=== PATIENT | female | born 1965 | race Caucasian/White ===

== ENCOUNTER 2020-09-18 13:59 | Outpatient (REF) | payer MEDICARE, OTHER, SELFPAY ==
[2020-09-18 16:40] LABS: MANUAL DIFF FLAG NO
[2020-09-18 16:45] LABS: Basophils Percent Auto 0.5 % (0-2); Eosinophils Absolute Auto 0.2 X10*3/uL (0.0-0.4); Eosinophils Percent Auto 2.7 % (0-4); Hematocrit 35.3 % (37-47); Hemoglobin 12.3 g/dl (12.0-16.0); Imm Gran Abs Auto 0.09 X10*3/uL (0.00-0.03); Imm Gran Pct Auto 1.6 % (0.0-0.4); Lymphocytes Absolute Auto 2.5 X10*3/uL (1.2-4.9); Lymphocytes Percent Auto 44.4 % (20-40); Mean Corpuscular HGB Conc 34.8 g/dl (31.0-35.0); Mean Corpuscular Hemoglobin 39.3 pg (27.0-33.0); Mean Platelet Volume 10.6 fL (9.4-12.3); Monocytes Absolute Auto 0.3 X10*3/uL (0.1-1.2); NRBC Pct Auto 0.7 /100WBC (0.0-0.2); Neutrophils Absolute Auto 2.5 X10*3/uL (2.0-8.3); Neutrophils Percent Auto 45.8 % (45-73); Platelet Count 168 X10*3/uL (160-400); Red Blood Count 3.13 X10*6/uL (4.20-5.50); Red Cell Distribution Width 15.1 % (11.0-16.0); White Blood Count 5.6 X10*3/uL (4.8-10.8)
[2020-09-18 16:53] LABS: Mean Corpuscular Volume 112.8 fL (80-98)
[2020-09-18 17:10] LABS: Alanine Aminotransferase 15 U/L (0-31); Albumin Level 4.2 g/dL (3.5-5.0); Alkaline Phosphatase 62 U/L (39-117); Aspartate Amino Transferase 16 U/L (5-31); Bilirubin Direct 0.3 mg/dL (0.0-0.5); Bilirubin Total 0.8 mg/dL (0.0-1.0); Total Protein 6.7 g/dL (6.5-8.0)
== END 2020-09-18 14:00 | disposition home or self-care (01) ==
LOC: HO.HMGCLDS 13:59
PROVIDERS: PCP Internal Medicine; Visit Provider Internal Medicine
DX: K50.113 Crohn's disease of large intestine with fistula (principal)
CPT/HCPCS: 36415; 80076; 85025

== ENCOUNTER 2020-09-21 13:08 | Outpatient (REF) | payer MEDICARE, OTHER, SELFPAY ==
--- NOTE | 2020-09-21 13:11 | MM_ITS ---
EXAMINATION: MM SCREENING DIGITAL BREAST TOMOSYNTHESIS, BILATERAL CLINICAL INFORMATION: Screening. Asymptomatic. The lifetime risk of breast cancer based on the Tyrer-Cuzick Model is 11%. COMPARISON: Mammography: 09/16/2019, 09/15/2018, 03/18/2018, 06/01/2017 TECHNIQUE: Digital breast tomosynthesis is performed in both the craniocaudal and mediolateral oblique views along with computer-aided detection (CAD). Synthesized 2D images are generated from the tomosynthesis. FINDINGS: There are scattered areas of fibroglandular density (ACR BI-RADS breast composition Category b). There are no significant masses, abnormal calcifications, or other abnormalities. Parenchymal pattern is similar to prior studies. The small circumscribed nodule central right breast is stable. Nodular densities posterior outer right breast on CC view also stable. The axilla and skin contours are unremarkable. MM/MM tomosynthesis screening BI IMPRESSION: No significant changes from prior studies. ASSESSMENT: BI-RADS 2: Benign RECOMMENDATION: Routine annual mammography screening. This patient's information was entered into a reminder system with a target due date for their next mammogram.
== END 2020-09-21 13:09 | disposition home or self-care (01) ==
LOC: HO.MAMMO 13:08
PROVIDERS: PCP Internal Medicine; Visit Provider Internal Medicine
DX: Z12.31 Encounter for screening mammogram for malignant neoplasm of breast (principal)
CPT/HCPCS: 77063; 77067

== ENCOUNTER 2020-09-27 11:48 | Outpatient (REF) | payer MEDICARE, OTHER, SELFPAY ==
[2020-09-27 14:29] LABS: Anion Gap 14 (12-20); Carbon Dioxide 25 mmol/L (22-29); Chloride 105 mmol/L (96-108); Potassium 4.3 mmol/l (3.3-5.1); Sodium 140 mmol/L (135-145)
== END 2020-09-27 11:49 | disposition home or self-care (01) ==
LOC: HO.HMGCLDS 11:48
PROVIDERS: PCP Internal Medicine; Visit Provider Internal Medicine
DX: E87.6 Hypokalemia (principal)
CPT/HCPCS: 80051

== ENCOUNTER 2021-01-16 13:49 | Outpatient (REF) | payer MEDICARE, OTHER, SELFPAY ==
[2021-01-16 16:29] LABS: MANUAL DIFF FLAG NO
[2021-01-16 16:35] LABS: Basophils Absolute Auto 0.1 X10*3/uL (0.0-0.2); Basophils Percent Auto 0.8 % (0-2); Eosinophils Absolute Auto 0.1 X10*3/uL (0.0-0.4); Eosinophils Percent Auto 2.2 % (0-4); Hematocrit 36.2 % (37-47); Hemoglobin 12.9 g/dl (12.0-16.0); Imm Gran Abs Auto 0.07 X10*3/uL (0.00-0.03); Imm Gran Pct Auto 1.1 % (0.0-0.4); Lymphocytes Absolute Auto 2.5 X10*3/uL (1.2-4.9); Lymphocytes Percent Auto 39.8 % (20-40); Mean Corpuscular HGB Conc 35.6 g/dl (31.0-35.0); Mean Corpuscular Hemoglobin 40.1 pg (27.0-33.0); Mean Platelet Volume 10.6 fL (9.4-12.3); Monocytes Absolute Auto 0.4 X10*3/uL (0.1-1.2); Monocytes Percent Auto 5.9 % (2-11); NRBC Pct Auto 0.3 /100WBC (0.0-0.2); Neutrophils Absolute Auto 3.1 X10*3/uL (2.0-8.3); Neutrophils Percent Auto 50.2 % (45-73); Platelet Count 171 X10*3/uL (160-400); Red Blood Count 3.22 X10*6/uL (4.20-5.50); Red Cell Distribution Width 15.3 % (11.0-16.0); White Blood Count 6.3 X10*3/uL (4.8-10.8)
[2021-01-16 16:44] LABS: Estimated Average Glucose 97 mg/dL
[2021-01-16 16:56] LABS: Alanine Aminotransferase 20 U/L (0-31); Albumin Level 4.1 g/dL (3.5-5.0); Alkaline Phosphatase 63 U/L (39-117); Aspartate Amino Transferase 19 U/L (5-31); Bilirubin Direct 0.3 mg/dL (0.0-0.5); Bilirubin Total 0.8 mg/dL (0.0-1.0); Total Protein 6.7 g/dL (6.5-8.0)
[2021-01-16 17:01] LABS: Mean Corpuscular Volume 112.4 fL (80-98)
== END 2021-01-16 13:50 | disposition home or self-care (01) ==
LOC: HO.HMGCLR 13:49
PROVIDERS: PCP Internal Medicine; Visit Provider Internal Medicine
DX: E11.9 Type 2 diabetes mellitus without complications (principal); K50.113 Crohn's disease of large intestine with fistula
CPT/HCPCS: 36415; 80076; 83036; 85025

== ENCOUNTER 2021-04-23 14:59 | Outpatient (REF) | payer MEDICARE, OTHER, SELFPAY ==
[2021-04-23 16:42] LABS: Basophils Absolute Auto 0.1 X10*3/uL (0.0-0.2); Basophils Percent Auto 0.6 % (0-2); Eosinophils Absolute Auto 0.2 X10*3/uL (0.0-0.4); Eosinophils Percent Auto 2.7 % (0-4); Hematocrit 36.9 % (37-47); Hemoglobin 13.2 g/dl (12.0-16.0); Imm Gran Abs Auto 0.16 X10*3/uL (0.00-0.03); Imm Gran Pct Auto 2.1 % (0.0-0.4); Lymphocytes Absolute Auto 2.5 X10*3/uL (1.2-4.9); Lymphocytes Percent Auto 32.3 % (20-40); Mean Corpuscular HGB Conc 35.8 g/dl (31.0-35.0); Mean Corpuscular Hemoglobin 39.9 pg (27.0-33.0); Mean Platelet Volume 10.2 fL (9.4-12.3); Monocytes Absolute Auto 0.4 X10*3/uL (0.1-1.2); Monocytes Percent Auto 4.7 % (2-11); NRBC Pct Auto 0.4 /100WBC (0.0-0.2); Neutrophils Absolute Auto 4.5 X10*3/uL (2.0-8.3); Neutrophils Percent Auto 57.6 % (45-73); Platelet Count 179 X10*3/uL (160-400); Red Blood Count 3.31 X10*6/uL (4.20-5.50); Red Cell Distribution Width 14.5 % (11.0-16.0); White Blood Count 7.7 X10*3/uL (4.8-10.8)
[2021-04-23 16:43] LABS: Mean Corpuscular Volume 111.5 fL (80-98)
[2021-04-23 16:45] LABS: MANUAL DIFF FLAG SCAN
[2021-04-23 16:48] LABS: Estimated Average Glucose 105 mg/dL; Hemoglobin A1c % 5.3 %
[2021-04-23 17:19] LABS: Alanine Aminotransferase 18 U/L (0-31); Albumin Level 4.1 g/dL (3.5-5.0); Alkaline Phosphatase 67 U/L (39-117); Aspartate Amino Transferase 17 U/L (5-31); Bilirubin Direct 0.3 mg/dL (0.0-0.5); Bilirubin Total 0.8 mg/dL (0.0-1.0); Total Protein 6.5 g/dL (6.5-8.0)
[2021-04-23 17:26] LABS: SLIDE REVIEW VERIFIED
== END 2021-04-23 15:00 | disposition home or self-care (01) ==
LOC: HO.HMGCLDS 14:59
PROVIDERS: PCP Internal Medicine; Visit Provider Internal Medicine
DX: K50.113 Crohn's disease of large intestine with fistula (principal); E11.9 Type 2 diabetes mellitus without complications; Z79.4 Long term (current) use of insulin
CPT/HCPCS: 36415; 80076; 83036; 85025

== ENCOUNTER 2021-07-24 12:28 | Outpatient (REF) | payer MEDICARE, OTHER, SELFPAY ==
[2021-07-24 14:04] LABS: MANUAL DIFF FLAG NO
[2021-07-24 14:11] LABS: Basophils Percent Auto 0.5 % (0-2); Eosinophils Absolute Auto 0.2 X10*3/uL (0.0-0.4); Hematocrit 35.3 % (37-47); Hemoglobin 12.5 g/dl (12.0-16.0); Imm Gran Abs Auto 0.12 X10*3/uL (0.00-0.03); Lymphocytes Absolute Auto 2.2 X10*3/uL (1.2-4.9); Lymphocytes Percent Auto 36.2 % (20-40); Mean Corpuscular HGB Conc 35.4 g/dl (31.0-35.0); Mean Corpuscular Hemoglobin 38.9 pg (27.0-33.0); Mean Platelet Volume 10.6 fL (9.4-12.3); Monocytes Absolute Auto 0.3 X10*3/uL (0.1-1.2); Monocytes Percent Auto 5.7 % (2-11); Neutrophils Absolute Auto 3.2 X10*3/uL (2.0-8.3); Neutrophils Percent Auto 52.6 % (45-73); Platelet Count 146 X10*3/uL (160-400); Red Blood Count 3.21 X10*6/uL (4.20-5.50)
[2021-07-24 14:22] LABS: Alanine Aminotransferase 21 U/L (0-31); Albumin Level 3.9 g/dL (3.5-5.0); Alkaline Phosphatase 57 U/L (39-117); Aspartate Amino Transferase 18 U/L (5-31); Bilirubin Direct 0.2 mg/dL (0.0-0.5); Bilirubin Total 0.7 mg/dL (0.0-1.0); Total Protein 6.2 g/dL (6.5-8.0)
[2021-07-24 14:25] LABS: Estimated Average Glucose 111 mg/dL; Hemoglobin A1c % 5.5 %
== END 2021-07-24 12:29 | disposition home or self-care (01) ==
LOC: HO.HMGCLDS 12:28
PROVIDERS: Internal Medicine; PCP Internal Medicine; Visit Provider Internal Medicine
DX: E11.9 Type 2 diabetes mellitus without complications (principal); K50.113 Crohn's disease of large intestine with fistula; Z79.4 Long term (current) use of insulin
CPT/HCPCS: 36415; 80076; 83036; 85025

== ENCOUNTER 2021-08-28 08:31 | Day surgery (SDC) | payer MEDICARE, OTHER, SELFPAY ==
[2021-08-23 14:26] VITALS: BMI 48.4
--- NOTE | 2021-08-27 08:57 | HO.ANESPROP2 ---
Documented by User: Marisela Pastor NP 08/27/21 08:58 HPI - Anesthesia Eval Consult details Narrative: 56yo F for Upper Endoscopy with Balloon Dilation and Colonoscopy PMFSH Past Medical History Medical History (Updated 08/28/21 @ 10:53 by Yuliya Ashley MD) Anemia Anxiety Asthma Bipolar 1 disorder COPD (chronic obstructive pulmonary disease) Crohn's disease Depression Diabetes Elevated cholesterol GERD (gastroesophageal reflux disease) Gout History of macrocytosis HTN (hypertension) Hx of abdominal abscess Surgical History Surgical History Hx of colonoscopy Hx of tonsillectomy Social History Social History Patient Tobacco Use Status: Former Tobacco user Quit Date: 2008 Are you DNR?: No Advance Directives: Yes Advance Directives Information Provided: Yes (info mailed) Advance Directives on File: Yes Advance Directives Date on File: 08/28/21 Meds Allergies Allergy/AdvReac Type Severity Reaction Status Date / Time amoxicillin [AMOXICILLIN] Allergy Intermediate BLOODY Verified 08/23/21 13:54 DIARRHEA clavulanic acid AdvReac Intermediate DIARRHEA Verified 08/23/21 13:54 [From AUGMENTIN] Pt states no food allergies Allergy Unknown Unknown Uncoded 08/23/21 13:54 Home Medications Medication Instructions Recorded Confirmed Last Taken Type albuterol sulfate 90 mcg/actuation 2 puff INHALATION Q4-6H PRN 08/23/21 08/23/21 Unknown History aerosol inhaler (ProAir HFA) allopurinol 300 mg tablet 1 tab PO DAILY 08/23/21 08/23/21 Unknown History azathioprine 50 mg tablet 1.5 tab PO DAILY 08/23/21 08/23/21 Unknown History ferrous sulfate 325 mg (65 mg 1 tab PO BID 08/23/21 08/23/21 Unknown History iron) tablet (FeroSul) fluconazole 150 mg tablet 1 tab PO DAILY 08/23/21 08/23/21 Unknown History fluticasone 250 mcg-salmeterol 50 1 puff INHALATION BID 08/23/21 08/23/21 Unknown History mcg/dose blistr powdr for inhalation (Advair Diskus) haloperidol 10 mg tablet 1 tab PO BEDTIME 08/23/21 08/23/21 Unknown History insulin glargine 100 unit/mL 54 unit SUBCUT BEDTIME 08/23/21 08/23/21 Unknown History subcutaneous solution (Lantus U-100 Insulin) insulin lispro 100 unit/mL SUBCUT QID 08/23/21 Unknown History subcutaneous solution (Humalog U-100 Insulin) lamotrigine 100 mg tablet 1 tab PO BEDTIME 08/23/21 08/23/21 Unknown History lorazepam 1 mg tablet mg PO 08/23/21 Unknown History losartan 25 mg tablet 1 tab PO BEDTIME 08/23/21 08/23/21 Unknown History mesalamine 0.375 gram 4 cap PO DAILY 08/23/21 08/23/21 Unknown History capsule,extended release 24 hr (Apriso) metoprolol succinate 25 mg 1 tab PO DAILY 08/23/21 08/23/21 08/28/21 History tablet,extended release 24 hr omeprazole 20 mg capsule,delayed 20 mg PO BEDTIME 08/23/21 08/23/21 Unknown History release simvastatin 20 mg tablet 1 tab PO DAILY 08/23/21 08/23/21 Unknown History trazodone 150 mg tablet 1 tab PO BEDTIME 08/23/21 08/23/21 Unknown History Exam Exam Date and Time: August 27, 2021 0857 Height,Weight and Vital Signs: Height 5 ft 2 in Weight 120.202 kg Assessment and Plan Assessment Anesthesia Assessment: Chart Reviewed Documented by User: Yuliya Ashley MD 08/28/21 10:58 [facility] Active Problems Active Problems: Morbid obesity. Tested negative for GHASSAN Past Medical History Medical History (Updated 08/28/21 @ 10:53 by Yuliya Ashley MD) Anemia Anxiety Asthma Bipolar 1 disorder COPD (chronic obstructive pulmonary disease) Crohn's disease Depression Diabetes Elevated cholesterol GERD (gastroesophageal reflux disease) Gout History of macrocytosis HTN (hypertension) Hx of abdominal abscess Family History Family history of problems with anesthesia: No Surgical History Surgical History Hx of colonoscopy Hx of tonsillectomy History of Problems with Anesthesia: No Social History Social History Patient Tobacco Use Status: Former Tobacco user Quit Date: 2008 Are you DNR?: No Advance Directives: Yes Advance Directives Information Provided: Yes (info mailed) Advance Directives on File: Yes Advance Directives Date on File: 08/28/21 Meds Allergies Allergy/AdvReac Type Severity Reaction Status Date / Time amoxicillin [AMOXICILLIN] Allergy Intermediate BLOODY Verified 08/23/21 13:54 DIARRHEA clavulanic acid AdvReac Intermediate DIARRHEA Verified 08/23/21 13:54 [From AUGMENTIN] Pt states no food allergies Allergy Unknown Unknown Uncoded 08/23/21 13:54 Home Medications Medication Instructions Recorded Confirmed Last Taken Type albuterol sulfate 90 mcg/actuation 2 puff INHALATION Q4-6H PRN 08/23/21 08/23/21 Unknown History aerosol inhaler (ProAir HFA) allopurinol 300 mg tablet 1 tab PO DAILY 08/23/21 08/23/21 Unknown History azathioprine 50 mg tablet 1.5 tab PO DAILY 08/23/21 08/23/21 Unknown History ferrous sulfate 325 mg (65 mg 1 tab PO BID 08/23/21 08/23/21 Unknown History iron) tablet (FeroSul) fluconazole 150 mg tablet 1 tab PO DAILY 08/23/21 08/23/21 Unknown History fluticasone 250 mcg-salmeterol 50 1 puff INHALATION BID 08/23/21 08/23/21 Unknown History mcg/dose blistr powdr for inhalation (Advair Diskus) haloperidol 10 mg tablet 1 tab PO BEDTIME 08/23/21 08/23/21 Unknown History insulin glargine 100 unit/mL 54 unit SUBCUT BEDTIME 08/23/21 08/23/21 Unknown History subcutaneous solution (Lantus U-100 Insulin) insulin lispro 100 unit/mL SUBCUT QID 08/23/21 Unknown History subcutaneous solution (Humalog U-100 Insulin) lamotrigine 100 mg tablet 1 tab PO BEDTIME 08/23/21 08/23/21 Unknown History lorazepam 1 mg tablet mg PO 08/23/21 Unknown History losartan 25 mg tablet 1 tab PO BEDTIME 08/23/21 08/23/21 Unknown History mesalamine 0.375 gram 4 cap PO DAILY 08/23/21 08/23/21 Unknown History capsule,extended release 24 hr (Apriso) metoprolol succinate 25 mg 1 tab PO DAILY 08/23/21 08/23/21 08/28/21 History tablet,extended release 24 hr omeprazole 20 mg capsule,delayed 20 mg PO BEDTIME 08/23/21 08/23/21 Unknown History release simvastatin 20 mg tablet 1 tab PO DAILY 08/23/21 08/23/21 Unknown History trazodone 150 mg tablet 1 tab PO BEDTIME 08/23/21 08/23/21 Unknown History Exam Height,Weight and Vital Signs: Height 5 ft 2 in Weight 120.202 kg Vital Signs Temp Pulse Resp BP Pulse Ox 08/28/21 08:56 98 F 81 18 147/83 H 97 Pertinent Lab Results Pertinent Lab Results: Lab Results 08/28/21 Range/Units 09:02 POC Glucose 163 H (60-115) mg/dL Airway Mallampati Class: III TM Dist: >3cm Neck ROM: Full Loose/Missing/Broken Teeth: Yes (Extracted) Heart: RRR Lungs: CTAB Assessment and Plan Assessment Anesthesia Assessment: Anesthesia Plan Discussed Final Anesthetic Review Family History of Problems with Anesthesia: No History of Problems with Anesthesia: No NPO: Yes ASA Class: III Final Preanesthetic Review: No Changes in Pt Med Stat, Meds/Allgs Chart Reviewed, Consent Obtained/Reviewed and Anes Risks/Benef Reviewed Patient Risk: Intermediate Procedure Risk: Low Assessment/Block/Sedation in SS: Assess/Block/Sedation-SS Anesthetic Plan Anesthetic Plan: MAC: Disposition: Standard PACU
[2021-08-28 08:56] VITALS: BP 147/83; PULSE 81; RESP 18; TEMP 36.6; O2SAT 97
[2021-08-28 09:06] LABS: Glucose, Whole Blood 163 mg/dL (60-115)
[2021-08-28] MEDS: Lactated Ringers 1,000 ML 100 ML IVCONT (09:20)
[2021-08-28 11:18] VITALS: BP 123/74; PULSE 88; RESP 16; TEMP 36.2; O2SAT 95
--- NOTE | 2021-08-28 11:23 | PM.OP ---
Brief Operative Note Date of Service: 08/28/21 Pre-op diagnosis: Dysphagia, Crohn's colitis Post-op diagnosis: other (Hiatal hernia, Colon pseudopolyps) Procedure: EGD with biopsy and Balloon dilation, Colonoscopy to cecum with biopsies Surgeon: Jose Juan Hare Anesthesia: MAC Was an Coiled Tubing Operator used for this Procedure?: No Estimated blood loss (mL): 5.0 Pathology: other (A. Esophagus at 25cm B. Cecal polyps C. Asc. colon D. Transverse colon E. Desc. colon F. Sigmoid colon G. Rectal polyps H. Rectum) Condition: stable Disposition: PACU
[2021-08-28 11:33] VITALS: BP 120/74; PULSE 88; RESP 20; TEMP 36.2; O2SAT 99
--- NOTE | 2021-08-28 19:12 | OP_ITS ---
SURGEON: Jose Juan Hare MD INDICATIONS: The patient presents for evaluation of gastroesophageal reflux, dysphagia, and history of Crohn's colitis. Full consent has been obtained from her for both procedures, including risks of bleeding and perforation. PREOPERATIVE DIAGNOSIS: POSTOPERATIVE DIAGNOSIS: PROCEDURE PERFORMED: Esophagogastroduodenoscopy with balloon dilation of gastroesophageal junction and biopsies, and colonoscopy to the cecum with biopsies. ESTIMATED BLOOD LOSS: COMPLICATIONS: ANESTHESIA: Monitored anesthesia care. ASSISTANTS: SPECIMENS: PREOPERATIVE DIAGNOSES: Gastroesophageal reflux, dysphagia, history of Crohn's colitis. POSTOPERATIVE DIAGNOSES: Gastroesophageal reflux, dysphagia, history of Crohn's colitis, small hiatal hernia, rule out eosinophilic esophagitis, colon pseudopolyps, rule out dysplasia. DESCRIPTION OF PROCEDURE: The patient was placed in the left lateral decubitus position. The Olympus video gastroscope was passed in the posterior oropharynx and upper esophagus under direct vision. The scope was passed slowly into the distal esophagus. The gastroesophageal junction appeared at 36 cm. There was no sign of any esophagitis, stricture, nor Naqvi's esophagus. The scope easily entered the stomach. There was a small hiatal hernia. The scope was advanced to pylorus and duodenum was cannulated to the descending portion. The duodenum including the bulb appeared normal without mass or ulceration. The scope was withdrawn back into the stomach. The gastric antrum and body appeared normal with good peristalsis. The scope was retroflexed visualizing the proximal stomach carefully, which appeared normal, without any sign of mass or ulceration. Scope was straightened out and withdrawn back into the esophagus. Given her symptomatology, I did use a [employer] incremental balloon to dilate the gastroesophageal junction from 18 mm to 19 mm at the recommended pressure for between 30 and 60 seconds each. Post dilation, there was really no appreciable change nor heme noted. The scope was withdrawn through the remainder of the esophagus which appeared normal. There were no proximal esophageal rings, strictures, nor webs. Biopsies were obtained at 25 cm. The scope was withdrawn from the patient. She was turned around for colonoscopy. The digital rectal exam revealed evidence of some scarring from previous perianal disease, but no sign of any active disease. The [employer] video pediatric colonoscope was entered into the rectum and advanced easily to the cecum. Once in the cecum, I did identify ileocecal valve, which appeared normal. In the cecal pouch, were multiple what appeared to be pseudopolyps. Several of these were biopsied. The remainder of the cecal mucosa appeared normal. The scope was then slowly withdrawn assessing all mucosal surfaces carefully. Preparation was excellent. I did not visualize any sign of active colitis nor angiodysplasia. I did obtain random biopsies in the ascending colon, transverse colon, descending colon, sigmoid colon, and rectum. Also in the rectum, were multiple appearing colonic pseudopolyps, several of which were biopsied. The scope was retroflexed visualizing some internal hemorrhoids, but no other pathology. The scope was straightened out and withdrawn from the patient. She tolerated both procedures well and was returned to recovery area in stable condition. IMPRESSION: 1. Colonic and rectal pseudopolyps, status post biopsy. 2. Rule out dysplasia. 3. Small hiatal hernia. 4. Status post balloon dilation of gastroesophageal junction. 5. Rule out eosinophilic esophagitis. PLAN: The results of the biopsies will be checked. She will continue her current medical regimen for the Crohn disease, which has been keeping things in symptomatic control for her. She was advised to stay off all aspirin and NSAIDs long-term. She will continue her current PPI regimen and see me in 2 to 3 months for a followup visit. I would recommend a repeat colonoscopy in 5 years. MD ALMA Kasper/ROSALINA / [phone]
== END 2021-08-28 12:25 | disposition home or self-care (01) ==
PROVIDERS: PCP Internal Medicine; Visit Provider Internal Medicine
PROC: (CPT 45380; principal; 2021-08-28 09:50)
DX: K50.10 Crohn's disease of large intestine without complications (principal); K63.5 Polyp of colon; K62.1 Rectal polyp; K62.89 Other specified diseases of anus and rectum; K64.8 Other hemorrhoids; R13.19 Other dysphagia; K20.90 Esophagitis, unspecified without bleeding; K21.9 Gastro-esophageal reflux disease without esophagitis; D64.9 Anemia, unspecified; I10 Essential (primary) hypertension; K44.9 Diaphragmatic hernia without obstruction or gangrene; J44.9 Chronic obstructive pulmonary disease, unspecified; E11.9 Type 2 diabetes mellitus without complications; Z79.4 Long term (current) use of insulin; Z79.51 Long term (current) use of inhaled steroids; Z79.899 Other long term (current) drug therapy; Z87.891 Personal history of nicotine dependence
CPT/HCPCS: 45380; 43249; 43239; 82947; 88305; C1726; J3010

== ENCOUNTER 2021-09-12 10:33 | Outpatient (REF) | payer MEDICARE, OTHER, SELFPAY ==
--- NOTE | ~2021-09-12 | FL_ITS ---
EXAMINATION: FL BARIUM SWALLOW CLINICAL INFORMATION: Esophageal dysphagia. COMPARISON: None TECHNIQUE: Barium swallow examination is performed using fluoroscopic evaluation in addition to multiple fluoroscopic spot views. The patient is imaged both upright and prone and using both thick and thin sulfate along with effervescent granules. Fluoroscopy time: 1.1 minutes DAP: 11.29 Gycm2 Images: 44 FINDINGS: Following oral administration of thick barium and barium-coated turkey there is normal propagation of bolus from the oral cavity through the pharynx, esophagus into stomach without obstruction, narrowing or stricture. There is mild ventral spondylosis C5-C6 disc level indenting posterior cervical esophageal wall. There is no intraluminal filling defect or extrinsic compression. On oral administration of barium tablet there is normal passage seen through the oral cavity, pharynx, esophagus and into the GE junction. After drinking half a glass of water of the tablet cleared through the GE junction into the stomach. FL/FL barium swallow IMPRESSION: Transient holdup of barium tablet at the GE junction which cleared with loss of water. Otherwise unremarkable barium swallow exam. There is mild ventral C5-C6 cervical spondylosis indenting posterior cervical esophageal wall during swallowing but no obstruction seen.
== END 2021-09-12 10:34 | disposition home or self-care (01) ==
LOC: HO.XRAY 10:33
PROVIDERS: PCP Internal Medicine; Visit Provider Internal Medicine
DX: R13.19 Other dysphagia (principal)
CPT/HCPCS: 74220

== ENCOUNTER 2021-10-23 11:29 | Outpatient (REF) | payer MEDICARE, OTHER, SELFPAY ==
[2021-10-23 14:06] LABS: MANUAL DIFF FLAG NO
[2021-10-23 14:09] LABS: Basophils Percent Auto 0.6 % (0-2); Eosinophils Absolute Auto 0.1 X10*3/uL (0.0-0.4); Eosinophils Percent Auto 1.8 % (0-4); Hemoglobin 13.1 g/dl (12.0-16.0); Imm Gran Abs Auto 0.09 X10*3/uL (0.00-0.03); Imm Gran Pct Auto 1.8 % (0.0-0.4); Lymphocytes Absolute Auto 2.1 X10*3/uL (1.2-4.9); Lymphocytes Percent Auto 41.6 % (20-40); Mean Corpuscular HGB Conc 35.4 g/dl (31.0-35.0); Mean Corpuscular Hemoglobin 40.1 pg (27.0-33.0); Mean Platelet Volume 10.3 fL (9.4-12.3); Monocytes Absolute Auto 0.4 X10*3/uL (0.1-1.2); Monocytes Percent Auto 7.3 % (2-11); NRBC Pct Auto 0.6 /100WBC (0.0-0.2); Neutrophils Absolute Auto 2.3 x10*3/uL (2.0-8.3); Neutrophils Percent Auto 46.9 % (45-73); Platelet Count 163 X10*3/uL (160-400); Red Blood Count 3.27 X10*6/uL (4.20-5.50); Red Cell Distribution Width 15.8 % (11.0-16.0); White Blood Count 4.9 X10*3/uL (4.8-10.8)
[2021-10-23 14:10] LABS: Mean Corpuscular Volume 113.1 fL (80.0-98.0)
[2021-10-23 14:20] LABS: Estimated Average Glucose 108 mg/dL; Hemoglobin A1c % 5.4 %
[2021-10-23 14:37] LABS: Alanine Aminotransferase 19 U/L (0-31); Alkaline Phosphatase 51 U/L (39-117); Aspartate Amino Transferase 15 U/L (5-31); Bilirubin Direct 0.3 mg/dL (0.0-0.5); Bilirubin Total 0.7 mg/dL (0.0-1.0); Total Protein 6.4 g/dL (6.5-8.0)
== END 2021-10-23 11:30 | disposition home or self-care (01) ==
LOC: HO.HMGCLR 11:29
PROVIDERS: Absent Provider Internal Medicine; PCP Internal Medicine; Visit Provider Internal Medicine
DX: K50.113 Crohn's disease of large intestine with fistula (principal)
CPT/HCPCS: 36415; 80076; 83036; 85025

== ENCOUNTER 2021-11-04 11:37 | Outpatient (REF) | payer MEDICARE, OTHER, SELFPAY ==
[2021-11-04 13:39] LABS: MANUAL DIFF FLAG NO
[2021-11-04 13:45] LABS: Basophils Percent Auto 0.5 % (0-2); Eosinophils Absolute Auto 0.1 X10*3/uL (0.0-0.4); Eosinophils Percent Auto 1.1 % (0-4); Hematocrit 37.8 % (37.0-47.0); Hemoglobin 13.4 g/dl (12.0-16.0); Imm Gran Abs Auto 0.09 X10*3/uL (0.00-0.03); Imm Gran Pct Auto 1.6 % (0.0-0.4); Lymphocytes Absolute Auto 2.2 X10*3/uL (1.2-4.9); Lymphocytes Percent Auto 39.2 % (20-40); Mean Corpuscular HGB Conc 35.4 g/dl (31.0-35.0); Mean Corpuscular Hemoglobin 40.1 pg (27.0-33.0); Mean Platelet Volume 10.4 fL (9.4-12.3); Monocytes Absolute Auto 0.4 X10*3/uL (0.1-1.2); Monocytes Percent Auto 6.6 % (2-11); Neutrophils Absolute Auto 2.9 x10*3/uL (2.0-8.3); Platelet Count 146 X10*3/uL (160-400); Red Blood Count 3.34 X10*6/uL (4.20-5.50); Red Cell Distribution Width 15.2 % (11.0-16.0); White Blood Count 5.6 X10*3/uL (4.8-10.8)
[2021-11-04 13:49] LABS: Mean Corpuscular Volume 113.2 fL (80.0-98.0)
[2021-11-04 14:08] LABS: Anion Gap 12 (12-20); Blood Urea Nitrogen 15 mg/dL (9-16); Carbon Dioxide 24 mmol/L (22-29); Chloride 108 mmol/L (96-108); Cholesterol 196 mg/dL; Estimated Glomerular Filt Rate > 60; Glucose Fasting 117 mg/dL (60-99); HDL Cholesterol 48 mg/dL; LDL Cholesterol Calculated 120 mg/dl; Potassium 3.9 mmol/L (3.3-5.1); Sodium 140 mmol/L (135-145); Triglycerides 144 mg/dL; Uric Acid 4.9 mg/dL (2.4-5.7)
[2021-11-04 14:29] LABS: Free T4 (Free Thyroxine) 1.07 ng/dL (0.71-1.85); Thyroid Stimulating Hormone 1.55 uIU/mL (0.32-4.0)
== END 2021-11-04 11:38 | disposition home or self-care (01) ==
LOC: HO.HMGCLDS 11:37
PROVIDERS: PCP Internal Medicine; Visit Provider Internal Medicine
DX: R53.83 Other fatigue (principal); E11.9 Type 2 diabetes mellitus without complications; M10.9 Gout, unspecified; E78.5 Hyperlipidemia, unspecified
CPT/HCPCS: 36415; 80051; 80061; 82565; 82947; 84439; 84443; 84520; 84550; 85025

== ENCOUNTER 2021-12-17 12:12 | Outpatient (REF) | payer MEDICARE, OTHER, SELFPAY ==
--- NOTE | ~2021-12-17 | MM_ITS ---
EXAMINATION: MM SCREENING DIGITAL BREAST TOMOSYNTHESIS, BILATERAL CLINICAL INFORMATION: Screening. Asymptomatic. The lifetime risk of breast cancer based on the Tyrer-Cuzick Model is 11%. COMPARISON: Mammography: 09/21/2020, 09/16/2019, 09/15/2018 TECHNIQUE: Digital breast tomosynthesis is performed in both the craniocaudal and mediolateral oblique views along with computer-aided detection (CAD). Synthesized 2D images are generated from the tomosynthesis. Additional right CC view is provided. FINDINGS: There are scattered areas of fibroglandular density (ACR BI-RADS breast composition Category b). There are no significant masses, abnormal calcifications, or other abnormalities. Parenchymal pattern is similar to prior studies. There is no developing density or architectural abnormality. The axilla and skin contours are unremarkable. No significant changes. MM/MM tomosynthesis screening BI IMPRESSION: No significant changes from prior exams. ASSESSMENT: BI-RADS 2: Benign RECOMMENDATION: Routine annual mammography screening. This patient's information was entered into a reminder system with a target due date for their next mammogram.
--- NOTE | ~2021-12-17 | MM_ITS ---
EXAMINATION: BONE DENSITOMETRY CLINICAL INDICATION: Postmenopausal. COMPARISON: None (current study represents initial baseline exam). TECHNIQUE: Using a [employer] DXA System (software version: 13.1) manufactured by [employer], dual-energy x-ray absorptiometry was performed of the lumbar spine and left hip. The images are of good technical quality. Summary results are attached. FINDINGS: AP SPINE L1-L4: BMD 1.199 g/cm2, Z-score -0.2, T-score 0.2, normal. LEFT FEMUR, NECK: BMD 0.795 g/cm2, Z-score -1.5, T-score -1.7, osteopenia. LEFT FEMUR, TOTAL: BMD 0.878 g/cm2, Z-score -1.2, T-score -1.0, normal. IDENTIFIED RISK FACTORS: Low calcium intake, secondary osteoporosis, menopause. HISTORY OF FRACTURE: None listed. MEDICATIONS: None listed. MM/XR DEXA axial skeleton IMPRESSION: 1. DIAGNOSIS: Osteopenia based on the lowest T-score value of -1.7 in the femoral neck applying World Health Organization criteria. 2. 10-YEAR FRACTURE RISK PREDICTION, FRAX: Major osteoporotic fracture (clinical spine, forearm, hip or shoulder) 5.8%. Hip fracture 0.5%. 3. Treatment Recommendations: NOF guidelines recommend consideration for treatment in postmenopausal women and men age 50 and older presenting with the following: -A hip or vertebral (clinical or morphometric) fracture. -T-score less than or equal to -2.5 at the femoral neck or spine after appropriate evaluation to exclude secondary causes. -Low bone mass at the hip or spine and a 10-year fracture probability by FRAX of greater than or equal to 3% for hip fracture or greater than or equal to 20% for major osteoporotic fracture based on the [place] adapted WHO algorithm. 4. Other Recommendations: All treatment decisions require clinical judgment and consideration of individual patient factors, including patient preferences, comorbidities, previous drug use, risk factors not captured in the FRAX model (e.g. frailty, falls, vitamin D deficiency, increased bone turnover, interval significant decline in bone density) and possible under or overestimation of fracture risk by FRAX. Additional medical evaluation for secondary cause of low bone mineral density may be appropriate. FUTURE SCAN RECOMMENDATION: People with diagnosed cases of osteoporosis or at high risk for fracture should have regular bone mineral density tests. For patients eligible for Medicare, routine testing is allowed once every 2 years. The testing frequency can be increased to one year for patients who have rapidly progressing disease, those who are receiving or discontinuing medical therapy to restore bone mass, or have additional risk factors.
== END 2021-12-17 12:13 | disposition home or self-care (01) ==
LOC: HO.MAMMO 12:12
PROVIDERS: PCP Internal Medicine; Visit Provider Internal Medicine
DX: Z12.31 Encounter for screening mammogram for malignant neoplasm of breast (principal); Z13.820 Encounter for screening for osteoporosis; M85.80 Other specified disorders of bone density and structure, unspecified site; Z78.0 Asymptomatic menopausal state
CPT/HCPCS: 77063; 77067; 77080

== ENCOUNTER 2022-01-21 13:03 | Outpatient (REF) | payer MEDICARE, OTHER, SELFPAY ==
[2022-01-21 14:02] LABS: MANUAL DIFF FLAG NO
[2022-01-21 14:11] LABS: Basophils Percent Auto 0.4 % (0-2); Eosinophils Absolute Auto 0.1 X10*3/uL (0.0-0.4); Eosinophils Percent Auto 1.7 % (0-4); Hematocrit 35.3 % (37.0-47.0); Hemoglobin 12.5 g/dl (12.0-16.0); Imm Gran Abs Auto 0.06 X10*3/uL (0.00-0.03); Imm Gran Pct Auto 1.3 % (0.0-0.4); Lymphocytes Percent Auto 43.3 % (20-40); Mean Corpuscular HGB Conc 35.4 g/dl (31.0-35.0); Mean Corpuscular Hemoglobin 39.2 pg (27.0-33.0); Mean Platelet Volume 10.2 fL (9.4-12.3); Monocytes Absolute Auto 0.2 X10*3/uL (0.1-1.2); Monocytes Percent Auto 4.7 % (2-11); NRBC Pct Auto 0.4 /100WBC (0.0-0.2); Neutrophils Absolute Auto 2.3 x10*3/uL (2.0-8.3); Neutrophils Percent Auto 48.6 % (45-73); Platelet Count 191 X10*3/uL (160-400); Red Blood Count 3.19 X10*6/uL (4.20-5.50); Red Cell Distribution Width 15.4 % (11.0-16.0); White Blood Count 4.6 X10*3/uL (4.8-10.8)
[2022-01-21 14:13] LABS: Mean Corpuscular Volume 110.7 fL (80.0-98.0)
[2022-01-21 14:18] LABS: Estimated Average Glucose 94 mg/dL; Hemoglobin A1c % 4.9 %
[2022-01-21 15:10] LABS: Anion Gap 13 (12-20); Blood Urea Nitrogen 13 mg/dL (9-16); Carbon Dioxide 22 mmol/L (22-29); Chloride 104 mmol/L (96-108); Cholesterol 139 mg/dL; Estimated Glomerular Filt Rate > 60; Glucose Fasting 209 mg/dL (60-99); HDL Cholesterol 33 mg/dL; LDL Cholesterol Calculated 58 mg/dl; Potassium 3.9 mmol/L (3.3-5.1); Sodium 135 mmol/L (135-145); Triglycerides 240 mg/dL; Uric Acid 4.2 mg/dL (2.4-5.7)
[2022-01-21 15:13] LABS: Alanine Aminotransferase 16 U/L (0-31); Albumin Level 4.1 g/dL (3.5-5.0); Alkaline Phosphatase 56 U/L (39-117); Aspartate Amino Transferase 17 U/L (5-31); Bilirubin Direct 0.4 mg/dL (0.0-0.5); Total Protein 6.2 g/dL (6.5-8.0)
== END 2022-01-21 13:04 | disposition home or self-care (01) ==
LOC: HO.HMGCLDS 13:03
PROVIDERS: PCP Internal Medicine; Visit Provider Internal Medicine
DX: K50.113 Crohn's disease of large intestine with fistula (principal); R53.83 Other fatigue; E11.9 Type 2 diabetes mellitus without complications; Z79.4 Long term (current) use of insulin; M10.9 Gout, unspecified; E78.5 Hyperlipidemia, unspecified
CPT/HCPCS: 36415; 80051; 80061; 80076; 82565; 82947; 83036; 84520; 84550; 85025

== ENCOUNTER 2022-04-23 08:23 | Outpatient (REF) | payer MEDICARE, OTHER, SELFPAY ==
[2022-04-23 11:37] LABS: Estimated Average Glucose 114 mg/dL; Hemoglobin A1c % 5.6 %
[2022-04-23 12:15] LABS: Cholesterol 183 mg/dL; HDL Cholesterol 49 mg/dL; LDL Cholesterol Calculated 84 mg/dl; Triglycerides 253 mg/dL
[2022-04-24 12:37] LABS: Alanine Aminotransferase 15 U/L (0-31); Alkaline Phosphatase 57 U/L (39-117); Aspartate Amino Transferase 11 U/L (5-31); Bilirubin Direct 0.2 mg/dL (0.0-0.5); Bilirubin Total 0.4 mg/dL (0.0-1.0); Total Protein 6.4 g/dL (6.5-8.0)
== END 2022-04-23 08:24 | disposition home or self-care (01) ==
LOC: HO.HMGCLDS 08:23
PROVIDERS: PCP Internal Medicine; Visit Provider Internal Medicine
DX: E11.9 Type 2 diabetes mellitus without complications (principal); Z79.4 Long term (current) use of insulin; E78.00 Pure hypercholesterolemia, unspecified
CPT/HCPCS: 36415; 80061; 80076; 83036

== ENCOUNTER 2022-04-28 14:58 | Outpatient (REF) | payer MEDICARE, OTHER, SELFPAY ==
[2022-04-28 16:21] LABS: MANUAL DIFF FLAG NO
[2022-04-28 16:27] LABS: Basophils Percent Auto 0.5 % (0-2); Eosinophils Absolute Auto 0.1 X10*3/uL (0.0-0.4); Hematocrit 37.4 % (37.0-47.0); Hemoglobin 13.1 g/dl (12.0-16.0); Imm Gran Abs Auto 0.07 X10*3/uL (0.00-0.03); Imm Gran Pct Auto 1.2 % (0.0-0.4); Lymphocytes Absolute Auto 2.3 X10*3/uL (1.2-4.9); Lymphocytes Percent Auto 39.4 % (20-40); Mean Corpuscular Hemoglobin 39.3 pg (27.0-33.0); Mean Platelet Volume 9.8 fL (9.4-12.3); Monocytes Absolute Auto 0.4 X10*3/uL (0.1-1.2); Neutrophils Percent Auto 50.9 % (45-73); Platelet Count 201 X10*3/uL (160-400); Red Blood Count 3.33 X10*6/uL (4.20-5.50); Red Cell Distribution Width 14.5 % (11.0-16.0); White Blood Count 5.9 X10*3/uL (4.8-10.8)
[2022-04-28 16:30] LABS: Mean Corpuscular Volume 112.3 fL (80.0-98.0)
[2022-04-28 16:51] LABS: Alanine Aminotransferase 18 U/L (0-31); Alkaline Phosphatase 57 U/L (39-117); Aspartate Amino Transferase 13 U/L (5-31); Bilirubin Direct 0.2 mg/dL (0.0-0.5); Bilirubin Total 0.5 mg/dL (0.0-1.0); Total Protein 6.3 g/dL (6.5-8.0)
== END 2022-04-28 14:59 | disposition home or self-care (01) ==
LOC: HO.LABR 14:58
PROVIDERS: PCP Internal Medicine; Visit Provider Internal Medicine
DX: K50.113 Crohn's disease of large intestine with fistula (principal); K50.10 Crohn's disease of large intestine without complications
CPT/HCPCS: 36415; 80076; 85025

== ENCOUNTER 2022-05-01 11:40 | Outpatient (REF) | payer MEDICARE, OTHER, SELFPAY ==
--- NOTE | ~2022-05-01 | XR_ITS ---
EXAMINATION: XR CERVICAL SPINE CLINICAL INFORMATION: Left-sided neck pain. COMPARISON: MR cervical spine dated from 06/24/2017. TECHNIQUE: 3 views of the cervical spine were obtained. FINDINGS: Limited evaluation of C7 on T1 due to shadowing from the shoulders. No acute compression deformity or malalignment. Redemonstration of predominantly mid to lower cervical spine spondylosis. No paravertebral soft tissue thickening. Image lung apices are clear. XR/XR cervical spine 3V IMPRESSION: Limited examination of the lower cervical spine secondary to shadowing from the patient's shoulders. Accounting for the limitations, no discrete acute compression deformity or malalignment of the cervical spine is identified. Mid to lower cervical spine spondylosis. Recommend correlation with an MR of the cervical spine if there is clinical concern for nerve root impingement or canal narrowing.
== END 2022-05-01 11:41 | disposition home or self-care (01) ==
LOC: HO.HMGCX 11:40
PROVIDERS: PCP Internal Medicine; Visit Provider Internal Medicine
DX: M54.2 Cervicalgia (principal)
CPT/HCPCS: 72040

== ENCOUNTER 2022-05-12 11:06 | Outpatient (REF) | payer MEDICARE, OTHER, SELFPAY ==
--- NOTE | ~2022-05-12 | MR_ITS ---
EXAMINATION: MR CERVICAL SPINE WITHOUT CONTRAST CLINICAL INFORMATION: 57-year-old with complaints of left-sided neck pain radiating to the left ear. Cervical radiculopathy. Evaluate for nerve impingement. COMPARISON: None TECHNIQUE: MRI of the cervical spine was obtained using routine sequences without contrast. Images are somewhat degraded due to large body habitus and motion artifact. FINDINGS: Alignment: The cervical spine is anatomically aligned. No spondylolisthesis. Craniocervical Junction/C1-C2 Articulations: Trace retrolisthesis at the left C1-C2 facet joint which is likely positional. The atlantooccipital joints are intact and aligned. Visualized Intracranial Structures: Within normal limits. Vertebral Bodies: Slight chronic loss of height of the C6 and C7 vertebral bodies. Otherwise vertebral body heights are well maintained. Disc Spaces and Endplates: Oqni-bg-[id number] disc space height loss noted at C5-C6 and C6-C7 with minor spondylosis at these levels. Schmorl's nodes are noted at C6-C7 and C5-C6 and at C4-C5. Bone Marrow: Minor type I degenerative marrow signal changes along the superior endplate of C7 with type II signal changes as well. No suspicious marrow replacing process. C2-C3: No disc herniation or canal stenosis. No significant DJD or neuroforaminal stenosis. C3-C4: Minimal central disc protrusion noted with slight indentation of the ventral thecal sac without cord impingement or canal stenosis. Mild facet arthropathy noted without significant neural foraminal stenosis. C4-C5: Mild broad-based disc protrusion, with flattening of the ventral dural sac without cord impingement or canal stenosis. No significant DJD or neuroforaminal stenosis. C5-C6: Broad-based disc osteophyte complex, with effacement of the ventral dural sac abutting the ventral aspect of the spinal cord on the right with mild ventral cord deformity and mild spinal canal stenosis. Uncovertebral spurring is noted bilaterally with minor facet arthrosis and [id number] neural foraminal stenosis left more than right. C6-C7: Broad-based disc osteophyte complex noted with effacement of the ventral dural sac asymmetric to the left with mild ventral cord deformity/impingement asymmetric to the left with ligamentum flavum thickening and sptl-zi-xvjcxulz spinal canal stenosis. There is uncovertebral spurring bilaterally and mild facet arthropathy with mild right-sided and moderate left-sided neural foraminal stenosis. There is left lateral recess stenosis as well. C7-T1: Broad-based disc protrusion noted with flattening of the ventral dural sac without cord impingement. Ligamentum flavum thickening noted with mild spinal canal stenosis. There is uncovertebral spurring on the left and mild facet arthropathy, with mild left-sided neural foraminal stenosis. Spinal Cord: The cervical and visualized upper thoracic spinal cord is normal in morphology, caliber and signal intensity throughout within the limitations of the exam. Extracranial Soft Tissues: Limited assessment. Grossly unremarkable. MR/MR cervical spine wo con IMPRESSION: 1. Multilevel discogenic degenerative changes, primarily at C5-C6 and C6-C7, with disc osteophyte complexes and disc herniations, as described above, with suspicion for telf-ar-okbcywjl spinal canal stenosis at C6-C7 with mild left-sided ventral cord impingement at this level, mild ventral cord impingement and mild spinal canal stenosis at C5-C6 and mild spinal canal stenosis at C7-T1. 2. Minor broad-based disc protrusion at C4-C5 and tiny central disc protrusion C3-C4 without cord impingement. 3. Predominantly vbkj-qz-vtsswnii degrees of DJD with moderate left and mild right-sided neural foraminal stenosis at C5-C6, moderate left-sided and mild right-sided neural foraminal stenosis at C6-C7 and mild left-sided neural foraminal stenosis at C7-T1. 4. Some limitations related to body habitus.
== END 2022-05-12 11:07 | disposition home or self-care (01) ==
LOC: HO.MRI 11:06
PROVIDERS: Visit Provider Internal Medicine
DX: M47.812 Spondylosis without myelopathy or radiculopathy, cervical region (principal)
CPT/HCPCS: 72141

== ENCOUNTER 2022-07-24 11:21 | Outpatient (REF) | payer MEDICARE, OTHER, SELFPAY ==
[2022-07-24 14:04] LABS: MANUAL DIFF FLAG NO
[2022-07-24 14:13] LABS: Basophils Percent Auto 0.6 % (0-2); Eosinophils Absolute Auto 0.2 X10*3/uL (0.0-0.4); Eosinophils Percent Auto 3.5 % (0-4); Hematocrit 33.2 % (37.0-47.0); Hemoglobin 11.9 g/dl (12.0-16.0); Imm Gran Abs Auto 0.06 X10*3/uL (0.00-0.03); Imm Gran Pct Auto 1.2 % (0.0-0.4); Lymphocytes Absolute Auto 2.1 X10*3/uL (1.2-4.9); Lymphocytes Percent Auto 43.1 % (20-40); Mean Corpuscular HGB Conc 35.8 g/dl (31.0-35.0); Mean Corpuscular Hemoglobin 40.9 pg (27.0-33.0); Mean Platelet Volume 10.5 fL (9.4-12.3); Monocytes Absolute Auto 0.2 X10*3/uL (0.1-1.2); Neutrophils Absolute Auto 2.3 x10*3/uL (2.0-8.3); Neutrophils Percent Auto 46.6 % (45-73); Platelet Count 169 X10*3/uL (160-400); Red Blood Count 2.91 X10*6/uL (4.20-5.50); Red Cell Distribution Width 15.5 % (11.0-16.0); White Blood Count 4.8 X10*3/uL (4.8-10.8)
[2022-07-24 14:16] LABS: Mean Corpuscular Volume 114.1 fL (80.0-98.0)
[2022-07-24 14:24] LABS: Estimated Average Glucose 114 mg/dL; Hemoglobin A1c % 5.6 %
[2022-07-24 14:27] LABS: Alanine Aminotransferase 19 U/L (0-31); Albumin Level 4.2 g/dL (3.5-5.0); Alkaline Phosphatase 55 U/L (39-117); Aspartate Amino Transferase 19 U/L (5-31); Bilirubin Direct 0.3 mg/dL (0.0-0.5); Bilirubin Total 0.8 mg/dL (0.0-1.0); Total Protein 6.4 g/dL (6.5-8.0)
[2022-07-24 14:38] LABS: Cholesterol 175 mg/dL; HDL Cholesterol 37 mg/dL; LDL Cholesterol Calculated 73 mg/dl; Triglycerides 327 mg/dL
[2022-07-24 14:48] LABS: Vitamin D 25-OH Total 14.7 ng/mL (>30)
== END 2022-07-24 11:22 | disposition home or self-care (01) ==
LOC: HO.HMGCLDS 11:21
PROVIDERS: Absent Provider Internal Medicine; PCP Internal Medicine; Visit Provider Internal Medicine
DX: R53.83 Other fatigue (principal); E11.9 Type 2 diabetes mellitus without complications; Z79.4 Long term (current) use of insulin; K50.113 Crohn's disease of large intestine with fistula; K50.10 Crohn's disease of large intestine without complications
CPT/HCPCS: 36415; 80061; 80076; 82306; 83036; 85025

== ENCOUNTER 2022-08-25 13:57 | Outpatient (REF) | payer MEDICARE, OTHER, SELFPAY ==
[2022-08-25 16:37] LABS: MANUAL DIFF FLAG NO
[2022-08-25 16:44] LABS: Eosinophils Absolute Auto 0.1 X10*3/uL (0.0-0.4); Eosinophils Percent Auto 2.9 % (0-4); Hematocrit 33.6 % (37.0-47.0); Hemoglobin 11.7 g/dl (12.0-16.0); Imm Gran Abs Auto 0.07 X10*3/uL (0.00-0.03); Imm Gran Pct Auto 1.7 % (0.0-0.4); Lymphocytes Absolute Auto 1.7 X10*3/uL (1.2-4.9); Lymphocytes Percent Auto 39.4 % (20-40); Mean Corpuscular HGB Conc 34.8 g/dl (31.0-35.0); Mean Corpuscular Hemoglobin 40.2 pg (27.0-33.0); Monocytes Absolute Auto 0.3 X10*3/uL (0.1-1.2); Monocytes Percent Auto 6.7 % (2-11); NRBC Pct Auto 0.7 /100WBC (0.0-0.2); Neutrophils Percent Auto 48.3 % (45-73); Platelet Count 161 X10*3/uL (160-400); Red Blood Count 2.91 X10*6/uL (4.20-5.50); Red Cell Distribution Width 16.4 % (11.0-16.0); White Blood Count 4.2 X10*3/uL (4.8-10.8)
[2022-08-25 16:46] LABS: Mean Corpuscular Volume 115.5 fL (80.0-98.0)
[2022-08-25 17:06] LABS: Alanine Aminotransferase 18 U/L (0-31); Albumin Level 4.2 g/dL (3.5-5.0); Alkaline Phosphatase 53 U/L (39-117); Aspartate Amino Transferase 17 U/L (5-31); Bilirubin Direct 0.3 mg/dL (0.0-0.5); Bilirubin Total 0.7 mg/dL (0.0-1.0); Total Protein 6.3 g/dL (6.5-8.0)
== END 2022-08-25 13:58 | disposition home or self-care (01) ==
LOC: HO.HMGCLR 13:57
PROVIDERS: PCP Internal Medicine; Visit Provider Internal Medicine
DX: K50.113 Crohn's disease of large intestine with fistula (principal); K50.10 Crohn's disease of large intestine without complications
CPT/HCPCS: 36415; 80076; 85025

== ENCOUNTER 2022-10-23 10:02 | Outpatient (REF) | payer MEDICARE, OTHER, SELFPAY ==
[2022-10-23 11:08] LABS: MANUAL DIFF FLAG NO
[2022-10-23 11:24] LABS: Basophils Absolute Auto 0.1 X10*3/uL (0.0-0.2); Basophils Percent Auto 1.1 % (0-2); Eosinophils Absolute Auto 0.2 X10*3/uL (0.0-0.4); Hematocrit 31.9 % (37.0-47.0); Hemoglobin 11.3 g/dl (12.0-16.0); Imm Gran Abs Auto 0.11 X10*3/uL (0.00-0.03); Imm Gran Pct Auto 2.4 % (0.0-0.4); Lymphocytes Absolute Auto 1.8 X10*3/uL (1.2-4.9); Lymphocytes Percent Auto 40.4 % (20-40); Mean Corpuscular HGB Conc 35.4 g/dl (31.0-35.0); Mean Corpuscular Hemoglobin 40.2 pg (27.0-33.0); Mean Platelet Volume 10.1 fL (9.4-12.3); Monocytes Absolute Auto 0.3 X10*3/uL (0.1-1.2); Monocytes Percent Auto 6.4 % (2-11); NRBC Pct Auto 0.7 /100WBC (0.0-0.2); Neutrophils Percent Auto 44.7 % (45-73); Platelet Count 159 X10*3/uL (160-400); Red Blood Count 2.81 X10*6/uL (4.20-5.50); Red Cell Distribution Width 15.8 % (11.0-16.0); White Blood Count 4.6 X10*3/uL (4.8-10.8)
[2022-10-23 11:26] LABS: Mean Corpuscular Volume 113.5 fL (80.0-98.0)
[2022-10-23 12:09] LABS: Estimated Average Glucose 111 mg/dL; Hemoglobin A1c % 5.5 %
[2022-10-23 12:31] LABS: Alanine Aminotransferase 18 U/L (0-31); Alkaline Phosphatase 56 U/L (39-117); Anion Gap 10 (12-20); Aspartate Amino Transferase 16 U/L (5-31); Bilirubin Direct 0.2 mg/dL (0.0-0.5); Bilirubin Total 0.7 mg/dL (0.0-1.0); Blood Urea Nitrogen 19 mg/dL (9-16); Carbon Dioxide 23 mmol/L (22-29); Chloride 106 mmol/L (96-108); Cholesterol 161 mg/dL; Glucose Fasting 156 mg/dL (60-99); HDL Cholesterol 36 mg/dL; LDL Cholesterol Calculated 76 mg/dl; Potassium 4.2 mmol/L (3.3-5.1); Sodium 135 mmol/L (135-145); Total Protein 5.9 g/dL (6.5-8.0); Triglycerides 245 mg/dL
[2022-10-24 17:20] LABS: Estimated Glomerular Filt Rate > 60
== END 2022-10-23 10:03 | disposition home or self-care (01) ==
LOC: HO.HMGCLR 10:02
PROVIDERS: Absent Provider Internal Medicine; PCP Internal Medicine; Visit Provider Internal Medicine
DX: R53.83 Other fatigue (principal); E11.9 Type 2 diabetes mellitus without complications; E78.5 Hyperlipidemia, unspecified; K50.113 Crohn's disease of large intestine with fistula; Z79.4 Long term (current) use of insulin
CPT/HCPCS: 36415; 80051; 80061; 80076; 82565; 82947; 83036; 84520; 85025

== ENCOUNTER 2023-01-23 09:18 | Outpatient (REF) | payer MEDICARE, OTHER, SELFPAY ==
[2023-01-23 11:28] LABS: MANUAL DIFF FLAG NO
[2023-01-23 11:31] LABS: Basophils Percent Auto 0.6 % (0-2); Eosinophils Absolute Auto 0.1 X10*3/uL (0.0-0.4); Eosinophils Percent Auto 2.7 % (0-4); Hematocrit 35.1 % (37.0-47.0); Hemoglobin 12.5 g/dl (12.0-16.0); Imm Gran Abs Auto 0.06 X10*3/uL (0.00-0.03); Imm Gran Pct Auto 1.2 % (0.0-0.4); Lymphocytes Percent Auto 40.6 % (20-40); Mean Corpuscular HGB Conc 35.6 g/dl (31.0-35.0); Mean Corpuscular Hemoglobin 40.5 pg (27.0-33.0); Mean Platelet Volume 10.6 fL (9.4-12.3); Monocytes Absolute Auto 0.3 X10*3/uL (0.1-1.2); Monocytes Percent Auto 6.4 % (2-11); NRBC Pct Auto 0.4 /100WBC (0.0-0.2); Neutrophils Absolute Auto 2.3 x10*3/uL (2.0-8.3); Neutrophils Percent Auto 48.5 % (45-73); Platelet Count 178 X10*3/uL (160-400); Red Blood Count 3.09 X10*6/uL (4.20-5.50); Red Cell Distribution Width 15.4 % (11.0-16.0); White Blood Count 4.8 X10*3/uL (4.8-10.8)
[2023-01-23 11:39] LABS: Mean Corpuscular Volume 113.6 fL (80.0-98.0)
[2023-01-23 11:59] LABS: Estimated Average Glucose 123 mg/dL; Hemoglobin A1C 133.4047 umol/L; Hemoglobin A1c % 5.9 %
[2023-01-23 12:10] LABS: Alanine Aminotransferase 21 U/L (0-31); Alkaline Phosphatase 59 U/L (39-117); Aspartate Amino Transferase 30 U/L (5-31); Bilirubin Direct 0.2 mg/dL (0.0-0.5)
== END 2023-01-23 09:19 | disposition home or self-care (01) ==
LOC: HO.HMGCLDS 09:18
PROVIDERS: Absent Provider Internal Medicine; PCP Internal Medicine; Visit Provider Internal Medicine
DX: K50.113 Crohn's disease of large intestine with fistula (principal); K50.10 Crohn's disease of large intestine without complications; E11.9 Type 2 diabetes mellitus without complications
CPT/HCPCS: 36415; 80076; 83036; 85025

== ENCOUNTER 2023-03-26 11:24 | Outpatient (REF) | payer MEDICARE, MEDICAID, SELFPAY ==
[2023-03-26 14:12] LABS: MANUAL DIFF FLAG NO
[2023-03-26 14:22] LABS: Basophils Percent Auto 0.6 % (0-2); Eosinophils Absolute Auto 0.1 X10*3/uL (0.0-0.4); Eosinophils Percent Auto 1.9 % (0-4); Hematocrit 36.2 % (37.0-47.0); Hemoglobin 12.9 g/dl (12.0-16.0); Imm Gran Abs Auto 0.12 X10*3/uL (0.00-0.03); Imm Gran Pct Auto 1.9 % (0.0-0.4); Lymphocytes Absolute Auto 1.9 X10*3/uL (1.2-4.9); Lymphocytes Percent Auto 29.6 % (20-40); Mean Corpuscular HGB Conc 35.6 g/dl (31.0-35.0); Mean Corpuscular Hemoglobin 40.3 pg (27.0-33.0); Mean Platelet Volume 10.9 fL (9.4-12.3); Monocytes Absolute Auto 0.4 X10*3/uL (0.1-1.2); Monocytes Percent Auto 6.6 % (2-11); NRBC Pct Auto 0.3 /100WBC (0.0-0.2); Neutrophils Absolute Auto 3.8 x10*3/uL (2.0-8.3); Neutrophils Percent Auto 59.4 % (45-73); Platelet Count 156 X10*3/uL (160-400); White Blood Count 6.4 X10*3/uL (4.8-10.8)
[2023-03-26 14:25] LABS: Mean Corpuscular Volume 113.1 fL (80.0-98.0)
[2023-03-26 15:20] LABS: Alanine Aminotransferase 15 U/L (0-31); Albumin Level 4.4 g/dL (3.5-5.0); Alkaline Phosphatase 55 U/L (39-117); Aspartate Amino Transferase 17 U/L (5-31); Bilirubin Direct 0.2 mg/dL (0.0-0.5); Bilirubin Total 0.8 mg/dL (0.0-1.0); Total Protein 6.5 g/dL (6.5-8.0)
== END 2023-03-26 11:25 | disposition home or self-care (01) ==
LOC: HO.HMGCLR 11:24
PROVIDERS: PCP Internal Medicine; Visit Provider Internal Medicine
DX: K50.113 Crohn's disease of large intestine with fistula (principal)
CPT/HCPCS: 36415; 80076; 85025

== ENCOUNTER 2023-05-01 14:02 | Outpatient (REF) | payer MEDICARE, MEDICAID, SELFPAY ==
[2023-05-01 16:25] LABS: Estimated Average Glucose 128 mg/dL; Hemoglobin A1c % 6.1 %
== END 2023-05-01 14:03 | disposition home or self-care (01) ==
LOC: HO.HMGCLDS 14:02
PROVIDERS: PCP Internal Medicine; Visit Provider Internal Medicine
DX: E11.9 Type 2 diabetes mellitus without complications (principal)
CPT/HCPCS: 36415; 83036

== ENCOUNTER 2023-05-14 09:32 | Outpatient (REF) | payer MEDICARE, MEDICAID, SELFPAY ==
[2023-05-14 11:16] LABS: MANUAL DIFF FLAG NO
[2023-05-14 11:25] LABS: Basophils Absolute Auto 0.1 X10*3/uL (0.0-0.2); Basophils Percent Auto 0.9 % (0-2); Eosinophils Absolute Auto 0.2 X10*3/uL (0.0-0.4); Eosinophils Percent Auto 3.7 % (0-4); Hematocrit 33.8 % (37.0-47.0); Hemoglobin 12.2 g/dl (12.0-16.0); Imm Gran Abs Auto 0.09 X10*3/uL (0.00-0.03); Imm Gran Pct Auto 1.5 % (0.0-0.4); Lymphocytes Absolute Auto 2.5 X10*3/uL (1.2-4.9); Lymphocytes Percent Auto 41.9 % (20-40); Mean Corpuscular HGB Conc 36.1 g/dl (31.0-35.0); Mean Corpuscular Hemoglobin 41.2 pg (27.0-33.0); Mean Platelet Volume 10.5 fL (9.4-12.3); Monocytes Absolute Auto 0.4 X10*3/uL (0.1-1.2); Monocytes Percent Auto 6.1 % (2-11); NRBC Pct Auto 0.3 /100WBC (0.0-0.2); Neutrophils Absolute Auto 2.7 x10*3/uL (2.0-8.3); Neutrophils Percent Auto 45.9 % (45-73); Platelet Count 202 X10*3/uL (160-400); Red Blood Count 2.96 X10*6/uL (4.20-5.50); Red Cell Distribution Width 15.7 % (11.0-16.0); White Blood Count 5.9 X10*3/uL (4.8-10.8)
[2023-05-14 11:26] LABS: Mean Corpuscular Volume 114.2 fL (80.0-98.0)
[2023-05-14 11:55] LABS: Alanine Aminotransferase 23 U/L (0-31); Alkaline Phosphatase 52 U/L (39-117); Anion Gap 14 (12-20); Aspartate Amino Transferase 21 U/L (5-31); Bilirubin Direct 0.2 mg/dL (0.0-0.5); Bilirubin Total 0.8 mg/dL (0.0-1.0); Blood Urea Nitrogen 11 mg/dL (9-16); Calcium 9.6 mg/dL (8.4-10.2); Carbon Dioxide 21 mmol/L (22-29); Chloride 108 mmol/L (96-108); Estimated Glomerular Filt Rate > 60; Glucose Random 197 mg/dL (60-115); Potassium 3.8 mmol/L (3.3-5.1); Sodium 139 mmol/L (135-145); Total Protein 6.5 g/dL (6.5-8.0)
[2023-05-14 12:22] LABS: Amylase 19 U/L (28-100); C Reactive Protein 0.33 mg/dL (< or = 0.50); Lipase 6 U/L (8-78)
[2023-05-14 12:27] LABS: Erythrocyte Sedimentation Rate 11 MM/HR (0-20)
[2023-05-21 00:38] LABS: Anti-Adalimumab Antibody <10 AU (<10)
== END 2023-05-14 09:33 | disposition home or self-care (01) ==
LOC: HO.HMGCLR 09:32
PROVIDERS: PCP Internal Medicine; Visit Provider Internal Medicine
DX: K50.10 Crohn's disease of large intestine without complications (principal); R19.7 Diarrhea, unspecified; Z79.899 Other long term (current) drug therapy
CPT/HCPCS: 36415; 80048; 80076; 80145; 82150; 83520; 83690; 85025; 85652; 86140

== ENCOUNTER 2023-05-16 10:43 | Outpatient (REF) | payer MEDICARE, MEDICAID, SELFPAY ==
[2023-05-16 14:29] LABS: CDiff Gene PCR NEGATIVE (Negative)
[2023-05-17 07:15] LABS: Campylobacter Not Detected (Not Detect.); Plesiomonas shigelloides Not Detected (Not Detect.); Salmonella Not Detected (Not Detect.); Vibrio Not Detected (Not Detect.); Vibrio Cholerae Not Detected (Not Detect.); Yersinia enterocolitica Not Detected (Not Detect.)
[2023-05-17 07:16] LABS: Adenovirus F 40/41 Not Detected (Not Detect.); Astrovirus Not Detected (Not Detect.); Cryptosporidium Not Detected (Not Detect.); Cyclospora cayetanensis Not Detected (Not Detect.); E. coli EAEC Not Detected (Not Detect.); E. coli EPEC Not Detected (Not Detect.); E. coli ETEC Not Detected (Not Detect.); E. coli STEC Not Detected (Not Detect.); Entamoeba histolytica Not Detected (Not Detect.); Giardia lamblia Not Detected (Not Detect.); Norovirus GI/GII Not Detected (Not Detect.); Rotavirus A Not Detected (Not Detect.); Sapovirus Not Detected (Not Detect.); Shigella sp./EIEC Not Detected (Not Detect.)
[2023-05-23 23:14] LABS: Calprotectin, Fecal 139 mcg/g
== END 2023-05-16 10:44 | disposition home or self-care (01) ==
LOC: HO.HMGCLNP 10:43
PROVIDERS: PCP Internal Medicine; Visit Provider Internal Medicine
DX: K50.10 Crohn's disease of large intestine without complications (principal); R19.7 Diarrhea, unspecified
CPT/HCPCS: 83993; 87493; 87507

== ENCOUNTER 2023-07-06 14:00 | Outpatient (REF) | payer MEDICARE, MEDICAID, SELFPAY ==
[2023-07-06 16:14] LABS: MANUAL DIFF FLAG NO
[2023-07-06 16:16] LABS: Basophils Percent Auto 0.6 % (0-2); Eosinophils Absolute Auto 0.1 X10*3/uL (0.0-0.4); Eosinophils Percent Auto 0.8 % (0-4); Hematocrit 37.4 % (37.0-47.0); Imm Gran Abs Auto 0.21 X10*3/uL (0.00-0.03); Imm Gran Pct Auto 3.2 % (0.0-0.4); Lymphocytes Absolute Auto 1.6 X10*3/uL (1.2-4.9); Lymphocytes Percent Auto 25.3 % (20-40); Mean Corpuscular HGB Conc 34.8 g/dl (31.0-35.0); Mean Corpuscular Hemoglobin 38.9 pg (27.0-33.0); Mean Platelet Volume 10.8 fL (9.4-12.3); Monocytes Absolute Auto 0.3 X10*3/uL (0.1-1.2); Monocytes Percent Auto 4.8 % (2-11); NRBC Pct Auto 0.5 /100WBC (0.0-0.2); Neutrophils Absolute Auto 4.2 x10*3/uL (2.0-8.3); Neutrophils Percent Auto 65.3 % (45-73); Platelet Count 156 X10*3/uL (160-400); Red Blood Count 3.34 X10*6/uL (4.20-5.50); Red Cell Distribution Width 13.9 % (11.0-16.0); White Blood Count 6.5 X10*3/uL (4.8-10.8)
[2023-07-07 02:07] LABS: Alanine Aminotransferase 29 U/L (0-31); Albumin Level 3.9 g/dL (3.5-5.0); Alkaline Phosphatase 51 U/L (39-117); Aspartate Amino Transferase 21 U/L (5-31); Bilirubin Direct 0.2 mg/dL (0.0-0.5); Bilirubin Total 0.6 mg/dL (0.0-1.0); Total Protein 6.3 g/dL (6.5-8.0)
== END 2023-07-06 14:01 | disposition home or self-care (01) ==
LOC: HO.HMGCLR 14:00
PROVIDERS: PCP Internal Medicine; Visit Provider Internal Medicine
DX: K50.113 Crohn's disease of large intestine with fistula (principal); Z79.899 Other long term (current) drug therapy
CPT/HCPCS: 36415; 80076; 85025

== ENCOUNTER 2023-08-04 11:24 | Outpatient (REF) | payer MEDICARE, MEDICAID, SELFPAY ==
[2023-08-04 14:04] LABS: Estimated Average Glucose 128 mg/dL; Hemoglobin A1c % 6.1 % (<6.0)
== END 2023-08-04 11:25 | disposition home or self-care (01) ==
LOC: HO.HMGCLDS 11:24
PROVIDERS: PCP Internal Medicine; Visit Provider Internal Medicine
DX: E11.9 Type 2 diabetes mellitus without complications (principal); R53.83 Other fatigue; Z79.4 Long term (current) use of insulin
CPT/HCPCS: 36415; 83036

== ENCOUNTER 2023-08-19 12:07 | Outpatient (REF) | payer MEDICARE, MEDICAID, SELFPAY ==
--- NOTE | ~2023-08-19 | US_ITS ---
EXAMINATION: US VENOUS ULTRASOUND WITH DOPPLER LOWER EXTREMITY, LEFT CLINICAL INFORMATION: Pain and swelling COMPARISON: DVT study left leg 05/27/2012 TECHNIQUE: Ultrasound of the deep veins is performed from the hip to the calf with compression sonography and color and pulse Doppler assessment. Spectral analysis with color-flow imaging is performed. FINDINGS: There is normal venous compression and respiratory variation and augmented flow. The visualized common femoral vein, superficial femoral vein, profunda femoral vein, popliteal vein, and the trifurcation region shows no evidence of deep venous thrombosis. The tibial veins are not optimally seen secondary to body habitus. There is no significant popliteal fossa cyst. If the patient's symptoms persist, followup ultrasound in 5 days 7 days might be of value to exclude proximal propagation from a non-visualized calf vein. US/US venous duplex LE IMPRESSION: No DVT demonstrated in the left lower extremity.
== END 2023-08-19 12:08 | disposition home or self-care (01) ==
LOC: HO.US 12:07
PROVIDERS: PCP Internal Medicine; Visit Provider Internal Medicine
DX: R60.0 Localized edema (principal); M79.605 Pain in left leg
CPT/HCPCS: 93971

== ENCOUNTER 2023-09-04 13:36 | Outpatient (REF) | payer MEDICARE, MEDICAID, SELFPAY ==
[2023-09-04 16:04] LABS: MANUAL DIFF FLAG NO
[2023-09-04 16:09] LABS: Basophils Percent Auto 0.7 % (0-2); Eosinophils Absolute Auto 0.1 X10*3/uL (0.0-0.4); Eosinophils Percent Auto 2.8 % (0-4); Hematocrit 32.6 % (37.0-47.0); Hemoglobin 11.5 g/dl (12.0-16.0); Imm Gran Abs Auto 0.04 X10*3/uL (0.00-0.03); Imm Gran Pct Auto 0.9 % (0.0-0.4); Lymphocytes Absolute Auto 1.8 X10*3/uL (1.2-4.9); Lymphocytes Percent Auto 41.6 % (20-40); Mean Corpuscular HGB Conc 35.3 g/dl (31.0-35.0); Mean Corpuscular Hemoglobin 40.4 pg (27.0-33.0); Mean Platelet Volume 10.6 fL (9.4-12.3); Monocytes Absolute Auto 0.3 X10*3/uL (0.1-1.2); Monocytes Percent Auto 7.6 % (2-11); NRBC Pct Auto 0.7 /100WBC (0.0-0.2); Neutrophils Percent Auto 46.4 % (45-73); Platelet Count 200 X10*3/uL (160-400); Red Blood Count 2.85 X10*6/uL (4.20-5.50); Red Cell Distribution Width 16.7 % (11.0-16.0); White Blood Count 4.4 X10*3/uL (4.8-10.8)
[2023-09-04 16:10] LABS: Mean Corpuscular Volume 114.4 fL (80.0-98.0)
[2023-09-04 16:26] LABS: Alanine Aminotransferase 20 U/L (0-31); Alkaline Phosphatase 58 U/L (39-117); Aspartate Amino Transferase 24 U/L (5-31); Bilirubin Direct 0.2 mg/dL (0.0-0.5); Bilirubin Total 0.7 mg/dL (0.0-1.0); Total Protein 6.4 g/dL (6.5-8.0)
== END 2023-09-04 13:37 | disposition home or self-care (01) ==
LOC: HO.HMGCLR 13:36
PROVIDERS: PCP Internal Medicine; Visit Provider Internal Medicine
DX: K50.113 Crohn's disease of large intestine with fistula (principal); Z51.81 Encounter for therapeutic drug level monitoring
CPT/HCPCS: 36415; 80076; 85025

== ENCOUNTER 2023-10-05 13:27 | Outpatient (REF) | payer MEDICARE, MEDICAID, SELFPAY ==
[2023-10-05 16:08] LABS: MANUAL DIFF FLAG NO
[2023-10-05 16:24] LABS: Basophils Absolute Auto 0.1 X10*3/uL (0.0-0.2); Eosinophils Absolute Auto 0.1 X10*3/uL (0.0-0.4); Eosinophils Percent Auto 2.5 % (0-4); Hematocrit 36.2 % (37.0-47.0); Hemoglobin 12.7 g/dl (12.0-16.0); Imm Gran Abs Auto 0.06 X10*3/uL (0.00-0.03); Imm Gran Pct Auto 1.1 % (0.0-0.4); Lymphocytes Absolute Auto 2.1 X10*3/uL (1.2-4.9); Mean Corpuscular HGB Conc 35.1 g/dl (31.0-35.0); Mean Corpuscular Hemoglobin 39.2 pg (27.0-33.0); Mean Corpuscular Volume 111.7 fL (80.0-98.0); Mean Platelet Volume 10.7 fL (9.4-12.3); Monocytes Absolute Auto 0.3 X10*3/uL (0.1-1.2); Monocytes Percent Auto 5.3 % (2-11); NRBC Pct Auto 0.4 /100WBC (0.0-0.2); Neutrophils Absolute Auto 2.7 x10*3/uL (2.0-8.3); Neutrophils Percent Auto 51.1 % (45-73); Platelet Count 142 X10*3/uL (160-400); Red Blood Count 3.24 X10*6/uL (4.20-5.50); Red Cell Distribution Width 15.4 % (11.0-16.0); White Blood Count 5.3 X10*3/uL (4.8-10.8)
[2023-10-05 16:25] LABS: Alanine Aminotransferase 21 U/L (0-31); Albumin Level 4.2 g/dL (3.5-5.0); Alkaline Phosphatase 56 U/L (39-117); Aspartate Amino Transferase 24 U/L (5-31); Bilirubin Direct 0.3 mg/dL (0.0-0.5); Bilirubin Total 0.9 mg/dL (0.0-1.0); Total Protein 6.4 g/dL (6.5-8.0)
== END 2023-10-05 13:28 | disposition home or self-care (01) ==
LOC: HO.HMGCLR 13:27
PROVIDERS: PCP Internal Medicine; Visit Provider Internal Medicine
DX: K50.113 Crohn's disease of large intestine with fistula (principal); R19.7 Diarrhea, unspecified
CPT/HCPCS: 36415; 80076; 80299; 85025

== ENCOUNTER 2023-10-22 06:10 | Day surgery (SDC) | payer MEDICARE, MEDICAID, SELFPAY ==
[2023-10-20 09:16] VITALS: BMI 47.6
[2023-10-22 07:02] LABS: Glucose, Whole Blood 193 mg/dL (60-115)
[2023-10-22 07:08] VITALS: BP 161/72; PULSE 92; RESP 18; TEMP 36.1; O2SAT 96
[2023-10-22] MEDS: Lactated Ringers 1,000 ML 100 ML IVCONT (07:14)
--- NOTE | 2023-10-22 07:20 | P.CONAN_ITS ---
Documented by User: Marisela Pastor NP 10/21/23 08:36 HPI - Anesthesia Eval Consult details Narrative: 58yo F for Colonoscopy PMFSH Past Medical History Medical History History of macrocytosis Gout Hx of abdominal abscess Diabetes Anxiety Elevated cholesterol HTN (hypertension) Anemia COPD (chronic obstructive pulmonary disease) Asthma Depression Bipolar 1 disorder GERD (gastroesophageal reflux disease) Crohn's disease Family History Family history of problems with anesthesia: No Surgical History Surgical History History of esophagogastroduodenoscopy (EGD) Hx of tonsillectomy Hx of colonoscopy History of Problems with Anesthesia: No Social History Social History Patient Tobacco Use Status: Former Tobacco user Quit Date: 2008 Advance Directives: No Advance Directives Information Provided: Yes Advance Directives Date on File: 08/28/21 Meds Allergies Allergy/AdvReac Type Severity Reaction Status Date / Time amoxicillin [AMOXICILLIN] Allergy Intermediate BLOODY Verified 08/23/21 13:54 DIARRHEA clavulanic acid AdvReac Intermediate DIARRHEA Verified 08/23/21 13:54 [From AUGMENTIN] Home Medications Medication Instructions Recorded Confirmed Last Taken Type albuterol sulfate 90 mcg/actuation 2 puff inhalation Q4-6H PRN 08/23/21 10/20/23 Unknown History aerosol inhaler (ProAir HFA) Shortness Of Breath Or Wheezing allopurinol 300 mg tablet 1 tab PO DAILY 08/23/21 10/20/23 Unknown History azathioprine 50 mg tablet 1.5 tab PO DAILY 08/23/21 10/20/23 Unknown History ferrous sulfate 325 mg (65 mg 1 tab PO BID 08/23/21 10/20/23 Unknown History iron) tablet (FeroSul) fluconazole 150 mg tablet 1 tab PO DAILY 08/23/21 08/23/21 Unknown History fluticasone 250 mcg-salmeterol 50 1 puff inhalation BID 08/23/21 10/20/23 Unknown History mcg/dose blistr powdr for inhalation (Advair Diskus) haloperidol 10 mg tablet 1 tab PO BEDTIME 08/23/21 10/20/23 Unknown History insulin glargine 100 unit/mL 54 unit subcut BEDTIME 08/23/21 10/20/23 Unknown History subcutaneous solution (Lantus U-100 Insulin) insulin lispro 100 unit/mL See Rx Instructions .Route .COMPLEX 08/23/21 10/20/23 Unknown History subcutaneous solution (Humalog U-100 Insulin) lamotrigine 100 mg tablet 1 tab PO BEDTIME 08/23/21 10/20/23 Unknown History lorazepam 1 mg tablet 1 mg PO BID 08/23/21 10/20/23 Unknown History losartan 25 mg tablet 1 tab PO BEDTIME 08/23/21 10/20/23 Unknown History mesalamine 0.375 gram 4 cap PO DAILY 08/23/21 10/20/23 Unknown History capsule,extended release 24 hr (Apriso) metoprolol succinate 25 mg 1 tab PO DAILY 08/23/21 10/20/23 08/28/21 History tablet,extended release 24 hr omeprazole 20 mg capsule,delayed 20 mg PO BEDTIME 08/23/21 10/20/23 Unknown History release simvastatin 20 mg tablet 1 tab PO DAILY 08/23/21 10/20/23 Unknown History trazodone 150 mg tablet 1 tab PO BEDTIME 08/23/21 10/20/23 Unknown History Exam Height,Weight and Vital Signs: Height 5 ft 3 in Weight 122.016 kg Pertinent Lab Results Pertinent Lab Results: Laboratory Tests 05/14/23 10/05/23 09:54 13:47 WBC 5.3 Hgb 12.7 Hct 36.2 L Plt Count 142 L D Sodium 139 Potassium 3.8 Chloride 108 Carbon Dioxide 21 L BUN 11 Creatinine 0.85 Assessment and Plan Assessment Anesthesia Assessment: Chart Reviewed Final Anesthetic Review Family History of Problems with Anesthesia: No History of Problems with Anesthesia: No Documented by User: Kinjal Snyder DO 10/22/23 07:26 [facility] Past Medical History Medical History History of macrocytosis Gout Hx of abdominal abscess Diabetes Anxiety Elevated cholesterol HTN (hypertension) Anemia COPD (chronic obstructive pulmonary disease) Asthma Depression Bipolar 1 disorder GERD (gastroesophageal reflux disease) Crohn's disease Family History Family history of problems with anesthesia: No Surgical History Surgical History History of esophagogastroduodenoscopy (EGD) Hx of tonsillectomy Hx of colonoscopy History of Problems with Anesthesia: No Social History Social History Patient Tobacco Use Status: Former Tobacco user Quit Date: 2008 Advance Directives: No Advance Directives Information Provided: Yes Advance Directives Date on File: 08/28/21 Meds Allergies Allergy/AdvReac Type Severity Reaction Status Date / Time amoxicillin [AMOXICILLIN] Allergy Intermediate BLOODY Verified 08/23/21 13:54 DIARRHEA clavulanic acid AdvReac Intermediate DIARRHEA Verified 08/23/21 13:54 [From AUGMENTIN] Home Medications Medication Instructions Recorded Confirmed Last Taken Type albuterol sulfate 90 mcg/actuation 2 puff inhalation Q4-6H PRN 08/23/21 10/20/23 Unknown History aerosol inhaler (ProAir HFA) Shortness Of Breath Or Wheezing allopurinol 300 mg tablet 1 tab PO DAILY 08/23/21 10/20/23 Unknown History azathioprine 50 mg tablet 1.5 tab PO DAILY 08/23/21 10/20/23 Unknown History ferrous sulfate 325 mg (65 mg 1 tab PO BID 08/23/21 10/20/23 Unknown History iron) tablet (FeroSul) fluconazole 150 mg tablet 1 tab PO DAILY 08/23/21 08/23/21 Unknown History fluticasone 250 mcg-salmeterol 50 1 puff inhalation BID 08/23/21 10/20/23 Unknown History mcg/dose blistr powdr for inhalation (Advair Diskus) haloperidol 10 mg tablet 1 tab PO BEDTIME 08/23/21 10/20/23 Unknown History insulin glargine 100 unit/mL 54 unit subcut BEDTIME 08/23/21 10/20/23 Unknown History subcutaneous solution (Lantus U-100 Insulin) insulin lispro 100 unit/mL See Rx Instructions .Route .COMPLEX 08/23/21 10/20/23 Unknown History subcutaneous solution (Humalog U-100 Insulin) lamotrigine 100 mg tablet 1 tab PO BEDTIME 08/23/21 10/20/23 Unknown History lorazepam 1 mg tablet 1 mg PO BID 08/23/21 10/20/23 Unknown History losartan 25 mg tablet 1 tab PO BEDTIME 08/23/21 10/20/23 Unknown History mesalamine 0.375 gram 4 cap PO DAILY 08/23/21 10/20/23 Unknown History capsule,extended release 24 hr (Apriso) metoprolol succinate 25 mg 1 tab PO DAILY 08/23/21 10/20/23 08/28/21 History tablet,extended release 24 hr omeprazole 20 mg capsule,delayed 20 mg PO BEDTIME 08/23/21 10/20/23 Unknown History release simvastatin 20 mg tablet 1 tab PO DAILY 08/23/21 10/20/23 Unknown History trazodone 150 mg tablet 1 tab PO BEDTIME 08/23/21 10/20/23 Unknown History Exam Exam Date and Time: October 22, 2023 0720 Height,Weight and Vital Signs: Height 5 ft 3 in Weight 122.016 kg Vital Signs Temperature 96.9 F 10/22/23 07:08 Pulse Rate 92 10/22/23 07:08 Respiratory Rate 18 10/22/23 07:08 Blood Pressure 161/72 H 10/22/23 07:08 Pulse Oximetry 96 10/22/23 07:08 Oxygen Delivery Method Room Air 10/22/23 07:08 Temperature 96.9 F 10/22/23 07:08 Pulse Rate 92 10/22/23 07:08 Respiratory Rate 18 10/22/23 07:08 Blood Pressure 161/72 H 10/22/23 07:08 Pulse Oximetry 96 10/22/23 07:08 Oxygen Delivery Method Room Air 10/22/23 07:08 Airway Mallampati Class: III TM Dist: <=3cm Neck ROM: Full Loose/Missing/Broken Teeth: No Heart: S1S2 Lungs: CTAB Assessment and Plan Assessment Anesthesia Assessment: Anesthesia Plan Discussed and Chart Reviewed Final Anesthetic Review Family History of Problems with Anesthesia: No History of Problems with Anesthesia: No NPO: Yes ASA Class: III Final Preanesthetic Review: No Changes in Pt Med Stat, Meds/Allgs Chart Revie wed, Consent Obtained/Reviewed and Anes Risks/Benef Reviewed Patient Risk: Intermediate Procedure Risk: Low Anesthetic Plan Anesthetic Plan: MAC: and Agree w/ Assess. and Plan Disposition: Standard PACU
[2023-10-22 08:32] VITALS: BP 97/49; PULSE 93; RESP 16; TEMP 36.9; O2SAT 96
--- NOTE | 2023-10-22 08:43 | PM.OP ---
Brief Operative Note Date of Service: 10/22/23 Pre-op diagnosis: Crohn's, Diarrhea Post-op diagnosis: other (Same, Pseudopolyps) Procedure: Colonoscopy to the cecum and TI with biopsies Surgeon: Jose Juan Hare MD Anesthesia: MAC Was an Min[employer] Surveying Technician used for this Procedure?: No Estimated blood loss (mL): 2.0 Pathology: other (A. Terminal ileum B.Cecum C. Ascending colon D. Descending colon E. Rectum) Condition: stable Disposition: PACU
[2023-10-22 08:47] VITALS: BP 124/73; PULSE 84; RESP 16; TEMP 36.8; O2SAT 96
--- NOTE | 2023-10-22 09:56 | OP_ITS ---
DATE OF SERVICE: 10/22/2023 SURGEON: Jose Juan Hare MD INDICATIONS: The patient presents for evaluation of underlying history of Crohn disease and diarrhea. Full consent has been obtained from her for this, including risks of bleeding and perforation. PREOPERATIVE DIAGNOSIS: POSTOPERATIVE DIAGNOSIS: Crohn disease and diarrhea, Pseudopolyps and scarring in the cecum and rectum, but no sign of any active Crohn disease. PROCEDURE PERFORMED: Colonoscopy to cecum and terminal ileum with multiple biopsies. ESTIMATED BLOOD LOSS: COMPLICATIONS: ANESTHESIA: ASSISTANTS: SPECIMENS: PREOPERATIVE DIAGNOSES: Crohn disease and diarrhea. DESCRIPTION OF PROCEDURE: The patient was placed in the left lateral decubitus position. The digital rectal exam revealed some chronic scarring and skin changes in the perianal area, but there was no sign of any active fistula nor any sign of abscess. The digital rectal exam was otherwise unremarkable. The Olympus video pediatric colonoscope was entered into the rectum and advanced easily to the cecum. Once in the cecum, I did identify cecal pouch which was notable for multiple pseudopolyps including a long polyp, which seemed to be coming out of the appendiceal orifice. The terminal ileum was cannulated and appeared normal for at least 5 or 10 cm. Biopsies were obtained. The scope was withdrawn back in the colon. The entire cecum had the changes as mentioned above with the scarring and cecal polyp, but no sign of any active Crohn disease. Biopsies were obtained from some of the pseudopolyps including the long polyp coming from the appendiceal orifice. The scope was then slowly withdrawn assessing all mucosal surfaces carefully. Preparation was excellent. I did not visualize any sign of any active colitis nor any other polyps. Biopsies were obtained in the ascending and descending colon. There were occasional diverticula in the sigmoid colon. I did not visualize any angiodysplasias. In the rectum, there was a lot of scarring as well and also multiple pseudopolyps. I was unable to retroflex due to some probable fibrotic changes in the pelvic area, but I was able to obtain a good visualization in the forward viewing position all the way from the proximal rectum to the very distal rectum. There was no sign of any active Crohn disease, ulceration, nor suspicious mass. Multiple biopsies were obtained from the rectum as well. The scope was then withdrawn from the patient. She tolerated the procedure well and was returned to the recovery area in stable condition. IMPRESSION: 1. Evidence of chronic scarring and pseudopolyps consistent with her underlying history of long-standing Crohn disease. No sign of any active Crohn disease. 2. Chronic changes in the perianal area from her previous Crohn disease and fistulous disease. No sign of any active fistula nor abscess. PLAN: The patient reports that she has continued on her azathioprine, Humira injections on a weekly basis, and her mesalamine. She has been using Imodium at least once a day, and she reports that is actually working well for her. She reports that her diarrhea has improved as long as she does use the Imodium fairly regularly. Based on today's colonoscopy findings, her previous laboratories including measurement of the azathioprine and Humira levels, and her other laboratories, I do not think we need to make any changes in her medical regimen at this time. As such, she will see me in 2-3 months for a followup visit. She was advised to avoid aspirin and NSAIDs for least 1 week, but to avoid them long-term if possible given the underlying Crohn disease. She was advised to try to stay on a lactose-free and caffeine-free diet. She was advised to call me sooner if problems develop. MD ALMA Kasper/ROSALINA / [phone]
== END 2023-10-22 09:08 | disposition home or self-care (01) ==
PROVIDERS: PCP Internal Medicine; Visit Provider Internal Medicine
PROC: 0DJD8ZZ Inspection of Lower Intestinal Tract, Via Natural or Artificial Opening Endoscopic (ICD-10-PCS; CPT 45378; principal; 2023-10-22 07:30)
DX: K51.40 Inflammatory polyps of colon without complications (principal); R19.7 Diarrhea, unspecified; K21.9 Gastro-esophageal reflux disease without esophagitis; I10 Essential (primary) hypertension; E78.00 Pure hypercholesterolemia, unspecified; J44.9 Chronic obstructive pulmonary disease, unspecified; M10.9 Gout, unspecified; D64.9 Anemia, unspecified; E11.9 Type 2 diabetes mellitus without complications; Z79.4 Long term (current) use of insulin; Z79.620 Long term (current) use of immunosuppressive biologic; Z79.624 Long term (current) use of inhibitors of nucleotide synthesis; Z79.51 Long term (current) use of inhaled steroids; Z88.0 Allergy status to penicillin; Z87.891 Personal history of nicotine dependence
CPT/HCPCS: 45380; 36415; 80076; 82947; 85025; 88305; J2704

== ENCOUNTER 2024-02-23 12:35 | Outpatient (REF) | payer MEDICARE, MEDICAID, SELFPAY ==
[2024-02-23 16:30] LABS: Basophils Percent Auto 0.8 % (0-2); Eosinophils Absolute Auto 0.1 X10*3/uL (0.0-0.4); Eosinophils Percent Auto 1.8 % (0-4); Hematocrit 37.1 % (37.0-47.0); Imm Gran Abs Auto 0.06 X10*3/uL (0.00-0.03); Imm Gran Pct Auto 1.2 % (0.0-0.4); Lymphocytes Percent Auto 40.4 % (20-40); Mean Corpuscular Hemoglobin 39.2 pg (27.0-33.0); Mean Platelet Volume 10.8 fL (9.4-12.3); Monocytes Absolute Auto 0.3 X10*3/uL (0.1-1.2); Monocytes Percent Auto 5.9 % (2-11); NRBC Pct Auto 0.4 /100WBC (0.0-0.2); Neutrophils Absolute Auto 2.4 x10*3/uL (2.0-8.3); Neutrophils Percent Auto 49.9 % (45-73); Platelet Count 149 X10*3/uL (160-400); Red Blood Count 3.32 X10*6/uL (4.20-5.50); White Blood Count 4.9 X10*3/uL (4.8-10.8)
[2024-02-23 16:31] LABS: MANUAL DIFF FLAG SCAN; Mean Corpuscular Volume 111.7 fL (80.0-98.0)
[2024-02-23 16:37] LABS: Alanine Aminotransferase 26 U/L (0-31); Alkaline Phosphatase 55 U/L (39-117); Aspartate Amino Transferase 34 U/L (5-31); Bilirubin Direct 0.2 mg/dL (0.0-0.5); Bilirubin Total 0.7 mg/dL (0.0-1.0); Total Protein 6.4 g/dL (6.5-8.0)
[2024-02-23 16:56] LABS: SLIDE REVIEW VERIFIED
== END 2024-02-23 12:36 | disposition home or self-care (01) ==
LOC: HO.HMGCLR 12:35
PROVIDERS: PCP Internal Medicine; Visit Provider Internal Medicine
DX: K50.113 Crohn's disease of large intestine with fistula (principal); Z51.81 Encounter for therapeutic drug level monitoring
CPT/HCPCS: 36415; 80076; 85025

== ENCOUNTER 2024-07-04 10:17 | Outpatient (REF) | payer MEDICARE, MEDICAID, SELFPAY ==
[2024-07-04 13:05] LABS: MANUAL DIFF FLAG NO
[2024-07-04 13:15] LABS: Basophils Absolute Auto 0.1 X10*3/uL (0.0-0.2); Basophils Percent Auto 1.1 % (0-2); Eosinophils Absolute Auto 0.3 X10*3/uL (0.0-0.4); Eosinophils Percent Auto 4.6 % (0-4); Hemoglobin 11.1 g/dl (12.0-16.0); Imm Gran Abs Auto 0.21 X10*3/uL (0.00-0.03); Imm Gran Pct Auto 3.2 % (0.0-0.4); Lymphocytes Absolute Auto 1.7 X10*3/uL (1.2-4.9); Lymphocytes Percent Auto 25.7 % (20-40); Mean Corpuscular HGB Conc 34.7 g/dl (31.0-35.0); Mean Corpuscular Hemoglobin 39.6 pg (27.0-33.0); Mean Platelet Volume 10.3 fL (9.4-12.3); Monocytes Absolute Auto 0.5 X10*3/uL (0.1-1.2); Monocytes Percent Auto 7.2 % (2-11); NRBC Pct Auto 0.6 /100WBC (0.0-0.2); Neutrophils Absolute Auto 3.8 x10*3/uL (2.0-8.3); Neutrophils Percent Auto 58.2 % (45-73); Platelet Count 205 X10*3/uL (160-400); Red Cell Distribution Width 17.1 % (11.0-16.0); White Blood Count 6.5 X10*3/uL (4.8-10.8)
[2024-07-04 13:16] LABS: Mean Corpuscular Volume 114.3 fL (80.0-98.0)
[2024-07-04 13:26] LABS: Alanine Aminotransferase 13 U/L (0-31); Albumin Level 3.8 g/dL (3.5-5.0); Alkaline Phosphatase 54 U/L (39-117); Aspartate Amino Transferase 21 U/L (5-31); Bilirubin Direct 0.2 mg/dL (0.0-0.5); Bilirubin Total 0.6 mg/dL (0.0-1.0); Total Protein 6.2 g/dL (6.5-8.0)
== END 2024-07-04 10:18 | disposition home or self-care (01) ==
LOC: HO.HMGCLR 10:17
PROVIDERS: PCP Internal Medicine; Visit Provider Internal Medicine
DX: K50.10 Crohn's disease of large intestine without complications (principal)
CPT/HCPCS: 36415; 80076; 85025

== ENCOUNTER 2024-07-11 13:07 | Outpatient (REF) | payer MEDICARE, MEDICAID, SELFPAY ==
[2024-07-11 16:23] LABS: Iron 125 mcg/dL (30-160); Percent Iron Saturation 59 % (15-50); Total Iron Binding Capacity 211 mcg/dL (228-428); Unsaturated Iron Binding 86 ug/dL
[2024-07-11 16:40] LABS: Ferritin 1464 ng/mL (10-250)
[2024-07-11 16:47] LABS: Folate 13.3 ng/mL (> or = 4.0); Vitamin B12 317 pg/mL (200-900)
== END 2024-07-11 13:08 | disposition home or self-care (01) ==
LOC: HO.HMGCLDS 13:07
PROVIDERS: PCP Internal Medicine; Visit Provider Internal Medicine
DX: D64.9 Anemia, unspecified (principal)
CPT/HCPCS: 36415; 82607; 82728; 82746; 83540

== ENCOUNTER 2024-08-05 11:42 | Outpatient (REF) | payer MEDICARE, MEDICAID, SELFPAY ==
[2024-08-05 13:59] LABS: MANUAL DIFF FLAG NO
[2024-08-05 14:01] LABS: Basophils Absolute Auto 0.1 X10*3/uL (0.0-0.2); Basophils Percent Auto 0.8 % (0-2); Eosinophils Absolute Auto 0.3 X10*3/uL (0.0-0.4); Eosinophils Percent Auto 4.4 % (0-4); Hematocrit 33.8 % (37.0-47.0); Hemoglobin 12.1 g/dl (12.0-16.0); Imm Gran Abs Auto 0.08 X10*3/uL (0.00-0.03); Imm Gran Pct Auto 1.3 % (0.0-0.4); Lymphocytes Absolute Auto 1.6 X10*3/uL (1.2-4.9); Mean Corpuscular HGB Conc 35.8 g/dl (31.0-35.0); Mean Corpuscular Hemoglobin 39.9 pg (27.0-33.0); Mean Corpuscular Volume 111.6 fL (80.0-98.0); Mean Platelet Volume 10.2 fL (9.4-12.3); Monocytes Absolute Auto 0.4 X10*3/uL (0.1-1.2); Monocytes Percent Auto 6.2 % (2-11); NRBC Pct Auto 0.3 /100WBC (0.0-0.2); Neutrophils Absolute Auto 3.9 x10*3/uL (2.0-8.3); Neutrophils Percent Auto 61.3 % (45-73); Platelet Count 181 X10*3/uL (160-400); Red Blood Count 3.03 X10*6/uL (4.20-5.50); Red Cell Distribution Width 16.5 % (11.0-16.0); White Blood Count 6.3 X10*3/uL (4.8-10.8)
[2024-08-05 14:19] LABS: Alanine Aminotransferase 16 U/L (0-31); Albumin Level 3.9 g/dL (3.5-5.0); Alkaline Phosphatase 60 U/L (39-117); Aspartate Amino Transferase 16 U/L (5-31); Bilirubin Direct 0.2 mg/dL (0.0-0.5); Bilirubin Total 0.8 mg/dL (0.0-1.0); Iron 82 mcg/dL (30-160); Percent Iron Saturation 37 % (15-50); Total Iron Binding Capacity 220 mcg/dL (228-428); Total Protein 6.3 g/dL (6.5-8.0); Unsaturated Iron Binding 138 ug/dL
[2024-08-05 14:39] LABS: Ferritin 1143 ng/mL (10-250)
== END 2024-08-05 11:43 | disposition home or self-care (01) ==
LOC: HO.HMGCLR 11:42
PROVIDERS: PCP Internal Medicine; Visit Provider Internal Medicine
DX: K50.10 Crohn's disease of large intestine without complications (principal)
CPT/HCPCS: 36415; 80076; 81256; 82728; 83540; 85025

== ENCOUNTER 2024-09-06 13:28 | Outpatient (REF) | payer MEDICARE, MEDICAID, SELFPAY ==
[2024-09-06 16:23] LABS: MANUAL DIFF FLAG NO
[2024-09-06 16:33] LABS: Basophils Percent Auto 0.9 % (0-2); Eosinophils Absolute Auto 0.2 X10*3/uL (0.0-0.4); Eosinophils Percent Auto 4.6 % (0-4); Imm Gran Abs Auto 0.06 X10*3/uL (0.00-0.03); Imm Gran Pct Auto 1.3 % (0.0-0.4); Lymphocytes Absolute Auto 1.5 X10*3/uL (1.2-4.9); Lymphocytes Percent Auto 33.8 % (20-40); Mean Corpuscular HGB Conc 35.3 g/dl (31.0-35.0); Mean Platelet Volume 10.2 fL (9.4-12.3); Monocytes Absolute Auto 0.2 X10*3/uL (0.1-1.2); Monocytes Percent Auto 4.6 % (2-11); NRBC Pct Auto 0.7 /100WBC (0.0-0.2); Neutrophils Absolute Auto 2.5 x10*3/uL (2.0-8.3); Neutrophils Percent Auto 54.8 % (45-73); Platelet Count 165 X10*3/uL (160-400); Red Cell Distribution Width 15.9 % (11.0-16.0); White Blood Count 4.6 X10*3/uL (4.8-10.8)
[2024-09-06 16:38] LABS: Alanine Aminotransferase 19 U/L (0-31); Alkaline Phosphatase 53 U/L (39-117); Aspartate Amino Transferase 18 U/L (5-31); Bilirubin Direct 0.2 mg/dL (0.0-0.5); Bilirubin Total 0.6 mg/dL (0.0-1.0); Total Protein 6.2 g/dL (6.5-8.0)
[2024-09-06 17:05] LABS: Mean Corpuscular Volume 113.3 fL (80.0-98.0)
== END 2024-09-06 13:29 | disposition home or self-care (01) ==
LOC: HO.HMGCLR 13:28
PROVIDERS: PCP Internal Medicine; Visit Provider Internal Medicine
DX: K50.10 Crohn's disease of large intestine without complications (principal)
CPT/HCPCS: 36415; 80076; 85025

== ENCOUNTER 2024-09-21 13:09 | Outpatient (REF) | payer MEDICARE, MEDICAID, SELFPAY ==
[2024-09-21 17:12] LABS: Iron 111 mcg/dL (30-160); Percent Iron Saturation 49 % (15-50); Total Iron Binding Capacity 227 mcg/dL (228-428); Unsaturated Iron Binding 116 ug/dL
[2024-09-21 17:14] LABS: Ferritin 850 ng/mL (10-250)
[2024-09-21 17:48] LABS: Estimated Average Glucose 114 mg/dL; Hemoglobin A1c % 5.6 % (<6.0); Total Hemoglobin (HGBA1C) 3091.0373 umol/L
== END 2024-09-21 13:10 | disposition home or self-care (01) ==
LOC: HO.HMGCLDS 13:09
PROVIDERS: PCP Internal Medicine; Referring Provider Internal Medicine; Visit Provider Internal Medicine
DX: E83.19 Other disorders of iron metabolism (principal)
CPT/HCPCS: 36415; 82728; 83036; 83540

== ENCOUNTER 2024-11-04 13:40 | Outpatient (REF) | payer MEDICARE, MEDICAID, SELFPAY ==
--- OUTSIDE RECORDS SUMMARY | 2024-11-04 13:43 | XMS_ITS ---
Author Organization [facility] Address [address] [place] [address] Care Team Providers Care V Belt Curer Name Role Phone Yehuda HALL, Richard Primary Care Provider UnavailJose Juan Chawla Unavailable [phone] ALLERGIES Allergen (clinical drug ingredient) Drug/Non Drug Allergy documented on EMR Reaction Allergy Type Onset Date Status amoxicillin / clavulanate Augmentin diarrhea Drug Allergy Active amoxicillin Amoxicillin Unknown Drug Allergy Act vini seasonal (uncoded) Unknown Allergy A ctive REASON FOR VISIT Patient presents today for crohn's disease MEDICATIONS Medication SIG (Take, Route, Frequency, Duration) Notes Start Date End Date Status lamoTRIgine 100 MG 1 tablet Orally Once a day Active Metoprolol Succinate ER 25 MG 1 tablet Orally Once a day Active Cranberry Concentrate 500 MG 3 Orally bid Active HumaLOG 100 UNIT/ML sliding scale Subcutaneous 4 times a day Active traZODone HCl 50 MG 3 tablet at bedtime Orally Once a day Active Vitamin D (Cholecalciferol) 25 MCG (1000 UT) 1 capsule Orally Once a day for 30 day(s) Active Lantus 100 UNIT/ML 54 units in the am a nd 46 units in the pm Subcutaneous daily Active Mesalamine 1000 MG 1 suppository at bed time Rectal QHS/prn Not-Taking Simvastatin 40 MG 1 tablet in the even ing Orally Once a day for 30 day(s) Active Benadryl 50 1 tablet as needed Orally every 4 hrs PRN Not-Takin g Alaway 0.025 % 1 drop into affected eye Ophthalmic Twice a day Not-Takin g Proctofoam HC 1-1 % 1 application Rectal BID and QHS for 30 days 11/12/2016 Not-Taking NovoLOG 100 UNIT/ML sliding dose Subcutaneous QD Not-Taking Fluticasone Propionate 50 MCG/ACT 1 spray in each nostril Nasally Once a day Not-Taking Mesalamine 1000 MG 1 suppository at bed time Rectal QHS for 30 day(s) 04/22/2016 Not-Tristian ing Breo Ellipta 100-25 MCG/INH 1 puff Inhalation Once a day Not-Taking Doxycycline Hyclate 100 MG 1 capsule Orally every 12 hrs Not-Taking Mesalamine 4 GM 1 enema Rectal QHS f or 30 day(s) 09/17/2016 Not-Taking predniSONE 5 MG 8 tablets daily for 1 week, and then decrease by 1 tablet(5mg) per week Orally Once a day for 56 days 09/26/2016 Not-Taking Apriso 0.375 GM TAKE FOUR CAPSULES B Y MOUTH EVERY MORNING for 30 Active azaTHIOprine 50 mg TAKE 1 AND 1/2 TABLE TS BY MOUTH EVERY DAY Orally Daily for 30 days Active Lisinopril 5 MG 1 tablet Orally Once a day Not-Taking Mesalamine 1000 MG 1 suppository at bed time Rectal Once a day for 30 day(s) 04/22/2016 Not-Taking Humira Pen 40 MG/0.8ML 0.8 ml Subcutaneo us weekly Active Haloperidol 10 MG 1 tablet Orally Once a day Active LaMICtal 100mg 1 tablet Orally QD Active Omeprazole Magnesium 20 MG 1 tablet 30 minutes before morning meal Orally Once a day for 30 day(s) Active Motrin PRN Active Tylenol PRN Active LORazepam 1 MG 1/2 in the am and 11 /2 in the pm Orally Once a day Active Tylenol Extra Strength 500 MG 1 tablet as needed Orally every 6 hrs/prn Active Ativan 1 MG 1 tablet as needed Orally prn Active ProAir HFA 108 (90 Base) MCG/ACT 2 puffs as needed Inhalation every 4 hrs Active DuoNeb 1 4 po QD Active Losartan Potassium 25 MG 1 tablet Orally Once a day Active Allopurinol 300 MG 1 tablet Orally Once a day Active Advair Diskus 250-50 MCG/DOSE 1 puff Inhalation Twice a day Active SOCIAL HISTORY Tobacco Use: Social History Observation Description Date Details (start date - stop date) Former Smoker NA - NA Sex Assigned At : Social History Observation Description Sex Assigned At Unknown Tobacco Use/Smoking Question Answer Notes Patient is a former smoker How long has it been since you last smoked? 5-10 years VITAL SIGNS BMI 46.94 kg/m2 08/30/2024 Blood pressure systolic 00 mm Hg 08/30/20 24 Blood pressure diastolic 00 mm Hg 024 Height 63 in 08/30/2024 Weight 265 lbs 08/30/2024 Encounters Encounter Location Date Provider Diagnosis [facility] [address] [place] [address] 08/30/2024 Jose Juan Hare Crohns colitis, with out complications K50.10 ; Diarrhea, unspecified type R19.7 ; Crohn's disease of perianal region with fistula K50.113 ; Crohn's disease of large intestine with fistula K50.113 and Increased storage iron E83.19 ASSESSMENTS Encounter Date Diagnosis Assessment Notes Treatment Notes Treatment Clinical Notes 08/30/2024 Crohns colitis, without complications (ICD-10 - K50.10) Conitnue the same medicine and same labs 08/30/2024 Diarrhea, unspecifie d type (ICD-10 - R19.7) 08/30/2024 Crohn's disease of perianal region with fistula (ICD-10 - K50.113) 08/30/2024 Crohn's disease of large intestine with fistula (ICD-10 - K50.113) 08/30/2024 Increased storage iron (ICD-10 - E83.19) Stay off Iron. Do my Iron labs when you do Dr. Alcala. PLAN OF TREATMENT Treatment Notes Assessment Notes Crohns colitis, without complications Co nitnue the same medicine and same labs Increased storage iron Stay off Iron. Do my Iron labs when you do Dr. Alcala. Pending Test Test Name Order Date IRON + IBC (FE) 08/30/2024 Ferritin 08/30/2024 Next Appt Details Follow Up: 6 Months, Reason: Provider Name:Jose Juan Hare , 02/28/2025 01:40:00 PM, [address], [address], [place], [address], Progress Notes * Examination Category Sub-Category Detail Notes General Examination GENERAL APPEARANCE: pleasant , well nourished, well developed, in no acute distress--she has a cushingoid facies EYES: sclera non-icteric NECK/THYROID: no cervical lymphade nopathy, neck supple HEART: S1, S2 normal LUNGS: Bilateral wheezing ABDOMEN: normal bowel sounds, no guarding or rigidity, no hepatosplenomegaly, no masses palpable, soft, nontender, nondistended. NEUROLOGIC: alert and oriented SKIN: nonjaundiced, no spi jignesh angiomata. EXTREMITIES: no edema ORAL CAVITY: mucosa moist
--- OUTSIDE RECORDS SUMMARY | 2024-11-04 13:44 | XMS_ITS | Patient Health Record ---
Author Organization [facility] Address [address] [place] [address] Care Team Providers Care Remarketing Rep Name Role Phone Richard Blackman MD Primary Care Provider Jose Juan Floyd Unavailable [phone] ALLERGIES Allergen (clinical drug ingredient) Drug/Non Drug Allergy documented on EMR Reaction Allergy Type Onset Date Status amoxicillin / clavulanate Augmentin diarrhea Drug Allergy Active amoxicillin Amoxicillin Unknown Drug Allergy Act vini seasonal (uncoded) Unknown Allergy A ctive RESULTS Component Value Reference Range Notes Complete Blood Count Auto Di ff Reviewed date:03/05/2024 11:49:38 PM Interpretation: Performing Lab:[facility], [address] [place] [phone] Notes/Report: White Blood Count 4.9 4.8-10.8 X10*3/uL Red Blood Count 3.32 4.20-5.50 X10*6/uL Hemoglobin 13.0 12.0-16.0 g/dl Hematocrit 37.1 37.0-47.0 % Mean Corpuscular Volume 111.7 80.0-98.0 fL Mean Corpuscular Hemoglobin 39.2 27.0-33.0 pg Mean Corpuscular HGB Conc 35.0 31.0-35.0 g/dl Red Cell Distribution Width 15.0 11.0-16.0 % Platelet Count 149 160-400 X10*3/uL Mean Platelet Volume 10.8 9.4-12.3 fL Neutrophils Percent Auto 49.9 45-73 % Imm Gran Pct Auto 1.2 0.0-0.4 % Lymphocytes Percent Auto 40.4 20-40 % Monocytes Percent Auto 5.9 2-11 % Eosinophils Percent Auto 1.8 0-4 % Basophils Percent Auto 0.8 0-2 % NRBC Pct Auto 0.4 0.0-0.2 /100WBC Neutrophils Absolute Auto 2.4 2.0-8.3 x10*3/u L Imm Gran Abs Auto 0.06 0.00-0.03 X10*3/uL Lymphocytes Absolute Auto 2.0 1.2-4.9 X10*3/u L Monocytes Absolute Auto 0.3 0.1-1.2 X10*3/uL Eosinophils Absolute Auto 0.1 0.0-0.4 X10*3/u L Basophils Absolute Auto 0.0 0.0-0.2 X10*3/uL NRBC Abs Auto 0.020 0.0-0.012 X10*3/uL White Blood Count 4.9 4.8-10.8 X10*3/uL Red Blood Count 3.32 4.20-5.50 X10*6/uL Hemoglobin 13.0 12.0-16.0 g/dl Hematocrit 37.1 37.0-47.0 % Mean Corpuscular Volume 111.7 80.0-98.0 fL Mean Corpuscular Hemoglobin 39.2 27.0-33.0 pg Mean Corpuscular HGB Conc 35.0 31.0-35.0 g/dl Red Cell Distribution Width 15.0 11.0-16.0 % Platelet Count 149 160-400 X10*3/uL Mean Platelet Volume 10.8 9.4-12.3 fL Neutrophils Percent Auto 49.9 45-73 % Imm Gran Pct Auto 1.2 0.0-0.4 % Lymphocytes Percent Auto 40.4 20-40 % Monocytes Percent Auto 5.9 2-11 % Eosinophils Percent Auto 1.8 0-4 % Basophils Percent Auto 0.8 0-2 % NRBC Pct Auto 0.4 0.0-0.2 /100WBC Neutrophils Absolute Auto 2.4 2.0-8.3 x10*3/u L Imm Gran Abs Auto 0.06 0.00-0.03 X10*3/uL Lymphocytes Absolute Auto 2.0 1.2-4.9 X10*3/u L Monocytes Absolute Auto 0.3 0.1-1.2 X10*3/uL Eosinophils Absolute Auto 0.1 0.0-0.4 X10*3/u L Basophils Absolute Auto 0.0 0.0-0.2 X10*3/uL NRBC Abs Auto 0.020 0.0-0.012 X10*3/uL White Blood Count 4.9 4.8-10.8 X10*3/uL Red Blood Count 3.32 4.20-5.50 X10*6/uL Hemoglobin 13.0 12.0-16.0 g/dl Hematocrit 37.1 37.0-47.0 % Mean Corpuscular Volume 111.7 80.0-98.0 fL Mean Corpuscular Hemoglobin 39.2 27.0-33.0 pg Mean Corpuscular HGB Conc 35.0 31.0-35.0 g/dl Red Cell Distribution Width 15.0 11.0-16.0 % Platelet Count 149 160-400 X10*3/uL Mean Platelet Volume 10.8 9.4-12.3 fL Neutrophils Percent Auto 49.9 45-73 % Imm Gran Pct Auto 1.2 0.0-0.4 % Lymphocytes Percent Auto 40.4 20-40 % Monocytes Percent Auto 5.9 2-11 % Eosinophils Percent Auto 1.8 0-4 % Basophils Percent Auto 0.8 0-2 % NRBC Pct Auto 0.4 0.0-0.2 /100WBC Neutrophils Absolute Auto 2.4 2.0-8.3 x10*3/u L Imm Gran Abs Auto 0.06 0.00-0.03 X10*3/uL Lymphocytes Absolute Auto 2.0 1.2-4.9 X10*3/u L Monocytes Absolute Auto 0.3 0.1-1.2 X10*3/uL Eosinophils Absolute Auto 0.1 0.0-0.4 X10*3/u L Basophils Absolute Auto 0.0 0.0-0.2 X10*3/uL NRBC Abs Auto 0.020 0.0-0.012 X10*3/uL Liver Panel Reviewed date:03/01/2024 11:02:09 PM Interpretation: Performing Lab:[facility], [address] [place] [phone] Notes/Report: Bilirubin Total 0.7 0.0-1.0 mg/dL Bilirubin Direct 0.2 0.0-0.5 mg/dL Aspartate Amino Transferase 34 5-31 U/L Alanine Aminotransferase 26 0-31 U/L Total Protein 6.4 6.5-8.0 g/dL Albumin Level 4.0 3.5-5.0 g/dL Alkaline Phosphatase 55 39-117 U/L SLIDE REVIEW Reviewed date:03/01/2024 11:06:09 PM Interpretation: Performing Lab:[facility], [address] [place] [phone] Notes/Report: SLIDE REVIEW VERIFIED Complete Blood Count Auto Di ff Reviewed date:07/04/2024 10:59:03 PM Interpretation: Performing Lab:[facility], [address] [place] [phone] Notes/Report: White Blood Count 6.5 4.8-10.8 X10*3/uL Red Blood Count 2.80 4.20-5.50 X10*6/uL Hemoglobin 11.1 12.0-16.0 g/dl Hematocrit 32.0 37.0-47.0 % Mean Corpuscular Volume 114.3 80.0-98.0 fL Mean Corpuscular Hemoglobin 39.6 27.0-33.0 pg Mean Corpuscular HGB Conc 34.7 31.0-35.0 g/dl Red Cell Distribution Width 17.1 11.0-16.0 % Platelet Count 205 160-400 X10*3/uL Mean Platelet Volume 10.3 9.4-12.3 fL Neutrophils Percent Auto 58.2 45-73 % Imm Gran Pct Auto 3.2 0.0-0.4 % Lymphocytes Percent Auto 25.7 20-40 % Monocytes Percent Auto 7.2 2-11 % Eosinophils Percent Auto 4.6 0-4 % Basophils Percent Auto 1.1 0-2 % NRBC Pct Auto 0.6 0.0-0.2 /100WBC Neutrophils Absolute Auto 3.8 2.0-8.3 x10*3/u L Imm Gran Abs Auto 0.21 0.00-0.03 X10*3/uL Lymphocytes Absolute Auto 1.7 1.2-4.9 X10*3/u L Monocytes Absolute Auto 0.5 0.1-1.2 X10*3/uL Eosinophils Absolute Auto 0.3 0.0-0.4 X10*3/u L Basophils Absolute Auto 0.1 0.0-0.2 X10*3/uL NRBC Abs Auto 0.040 0.0-0.012 X10*3/uL Liver Panel Reviewed date:07/04/2024 11:06:00 PM Interpretation: Performing Lab:[facility], [address] [place] [phone] Notes/Report: Bilirubin Total 0.6 0.0-1.0 mg/dL Bilirubin Direct 0.2 0.0-0.5 mg/dL Aspartate Amino Transferase 21 5-31 U/L Alanine Aminotransferase 13 0-31 U/L Total Protein 6.2 6.5-8.0 g/dL Albumin Level 3.8 3.5-5.0 g/dL Alkaline Phosphatase 54 39-117 U/L Ferritin Reviewed date:07/31/2024 06:55:24 PM Interpretation: Performing Lab:[facility], [address] [place] [phone] Notes/Report: Ferritin 1464 10-250 ng/mL Vitamin B12 and Folate Reviewed date:07/11/2024 11:28:26 PM Interpretation: Performing Lab:[facility], [address] [place] [phone] Notes/Report: Vitamin B12 317 200-900 pg/mL NORMAL 200-900 PG/ML INDETERMINATE 160-199 PG/ML DEFICIENT < 160 PG/ML Folate 13.3 > or = 4.0 ng/mL Reference Values: > or = 4.0 ng/mL < 4.0 ng/mL suggests folate deficiency Methotrexate, aminopterin and folinic acid (leucovorin) are chemotherapeutic agents whose molecular structures are similar to folate; therefore, the Bodily Injury Adjuster folate assay cannot be used for patients using these drugs. IRON PROFILE Reviewed date:07/31/2024 06:53:32 PM Interpretation: Performing Lab:[address] [phone] Notes/Report: Iron 125 30-160 mcg/dL Total Iron Binding Capacity 211 228-428 mcg/d L Percent Iron Saturation 59 15-50 % Unsaturated Iron Binding 86 Ferritin Reviewed date:08/07/2024 05:13:16 PM Interpretation: Performing Lab:[facility], [address] [place] [phone] Notes/Report: Ferritin 1143 10-250 ng/mL Complete Blood Count Auto Di ff Reviewed date:08/07/2024 05:01:42 PM Interpretation: Performing Lab:[facility], [address] [place] [address] Notes/Report: White Blood Count 6.3 4.8-10.8 X10*3/uL Red Blood Count 3.03 4.20-5.50 X10*6/uL Hemoglobin 12.1 12.0-16.0 g/dl Hematocrit 33.8 37.0-47.0 % Mean Corpuscular Volume 111.6 80.0-98.0 fL Mean Corpuscular Hemoglobin 39.9 27.0-33.0 pg Mean Corpuscular HGB Conc 35.8 31.0-35.0 g/dl Red Cell Distribution Width 16.5 11.0-16.0 % Platelet Count 181 160-400 X10*3/uL Mean Platelet Volume 10.2 9.4-12.3 fL Neutrophils Percent Auto 61.3 45-73 % Imm Gran Pct Auto 1.3 0.0-0.4 % Lymphocytes Percent Auto 26.0 20-40 % Monocytes Percent Auto 6.2 2-11 % Eosinophils Percent Auto 4.4 0-4 % Basophils Percent Auto 0.8 0-2 % NRBC Pct Auto 0.3 0.0-0.2 /100WBC Neutrophils Absolute Auto 3.9 2.0-8.3 x10*3/u L Imm Gran Abs Auto 0.08 0.00-0.03 X10*3/uL Lymphocytes Absolute Auto 1.6 1.2-4.9 X10*3/u L Monocytes Absolute Auto 0.4 0.1-1.2 X10*3/uL Eosinophils Absolute Auto 0.3 0.0-0.4 X10*3/u L Basophils Absolute Auto 0.1 0.0-0.2 X10*3/uL NRBC Abs Auto 0.020 0.0-0.012 X10*3/uL DNA Analysis Hemochromatosis Reviewed date:09/06/2024 04:44:10 PM Interpretation: Performing Lab:[facility], [address], [place] [address] Notes/Report: DNA Analysis Hemochromatosis See Below RESULT: POSITIVE FOR ONE HFE GENE PATHOGENIC VARIANT: 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 This patient is negative for the H63D pathogenic variant. Individuals with this genotype may have elevated serum transferrin iron saturation levels. This result reduces the likelihood of hereditary hemochromatosis (HH). However, it does not rule out the presence of other pathogenic variants within the HFE gene or a diagnosis of HH. The risk of this individual to carry an HFE pathogenic variant other than those tested in this assay depends greatly on family and clinical history as well as ethnicity. This assay does not test for other primary or secondary iron overload disorders. Consider genetic counseling and DNA testing for at-risk family members. Laboratory results and submitted clinical information reviewed by Alek Lamb, PhD, [facility], [facility]. DETAILED ASSAY INFORMATION: Hereditary hemochromatosis (HH) is an autosomal recessive disorder of iron metabolism that can result in iron overload and potential organ failure. It is one of the most common genetic disorders in individuals of - ancestry, with an estimated carrier frequency of 10%. HH is caused by pathogenic variants in the HFE gene. Most individuals with HH (60-90%) are homozygous for the C282Y pathogenic variant. A smaller percentage of affected individuals are either compound heterozygous for the C282Y and H63D pathogenic variants (3%-8%), or homozygous for the H63D pathogenic variant (approximately 1%). METHODOLOGY: This assay detects two pathogenic variants in the HFE gene, C282Y (NM 480516.2: c.845G>A, p.Jeo226Qds) and H63D (NM 691123.2: c.187C>G, p.Nuj44Opf), that are commonly associated with HH. These variants are detected by multiplex-polymerase chain reaction (PCR) amplification, followed by restriction enzyme digestion and capillary electrophoresis. LIMITATIONS: This assay does not detect other pathogenic variants in the HFE gene that may be associated with HH. Although rare, false positive or false negative results may occur. All results should be interpreted in the context of clinical findings, relevant history, and other laboratory data. Health care providers, please contact your local [facility] genetic counselor or call [phone] ( ) for assistance with the interpretation of these results. This test was developed and its analytical performance characteristics have been determined by [facility]. It has not been cleared or approved by FDA. This assay has been validated pursuant to the CLIA regulations and is used for clinical purposes. For more information, please refer to http://education.[employer].SCOUPY/faq/hemochromatosi s. (This link is being provided for informational/educational purposes only.) A portion of the testing was performed at [facility]. Reviewed and signed by Laboratory results and submitted clinical information reviewed by Alek Lamb, PhD, [facility], [facility], Signed on 08/17/2024 at 10:22 THIS TEST WAS PERFORMED AT: [facility] [facility] [place] [address] [place] [address] CELINE FIGUEROA MD,PHD,MATTHEW Liver Panel Reviewed date:08/07/2024 05:02:19 PM Interpretation: Performing Lab:[facility], [address] [place] [phone] Notes/Report: Bilirubin Total 0.8 0.0-1.0 mg/dL Bilirubin Direct 0.2 0.0-0.5 mg/dL Aspartate Amino Transferase 16 5-31 U/L Alanine Aminotransferase 16 0-31 U/L Total Protein 6.3 6.5-8.0 g/dL Albumin Level 3.9 3.5-5.0 g/dL Alkaline Phosphatase 60 39-117 U/L IRON PROFILE Reviewed date:08/07/2024 05:02:27 PM Interpretation: Performing Lab:[address] [phone] Notes/Report: Iron 82 30-160 mcg/dL Total Iron Binding Capacity 220 228-428 mcg/d L Percent Iron Saturation 37 15-50 % Unsaturated Iron Binding 138 Complete Blood Count Auto Di ff Reviewed date:09/14/2024 07:02:12 PM Interpretation: Performing Lab:[facility], [address] [place] [phone] Notes/Report: White Blood Count 4.6 4.8-10.8 X10*3/uL Red Blood Count 3.00 4.20-5.50 X10*6/uL Hemoglobin 12.0 12.0-16.0 g/dl Hematocrit 34.0 37.0-47.0 % Mean Corpuscular Volume 113.3 80.0-98.0 fL Mean Corpuscular Hemoglobin 40.0 27.0-33.0 pg Mean Corpuscular HGB Conc 35.3 31.0-35.0 g/dl Red Cell Distribution Width 15.9 11.0-16.0 % Platelet Count 165 160-400 X10*3/uL Mean Platelet Volume 10.2 9.4-12.3 fL Neutrophils Percent Auto 54.8 45-73 % Imm Gran Pct Auto 1.3 0.0-0.4 % Lymphocytes Percent Auto 33.8 20-40 % Monocytes Percent Auto 4.6 2-11 % Eosinophils Percent Auto 4.6 0-4 % Basophils Percent Auto 0.9 0-2 % NRBC Pct Auto 0.7 0.0-0.2 /100WBC Neutrophils Absolute Auto 2.5 2.0-8.3 x10*3/u L Imm Gran Abs Auto 0.06 0.00-0.03 X10*3/uL Lymphocytes Absolute Auto 1.5 1.2-4.9 X10*3/u L Monocytes Absolute Auto 0.2 0.1-1.2 X10*3/uL Eosinophils Absolute Auto 0.2 0.0-0.4 X10*3/u L Basophils Absolute Auto 0.0 0.0-0.2 X10*3/uL NRBC Abs Auto 0.030 0.0-0.012 X10*3/uL Liver Panel Reviewed date:09/06/2024 04:45:24 PM Interpretation: Performing Lab:[facility], [address] [place] [phone] Notes/Report: Bilirubin Total 0.6 0.0-1.0 mg/dL Bilirubin Direct 0.2 0.0-0.5 mg/dL Aspartate Amino Transferase 18 5-31 U/L Alanine Aminotransferase 19 0-31 U/L Total Protein 6.2 6.5-8.0 g/dL Albumin Level 4.0 3.5-5.0 g/dL Alkaline Phosphatase 53 39-117 U/L Ferritin (Not yet reviewed b y provider) Interpretation: Performing Lab:[facility], [address] [place] [phone] Notes/Report: Ferritin 850 10-250 ng/mL IRON PROFILE Reviewed date:09/22/2024 01:17:40 PM Interpretation: Performing Lab:[facility], [address] [place] [phone] Notes/Report: Iron 111 30-160 mcg/dL Total Iron Binding Capacity 227 228-428 mcg/d L Percent Iron Saturation 49 15-50 % Unsaturated Iron Binding 116 REASON FOR REFERRAL No Information MEDICATIONS Medication SIG (Take, Route, Frequency, Duration) Notes Start Date End Date Status lamoTRIgine 100 MG 1 tablet Orally Once a day Active Mesalamine 1000 MG 1 suppository at bed time Rectal QHS for 30 day(s) 04/22/2016 Not-Tristian ing Metoprolol Succinate ER 25 MG 1 tablet Orally Once a day Active Breo Ellipta 100-25 MCG/INH 1 puff Inhalation Once a day Not-Taking Cranberry Concentrate 500 MG 3 Orally bid Active HumaLOG 100 UNIT/ML sliding scale Subcutaneous 4 times a day Active Vitamin D (Cholecalciferol) 25 MCG (1000 UT) 1 capsule Orally Once a day for 30 day(s) Active Apriso 0.375 GM TAKE FOUR CAPSULES B Y MOUTH EVERY MORNING for 30 Active azaTHIOprine 50 mg TAKE 1 AND 1/2 TABLE TS BY MOUTH EVERY DAY Orally Daily for 30 days Active Lantus 100 UNIT/ML 54 units in the am a nd 46 units in the pm Subcutaneous daily Active Lisinopril 5 MG 1 tablet Orally Once a day Not-Taking traZODone HCl 50 MG 3 tablet at bedtime Orally Once a day Active Mesalamine 1000 MG 1 suppository at bed time Rectal Once a day for 30 day(s) 04/22/2016 Not-Taking Omeprazole Magnesium 20 MG 1 tablet 30 minutes before morning meal Orally Once a day for 30 day(s) Active Motrin PRN Active Tylenol PRN Active Simvastatin 40 MG 1 tablet in the even ing Orally Once a day for 30 day(s) Active Humira Pen 40 MG/0.8ML 0.8 ml Subcutaneo us weekly Active Benadryl 50 1 tablet as needed Orally every 4 hrs PRN Not-Takin g Alaway 0.025 % 1 drop into affected eye Ophthalmic Twice a day Not-Takin g Mesalamine 1000 MG 1 suppository at bed time Rectal QHS/prn Not-Taking predniSONE 5 MG 8 tablets daily for 1 week, and then decrease by 1 tablet(5mg) per week Orally Once a day for 56 days 09/26/2016 Not-Taking Proctofoam HC 1-1 % 1 application Rectal BID and QHS for 30 days 11/12/2016 Not-Taking NovoLOG 100 UNIT/ML sliding dose Subcutaneous QD Not-Taking Fluticasone Propionate 50 MCG/ACT 1 spray in each nostril Nasally Once a day Not-Taking LORazepam 1 MG 1/2 in the am and 11 / in the pm Orally Once a day Active Haloperidol 10 MG 1 tablet Orally Once a day Active LaMICtal 100mg 1 tablet Orally QD Active Doxycycline Hyclate 100 MG 1 capsule Orally every 12 hrs Not-Taking Mesalamine 4 GM 1 enema Rectal QHS f or 30 day(s) 09/17/2016 Not-Taking Tylenol Extra Strength 500 MG 1 tablet [...] 1 puff Inhalation Twice a day Active IMMUNIZATIONS Vaccine Route Administration Date Status Comme nts Flu vaccine no Preserv 3 and > Unknown 09/12/2014 Admin istered Influenza Unknown 08/23/2015 Administered Flu vaccine no Preserv 3 and > Unknown 08/27/2016 Admin istered Flu vaccine no Preserv 3 and > Unknown 09/01/2017 Admin istered Influenza Unknown 08/04/2018 Administered Influenza Unknown 08/09/2019 Administered Influenza Unknown 09/05/2020 Administered Influenza Unknown 08/07/2021 Administered Influenza Unknown 08/27/2022 Administered Influenza Unknown 08/25/2023 Administered SOCIAL HISTORY Tobacco Use: Social History Observation Description Date Details (start date - stop date) Former Smoker NA - NA Sex Assigned At : Social History Observation Description Sex Assigned At Unknown Tobacco Use/Smoking Question Answer Notes Patient is a former smoker How long has it been since you last smoked? 5-10 years PROBLEMS Problem Type ICD Code Onset Dates Problem Status W/U Status Risk SNOMED Code Notes Problem 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) Active confirmed 2189156 Problem Inflammatory polyps of colon without complications (K51.40) Active confirmed Pseudopolyposis of colon (53201397) Problem Diverticulosis of large intestine without perforation or abscess without bleeding (K57.30) Active confirmed Diverticul ar disease of colon (140160116) Problem Dysphagia (R13.10) Active confirmed Dys phagia (14237428) Problem Abdominal pain, epigastric (R10.13) Active confirmed 95580808 Problem Crohn's disease of colon (K50.10) Active confirmed Crohn (01315795) Problem Anemia (D64.9) Active confirmed Anemia (437996038) Problem Crohns colitis, without complications (K50.10) Active confirmed 87070091 Problem Crohns disease (K50.90) Active confirmed Crohns disease (76269783) Problem Other iron deficiency anemia (D50.8) Active confirmed 19949419 Problem Inflammatory polyps, without complications (K51.40) Active confirmed Pseudopolyposis of colon (66377243) Problem Anemia, unspecified type (D64.9) Active confirmed 216281434 Problem Increased storage iron (E83.19) Active confirmed Increased stor age iron (92570576) Problem Gastroesophageal reflux (K21.9) Active confirmed Esophageal re flux finding (172836183) Problem Diarrhea, unspecified type (R19.7) Active confirmed 25589698 Problem Crohn's disease of large intestine without complication (K50.10) Active confirmed 4239163 Problem Crohn's disease of perianal region with fistula (K50.113) Active confirmed 521728382 Problem Gallbladder sludge (K82.8) Active confirmed 60526364 Problem Macrocytosis without anemia (D75.89) Active confirmed 077662361 Problem Diarrhea of presumed infectious origin (R19.7) Active confirmed 35260570 Problem Crohn''s disease of large intestine without complication (K50.10) Active confirmed Crohn (8218094) Problem Crohn''s disease of colon without complication (K50.10) Active confirmed Crohn's disease of large bowel (7013745) Problem Crohn's disease of colon without complication (K50.10) Active confirmed 24355468 Problem Esophageal dysphagia (R13.19) Active confirmed 62573355 Problem Encounter for therapeutic drug monitoring (Z51.81) Active confirmed 089943326 VITAL SIGNS Temperature 97.1 degrees Fahrenheit 02/26/2024 Blood pressure diastolic 00 mm Hg 08/30/2024 Height 63 in 08/30/2024 Blood pressure systolic 00 mm Hg 08/30/2024 Weight 265 lbs 08/30/2024 BMI 46.94 kg/m2 08/30/2024 Encounters Encounter Location Date Provider Diagnosis [facility] Outpatient [address], [place] [id number] 11/30/2023 Jose Juan Hare [facility] [address] [place] [phone] 02/26/2024 Jose Juan Hare Crohns colitis, without complications K50.10 and Crohn's disease of perianal region with fistula K50.113 [facility] [address] [place] [phone] 08/30/2024 Jose Juan Hare Crohns colitis, without complications K50.10 ; Diarrhea, unspecified type R19.7 ; Crohn's disease of perianal region with fistula K50.113 ; Crohn's disease of large intestine with fistula K50.113 and Increased storage iron E83.19 [facility] [address] [place] [phone] 06/28/2024 Jose Juan Hare Crohn''s disease of colon without complication K50.10 [facility] [address] [place] [phone] 07/04/2024 Jose Juan Hare Anemia D64.9 [facility] [address] [place] [phone] 07/31/2024 Jose Juan Hare Increased storage ir on E83.19 ASSESSMENTS Encounter Date Diagnosis Assessment Notes Treatment Notes Treatment Clinical Notes 02/26/2024 Crohns colitis, without complications (ICD-10 - K50.10) Keep doing the labs every other month Use 2 Imodium every morning, and then every 4 to 6 hours during the day as needed 02/26/2024 Crohn's disease of perianal region with fistula (ICD-10 - K50.113) 08/30/2024 Crohns colitis, without complications (ICD-10 - K50.10) Conitnue the same medicine and same labs 08/30/2024 Diarrhea, unspecifie d type (ICD-10 - R19.7) 06/28/2024 Crohn''s disease of colon without complication (ICD-10 - K50.10) 07/04/2024 Anemia (ICD-10 - D64.9) 07/31/2024 Increased storage iron (ICD-10 - E83.19) 08/30/2024 Crohn's disease of perianal region with fistula (ICD-10 - K50.113) 08/30/2024 Crohn's disease of large intestine with fistula (ICD-10 - K50.113) 08/30/2024 Increased storage iron (ICD-10 - E83.19) Stay off Iron. Do my Iron labs when you do Dr. Blackman's. PLAN OF TREATMENT Pending Test Test Name Order Date CHEM 7 PROFILE 05/13/2023 LIVER PROFILE 05/13/2023 LIVER PROFILE 03/27/2017 LIVER PROFILE 04/23/2022 LIVER PROFILE 09/05/2020 LIVER PROFILE 04/17/2017 LIVER PROFILE 06/13/2020 LIVER PROFILE 05/04/2023 LIVER PROFILE 06/28/2024 LIVER PROFILE 07/01/2018 IRON + IBC (FE) 07/04/2024 IRON + IBC (FE) 07/31/2024 IRON + IBC (FE) 08/30/2024 IRON + IBC (FE) 11/30/2017 FERRITIN 11/30/2017 CRP 11/30/2017 CRP 05/13/2023 CRP 04/17/2017 VITAMIN B12 AND FOLATE 07/05/2020 VITAMIN B12 AND FOLATE 11/30/2017 CBC w DIFF 07/01/2018 CBC w DIFF 03/27/2017 CBC w DIFF 04/23/2022 CBC w DIFF 09/05/2020 CBC w DIFF 05/13/2023 CBC w DIFF 06/13/2020 CBC w DIFF 05/04/2023 CBC w DIFF 06/28/2024 CBC with MANUAL DIFFERENTIAL 04/17/2017 SED RATE (ESR) 04/17/2017 SED RATE (ESR) 11/30/2017 SED RATE (ESR) 05/13/2023 HEMOCHROMATOSIS (C282Y) 07/31/2024 NUC HIDA SCAN 11/30/2017 XR BARIUM SWALLOW-ESOPHAGUS 09/05/2021 PROMETHEUS THIOPURINE METABOLITES (TPMT) 08/18/2018 PROMETHEUS THIOPURINE METABOLITES (TPMT) 09/08/2023 PROMETHEUS THIOPURINE METABOLITES (TPMT) 10/13/2017 TSH REFLEX FREE T4 07/05/2020 HUMIRA LEVEL/AB (ADALIMUMAB LEVEL/AB) HUMIRA LEVEL/AB (ADALIMUMAB LEVEL/AB) HUMIRA LEVEL/AB (ADALIMUMAB LEVEL/AB) C DIFFICILE RFLX PCR 05/13/2023 Ferritin 09/21/2024 Ferritin 08/30/2024 Future Test Test Name Order Date UPPER GI ENDOSCOPY BALLOOON DILATION OF ESOPH 07/26/2021 COLONOSCOPY 07/26/2021 COLONOSCOPY 09/08/2023 Next Appt Details Provider Name:Jose Juan Hare , 02/28/2025 01:40:00 PM, [address] [place] [address], [address], [place], [address], Insurance Providers Payer Name Payer Address Payer Phone Subscriber Number Group Number Insured Name Patient Relationship to Insured Coverage Start Date Coverage End Date [place] OF [place] [address] JESENIA GUILLEN [id number] TERESAFAUZIA HOLMAN Self - patient is the insured MEDICAID OF [facility] [address] [place] [address] [id number] FAUZIA HOLLEY Self - patient is the insured MEDICAL (GENERAL) HISTORY Medical History History ICD Code IDDM DVT 20 yrs ago Colonoscopy 10/[address] Briseno with the finding of colitis in left colon and rectum--bx in rectum showed a granuloma-started Apriso 02/2013 Denies IA,CVA,Lung disease,renal disease Anemia-on Iron--Hgb approx 8 in 10/2012, and 12.9 in 01/2013---on B12 shots Bipolar disease Abscess near right kidney in 2008-drained with percutaneous catheters-at [facility] PVC's Asthma Colonoscopy 10/2016 revealed a very active distal proctitis, and a small area of colitis in the cecum--the remainder of the colon appeared normal--- she started Humira on 12/18/16, and started azathioprine in December 2016---Humira increased to weekly injections in 03/2017. She had therapeutic levels of her Humira and the azathioprine metabolites in the Fall of 2017. Gout 02/21/17--took Motrin for 10 days--ag gravated the Crohn's Macrocytosis with normal Hgb-normal TSH, B12 level, and Folate in 07/2020 Colonoscopy in August 2021 was negative for any active colitis, tubular adenomas, nor dysplasia on biopsies Upper endoscopy in August 24 revealed only a small hiatal hernia, without any sign of esophagitis, esophageal stricture, nor eosinophilic esophagitis on biopsies--the EGJ was dilated but without any effect-a followup barium swallow did not show any significant pathology regarding her swallowing issues. Diarrhea requiring prednison e which gave her relief in the summer--at that time she had therapeutic Humira levels and negative Humira antibodies. A stool calprotectin level was minimally elevated and infectious etiologies were ruled out. COVID 11/2023 Colonoscopy in September revealed pseudopolyps in the region of the cecum and rectum, as well as some scarring from Crohn's disease in those areas. However, there was no sign of any active Crohn's in the terminal ileum, colon, nor rectum. Biopsies were negative for any adenomatous changes or dysplasia. There was no evidence of any perianal disease. Azathioprine metabolite levels were stab le in September of 2023 Elevated ferritin level of o otf 1400 in summer 2023. 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 Her iron studies started to improve by stopping her supplemental iron pill. Surgical History Surgery Date(Month/Year) Tonsillectomy
--- OUTSIDE RECORDS SUMMARY | 2024-11-04 13:44 | XMS_ITS ---
Author Organization [facility] Address [address] [place] [address] Care Team Providers Care Certified Pedorthotist Name Role Phone Yehuda HALL, Richard Primary Care Provider UnavailJose Juan Chawla [phone] RESULTS Component Value Reference Range Notes Ferritin Reviewed date:07/31/2024 06:55:24 PM Interpretation: Performing Lab:[facility], [address] [place] [phone] Notes/Report: Ferritin 1464 10-250 ng/mL Vitamin B12 and Folate Reviewed date:07/11/2024 11:28:26 PM Interpretation: Performing Lab:[facility], [address] [place] [phone] Notes/Report: Vitamin B12 317 200-900 pg/mL NORMAL 200-900 PG/ML INDETERMINATE 160-199 PG/ML DEFICIENT < 160 PG/ML Folate 13.3 > or = 4.0 ng/mL Reference Values: > or = 4.0 ng/mL < 4.0 ng/mL suggests folate deficiency Methotrexate, aminopterin and folinic acid (leucovorin) are chemotherapeutic agents whose molecular structures are similar to folate; therefore, the Boiler Cleaner folate assay cannot be used for patients using these drugs. PROBLEMS Problem Type ICD Code Onset Dates Problem Status W/U Status Risk SNOMED Code Notes Problem Anemia (D64.9) Active confirmed Anemia (820874368) Encounters Encounter Location Date Provider Diagnosis [facility] [address] [place] [address] 07/04/2024 Jose Juan Hare Anemia D64.9 ASSESSMENTS Encounter Date Diagnosis Assessment Notes Treatment Notes Treatment Clinical Notes 07/04/2024 Anemia (ICD-10 - D64.9) PLAN OF TREATMENT Pending Test Test Name Order Date IRON + IBC (FE) 07/04/2024 Next Appt Details Provider Name:Jose Juan Hare , 02/28/2025 01:40:00 PM, [address] [place] [address], [address], [place], [address],
--- OUTSIDE RECORDS SUMMARY | 2024-11-04 13:44 | XMS_ITS ---
Author Organization [facility] Address [address] [place] [address] Care Team Providers Care Slide Fastener Chain Assembler Name Role Phone Richard Blackman MD Primary Care Provider Unavailab chris Manan Camargomie Unavailable [phone] REASON FOR VISIT SMOKING PIPE COATER PPWK Entered Encounters Encounter Location Date Provider Diagnosis [address] [address] 08/25/2024 Noelle Camargo Plan Of Treatment Next Appt Details Provider Name:Noelle Blair Raman , 11/10/2024 10:30:00 AM, [address] [place] [address], [address], Progress Notes * LEYDIRegih ADOB: 7 (59 yo F)Acc No.[id number]:08/25/2024 Patient:?Alexsandra Thomsa Rossy :1965???Age:59 Y???Sex:Female Address:[address] [place] [address] [address], [place], [address] * true * Date:? Generated for Kenyattai negrito/Pio/eTransmitting on:?11/04/2024 01:44 PM EST
--- OUTSIDE RECORDS SUMMARY | 2024-11-04 13:44 | XMS_ITS ---
Author Organization [facility] Address [address] [place] [address] Care Team Providers Care Personal Property Appraiser Name Role Phone Yehuda HALL, Richard Primary Care Provider Unavailab Jose Juan Hale Unavailable [phone] RESULTS Component Value Reference Range Notes Ferritin Reviewed date:08/07/2024 05:13:16 PM Interpretation: Performing Lab:[facility], [address] [place] [phone] Notes/Report: Ferritin 1143 10-250 ng/mL REASON FOR VISIT Elevated Iron studies PROBLEMS Problem Type ICD Code Onset Dates Problem Status W/U Status Risk SNOMED Code Notes Problem Increased storage iron (E83.19) Active confirmed Increased storage iron (35029032) Encounters Encounter Location Date Provider Diagnosis [facility] [address] [place] [address] 07/31/2024 Jose Juan Hare Increased storage iron E83.19 ASSESSMENTS Encounter Date Diagnosis Assessment Notes Treatment Notes Treatment Clinical Notes 07/31/2024 Increased storage iron (ICD-10 - E83.19) PLAN OF TREATMENT Pending Test Test Name Order Date IRON + IBC (FE) 07/31/2024 HEMOCHROMATOSIS (C282Y) 07/31/2024 Next Appt Details Provider Name:Jose Juan Hare , 02/28/2025 01:40:00 PM, [address], [address], [place], [address],
--- OUTSIDE RECORDS SUMMARY | 2024-11-04 13:45 | XMS_ITS | Patient Health Record ---
Author Organization [facility] Address [address] [facility] [place] [address] Care Team Providers Care Ap Processor Name Role Phone Richard Blackman MD Primary Care Provider Unavailab chris Raman Noelle Unavailable [phone] Allergies Allergen (clinical drug ingredient) Drug/Non Drug Allergy documented on EMR Reaction Allergy Type Onset Date Status amoxicillin Amoxicillin diarrhea Drug Allergy Act vini amoxicillin / clavulanate Augmentin Unknown Drug Allergy Active Reason For Referral No Information Medications Medication SIG (Take, Route, Frequency, Duration) Notes Start Date End Date Status Haloperidol Active lamoTRIgine Active Metoprolol Succinate ER Active Simvastatin Active Advair Diskus Active Clotrimazole-Betamethasone Active Lantus Subcutaneous Active LaMICtal Not-Taking Apriso 0.375 GM 4 capsules in the morning Orally Once a day for 30 day(s) Active Provera 20 MG 1 tablet Orally Twice a day for 5 day(s) Not-Taking LORazepam Active NovoLOG Not-Taking Trifluoperazine HCl Active Canasa Not-Taking HumaLOG Active Ferrous Sulfate 325 (65 Fe) MG 1 tablet Orally Once a day for 30 day(s) Active Levaquin 500 MG 1 tablet Orally Once a day Not-Taking Tricor Active Haldol 5 mg qd Active Metoprolol & Diet Manage Prod Active Humira Active azaTHIOprine Active Allopurinol Active traZODone HCl Active UltiCare Insulin Syringe Active medroxyPROGESTERone Acetate Active Losartan Potassium A ctive Immunizations Vaccine Route Administration Date Status Comme nts Influenza Unknown 08/26/2016 Administered Influenza Unknown 09/02/2017 Administered Influenza Unknown 08/07/2018 Administered Influenza Unknown 08/09/2019 Administered Social History Tobacco Use: Social History Observation Description Date Details (start date - stop date) Former Smoker NA - NA Tobacco Use/Smoking Question Answer Notes Are you a: former smoker Additional Findings: Tobacco Non-User Current no n-smoker Alcohol Screen Question Answer Notes Did you have a drink containing alcohol in the p ast year? No Points 0 Interpretation Negative Tobacco use other than smoking: Question Answer Notes Are you an other tobacco user? No Problems Problem Type SNOMED Code ICD Code Onset Dates Problem Status W/U Status Risk Notes Problem Acquired hallux valgus (44565475) Hallux valgus (acquired), right foot (M20.11) Active confirmed Problem Primary gout (71459115) Idiopathic gout, right ankle and foot (M10.071) Active confirmed Problem Polyneuropathy due to diabetes mellitus type I (821211430) Type 1 diabetes mellitus with diabetic polyneuropathy (E10.42) Active confirmed Encounters Encounter Location Date Provider Diagnosis [facility] [address] [place] [address] 08/25/2024 Noelle Camargo Plan Of Treatment Pending Test Test Name Order Date *Liver Function Test (LFT) 04/12/2012 52645-JOOERIT NAIL, 6 OR MORE 12/24/2011 32128-ORKYOIG NAIL, 11-2707/05/2012 97666-QTUPKIP NAIL, 11-2710/04/2012 36791-YRXSTEU NAIL, 11-2704/12/2012 49704-TTGGCLV NAIL, 11-2704/11/2013 15293-XEQOQJF NAIL, 11-2707/11/2013 07444-ESNLFAC NAIL, 11-2711/07/2013 75079-YAGKLYT NAIL, 11-2703/06/2014 45694-FETNZUC NAIL, 11-2708/17/2014 69233-TMNJAAG NAIL, 11-2710/30/2014 03430-ZGTFMSL NAIL, 11-2701/17/2015 06999-ZQYWSZA NAIL, 11-2701/06/2013 40650-IAMUDDG NAIL, 11-2704/19/2015 89139-HSYUHDW NAIL, 11-2707/19/2015 92321-Qrclngaz Plate 07/19/2015 94866-Mkwabtyr Plate 03/06/2014 50808-Tmixcxzi Plate 04/19/2015 05905-Aemuuokx Plate 01/17/2015 82302-Pjcqtlrn Plate 10/30/2014 82023-Bchvuyyd Plate 08/17/2014 32343-Bsswlevj Plate 08/15/2019 97055-OJF 12/29/2011 42905- Debride <25 sq cm 08/11/2011 36913-QTDKIKY SKIN/TISSUE 01/19/2012 28509-XLEODWV SKIN/TISSUE 02/02/2012 74330 I&D ABSCESS- SIMPLE,SINGLE 011 52062 I&D ABSCESS- SIMPLE,SINGLE 012 06322 I&D ABSCESS- SIMPLE,SINGLE 013 10409 I&D ABSCESS- SIMPLE,SINGLE 012 91394 I&D ABSCESS- SIMPLE,SINGLE 014 78674 I&D ABSCESS- SIMPLE,SINGLE 014 86180 I&D ABSCESS- SIMPLE,SINGLE 013 40414 I&D ABSCESS- SIMPLE,SINGLE 013 17147 I&D ABSCESS- SIMPLE,SINGLE 014 41869 I&D ABSCESS- SIMPLE,SINGLE 015 61125 I&D ABSCESS- SIMPLE,SINGLE 013 38676 I&D ABSCESS- SIMPLE,SINGLE 015 44905 I&D ABSCESS- SIMPLE,SINGLE 015 95966-INTO SKIN LESIONS, OVER 4 01/27/20 17 78049-UMNY SKIN LESIONS, OVER 4 04/27/20 17 51756-OLBW SKIN LESIONS, OVER 4 08/15/20 19 02007-CINX SKIN LESIONS, OVER 4 11/24/19 20 55754-DWRG SKIN LESIONS, OVER 4 09/30/20 18 52321-LDTW SKIN LESIONS, OVER 4 12/30/19 19 92457-QFGX SKIN LESIONS, OVER 4 08/13/20 17 84409-NDLM SKIN LESIONS, OVER 4 12/28/19 18 76476-OXEE SKIN LESIONS, OVER 4 04/01/20 18 75422-JVGQ SKIN LESIONS, OVER 4 07/01/20 18 96991-RGCH SKIN LESIONS, 2 TO 4 04/28/20 16 90429-FAWX SKIN LESIONS, 2 TO 4 08/04/20 16 41418-WMZT SKIN LESIONS, 2 TO 4 07/19/20 15 37779-OOKM SKIN LESIONS, 2 TO 4 10/25/20 15 57487-GSET SKIN LESIONS, 2 TO 4 01/24/20 16 07337-YNUB SKIN LESIONS, 2 TO 4 04/19/20 15 28655-PLVB SKIN LESIONS, 2 TO 4 01/06/20 13 25975-JRXO SKIN LESIONS, 2 TO 4 01/17/20 15 54659-XPWB SKIN LESIONS, 2 TO 4 10/30/20 14 94270-HFVH SKIN LESIONS, 2 TO 4 07/11/20 13 55114-KGZD SKIN LESIONS, 2 TO 4 11/07/20 13 22752-ZHDC SKIN LESIONS, 2 TO 4 03/06/20 14 19476-MDKF SKIN LESIONS, 2 TO 4 08/17/20 14 21992-OGBO SKIN LESIONS, 2 TO 4 10/04/20 12 11336-BURF SKIN LESIONS, 2 TO 4 04/11/20 13 49886-CPDC SKIN LESIONS, 2 TO 4 07/05/20 12 77225-MRFQ SKIN LESION 04/12/2012 X4042-SCUCYPNS DYSTROPHIC NAILS ANY # R9960-QQMDHKZN DYSTROPHIC NAILS ANY # D4504-GSTJPQBG DYSTROPHIC NAILS ANY # A8857-PUNXJTXH DYSTROPHIC NAILS ANY # A9062-XWLLAHZT DYSTROPHIC NAILS ANY # X2134-FAEWYYJZ DYSTROPHIC NAILS ANY # O2768-FAWVKYMT DYSTROPHIC NAILS ANY # J3854-ZRBYPSNQ DYSTROPHIC NAILS ANY # Y8328-WSCIFMAE DYSTROPHIC NAILS ANY # G1184-GNPALKWL DYSTROPHIC NAILS ANY # F7912-SXCCXSTO DYSTROPHIC NAILS ANY # J3789-VHQDFSYR DYSTROPHIC NAILS ANY # K3065-QKPGFGPR DYSTROPHIC NAILS ANY # X8259-IEXYUDKC DYSTROPHIC NAILS ANY # R3570-FSAYBHQH DYSTROPHIC NAILS ANY # W5878-SWBPVDYB DYSTROPHIC NAILS ANY # M4595-LUXOOGTC DYSTROPHIC NAILS ANY # X9849-ZZTMHGCV DYSTROPHIC NAILS ANY # N7213-GABQKYAJ DYSTROPHIC NAILS ANY # O7232-CDDDYPFK DYSTROPHIC NAILS ANY # 02 /05/2019 C9054-LMQCBWCV DYSTROPHIC NAILS ANY # X3278-JMDONPLH DYSTROPHIC NAILS ANY # D3598-SLVIXVAU DYSTROPHIC NAILS ANY # Next Appt Details Provider Name:Noelle Camargo , 11/10/2024 10:30:00 AM, [address] [place], [address], Insurance Providers Payer Name Payer Address Payer Phone Subscriber Number Group Number Insured Name Patient Relationship to Insured Coverage Start Date Coverage End Date Medicare National Govt [employer] [address] [place] [address] [id number] Alexsandra Thomas Self - patient is the insured 9 Medical (General) History Medical History History ICD Code transfusions psychiatric disorder chicken pox Gout diabetic depression hypercholesterolemia Anxiety disorder anemia crohns disease Arthritis asthma covid-19 High Blood Pressure Numbness Psoriasis/eczema Reflux ( GERD) Sciatica Vascular phlebitis (clots) Surgical History Surgery Date(Month/Year) Hospitalization History Reason Date(Month/Year) [facility] [place] [facility] [place]2017 [facility] asthma 4 days 08/2016
[2024-11-04 16:05] LABS: MANUAL DIFF FLAG NO
[2024-11-04 16:22] LABS: Alanine Aminotransferase 18 U/L (0-31); Albumin Level 3.9 g/dL (3.5-5.0); Alkaline Phosphatase 52 U/L (39-117); Aspartate Amino Transferase 19 U/L (5-31); Bilirubin Direct 0.2 mg/dL (0.0-0.5); Bilirubin Total 0.7 mg/dL (0.0-1.0)
[2024-11-04 16:26] LABS: Basophils Percent Auto 0.7 % (0-2); Eosinophils Absolute Auto 0.1 X10*3/uL (0.0-0.4); Eosinophils Percent Auto 3.3 % (0-4); Hematocrit 31.1 % (37.0-47.0); Hemoglobin 11.4 g/dl (12.0-16.0); Imm Gran Pct Auto 2.4 % (0.0-0.4); Lymphocytes Absolute Auto 1.2 X10*3/uL (1.2-4.9); Lymphocytes Percent Auto 29.4 % (20-40); Mean Corpuscular HGB Conc 36.7 g/dl (31.0-35.0); Mean Corpuscular Hemoglobin 39.7 pg (27.0-33.0); Mean Corpuscular Volume 108.4 fL (80.0-98.0); Mean Platelet Volume 10.8 fL (9.4-12.3); Monocytes Absolute Auto 0.2 X10*3/uL (0.1-1.2); Monocytes Percent Auto 4.5 % (2-11); NRBC Pct Auto 0.9 /100WBC (0.0-0.2); Neutrophils Absolute Auto 2.5 x10*3/uL (2.0-8.3); Neutrophils Percent Auto 59.7 % (45-73); Platelet Count 168 X10*3/uL (160-400); Red Blood Count 2.87 X10*6/uL (4.20-5.50); Red Cell Distribution Width 15.8 % (11.0-16.0); White Blood Count 4.2 X10*3/uL (4.8-10.8)
== END 2024-11-04 13:41 | disposition home or self-care (01) ==
LOC: HO.HMGCLR 13:40
PROVIDERS: PCP Internal Medicine; Visit Provider Internal Medicine
DX: K50.10 Crohn's disease of large intestine without complications (principal)
CPT/HCPCS: 36415; 80076; 85025

== ENCOUNTER 2024-12-22 13:07 | Outpatient (REF) | payer MEDICARE, MEDICAID, SELFPAY ==
[2024-12-22 16:09] LABS: MANUAL DIFF FLAG NO
[2024-12-22 16:14] LABS: Basophils Percent Auto 0.7 % (0-2); Eosinophils Absolute Auto 0.2 X10*3/uL (0.0-0.4); Eosinophils Percent Auto 3.9 % (0-4); Hematocrit 32.7 % (37.0-47.0); Imm Gran Abs Auto 0.04 X10*3/uL (0.00-0.03); Imm Gran Pct Auto 0.9 % (0.0-0.4); Lymphocytes Absolute Auto 1.5 X10*3/uL (1.2-4.9); Mean Corpuscular HGB Conc 36.7 g/dl (31.0-35.0); Mean Corpuscular Hemoglobin 41.4 pg (27.0-33.0); Mean Platelet Volume 10.7 fL (9.4-12.3); Monocytes Absolute Auto 0.3 X10*3/uL (0.1-1.2); NRBC Pct Auto 0.5 /100WBC (0.0-0.2); Neutrophils Absolute Auto 2.4 x10*3/uL (2.0-8.3); Neutrophils Percent Auto 54.5 % (45-73); Platelet Count 149 X10*3/uL (160-400); Red Cell Distribution Width 16.5 % (11.0-16.0); White Blood Count 4.4 X10*3/uL (4.8-10.8)
[2024-12-22 16:17] LABS: Mean Corpuscular Volume 112.8 fL (80.0-98.0)
[2024-12-22 16:27] LABS: Estimated Average Glucose 117 mg/dL; Hemoglobin A1C 121.9744 umol/L; Hemoglobin A1c % 5.7 % (<6.0); Total Hemoglobin (HGBA1C) 3123.6236 umol/L
[2024-12-22 16:45] LABS: Ferritin 963 ng/mL (10-250)
--- OUTSIDE RECORDS SUMMARY | 2024-12-22 16:58 | XMS_ITS ---
Author Organization [facility] Address [address] [place] [address] Care Team Providers Care Tower Hoist Operator Name Role Phone Yehuda HALL, Richard Primary Care Provider UnavailJose Juan Chawla Unavailable [phone] ALLERGIES Allergen (clinical drug ingredient) Drug/Non Drug [...] [facility] [address] [place] [address] 08/30/2024 Jose Juan Hare Crohns colitis, with [...] 01:40:00 PM, [address], [address], [place], [address], Progress Notes * Examination Category Sub-Category Detail [...]
--- OUTSIDE RECORDS SUMMARY | 2024-12-22 16:58 | XMS_ITS ---
Author Organization [facility] Address [address] [facility] [place] [address] Care Team Providers Care Manager Bridge Name Role Phone Richard Blackman MD Primary Care Provider Unavailab chris Rocio Camargoe Unavailable [phone] Allergies Allergen (clinical drug ingredient) Drug/Non Drug [...] MG 1 tablet Orally Twic e a day for 5 day(s) Unknown Clotrimazole-Betamethasone Unknown Advair Diskus Active Metoprolol Succinate ER Unknown medroxyPROGESTERone Acetate Unknown LaMICtal Unknown UltiCare Insulin Syringe Unknown Humira Active Haldol 5 mg qd Unknown Tricor Unknown Ferrous Sulfate 325 (65 Fe) MG 1 tablet Orally Once a day for 30 day(s) Unknown Lantus Subcutaneous Unknown Omeprazole 08/25/2024 Active HumaLOG Active Trifluoperazine HCl Unknown Apriso 0.375 GM 4 capsules in the morning Orally Once a day for 30 day(s) Active lamoTRIgine Active Losartan Potassium [...] No Encounters Encounter Location Date Provider Diagnosis [facility] [place] [address] [place] [address] 11/10/2024 Noelle Camargo Plan Of Treatment Next Appt Details Provider Name:Noelle Camargo , 01/26/2025 01:00:00 PM, [address] [place], [address], Progress Notes * Alexsandra HOLLEY ADOB: 7 (59 yo F)Acc No.[id number]:11/10/2024 Progress Notes Patient:?Alexsandra HOLLEY Provider:?Noelle Camargo DPM :1965???Age:59 Y???Sex:Female D ate:11/10/2024 Address:[address] [place] [address] Pcp:Richard Blackman MD Subjective: * Chief Complaints: * ??? * ROS:?General/Constitutional:?Nausea?denies.?Vomiting?denies.?Hunger Thirst?denies.?Loss appetite?denies.?Chills?denies.?Fatigue?denies.?Fever?denies.?Night Sweats?denies.?Unexplained weight loss?denies.?Unexplained weight gain?denies.?HEENTM:?Dentures?denies.?Dizziness?denies.?Glasses/contacts?denies.?Retinopathy?de nies.?Blurred/double vision?denies.?TMJ?denies.?Discharge/drainage?denies.?Implants?denies.?Sore throat?denies.?Dental implants?denies.?Hard of hearing ?denies.?Difficulty chewing/swallowing/speaking?denies.?Nose bleeds?denies.?Sore mouth?denies.?Respiratory:?On Oxygen?denies.?Pneumonia/pleurisy?denies.?Bronchitis?denies.?Emphysema?denies.?C oughing?admits.?Cough blood?denies.?Shortness of breath?admits.?Wheezing?denies.?Cardiovascular:?Pacemaker?denies.?MVP?denies.?WPW?denies.?CHF?denies.?Heart attack?denies.?Septal defect?denies.?Rapid beat?denies.?Chest pain ?denies.?Atrial Fib.?denies.?Murmur/Palpitations?denies.?Gastrointestinal:?Hemorrhoids?denies.?Stomach/Abdominal pain?denies.?Dark blood stool?denies.?Irritable bowel ?denies.?Constipation?denies.?Diarrhea?admits.?Hematology:?Swelling?denies.?Clots?Admits.?Varicose Veins?admits.?Bruising?denies.?Bleeding problem?denies.?Genitourinary:?Blood urine?denies.?Frequent/Painfu/urination/bladder control?denies.?Kidney stones?denies.?Infection (UTI)?denies.?Nephropathy?admits.?sex trans dis (STD)?denies.?Prostate?denies.?Musculoskeletal:?Hammertoes?denies.?Bunions?admits.?Back Pain?denies.?Muscle Cramps/ Resting?denies.?Muscle cramps / walking?denies.?Generalized aches and pains?denies.?Weakness?denies.?Integ.:?Garibay?denies.?Scars?denies.?Corns/calluses?denies.?Ingrown nails?denies.?Painful nails?denies.?Open Sores?denies.?Rashes?admits.?Neurologic:?Difficulty sleeping?denies.?Brain disorder?denies.?Numbness?denies.?Balance trouble?denies.?Confusion?denies.?Fainting/blackouts?denies.?Tingling?denies.?Tr emors?denies.? * Medical History:?Transfusion s, Psychiatric disorder, Chicken pox, Gout, Diabetic, Depression, Hypercholesterolemia, Anxiety disorder, Anemia, Crohns disease, Arthritis, Asthma, Covid-19, High Blood Pressure, Numbness, Psoriasis/eczema, Reflux ( GERD), Sciatica, Vascular phlebitis (clots). * Hospitalization/Major Diagno stic Procedure:[place] [place] asthma 4 days 08[place]2016, [facility] [place], [facility] [place] - Kidney infection 03/2018. * Family History:?Mother: dece ased, foot problems, diagnosed with Family history of arthritis, Unspecified essential hypertension.?Father: , poor circulation, kidney/liver disease, diagnosed with Unspecified essential hypertension, Unspecified cerebral artery occlusion with cerebral infarction.?Maternal Grand Father: diagnosed with Other malignant neoplasm of unspecified site.? single. * Social History:?Tobacco Use:?Tobacco Use/Smoking?Are you a:?former smoker ?Additional Findings: Tobacco Non-User?Current non-smoker ?Tobacco use other than smoking?Are you an other tobacco user??No ???Drugs/Alcohol:?Drugs?Have you used drugs other than those for medical reasons in the past 12 months??No ?Alcohol Screen?Did you have a drink containing alcohol in the past year??No ?Points?0 ?Interpretation?Negative ???Miscellaneous:?Caffeine: yes, frequency:. ?Children: no. ?Exercise: yes, occasional. ?Marital status: single. ?Occupation: disabled. * Medications:?Taking azaTHIOp rine , Taking traZODone HCl , Taking Haloperidol [...] 1 tablet Orally Once a day * Allergies:?Amoxicillin: diar oliva, Augmentin. Objective: * Vitals:? Assessment: Plan: * Treatment: * Images: * The named appointment provid er may or may not be the originator of this progress note, and it is not deemed complete until electronically signed by the appointment provider. Sign off status: Pending * Provider:?Noelle Camargo DPM Date:?2023 Generated for Marin mahan/Pio/Adarsh on:?12/22/2024 04:58 PM EST
--- OUTSIDE RECORDS SUMMARY | 2024-12-22 16:58 | XMS_ITS ---
Author Organization [facility] Address [address] [place] [address] Care Team Providers Care Hoop Riveter Name Role Phone Richard Blackman MD Primary Care Provider Unavailab chris Camargo Noelle Unavailable [phone] REASON FOR VISIT MULTI OPERATION MACHINE OPERATOR PPWK Entered Encounters Encounter Location Date Provider Diagnosis [address] [address] 08/25/2024 Noelle Camargo Plan Of Treatment Next Appt Details Provider Name:Noelle A Raman , 01/26/2025 01:00:00 PM, [address] [place] [address], [address], Progress Notes * LEYDIRegih ADOB: 7 (59 yo F)Acc No.[id number]:08/25/2024 Patient:?Alexsandra Thomas Rossy :1965???Age:59 Y???Sex:Female Address:[address] [place] [address] [address], [place], [address] * true * Date:? Generated for Kenyattai negrito/Pio/eTransmitting on:?12/22/2024 04:58 PM EST
--- OUTSIDE RECORDS SUMMARY | 2024-12-22 16:59 | XMS_ITS ---
Author Organization [facility] Address [address] [place] [address] Care Team Providers Care Wooling Machine Operator Name Role Phone Richard Blackman MD Primary Care Provider Unavailab Jose Juan Hale Unavailable [phone] REASON FOR VISIT form/pt access support /humira Encounters Encounter Location Date Provider Diagnosis [facility] [address] [place] [address] 12/07/2024 Jose Juan Hare PLAN OF TREATMENT Next Appt Details Provider Name:Jose Juan Hare , 02/28/2025 01:40:00 PM, [address], [address], [place], [address],
--- OUTSIDE RECORDS SUMMARY | 2024-12-22 16:59 | XMS_ITS ---
Author Organization [facility] Address [address] [place] [address] Care Team Providers Care Data Management Consultant Name Role Phone Yehuda HALL, Richard Primary Care Provider Unavailab Jose Juan Hale Unavailable [phone] RESULTS Component Value Reference Range Notes Ferritin Reviewed date:08/07/2024 05:13:16 PM Interpretation: Performing Lab:[facility], [address] [place] [id number] Notes/Report: Ferritin 1143 10-250 ng/mL REASON FOR VISIT Elevated Iron studies PROBLEMS Problem Type ICD Code Onset Dates Problem Status W/U Status Risk SNOMED Code Notes Problem Increased storage iron (E83.19) Active confirmed Increased storage iron ([id number]) Encounters Encounter Location Date Provider Diagnosis [facility] [address] [place] [address] 07/31/2024 Jose Juan Hare Increased storage iron E83.19 ASSESSMENTS Encounter Date Diagnosis Assessment Notes Treatment Notes Treatment Clinical Notes 07/31/2024 Increased storage iron (ICD-10 - E83.19) PLAN OF TREATMENT Pending Test Test Name Order Date IRON + IBC (FE) 07/31/2024 HEMOCHROMATOSIS (C282Y) 07/31/2024 Next Appt Details Provider Name:Jose Juan Hare , 02/28/2025 01:40:00 PM, [address], [address], [place], [address],
--- OUTSIDE RECORDS SUMMARY | 2024-12-22 17:00 | XMS_ITS ---
Author Organization [facility] Address [address] [place] [address] Care Team Providers Care Special Machine Stitcher Name Role Phone Richard Blackman MD Primary Care Provider Unavailab chris Cmaargo Noelle Unavailable [phone] REASON FOR VISIT Reschedule Encounters Encounter Location Date Provider Diagnosis [address] [address] 11/08/2024 Noelle Camargo Plan Of Treatment Next Appt Details Provider Name:Noelle A Raman , 01/26/2025 01:00:00 PM, [address] [place], [address], Progress Notes * LEYDIRegih ADOB: 7 (59 yo F)Acc No.[id number]:11/08/2024 Patient:?Alexsandra HOLLEY Rossy :1965???Age:59 Y???Sex:Female Address:[address] [place] [address] [address], [place], [address] * true * Date:? Generated for Kenyattai negrito/Fatherong/eTransmitting on:?12/22/2024 04:59 PM EST
--- OUTSIDE RECORDS SUMMARY | 2024-12-22 17:00 | XMS_ITS | Patient Health Record ---
Author Organization [facility] Address [address] [facility] [place] [address] Care Team Providers Care Oxygen Equipment Preparer Name Role Phone Richard Blackman MD Primary Care Provider Unavailab chris Camargo Noelle Unavailable [phone] Allergies Allergen (clinical drug ingredient) Drug/Non Drug Allergy documented on EMR Reaction Allergy Type Onset Date Status amoxicillin Amoxicillin diarrhea Drug Allergy Act vini amoxicillin / clavulanate Augmentin Unknown Drug Allergy Active Reason For Referral No Information Medications Medication SIG (Take, Route, Frequency, Duration) Notes Start Date End Date Status Omeprazole 08/25/2024 Active HumaLOG Active Lantus Subcutaneous Unknown medroxyPROGESTERone Acetate Unknown UltiCare Insulin Syringe Unknown Humira Active Haldol 5 mg qd Unknown Tricor Unknown Ferrous Sulfate 325 (65 Fe) MG 1 tablet Orally Once a day for 30 day(s) Unknown Trifluoperazine HCl Unknown Apriso 0.375 GM 4 capsules in the morning Orally Once a day for 30 day(s) Active azaTHIOprine Active Metoprolol Succinate ER Unknown Clotrimazole-Betamethasone Unknown Advair Diskus Active lamoTRIgine Active Losartan Potassium A ctive Metoprolol & Diet Manage Prod Active Simvastatin Active Levaquin 500 MG 1 tablet Orally Once a day Unknown Allopurinol Active Canasa Unknown LORazepam Active NovoLOG Unknown Haloperidol Active Provera 20 MG 1 tablet Orally Twic e a day for 5 day(s) Unknown traZODone HCl Active LaMICtal Unknown Immunizations Vaccine Route Administration Date Status Comme [...] Status Risk Notes Problem Acquired hallux valgus (60857845) Hallux valgus (acquired), right foot (M20.11) Active confirmed Problem Primary gout (41750427) Idiopathic gout, right ankle and foot (M10.071) Active confirmed Problem Polyneuropathy due to diabetes mellitus type I (705778631) Type 1 diabetes mellitus with diabetic polyneuropathy (E10.42) Active confirmed Encounters Encounter Location Date Provider Diagnosis [address] [address] 08/25/2024 [facility]argo [facility] [address] 11/08/2024 Noelle Camargo Plan Of Treatment Pending Test Test Name Order Date *Liver Function Test (LFT) 04/12/2012 09236-HORRECS NAIL, 6 OR MORE 12/24/2011 75752-JQRAZPI NAIL, -07/05/2012 84957-KRWVSPA NAIL, -10/04/2012 91506-GBZZICX NAIL, -04/12/2012 29065-ZKYQYUP NAIL, 11-2704/11/2013 19253-YGDYTWO NAIL, 11-2707/11/2013 40801-NIQPFWW NAIL, 11-2711/07/2013 08259-GNCAFVU NAIL, 11-2703/06/2014 82895-GNGFZQM NAIL, -08/17/2014 56633-GIJOPTR NAIL, 11-2710/30/2014 39937-PUTTMCN NAIL, 11-2701/17/2015 47873-NTQYVVZ NAIL, -01/06/2013 61799-HQHCZYS NAIL, -04/19/2015 13231-NAHLKGC NAIL, 11-2707/19/2015 58552-Expnhjsf Plate 07/19/2015 36098-Wyzrzwkg Plate 03/06/2014 10519-Mljdqcbs Plate 04/19/2015 09525-Pcyzwney Plate 01/17/2015 93002-Zddgohrm Plate 10/30/2014 66959-Yztmdaus Plate 08/17/2014 83848-Ajmeizoo Plate 08/15/2019 58537-ZFZ 12/29/2011 05975- Debride <25 sq cm 08/11/2011 86408-BKVXQBY SKIN/TISSUE 01/19/2012 26465-NOHNVOO SKIN/TISSUE 02/02/2012 71923 I&D ABSCESS- SIMPLE,SINGLE 011 24164 I&D ABSCESS- SIMPLE,SINGLE 012 18628 I&D ABSCESS- SIMPLE,SINGLE 013 57502 I&D ABSCESS- SIMPLE,SINGLE 012 30728 I&D ABSCESS- SIMPLE,SINGLE 014 25909 I&D ABSCESS- SIMPLE,SINGLE 014 05719 I&D ABSCESS- SIMPLE,SINGLE 013 62055 I&D ABSCESS- SIMPLE,SINGLE 013 11596 I&D ABSCESS- SIMPLE,SINGLE 014 25324 I&D ABSCESS- SIMPLE,SINGLE 015 95327 I&D ABSCESS- SIMPLE,SINGLE 013 28756 I&D ABSCESS- SIMPLE,SINGLE 015 71771 I&D ABSCESS- SIMPLE,SINGLE 015 74048-DXJF SKIN LESIONS, OVER 4 01/27/20 17 07384-IDQI SKIN LESIONS, OVER 4 04/27/20 17 05865-JTLB SKIN LESIONS, OVER 4 08/15/20 19 26162-AWFC SKIN LESIONS, OVER 4 11/24/19 20 80113-LWIA SKIN LESIONS, OVER 4 09/30/20 18 70072-ROSB SKIN LESIONS, OVER 4 12/30/19 19 27296-KBMV SKIN LESIONS, OVER 4 08/13/20 17 90196-OAWI SKIN LESIONS, OVER 4 12/28/19 18 76245-QZAZ SKIN LESIONS, OVER 4 04/01/20 18 53484-OQHX SKIN LESIONS, OVER 4 07/01/20 18 58154-JMCI SKIN LESIONS, 2 TO 4 04/28/20 16 94246-LPAH SKIN LESIONS, 2 TO 4 08/04/20 16 82724-GMVP SKIN LESIONS, 2 TO 4 07/19/20 15 80717-TGQX SKIN LESIONS, 2 TO 4 10/25/20 15 66750-YRXT SKIN LESIONS, 2 TO 4 01/24/20 16 45917-STWS SKIN LESIONS, 2 TO 4 04/19/20 15 18144-QPGG SKIN LESIONS, 2 TO 4 01/06/20 13 78137-PFXG SKIN LESIONS, 2 TO 4 01/17/20 15 94362-RMGV SKIN LESIONS, 2 TO 4 10/30/20 14 89850-XSNL SKIN LESIONS, 2 TO 4 07/11/20 13 61552-BBPP SKIN LESIONS, 2 TO 4 11/07/20 13 76503-YJYI SKIN LESIONS, 2 TO 4 03/06/20 14 47327-GYIV SKIN LESIONS, 2 TO 4 08/17/20 14 32143-JZFY SKIN LESIONS, 2 TO 4 10/04/20 12 08187-FEJB SKIN LESIONS, 2 TO 4 04/11/20 13 34122-WSSA SKIN LESIONS, 2 TO 4 07/05/20 12 64638-KBBC SKIN LESION 04/12/2012 E2220-DYIFYELP DYSTROPHIC NAILS ANY # U2339-ABJQLKDJ DYSTROPHIC NAILS ANY # W0999-IPIWZJPG DYSTROPHIC NAILS ANY # U2281-FZQZHQVF DYSTROPHIC NAILS ANY # A6982-RJJJSCFO DYSTROPHIC NAILS ANY # P1695-SYNTUZTF DYSTROPHIC NAILS ANY # T4731-EEGGFIIC DYSTROPHIC NAILS ANY # E2001-KXZIENVF DYSTROPHIC NAILS ANY # M6899-MIINXCMJ DYSTROPHIC NAILS ANY # E0390-YMSUXBHC DYSTROPHIC NAILS ANY # J3785-FJADLMFK DYSTROPHIC NAILS ANY # S3138-TDNNDZEI DYSTROPHIC NAILS ANY # A7630-CBOSOAHP DYSTROPHIC NAILS ANY # O3165-MXQORQCF DYSTROPHIC NAILS ANY # A5094-NPGRRUJQ DYSTROPHIC NAILS ANY # W6421-UVPZOFOX DYSTROPHIC NAILS ANY # J6779-LQORSTLG DYSTROPHIC NAILS ANY # U3148-QOUQSAYY DYSTROPHIC NAILS ANY # N4443-QPLJEHYZ DYSTROPHIC NAILS ANY # X1941-SFCBUFTJ DYSTROPHIC NAILS ANY # N2526-BFZPYKMC DYSTROPHIC NAILS ANY # L1047-ZJCXUZGZ DYSTROPHIC NAILS ANY # E5220-DSKTVLXS DYSTROPHIC NAILS ANY # Next Appt Details Provider Name:Noelle Camargo , 01/26/2025 01:00:00 PM, [address] [place], [address], Insurance Providers Payer Name Payer Address Payer Phone Subscriber Number Group Number Insured Name Patient Relationship to Insured Coverage Start Date Coverage End Date Medicare National [facility] [employer] [address] [place] [address] [id number] Alexsandra Thomas Self - patient is the insured 9 Medical (General) History Medical History History ICD Code transfusions psychiatric disorder chicken pox Gout diabetic depression hypercholesterolemia Anxiety disorder anemia crohns disease Arthritis asthma covid-19 High Blood Pressure Numbness Psoriasis/eczema Reflux ( GERD) Sciatica Vascular phlebitis (clots) Surgical History Surgery Date(Month/Year) Hospitalization History Reason Date(Month/Year[place] [facility] [place] [facility] pintch nerve 05/2017 [facility] asthma 4 days 08/2016
[2024-12-22 18:56] LABS: Alanine Aminotransferase 19 U/L (0-31); Albumin Level 4.1 g/dL (3.5-5.0); Alkaline Phosphatase 50 U/L (39-117); Aspartate Amino Transferase 21 U/L (5-31); Bilirubin Direct 0.2 mg/dL (0.0-0.5); Bilirubin Total 0.7 mg/dL (0.0-1.0); Total Protein 6.6 g/dL (6.5-8.0)
== END 2024-12-22 13:08 | disposition home or self-care (01) ==
LOC: HO.HMGCLDS 13:07
PROVIDERS: PCP Internal Medicine; Referring Provider Internal Medicine; Visit Provider Internal Medicine
DX: E11.9 Type 2 diabetes mellitus without complications (principal); D64.9 Anemia, unspecified; R53.83 Other fatigue
CPT/HCPCS: 36415; 80076; 82728; 83036; 85025

== ENCOUNTER 2025-01-24 13:19 | Outpatient (REF) | payer MEDICARE, MEDICAID, SELFPAY ==
[2025-01-24 16:14] LABS: MANUAL DIFF FLAG NO
[2025-01-24 16:40] LABS: Basophils Percent Auto 0.8 % (0-2); Eosinophils Absolute Auto 0.2 X10*3/uL (0.0-0.4); Hematocrit 32.8 % (37.0-47.0); Hemoglobin 11.5 g/dl (12.0-16.0); Imm Gran Abs Auto 0.08 X10*3/uL (0.00-0.03); Imm Gran Pct Auto 1.6 % (0.0-0.4); Lymphocytes Absolute Auto 1.5 X10*3/uL (1.2-4.9); Lymphocytes Percent Auto 30.6 % (20-40); Mean Corpuscular HGB Conc 35.1 g/dl (31.0-35.0); Mean Corpuscular Hemoglobin 40.2 pg (27.0-33.0); Mean Platelet Volume 10.9 fL (9.4-12.3); Monocytes Absolute Auto 0.3 X10*3/uL (0.1-1.2); Monocytes Percent Auto 5.6 % (2-11); NRBC Pct Auto 0.4 /100WBC (0.0-0.2); Neutrophils Absolute Auto 2.9 x10*3/uL (2.0-8.3); Neutrophils Percent Auto 58.4 % (45-73); Platelet Count 160 X10*3/uL (160-400); Red Blood Count 2.86 X10*6/uL (4.20-5.50)
--- OUTSIDE RECORDS SUMMARY | 2025-01-24 16:40 | XMS_ITS ---
Author Organization [facility] Address [address] [place] [address] Care Team Providers Care Mill Washer Name Role Phone Yehuda HALL, Richard Primary Care Provider UnavailJose Juan Chawla Unavailable [phone] ALLERGIES Allergen (clinical drug ingredient) Drug/Non Drug [...] you last smoked? 5-10 years VITAL SIGNS Blood pressure systolic 00 mm Hg 08/30/20 24 Blood pressure diastolic 00 mm Hg 024 Height 63 in 08/30/2024 Weight 265 lbs 08/30/2024 BMI 46.94 kg/m2 08/30/2024 Encounters Encounter Location Date Provider Diagnosis [facility] [address] [place] [address] 08/30/2024 Jose Juan Hare Crohns colitis, with [...] 01:40:00 PM, [address], [address], [place], [address], Progress Notes * Examination Category Sub-Category Detail [...]
--- OUTSIDE RECORDS SUMMARY | 2025-01-24 16:41 | XMS_ITS ---
Author Organization [facility] Address [address] [place] [address] Care Team Providers Care Carbon Capture Power Plant Manager Name Role Phone Richard Blackman MD Primary Care Provider Unavailab chris Camargo Noelle Unavailable [phone] REASON FOR VISIT Reschedule Encounters Encounter Location Date Provider Diagnosis [address] [address] 11/08/2024 Noelle Camargo Plan Of Treatment Next Appt Details Provider Name:Noelle A Raman , 04/27/2025 01:00:00 PM, [address] [place], [address], Progress Notes * LEYDIRegih ADOB: 7 (59 yo F)Acc No.[id number]:11/08/2024 Patient:?Alexsandra HOLLEY Rossy :1965???Age:59 Y???Sex:Female Address:[address] [place] [address] [address], [place], [address] * true * Date:? Generated for Kenyattai negrito/Pio/eTransmitting on:?01/24/2025 04:41 PM EST
--- OUTSIDE RECORDS SUMMARY | 2025-01-24 16:41 | XMS_ITS ---
Author Organization [facility] Address [address] [place] [address] Care Team Providers Care Shafting Worker Name Role Phone Yehuda HALL, Richard Primary Care Provider Unavailab Jose Juan Hale Unavailable [phone] RESULTS Component Value Reference Range Notes Ferritin Reviewed date:08/07/2024 05:13:16 PM Interpretation: Performing Lab:[facility], [address] [place] [address] Notes/Report: Ferritin 1143 10-250 ng/mL REASON FOR VISIT Elevated Iron studies PROBLEMS Problem Type ICD Code Onset Dates Problem Status W/U Status Risk SNOMED Code Notes Problem Increased storage iron (E83.19) Active confirmed Increased storage iron (15333140) Encounters Encounter Location Date Provider Diagnosis [facility] [address] [place] [address] 07/31/2024 Jose Juan Hare Increased storage iron E83.19 ASSESSMENTS Encounter Date Diagnosis Assessment Notes Treatment Notes Treatment Clinical Notes 07/31/2024 Increased storage iron (ICD-10 - E83.19) PLAN OF TREATMENT Pending Test Test Name Order Date IRON + IBC (FE) 07/31/2024 HEMOCHROMATOSIS (C282Y) 07/31/2024 Next Appt Details Provider Name:Jose Juan Hare , 02/28/2025 01:40:00 PM, [address], [address], [place], [address],
--- OUTSIDE RECORDS SUMMARY | 2025-01-24 16:41 | XMS_ITS ---
Author Organization [facility] Address [address] [place] [address] Care Team Providers Care Frit Mixer And Burner Name Role Phone Richard Blackman MD Primary Care Provider Unavailab chris Rocio Camargoe Unavailable [phone] REASON FOR VISIT r/s ON 01/26 Encounters Encounter Location Date Provider Diagnosis [address] [address] 01/24/2025 Noelle Camargo Plan Of Treatment Next Appt Details Provider Name:Noelle Camargo , 04/27/2025 01:00:00 PM, [address] [place] [address], [address], Progress Notes * LEYDI Alexsandra ADOB: [birth year] (59 yo F)Acc No.[id number]:01/24/2025 Patient:?Regi HOLLEYcristina Blair :1965???Age:59 Y???Sex:Female Address:[address] [place] [address] [address], [place], [address] * true * Date:? Generated for Kenyattai negrtio/Pio/eTransmitting on:?01/24/2025 04:41 PM EST
--- OUTSIDE RECORDS SUMMARY | 2025-01-24 16:41 | XMS_ITS ---
Author Organization [facility] Address [address] [facility] [place] [address] Care Team Providers Care Accounting Bookkeeper Name Role Phone Richard Blackman MD Primary Care Provider Unavailab chris Rocio Camargoe Unavailable [phone] Allergies Allergen (clinical drug ingredient) Drug/Non Drug [...] No Encounters Encounter Location Date Provider Diagnosis [facility] [address] [place] [address] 11/10/2024 Noelle Camargo Plan Of Treatment Next Appt Details Provider Name:Noelle Camargo , 04/27/2025 01:00:00 PM, [address] [place], [address], Progress Notes * Alexsandra HOLLEY ADOB: [birth year] (59 yo F)Acc No.[id number]:11/10/2024 Progress Notes Patient:?Alexsandra HOLLEY Provider:?Noelle Camargo DPM :1965???Age:59 Y???Sex:Female D ate:11/10/2024 Address:[address] [place] [id number] Pcp:Richard Blackman MD Subjective: * Chief Complaints: [...] Vascular phlebitis (clots). * Hospitalization/Major Diagno stic Procedure:?[facility] asthma 4 days 08[place]2016[place] [facility] [place], [facility] - Kidney infection 03/2018. * Family History:?Mother: [...] Camargo DPM Date:?2023 Generated for Marin mahan/Pio/Adarsh on:?01/24/2025 04:40 PM EST
--- OUTSIDE RECORDS SUMMARY | 2025-01-24 16:41 | XMS_ITS | Patient Health Record ---
Author Organization [facility] Address [address] [facility] [place] [address] Care Team Providers Care Associate Name Role Phone Richard Blackman MD Primary Care Provider Unavailab chris Camargo Noelle Unavailable [phone] Allergies Allergen (clinical drug ingredient) Drug/Non Drug [...] Status Risk Notes Problem Acquired hallux valgus (56362082) Hallux valgus (acquired), right foot (M20.11) Active confirmed Problem Primary gout (93859465) Idiopathic gout, right ankle and foot (M10.071) Active confirmed Problem Polyneuropathy due to diabetes mellitus type I (748515184) Type 1 diabetes mellitus with diabetic polyneuropathy (E10.42) Active confirmed Encounters Encounter Location Date Provider Diagnosis [address] [address] 08/25/[address] [address] 11/08/2024 Noelleace Camargo [address] [address] 01/24/2025 Noelle Camargo Plan Of Treatment Pending Test Test Name Order Date *Liver Function Test (LFT) 04/12/2012 59056-VQCNRYH NAIL, 6 OR MORE 12/24/2011 71560-JZJJHJZ NAIL, -07/05/2012 07331-USFVILY NAIL, -10/04/2012 02933-ENKRGPK NAIL, -04/12/2012 95740-IQWEOPF NAIL, -04/11/2013 00346-ZMIENYV NAIL, 11-2707/11/2013 34884-PGAUHRZ NAIL, -11/07/2013 46464-NSRBJIO NAIL, -03/06/2014 34365-PYHQNGD NAIL, -08/17/2014 73305-CJTHWAD NAIL, -10/30/2014 51350-BHSIFGG NAIL, -01/17/2015 05784-UKNMEWN NAIL, -01/06/2013 35812-EJUXMTU NAIL, 1-5 04/19/2015 00099-CXJKYDN NAIL, 1-5 07/19/2015 61360-Uaiaufue Plate 07/19/2015 97513-Hxlivjwh Plate 03/06/2014 73546-Yequgugq Plate 04/19/2015 87785-Aafrvwpu Plate 01/17/2015 13980-Kvsgeeji Plate 10/30/2014 46002-Nlglzfig Plate 08/17/2014 30124-Swvbijkj Plate 08/15/2019 10586-EUO 12/29/2011 43578- Debride <25 sq cm 08/11/2011 84861-OCYVIJI SKIN/TISSUE 01/19/2012 05823-MNZUUJB SKIN/TISSUE 02/02/2012 25798 I&D ABSCESS- SIMPLE,SINGLE 011 02636 I&D ABSCESS- SIMPLE,SINGLE 012 80108 I&D ABSCESS- SIMPLE,SINGLE 013 17932 I&D ABSCESS- SIMPLE,SINGLE 012 92261 I&D ABSCESS- SIMPLE,SINGLE 014 27540 I&D ABSCESS- SIMPLE,SINGLE 014 75569 I&D ABSCESS- SIMPLE,SINGLE 013 63887 I&D ABSCESS- SIMPLE,SINGLE 013 95237 I&D ABSCESS- SIMPLE,SINGLE 014 01592 I&D ABSCESS- SIMPLE,SINGLE 015 09132 I&D ABSCESS- SIMPLE,SINGLE 013 91062 I&D ABSCESS- SIMPLE,SINGLE 015 54975 I&D ABSCESS- SIMPLE,SINGLE 015 52877-YCYU SKIN LESIONS, OVER 4 01/27/20 17 43297-SWMN SKIN LESIONS, OVER 4 04/27/20 17 22715-PBNC SKIN LESIONS, OVER 4 08/15/20 19 24872-TTEC SKIN LESIONS, OVER 4 11/24/19 20 66219-SPRW SKIN LESIONS, OVER 4 09/30/20 18 74020-IYRR SKIN LESIONS, OVER 4 12/30/19 19 21476-EODQ SKIN LESIONS, OVER 4 08/13/20 17 22207-JLAK SKIN LESIONS, OVER 4 12/28/19 18 77922-GENV SKIN LESIONS, OVER 4 04/01/20 18 45109-PRQC SKIN LESIONS, OVER 4 07/01/20 18 29257-JQYO SKIN LESIONS, 2 TO 4 04/28/20 16 56008-DCOM SKIN LESIONS, 2 TO 4 08/04/20 16 15312-CPXR SKIN LESIONS, 2 TO 4 07/19/20 15 73162-XAIO SKIN LESIONS, 2 TO 4 10/25/20 15 72675-EXHY SKIN LESIONS, 2 TO 4 01/24/20 16 56134-QRVL SKIN LESIONS, 2 TO 4 04/19/20 15 46232-ZQQA SKIN LESIONS, 2 TO 4 01/06/20 13 25640-EQLX SKIN LESIONS, 2 TO 4 01/17/20 15 42231-YJAH SKIN LESIONS, 2 TO 4 10/30/20 14 65635-ALQU SKIN LESIONS, 2 TO 4 07/11/20 13 35483-ZNBR SKIN LESIONS, 2 TO 4 11/07/20 13 43653-NDBN SKIN LESIONS, 2 TO 4 03/06/20 14 91062-DADA SKIN LESIONS, 2 TO 4 08/17/20 14 41013-GJZG SKIN LESIONS, 2 TO 4 10/04/20 12 08156-MBEZ SKIN LESIONS, 2 TO 4 04/11/20 13 61197-DMGP SKIN LESIONS, 2 TO 4 07/05/20 12 27978-JTAT SKIN LESION 04/12/2012 A9082-HQNHKPWY DYSTROPHIC NAILS ANY # Y6287-NRYAONOE DYSTROPHIC NAILS ANY # L2339-BOFAVFHO DYSTROPHIC NAILS ANY # A9343-LDSWAITE DYSTROPHIC NAILS ANY # W6861-VDXCKPRY DYSTROPHIC NAILS ANY # P8426-IUOYELLH DYSTROPHIC NAILS ANY # F3483-ISNETUEH DYSTROPHIC NAILS ANY # K0952-ONGVHLYZ DYSTROPHIC NAILS ANY # X0583-RNXRYSHX DYSTROPHIC NAILS ANY # P1110-XKTBDUAK DYSTROPHIC NAILS ANY # F0010-ROYIPKPJ DYSTROPHIC NAILS ANY # L0029-CJNJYNMZ DYSTROPHIC NAILS ANY # U3098-AJUZKFYB DYSTROPHIC NAILS ANY # C0498-BBPIAFKC DYSTROPHIC NAILS ANY # F9523-ZRQXDBFY DYSTROPHIC NAILS ANY # Y1948-POUFLTXL DYSTROPHIC NAILS ANY # N9695-ZPMTZBRA DYSTROPHIC NAILS ANY # T3463-OCWEIOZQ DYSTROPHIC NAILS ANY # I3042-MKBJFGMV DYSTROPHIC NAILS ANY # K9320-WAAAXWJJ DYSTROPHIC NAILS ANY # B8662-PQKHKBQZ DYSTROPHIC NAILS ANY # J7718-GCPKZKQS DYSTROPHIC NAILS ANY # H7897-OQJKULCU DYSTROPHIC NAILS ANY # Next Appt Details Provider Name:Noelle Camargo , 04/27/2025 01:00:00 PM, [address] [place], [address], Insurance Providers Payer Name Payer Address Payer Phone Subscriber Number Group Number Insured Name Patient Relationship to Insured Coverage Start Date Coverage End Date Medicare [employer] [address] [place] [address] [id number] Alexsandra Thomas Self - patient is the insured 9 Medical (General) History Medical History History ICD Code transfusions psychiatric disorder chicken pox Gout diabetic depression hypercholesterolemia Anxiety disorder anemia crohns disease Arthritis asthma covid-19 High Blood Pressure Numbness Psoriasis/eczema Reflux ( GERD) Sciatica Vascular phlebitis (clots) Surgical History Surgery Date(Month/Year) Hospitalization History Reason Date(Month/Year) [facility] [place] - Kidney infection 03/2018 [facility] [place] pint[place] nerve 05/2017 [facility] asthma 4 days 08/2016
--- OUTSIDE RECORDS SUMMARY | 2025-01-24 16:41 | XMS_ITS ---
Author Organization [facility] Address [address] [place] [address] Care Team Providers Care Supervisor Metal Furniture Fabrication Name Role Phone Richard Blackman MD Primary Care Provider Unavailab Jose Juan Hale Unavailable [phone] REASON FOR VISIT form/pt access support /humira Encounters Encounter Location Date Provider Diagnosis [facility] [address] [place] [address] 12/07/2024 Jose Juan Hare PLAN OF TREATMENT Next Appt Details Provider Name:Jose Juan Hare , 02/28/2025 01:40:00 PM, [address], [address], [place], [address],
[2025-01-24 16:50] LABS: Alanine Aminotransferase 25 U/L (0-31); Albumin Level 3.9 g/dL (3.5-5.0); Aspartate Amino Transferase 31 U/L (5-31); Bilirubin Direct 0.2 mg/dL (0.0-0.5); Bilirubin Total 0.6 mg/dL (0.0-1.0); Total Protein 6.4 g/dL (6.5-8.0)
[2025-01-24 16:53] LABS: Alkaline Phosphatase 52 U/L (39-117)
[2025-01-24 17:52] LABS: Mean Corpuscular Volume 114.7 fL (80.0-98.0)
== END 2025-01-24 13:20 | disposition home or self-care (01) ==
LOC: HO.HMGCLR 13:19
PROVIDERS: PCP Internal Medicine; Visit Provider Internal Medicine
DX: K50.10 Crohn's disease of large intestine without complications (principal)
CPT/HCPCS: 36415; 80076; 85025

== ENCOUNTER 2025-03-07 12:44 | Outpatient (REF) | payer MEDICARE, MEDICAID, SELFPAY ==
[2025-03-07 14:35] LABS: Iron 110 mcg/dL (30-160); Percent Iron Saturation 47 % (15-50); Total Iron Binding Capacity 232 mcg/dL (228-428); Unsaturated Iron Binding 122 ug/dL
[2025-03-07 14:38] LABS: Ferritin 879 ng/mL (10-250)
--- OUTSIDE RECORDS SUMMARY | 2025-03-07 15:42 | XMS_ITS | Patient Health Record ---
Author Organization [facility] Address [address] [place] [address] Care Team Providers Care Microfiche Duplicator Name Role Phone Richard Blackman MD Primary Care Provider Jose Juan Floyd Unavailable [phone] Allergies Allergen (clinical drug ingredient) Drug/Non Drug Allergy documented on EMR Reaction Allergy Type Onset Date Status amoxicillin / clavulanate Augmentin diarrhea Drug Allergy Active amoxicillin Amoxicillin Unknown Drug Allergy Act vini seasonal (uncoded) Unknown Allergy A ctive Results Component Value Reference Range Notes Ferritin Reviewed date:07/31/2024 06:55:24 PM Interpretation: Performing Lab:[address] [phone] Notes/Report: Ferritin 1464 10-250 ng/mL Vitamin B12 and Folate Reviewed date:07/11/2024 11:28:26 PM Interpretation: Performing Lab:[address] [address] Notes/Report: Vitamin B12 317 200-900 pg/mL NORMAL 200-900 PG/ML INDETERMINATE 160-199 PG/ML DEFICIENT < 160 PG/ML Folate 13.3 > or = 4.0 ng/mL Reference Values: > or = 4.0 ng/mL < 4.0 ng/mL suggests folate deficiency Methotrexate, aminopterin and folinic acid (leucovorin) are chemotherapeutic agents whose molecular structures are similar to folate; therefore, the [employer] folate assay cannot be used for patients using these drugs. Ferritin Reviewed date:08/07/2024 05:13:16 PM Interpretation: Performing Lab:[address] [phone] Notes/Report: Ferritin 1143 10-250 ng/mL Complete Blood Count Auto Di ff Reviewed date:07/04/2024 10:59:03 PM Interpretation: Performing Lab:[facility], [address] [place] [phone] Notes/Report: White Blood Count 6.5 4.8-10.8 X10*3/uL [...] Panel Reviewed date:07/04/2024 11:06:00 PM Interpretation: Performing Lab:[facility], [address] [place] [phone] Notes/Report: Bilirubin Total 0.6 0.0-1.0 mg/dL Bilirubin Direct 0.2 0.0-0.5 mg/dL Aspartate Amino Transferase 21 5-31 U/L Alanine Aminotransferase 13 0-31 U/L Total Protein 6.2 6.5-8.0 g/dL Albumin Level 3.8 3.5-5.0 g/dL Alkaline Phosphatase 54 39-117 U/L IRON PROFILE Reviewed date:07/31/2024 06:53:32 PM Interpretation: Performing Lab:[facility], [address] [place] [phone] Notes/Report: Iron 125 30-160 mcg/dL Total Iron Binding Capacity 211 228-428 mcg/dL Percent Iron Saturation 59 15-50 % Unsaturated Iron Binding 86 Complete Blood Count Auto Di ff Reviewed date:08/07/2024 05:01:42 PM Interpretation: Performing Lab:[facility], [address] [place] [phone] Notes/Report: White Blood Count 6.3 4.8-10.8 X10*3/uL [...] Hemochromatosis Reviewed date:09/06/2024 04:44:10 PM Interpretation: Performing Lab:[facility], [address] [place] [phone] Notes/Report: DNA Analysis Hemochromatosis See Below RESULT: [...] clinical information reviewed by Alek Lamb, PhD, [facility]. DETAILED ASSAY INFORMATION: Hereditary hemochromatosis (HH) is [...] variants in the HFE gene, C282Y (NM 450089.2: c.845G>A, p.Mrn288Vrf) and H63D (NM 041866.2: c.187C>G, p.Jbs29Wiw), that are commonly associated with HH. These [...] Health care providers, please contact your local [facility] genetic counselor or call [phone] ( ) for assistance with the interpretation of these results. This test was developed and its analytical performance characteristics have been determined by [facility]. It has not been cleared or approved by FDA. This assay has been validated pursuant to the CLIA regulations and is used for clinical purposes. For more information, please refer to http://education.[employer]/faq/hemoch romatosis. (This link is being provided for informational/educationa l purposes only.) A portion of the testing was performed at [facility]. Reviewed and signed by Laboratory results and submitted clinical information reviewed by Alek Lamb, PhD, [facility], [facility], Signed on 08/17/2024 at 10:22 THIS TEST WAS PERFORMED AT: [employer] [address] [place] [address] CELINE FIGUEROA MD,PHD,MATTHEW Liver Panel Reviewed date:08/07/2024 05:02:19 PM Interpretation: Performing Lab:[facility], [address] [place] [phone] Notes/Report: Bilirubin Total 0.8 0.0-1.0 mg/dL Bilirubin Direct 0.2 0.0-0.5 mg/dL Aspartate Amino Transferase 16 5-31 U/L Alanine Aminotransferase 16 0-31 U/L Total Protein 6.3 6.5-8.0 g/dL Albumin Level 3.9 3.5-5.0 g/dL Alkaline Phosphatase 60 39-117 U/L IRON PROFILE Reviewed date:08/07/2024 05:02:27 PM Interpretation: Performing Lab:[facility], [address] [place] [phone] Notes/Report: Iron 82 30-160 mcg/dL Total Iron Binding Capacity 220 228-428 mcg/dL Percent Iron Saturation 37 15-50 % Unsaturated Iron Binding 138 Complete Blood Count Auto Di ff Reviewed date:09/14/2024 07:02:12 PM Interpretation: Performing Lab:[facility], [address] [place] [phone] Notes/Report: White Blood Count 4.6 4.8-10.8 X10*3/uL [...] Panel Reviewed date:09/06/2024 04:45:24 PM Interpretation: Performing Lab:[facility], [address] [place] [phone] Notes/Report: Bilirubin Total 0.6 0.0-1.0 mg/dL Bilirubin Direct 0.2 0.0-0.5 mg/dL Aspartate Amino Transferase 18 5-31 U/L Alanine Aminotransferase 19 0-31 U/L Total Protein 6.2 6.5-8.0 g/dL Albumin Level 4.0 3.5-5.0 g/dL Alkaline Phosphatase 53 39-117 U/L IRON PROFILE Reviewed date:09/22/2024 01:17:40 PM Interpretation: Performing Lab:[address] [phone] Notes/Report: Iron 111 30-160 mcg/dL Total Iron Binding Capacity 227 228-428 mcg/dL Percent Iron Saturation 49 15-50 % Unsaturated Iron Binding 116 Ferritin (Not yet reviewed b y provider) Interpretation: Performing Lab:[facility], [address] [place] [phone] Notes/Report: Ferritin 850 10-250 ng/mL Complete Blood Count Auto Di ff Reviewed date:11/04/2024 06:12:41 PM Interpretation: Performing Lab:[address] [phone] Notes/Report: White Blood Count 4.2 4.8-10.8 X10*3/uL Red Blood Count 2.87 4.20-5.50 X10*6/uL Hemoglobin 11.4 12.0-16.0 g/dl Hematocrit 31.1 37.0-47.0 % Mean Corpuscular Volume 108.4 80.0-98.0 fL Mean Corpuscular Hemoglobin 39.7 27.0-33.0 pg Mean Corpuscular HGB Conc 36.7 31.0-35.0 g/dl Red Cell Distribution Width 15.8 11.0-16.0 % Platelet Count 168 160-400 X10*3/uL Mean Platelet Volume 10.8 9.4-12.3 fL Neutrophils Percent Auto 59.7 45-73 % Imm Gran Pct Auto 2.4 0.0-0.4 % Lymphocytes Percent Auto 29.4 20-40 % Monocytes Percent Auto 4.5 2-11 % Eosinophils Percent Auto 3.3 0-4 % Basophils Percent Auto 0.7 0-2 % NRBC Pct Auto 0.9 0.0-0.2 /100WBC Neutrophils Absolute Auto 2.5 2.0-8.3 x10*3/u L Imm Gran Abs Auto 0.10 0.00-0.03 X10*3/uL Lymphocytes Absolute Auto 1.2 1.2-4.9 X10*3/u L Monocytes Absolute Auto 0.2 0.1-1.2 X10*3/uL Eosinophils Absolute Auto 0.1 0.0-0.4 X10*3/u L Basophils Absolute Auto 0.0 0.0-0.2 X10*3/uL NRBC Abs Auto 0.040 0.0-0.012 X10*3/uL Liver Panel Reviewed date:11/04/2024 06:13:02 PM Interpretation: Performing Lab:[address] [phone] Notes/Report: Bilirubin Total 0.7 0.0-1.0 mg/dL Bilirubin Direct 0.2 0.0-0.5 mg/dL Aspartate Amino Transferase 19 5-31 U/L Alanine Aminotransferase 18 0-31 U/L Total Protein 6.0 6.5-8.0 g/dL Albumin Level 3.9 3.5-5.0 g/dL Alkaline Phosphatase 52 39-117 U/L Complete Blood Count Auto Di ff Reviewed date:12/22/2024 04:23:03 PM Interpretation: Performing Lab:[address] [phone] Notes/Report: White Blood Count 4.4 4.8-10.8 X10*3/uL Red Blood Count 2.90 4.20-5.50 X10*6/uL Hemoglobin 12.0 12.0-16.0 g/dl Hematocrit 32.7 37.0-47.0 % Mean Corpuscular Volume 112.8 80.0-98.0 fL Mean Corpuscular Hemoglobin 41.4 27.0-33.0 pg Mean Corpuscular HGB Conc 36.7 31.0-35.0 g/dl Red Cell Distribution Width 16.5 11.0-16.0 % Platelet Count 149 160-400 X10*3/uL Mean Platelet Volume 10.7 9.4-12.3 fL Neutrophils Percent Auto 54.5 45-73 % Imm Gran Pct Auto 0.9 0.0-0.4 % Lymphocytes Percent Auto 34.0 20-40 % Monocytes Percent Auto 6.0 2-11 % Eosinophils Percent Auto 3.9 0-4 % Basophils Percent Auto 0.7 0-2 % NRBC Pct Auto 0.5 0.0-0.2 /100WBC Neutrophils Absolute Auto 2.4 2.0-8.3 x10*3/u L Imm Gran Abs Auto 0.04 0.00-0.03 X10*3/uL Lymphocytes Absolute Auto 1.5 1.2-4.9 X10*3/u L Monocytes Absolute Auto 0.3 0.1-1.2 X10*3/uL Eosinophils Absolute Auto 0.2 0.0-0.4 X10*3/u L Basophils Absolute Auto 0.0 0.0-0.2 X10*3/uL NRBC Abs Auto 0.020 0.0-0.012 X10*3/uL Liver Panel Reviewed date:12/23/2024 06:24:28 PM Interpretation: Performing Lab:[address] [phone] Notes/Report: Bilirubin Total 0.7 0.0-1.0 mg/dL Bilirubin Direct 0.2 0.0-0.5 mg/dL Aspartate Amino Transferase 21 5-31 U/L Alanine Aminotransferase 19 0-31 U/L Total Protein 6.6 6.5-8.0 g/dL Albumin Level 4.1 3.5-5.0 g/dL Alkaline Phosphatase 50 39-117 U/L Complete Blood Count Auto Di ff Reviewed date:01/26/2025 10:12:17 AM Interpretation: Performing Lab:[address] [phone] Notes/Report: White Blood Count 5.0 4.8-10.8 X10*3/uL Red Blood Count 2.86 4.20-5.50 X10*6/uL Hemoglobin 11.5 12.0-16.0 g/dl Hematocrit 32.8 37.0-47.0 % Mean Corpuscular Volume 114.7 80.0-98.0 fL Mean Corpuscular Hemoglobin 40.2 27.0-33.0 pg Mean Corpuscular HGB Conc 35.1 31.0-35.0 g/dl Red Cell Distribution Width 16.0 11.0-16.0 % Platelet Count 160 160-400 X10*3/uL Mean Platelet Volume 10.9 9.4-12.3 fL Neutrophils Percent Auto 58.4 45-73 % Imm Gran Pct Auto 1.6 0.0-0.4 % Lymphocytes Percent Auto 30.6 20-40 % Monocytes Percent Auto 5.6 2-11 % Eosinophils Percent Auto 3.0 0-4 % Basophils Percent Auto 0.8 0-2 % NRBC Pct Auto 0.4 0.0-0.2 /100WBC Neutrophils Absolute Auto 2.9 2.0-8.3 x10*3/u L Imm Gran Abs Auto 0.08 0.00-0.03 X10*3/uL Lymphocytes Absolute Auto 1.5 1.2-4.9 X10*3/u L Monocytes Absolute Auto 0.3 0.1-1.2 X10*3/uL Eosinophils Absolute Auto 0.2 0.0-0.4 X10*3/u L Basophils Absolute Auto 0.0 0.0-0.2 X10*3/uL NRBC Abs Auto 0.020 0.0-0.012 X10*3/uL Liver Panel Reviewed date:01/26/2025 10:12:38 AM Interpretation: Performing Lab:[address] [phone] Notes/Report: Bilirubin Total 0.6 0.0-1.0 mg/dL Bilirubin Direct 0.2 0.0-0.5 mg/dL Aspartate Amino Transferase 31 5-31 U/L Alanine Aminotransferase 25 0-31 U/L Total Protein 6.4 6.5-8.0 g/dL Albumin Level 3.9 3.5-5.0 g/dL Alkaline Phosphatase 52 39-117 U/L IRON PROFILE (Not yet review ed by provider) Interpretation: Performing Lab:[address] [place] [address] Notes/Report: Iron 110 30-160 mcg/dL Total Iron Binding Capacity 232 228-428 mcg/dL Percent Iron Saturation 47 15-50 % Unsaturated Iron Binding 122 Ferritin (Not yet reviewed b y provider) Interpretation: Performing Lab:[facility], [address] [place] [phone] Notes/Report: Ferritin 879 10-250 ng/mL Therapeutic Phlebotomy (Not yet reviewed by provider) Interpretation: Performing Lab:[facility], [address] [place] [phone] Notes/Report: THER/HGB 10.9 12.0-16.0 g/dL THER/HCT TNP 37.0-47.0 % Therapeutic Phlebotomy Phlebotomy Performed 500 mls drawn on 03/07/25. Please note that a copy of this report has been sent to the Primary Care Physician, the ordering physician and any physician designated by patient request. Reason For Referral No Information Medications Medication SIG (Take, Route, Frequency, Duration) Notes Start Date End Date Status Losartan Potassium 25 MG 1 tablet Orally Once a day Active HumaLOG 100 UNIT/ML sliding scale Subcut aneous 4 times a day Active Cranberry Concentrate 500 MG 3 Orally bid Active Ativan 1 MG 1 tablet as needed O rally prn Active Simvastatin 40 MG 1 tablet in the even ing Orally Once a day for 30 day(s) Active Tylenol Extra Strength 500 MG 1 tablet as needed Orally every 6 hrs/prn Active Advair Diskus 250-50 MCG/DOSE 1 puff Inhalation Twice a day Active Allopurinol 300 MG 1 tablet Orally Once a day Active Metoprolol Succinate ER 25 MG 1 tablet Orally Once a day A ctive Haloperidol 10 MG 1 tablet Orally Once a day Active lamoTRIgine 100 MG 1 tablet Orally Once a day Active traZODone HCl 50 MG 3 tablet at bedtime Orally Once a day Active DuoNeb 1 4 po QD Active Lantus 100 UNIT/ML 54 units in the am a nd 46 units in the pm Subcutaneous daily Active ProAir HFA 108 (90 Base) MCG/ACT 2 puffs as needed Inhalation every 4 hrs Active Motrin PRN Active Omeprazole Magnesium 20 MG 1 tablet 30 m inutes before morning meal Orally Once a day for 30 day(s) Active LaMICtal 100mg 1 tablet Orally QD Active Lisinopril 5 MG 1 tablet Orally Once a day Active azaTHIOprine 50 mg TAKE 1 AND 2 TABLE TS BY MOUTH EVERY DAY Orally Daily for 30 days Active Benadryl 50 1 tablet as needed O rally every 4 hrs PRN Active Apriso 0.375 GM TAKE FOUR CAPSULES B Y MOUTH EVERY MORNING for 30 Activ e Humira Pen 40 MG/0.8ML 0.8 ml Subcutaneous weekly Active Immunizations Vaccine Route Administration Date Status Comme [...] Unknown 08/27/2022 Administered Influenza Unknown 08/25/2023 Administered Social History Tobacco Use: Social History Observation Description Date Details (start date - stop date) Former Smoker NA - NA Tobacco Use/Smoking Question Answer Notes Patient is a former smoker How long has it been since you last smoked? 5-10 years Section Notes: Nonsmoker since 11/2012; no a lcohol Nonsmoker x 3 months; no alc ohol Nonsmoker x 6 months; no alc ohol Nonsmoker x 6 months; no alc ohol Nonsmoker x 6 months; no alc ohol Nonsmoker x 6 months; no alc ohol Nonsmoker x 6 months; no alc ohol Nonsmoker x 6 months; no alc ohol Nonsmoker x 6 months; no alc ohol Nonsmoker x 6 months; no alc ohol Nonsmoker since 11/2012; no a lcohol Nonsmoker since 11/2012; no a lcohol Nonsmoker since 11/2012; no a lcohol Nonsmoker since 11/2012; no a lcohol Nonsmoker since 11/2012; no a lcohol Nonsmoker since 11/2012; no a lcohol Nonsmoker since 11/2012; no a lcohol Nonsmoker since 11/2012; no a lcohol Nonsmoker since 11/2012; no a lcohol Nonsmoker since 11/2012; no a lcohol Nonsmoker since 11/2012; no a lcohol Nonsmoker since 11/2012; no a lcohol Nonsmoker since 11/2012; no a lcohol Nonsmoker since 11/2012; no a lcohol Nonsmoker since 11/2012; no a lcohol Nonsmoker since 11/2012; no a lcohol Nonsmoker since 11/2012; no a lcohol Problems Problem Type SNOMED Code ICD Code Onset Dates Problem Status W/U Status Risk Notes Problem 5773060 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) Active confirmed Problem Pseudopolyposis of colon (55009357) Inflammatory polyps of colon without complications (K51.40) Active confirmed Problem Diverticular disease of colon (793414198) Diverticulosis of large intestine without perforation or abscess without bleeding (K57.30) Active confirmed Problem Dysphagia (73312702) Dysphagia (R13.10) Active confirmed Problem 83674644 Abdominal pain, epigastric (R10.13) Active confirmed Problem Crohn (37951849) Crohn's disease of colon (K50.10) Active confirmed Problem Anemia (819529173) Anemia (D64.9) Active confir med Problem 12036173 Crohns colitis, without complications (K50.10) Active confirmed Problem Crohns disease (09054167) Crohns disease (K50.90) Active confirmed Problem 41659596 Other iron deficiency anemia (D50.8) Active confirmed Problem Pseudopolyposis of colon (76162776) Inflammatory polyps, without complications (K51.40) Active confirmed Problem 989437410 Anemia, unspecif ied type (D64.9) Active confirmed Problem Increased storage iron (17537498) Increased storage iron (E83.19) Active confirmed Problem Esophageal reflux finding (854726041) Gastroesophageal reflux (K21.9) Active confirmed Problem 95677453 Diarrhea, unspecified type (R19.7) Active confirmed Problem 2499970 Crohn's disease of large intestine without complication (K50.10) Active confirmed Problem 255626545 Crohn's disease of perianal region with fistula (K50.113) Active confirmed Problem 63489141 Gallbladder slud ge (K82.8) Active confirmed Problem 684395443 Macrocytosis without anemia (D75.89) Active confirmed Problem 88615999 Diarrhea of presumed infectious origin (R19.7) Active confirmed Problem Crohn (9887511) Crohn''s disease of large intestine without complication (K50.10) Active confirmed Problem Crohn's disease of large bowel (9786811) Crohn''s disease of colon without complication (K50.10) Active confirmed Problem 47332593 Crohn's disease of colon without complication (K50.10) Active confirmed Problem 35155212 Esophageal dysphagia (R13.19) Active confirmed Problem 601116618 Encounter for therapeutic drug monitoring (Z51.81) Active confirmed Vital Signs Blood pressure diastolic 111 mm Hg 02/28/2025 Height 63 in 02/28/2025 Blood pressure systolic 111 mm Hg 02/28/2025 Weight 267 lbs 02/28/2025 BMI 47.29 kg/m2 02/28/2025 Encounters Encounter Location Date Provider Diagnosis [facility] [address] [place] [phone] 02/28/2025 Jose Juan Hare Crohns colitis, with out complications K50.10 and Increased storage iron E83.19 [facility] [address] [place] [phone] 08/30/2024 Jose Juan Hare Crohns colitis, with out complications K50.10 ; Diarrhea, unspecified type R19.7 ; Crohn's disease of perianal region with fistula K50.113 ; Crohn's disease of large intestine with fistula K50.113 and Increased storage iron E83.19 [facility] [address] [place] [phone] 06/28/2024 Jose Juan Hare Crohn''s disease of colon without complication K50.10 [facility] [address] [phone] 07/04/2024 Jose Juan Hare Anemia D64.9 [facility] [address] [place] [phone] 07/31/2024 Jose Juan Hare Increased storage ir on E83.19 [facility] [address] [place] [phone] 12/07/2024 Jose Juan Hare Assessments Encounter Date Diagnosis (ICD Code) Assessment Notes Treatment Notes Treatment Clinical Notes Section Notes 02/28/2025 Crohns colitis, without complications (ICD-10 - K50.10) Continue the same medical regimen and labs for the Crohn's disease . Overall, Fauzia appears quite well and her Crohn's disease appears to be in clinical remission on her current medical regimen. She seems to be tolerating the medical regimen without any adverse effects based on her laboratories and clinical history. As such, I did advise her to continue the current medications. I did advise her to continue her monthly lab work of the CBC and liver profile as well. In regard to the persistent elevation of her serum ferritin levels, I did recommend that she undergo a periodic phlebotomy at the blood bank every 3 months to see if that can lower the ferritin. I reviewed with her that I do not think she has hereditary hemochromatosis based on the genetic testing, but clearly she has some limited expression of that given the ongoing issues with the elevated ferritin levels. I will check periodic iron studies during her phlebotomies to see if things are improving and to make sure she is not becoming anemic in the process. I will plan to see back again toward the end of the year. I did advise her to certainly call prior to that if she has any problems or questions I can be of assistance with. Fauzia was comfortable with this plan. Thank you again for allowing me to participate in Fauzia's care. I shall continue to keep you advised of her progress. 08/30/2024 Crohns colitis, without complications (ICD-10 - K50.10) Conitnue the same medicine and same labs Overall, Fauzia appears well from a clinical standpoint. Her Crohn's disease seems to be in clinical remission on her current regimen for the most part. She does have intermittent diarrhea but this seems to respond well to Imodium and her most recent colonoscopy did not show any sign of active colitis. I did advise her to continue her current medical regimen including the weekly Humira injection, azathioprine 75 mg daily, mesalamine, and Imodium. She will continue to do her CBC and liver profile are at least every other month while on the azathioprine. In regard to the elevated iron studies we did review that I suspect she has some incomplete expression of hemachromatosis given her heterozygous genetic makeup for the condition and her use of the supplemental iron. It appears that things were already improving by having stopped her iron supplements. I don't think she has full expression of hemachromatosis at this time. I did advise her to tell her siblings about this such that they can be checked so as to be sure they are not homozygous for the condition. I will continue to check her iron studies periodically. If things remain stable I will plan to see Fauzia In 6 months for a followup visit. Fauzia was comfortable with this plan. Thank you again for allowing me to participate in Fauzia's care I shall continue to keep you advised of her progress. 08/30/2024 Diarrhea, unspecified type (ICD-10 - R19.7) Overall, Fauzia appears well from a clinical standpoint. Her Crohn's disease seems to be in clinical remission on her current regimen for the most part. She does have intermittent diarrhea but this seems to respond well to Imodium and her most recent colonoscopy did not show any sign of active colitis. I did advise her to continue her current medical regimen including the weekly Humira injection, azathioprine 75 mg daily, mesalamine, and Imodium. She will continue to do her CBC and liver profile are at least every other month while on the azathioprine. In regard to the elevated iron studies we did review that I suspect she has some incomplete expression of hemachromatosis given her heterozygous genetic makeup for the condition and her use of the supplemental iron. It appears that things were already improving by having stopped her iron supplements. I don't think she has full expression of hemachromatosis at this time. I did advise her to tell her siblings about this such that they can be checked so as to be sure they are not homozygous for the condition. I will continue to check her iron studies periodically. If things remain stable I will plan to see Fauzia In 6 months for a followup visit. Fauzia was comfortable with this plan. Thank you again for allowing me to participate in Fauzia's care I shall continue to keep you advised of her progress. 06/28/2024 Crohn''s disease of colon without complication (ICD-10 - K50.10) 07/04/2024 Anemia (ICD-10 - D64.9) 07/31/2024 Increased storage iron (ICD-10 - E83.19) 02/28/2025 Increased storage iron (ICD-10 - E83.19) We will arrange for a phlebotomy at the [facility] for every three mnonths . Overall, Fauzia appears quite well and her Crohn's disease appears to be in clinical remission on her current medical regimen. She seems to be tolerating the medical regimen without any adverse effects based on her laboratories and clinical history. As such, I did advise her to continue the current medications. I did advise her to continue her monthly lab work of the CBC and liver profile as well. In regard to the persistent elevation of her serum ferritin levels, I did recommend that she undergo a periodic phlebotomy at the blood bank every 3 months to see if that can lower the ferritin. I reviewed with her that I do not think she has hereditary hemochromatosis based on the genetic testing, but clearly she has some limited expression of that given the ongoing issues with the elevated ferritin levels. I will check periodic iron studies during her phlebotomies to see if things are improving and to make sure she is not becoming anemic in the process. I will plan to see back again toward the end of the year. I did advise her to certainly call prior to that if she has any problems or questions I can be of assistance with. Fauzia was comfortable with this plan. Thank you again for allowing me to participate in Fauzia's care. I shall continue to keep you advised of her progress. 08/30/2024 Crohn's disease of perianal region with fistula (ICD-10 - K50.113) Overall, Fauzia appears well from a clinical standpoint. Her Crohn's disease seems to be in clinical remission on her current regimen for the most part. She does have intermittent diarrhea but this seems to respond well to Imodium and her most recent colonoscopy did not show any sign of active colitis. I did advise her to continue her current medical regimen including the weekly Humira injection, azathioprine 75 mg daily, mesalamine, and Imodium. She will continue to do her CBC and liver profile are at least every other month while on the azathioprine. In regard to the elevated iron studies we did review that I suspect she has some incomplete expression of hemachromatosis given her heterozygous genetic makeup for the condition and her use of the supplemental iron. It appears that things were already improving by having stopped her iron supplements. I don't think she has full expression of hemachromatosis at this time. I did advise her to tell her siblings about this such that they can be checked so as to be sure they are not homozygous for the condition. I will continue to check her iron studies periodically. If things remain stable I will plan to see Fauzia In 6 months for a followup visit. Fauzia was comfortable with this plan. Thank you again for allowing me to participate in Fauzia's care I shall continue to keep you advised of her progress. 08/30/2024 Crohn's disease of large intestine with fistula (ICD-10 - K50.113) Overall, Fauzia appears well from a clinical standpoint. Her Crohn's disease seems to be in clinical remission on her current regimen for the most part. She does have intermittent diarrhea but this seems to respond well to Imodium and her most recent colonoscopy did not show any sign of active colitis. I did advise her to continue her current medical regimen including the weekly Humira injection, azathioprine 75 mg daily, mesalamine, and Imodium. She will continue to do her CBC and liver profile are at least every other month while on the azathioprine. In regard to the elevated iron studies we did review that I suspect she has some incomplete expression of hemachromatosis given her heterozygous genetic makeup for the condition and her use of the supplemental iron. It appears that things were already improving by having stopped her iron supplements. I don't think she has full expression of hemachromatosis at this time. I did advise her to tell her siblings about this such that they can be checked so as to be sure they are not homozygous for the condition. I will continue to check her iron studies periodically. If things remain stable I will plan to see Fauzia In 6 months for a followup visit. Fauzia was comfortable with this plan. Thank you again for allowing me to participate in Fauzia's care I shall continue to keep you advised of her progress. 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 Do my Iron labs when you do Dr. Blackman's. Overall, Fauzia appears well from a clinical standpoint. Her Crohn's disease seems to be in clinical remission on her current regimen for the most part. She does have intermittent diarrhea but this seems to respond well to Imodium and her most recent colonoscopy did not show any sign of active colitis. I did advise her to continue her current medical regimen including the weekly Humira injection, azathioprine 75 mg daily, mesalamine, and Imodium. She will continue to do her CBC and liver profile are at least every other month while on the azathioprine. In regard to the elevated iron studies we did review that I suspect she has some incomplete expression of hemachromatosis given her heterozygous genetic makeup for the condition and her use of the supplemental iron. It appears that things were already improving by having stopped her iron supplements. I don't think she has full expression of hemachromatosis at this time. I did advise her to tell her siblings about this such that they can be checked so as to be sure they are not homozygous for the condition. I will continue to check her iron studies periodically. If things remain stable I will plan to see Fauzia In 6 months for a followup visit. Fauzia was comfortable with this plan. Thank you again for allowing me to participate in Fauzia's care I shall continue to keep you advised of her progress. Plan Of Treatment Pending Test Test Name Order Date CHEM 7 PROFILE 05/13/2023 LIVER PROFILE 09/05/2020 LIVER PROFILE 06/28/2024 LIVER PROFILE 05/04/2023 LIVER PROFILE 06/13/2020 LIVER PROFILE 04/17/2017 LIVER PROFILE 03/27/2017 LIVER PROFILE 04/23/2022 LIVER PROFILE 07/01/2018 LIVER PROFILE 05/13/2023 IRON + IBC (FE) 08/30/2024 IRON + IBC (FE) 11/30/2017 IRON + IBC (FE) 07/04/2024 IRON + IBC (FE) 07/31/2024 FERRITIN 11/30/2017 CRP 05/13/2023 CRP 04/17/2017 CRP 11/30/2017 VITAMIN B12 AND FOLATE 11/30/2017 VITAMIN B12 AND FOLATE 07/05/2020 CBC w DIFF 04/23/2022 CBC w DIFF 07/01/2018 CBC w DIFF 05/13/2023 CBC w DIFF 09/05/2020 CBC w DIFF 06/28/2024 CBC w DIFF 05/04/2023 CBC w DIFF 06/13/2020 CBC w DIFF 03/27/2017 CBC with MANUAL DIFFERENTIAL 04/17/2017 SED RATE (ESR) 04/17/2017 SED RATE (ESR) 11/30/2017 SED RATE (ESR) 05/13/2023 HEMOCHROMATOSIS (C282Y) 07/31/2024 NUC HIDA SCAN 11/30/2017 XR BARIUM SWALLOW-ESOPHAGUS 09/05/2021 PROMETHEUS THIOPURINE METABOLITES (TPMT) 10/13/2017 PROMETHEUS THIOPURINE METABOLITES (TPMT) 08/18/2018 PROMETHEUS THIOPURINE METABOLITES (TPMT) 09/08/2023 TSH REFLEX FREE T4 07/05/2020 HUMIRA LEVEL/AB (ADALIMUMAB LEVEL/AB) HUMIRA LEVEL/AB (ADALIMUMAB LEVEL/AB) HUMIRA LEVEL/AB (ADALIMUMAB LEVEL/AB) C DIFFICILE RFLX PCR 05/13/2023 IRON PROFILE 03/07/2025 Ferritin 08/30/2024 Ferritin 03/07/2025 Ferritin 09/21/2024 Therapeutic Phlebotomy 03/07/2025 Future Test Test Name Order Date UPPER GI ENDOSCOPY BALLOOON DILATION OF ESOPH 07/26/2021 COLONOSCOPY 07/26/2021 COLONOSCOPY 09/08/2023 Next Appt Details Provider Name:Jose Juan Chance Hare , 10/27/2025 01:00:00 PM, [address] [place] [address], [address], [place], [address], Insurance Providers Payer Name Payer Address Payer Phone Subscriber Number Group Number Insured Name Patient Relationship to Insured Coverage Start Date Coverage End Date MEDICARE OF [place] [address] [facility] [address] [phone] [id number] FAUZIA HOLLEY Self - patient is the insured MEDICAID OF [facility] [address] [place] [address] [id number] FAUZIA HOLLEY Self - patient is the insured Medical (General) History Medical History History ICD Code IDDM DVT 20 yrs ago Colonoscopy 10/[address] Briseno with the finding of colitis in left colon and rectum--bx in rectum showed a granuloma-started Apriso 02/2013 Denies IA,CVA,Lung disease,renal disease Anemia-on Iron--Hgb approx 8 in 10/2012, and 12.9 in 01/2013---on B12 shots Bipolar disease Abscess near right kidney in 2008-drained with percutaneous catheters-at [facility] Asthma Colonoscopy 10/2016 revealed a very [...]
--- OUTSIDE RECORDS SUMMARY | 2025-03-07 15:43 | XMS_ITS ---
Author Organization [facility] Address [address] [place] [address] Care Team Providers Care Hearing Officer Name Role Phone Yehuda HALL, Richard Primary Care Provider Unavailab Jose Juan Hale [phone] REASON FOR VISIT form/pt access support /humira Encounters Encounter Location Date Provider Diagnosis [facility] [address] [place] [address] 12/07/2024 Jose Juan Hare Plan Of Treatment Next Appt Details Provider Name:Jose Juan Hare , 10/27/2025 01:00:00 PM, [address], [address], [place], [address], Progress Notes * FAUZIA HOLLEY ADOB: 7 (59 yo F)Acc No.[id number]:12/07/2024 Patient:?FAUZIA HOLLEY :1965???Age:59 Y???Sex:Female Address:[address] [place] [address] [address], [place], [address] * true * Date:? Generated for Printi ng/Fatherong/eTransmitting on:?03/07/2025 03:43 PM EDT
--- OUTSIDE RECORDS SUMMARY | 2025-03-07 15:43 | XMS_ITS ---
Author Organization [facility] Address [address] [place] [address] Care Team Providers Care Racecar Driver Name Role Phone Yehuda HALL, Richard Primary Care Provider UnavailJose Juan Chawla Unavailable [phone] Allergies Allergen (clinical drug ingredient) Drug/Non Drug Allergy documented on EMR Reaction Allergy Type Onset Date Status amoxicillin / clavulanate Augmentin diarrhea Drug Allergy Active amoxicillin Amoxicillin Unknown Drug Allergy Act vini seasonal (uncoded) Unknown Allergy A ctive REASON FOR VISIT Patient presents today for crohn's disease Medications Medication SIG (Take, Route, Frequency, Duration) [...] QHS for 30 day(s) 04/22/2016 Not-Tristian ing Mago Ellipta 100-25 MCG/INH 1 puff Inhalation Once [...] 1 puff Inhalation Twice a day Active Social History Tobacco Use: Social History Observation Description Date Details (start date - stop date) Former Smoker NA - NA Tobacco Use/Smoking Question Answer Notes Patient is a former smoker How long has it been since you last smoked? 5-10 years Section Notes: Nonsmoker since 11/2012; no a lcohol Vital Signs Blood pressure systolic 00 mm Hg 08/30/20 24 Blood pressure diastolic 00 mm Hg 024 Height 63 in 08/30/2024 Weight 265 lbs 08/30/2024 BMI 46.94 kg/m2 08/30/2024 Encounters Encounter Location Date Provider Diagnosis [facility] [address] [place] [address] 08/30/2024 Jose Juan Hare Crohns colitis, with out complications K50.10 ; Diarrhea, unspecified type R19.7 ; Crohn's disease of perianal region with fistula K50.113 ; Crohn's disease of large intestine with fistula K50.113 and Increased storage iron E83.19 Assessments Encounter Date Diagnosis (ICD Code) Assessment Notes Treatment Notes Treatment Clinical Notes Section Notes 08/30/2024 Crohns colitis, without complications (ICD-10 [...] my Iron labs when you do Dr. Almanzars. Overall, Fauzia appears well from a clinical [...] advised of her progress. Plan Of Treatment Treatment Notes Assessment Notes Crohns colitis, without complications Co nitnue the same medicine and same labs Increased storage iron Stay off Iron. Do my Iron labs when you do Dr. Blackman's. Pending Test Test Name Order Date IRON + IBC (FE) 08/30/2024 Ferritin 08/30/2024 Next Appt Details Follow Up: 6 Months, Reason: Provider Name:Jose Juan Hare , 10/27/2025 01:00:00 PM, [address] [place] [address], [address], [address], Progress Notes * FAUZIA HOLLEY ADOB: 7 (59 yo F)Acc No.[id number]:08/30/2024 Progress Notes Patient:?FAUZIA HOLLEY A Provider:?Jose Juan Hare MD :1965???Age:59 Y???Sex:Female D ate:08/30/2024 Address:[address] [place], [place] [id number] Pcp:Richard Blackman MD Subjective: * Chief Complaints: * ???Patient presents today fo r crohn's disease * HPI: ???incontinence:? I saw Fauzia in followup today in regard to her underlying history of Crohn's disease and elevated iron studies. ?I last saw Fauzia in February. Since that time she has been doing well in regard to the Crohn's disease other than intermittent diarrhea which responds readily to Imodium. She has continued on the same regimen of the weekly Humira, azathioprine, and mesalamine. Most days her bowel movements are regular but she will have some loose stool and will then take Imodium for that with good relief. She has not noticed any signs of bleeding, rectal pain, any perianal drainage, nor abdominal pain. She enjoys a good appetite and denies any significant heartburn or dysphagia. She denies any abdominal distention, vomiting, significant heartburn, nor dysphagia. ?As you know, she was found to have an elevated ferritin and iron saturation when labs were checked for some anemia over the summer. She had been on supplemental iron and was advised to stop it. 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 She does not know of any family history of hemochromatosis nor cirrhosis. ?Her initial iron saturation was 59% in June and came down to 37% in July. Her initial ferritin level was over 1400 in June and came down to 1,143 in July. Her most recent labs in July showed an otherwise stable CBC and normal liver profile. * ROS:?General/Constitutional:?Change in appetite?denies.?Chills?denies.?Fatigue?denies.?Ophthalmologic:?Patient denies? Negative..?ENT:?Patient denies?Negative..?Respiratory:?Patient denies?No coughing/hemoptysis..?Cardiovascular:?Patient denies? No chest pain/orthopnea..?Gastrointestinal:?Comments?See HPI for details.?Genitourinary:?Patient denies? No dysuria/hematuria..?Musculoskeletal:?Patient denies? No specific arthralgias/myalgias..?Skin:?Patient denies?No rash/pruritus..?Neurologic:?Patient denies? No headaches/seizures..? * Medical History:? * Surgical History:?Tonsillect renetta * Hospitalization/Major Diagno stic Procedure:?No Hospitalization History. * Family History:?Father: dece ased.?Mother: , Colon polyps in her 40, diagnosed with Colon polyps.?Paternal Grand Mother: , ulcerative colitis, diagnosed with Inflammatory bowel disease.?Maternal Grand Father: , diagnosed with Colon cancer.? * Social History:?Tobacco Use:?Tobacco Use/Smoking?Patient is a?former smoker,?How long has it been since you last smoked??5-10 years.?Drugs/Alcohol:?Alcohol Screen?Points: 0, Interpretation: Negative.?Miscellaneous:?Marital status: single. 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 ???Nonsmoker since 11/2012; no alcohol. * Medications:?TakingSimvastat in 40 MG Tablet 1 tablet in the evening Orally Once a dayVitamin D (Cholecalciferol) 25 MCG (1000 UT) Capsule 1 capsule Orally Once a dayLantus 100 UNIT/ML Solution 54 units in the am and 46 units in the pm Subcutaneous dailytraZODone HCl 50 MG Tablet 3 tablet at bedtime Orally Once a daylamoTRIgine 100 MG Tablet 1 tablet Orally Once a dayMetoprolol Succinate ER 25 MG Tablet Extended Release 24 Hour 1 tablet Orally Once a dayCranberry Concentrate 500 MG Capsule 3 Orally bidHumaLOG 100 UNIT/ML Solution Cartridge sliding scale Subcutaneous 4 times a dayLosartan Potassium 25 MG Tablet 1 tablet Orally Once a dayAllopurinol 300 MG Tablet 1 tablet Orally Once a dayAdvair Diskus 250-50 MCG/DOSE Aerosol Powder Breath Activated 1 puff Inhalation Twice a dayTylenol Extra Strength 500 MG Tablet 1 tablet as needed Orally every 6 hrs/prnAtivan 1 MG Tablet 1 tablet as needed Orally prnProAir HFA 108 (90 Base) MCG/ACT Aerosol Solution 2 puffs as needed Inhalation every 4 hrsDuoNeb 1 1 4 po QDLORazepam 1 MG Tablet 1/2 in the am and 09/24 in the pm Orally Once a dayHaloperidol 10 MG Tablet 1 tablet Orally Once a dayLaMICtal 100mg Tablet 1 tablet Orally QDOmeprazole Magnesium 20 MG Tablet Delayed Release 1 tablet 30 minutes before morning meal Orally Once a dayMotrin , Notes: PRNTylenol , Notes: PRNHumira Pen 40 MG/0.8ML Pen-injector Kit 0.8 ml Subcutaneous weeklyApriso 0.375 GM Capsule Extended Release 24 Hour TAKE FOUR CAPSULES BY MOUTH EVERY MORNING azaTHIOprine 50 mg Tablet TAKE 1 AND 1/2 TABLETS BY MOUTH EVERY DAY Orally DailyTaking Simvastatin 40 MG Tablet 1 tablet in the evening Orally Once a dayTaking Vitamin D (Cholecalciferol) 25 MCG (1000 UT) Capsule 1 capsule Orally Once a dayTaking Lantus 100 UNIT/ML Solution 54 units in the am and 46 units in the pm Subcutaneous dailyTaking traZODone HCl 50 MG Tablet 3 tablet at bedtime Orally Once a dayTaking lamoTRIgine 100 MG Tablet 1 tablet Orally Once a dayTaking Metoprolol Succinate ER 25 MG Tablet Extended Release 24 Hour 1 tablet Orally Once a dayTaking Cranberry Concentrate 500 MG Capsule 3 Orally bidTaking HumaLOG 100 UNIT/ML Solution Cartridge sliding scale Subcutaneous 4 times a dayTaking Losartan Potassium 25 MG Tablet 1 tablet Orally Once a dayTaking Allopurinol 300 MG Tablet 1 tablet Orally Once a dayTaking Advair Diskus 250-50 MCG/DOSE Aerosol Powder Breath Activated 1 puff Inhalation Twice a dayTaking Tylenol Extra Strength 500 MG Tablet 1 tablet as needed Orally every 6 hrs/prnTaking Ativan 1 MG Tablet 1 tablet as needed Orally prnTaking ProAir HFA 108 (90 Base) MCG/ACT Aerosol Solution 2 puffs as needed Inhalation every 4 hrsTaking DuoNeb 1 1 4 po QDTaking LORazepam 1 MG Tablet 1/2 in the am and 09/24 in the pm Orally Once a dayTaking Haloperidol 10 MG Tablet 1 tablet Orally Once a dayTaking LaMICtal 100mg Tablet 1 tablet Orally QDTaking Omeprazole Magnesium 20 MG Tablet Delayed Release 1 tablet 30 minutes before morning meal Orally Once a dayTaking Stefani , Notes: PRNTaking Tylenol , Notes: PRNTaking Humira Pen 40 MG/0.8ML Pen-injector Kit 0.8 ml Subcutaneous weeklyTaking Apriso 0.375 GM Capsule Extended Release 24 Hour TAKE FOUR CAPSULES BY MOUTH EVERY MORNING Taking azaTHIOprine 50 mg Tablet TAKE 1 AND 1/2 TABLETS BY MOUTH EVERY DAY Orally DailyNot- Taking/PRNLisinopril 5 MG Tablet 1 tablet Orally Once a dayMesalamine 1000 MG Suppository 1 suppository at bedtime Rectal Once a dayMesalamine 1000 MG Suppository 1 suppository at bedtime Rectal QHSBreo Ellipta 100-25 MCG/INH Aerosol Powder Breath Activated 1 puff Inhalation Once a dayDoxycycline Hyclate 100 MG Capsule 1 capsule Orally every 12 hrsMesalamine 4 GM Enema 1 enema Rectal QHSpredniSONE 5 MG Tablet 8 tablets daily for 1 week, and then decrease by 1 tablet(5mg) per week Orally Once a dayProctofoam HC 1-1 % Foam 1 application Rectal BID and QHSNovoLOG 100 UNIT/ML Solution sliding dose Subcutaneous QDFluticasone Propionate 50 MCG/ACT Suspension 1 spray in each nostril Nasally Once a dayBenadryl 50 Tablet 1 tablet as needed Orally every 4 hrs PRNAlaway 0.025 % Solution 1 drop into affected eye Ophthalmic Twice a dayMesalamine 1000 MG Suppository 1 suppository at bedtime Rectal QHS/prnNot-Taking/PRN Lisinopril 5 MG Tablet 1 tablet Orally Once a dayNot-Taking/PRN Mesalamine 1000 MG Suppository 1 suppository at bedtime Rectal Once a dayNot-Taking/PRN Mesalamine 1000 MG Suppository 1 suppository at bedtime Rectal QHSNot-Taking/PRN Breo Ellipta 100-25 MCG/INH Aerosol Powder Breath Activated 1 puff Inhalation Once a dayNot-Taking/PRN Doxycycline Hyclate 100 MG Capsule 1 capsule Orally every 12 hrsNot-Taking/PRN Mesalamine 4 GM Enema 1 enema Rectal QHSNot-Taking/PRN predniSONE 5 MG Tablet 8 tablets daily for 1 week, and then decrease by 1 tablet(5mg) per week Orally Once a dayNot- Taking/PRN Proctofoam HC 1-1 % Foam 1 application Rectal BID and QHSNot-Taking/PRN NovoLOG 100 UNIT/ML Solution sliding dose Subcutaneous QDNot-Taking/PRN Fluticasone Propionate 50 MCG/ACT Suspension 1 spray in each nostril Nasally Once a dayNot-Taking/PRN Benadryl 50 Tablet 1 tablet as needed Orally every 4 hrs PRNNot-Taking/PRN Alaway 0.025 % Solution 1 drop into affected eye Ophthalmic Twice a dayNot-Taking/PRN Mesalamine 1000 MG Suppository 1 suppository at bedtime Rectal QHS/prnDiscontinuedFerrous Sulfate 325 (65 Fe) MG Tablet 1 tablet Orally Twice a dayMedication List reviewed and reconciled with the patientDiscontinued Ferrous Sulfate 325 (65 Fe) MG Tablet 1 tablet Orally Twice a dayMedication List reviewed and reconciled with the patient * Allergies:?Amoxicillinseason alAugmentin: diarrheayes[Allergies Verified] Objective: * Vitals:?Wt: 265 lbs, Ht: 63 in, BMI:46.94 Index, BP: 00/00 mm Hg. * Examination: ???General Examination: ?GENERAL APPEARANCE:?pleasant, well nourished, well developed, in no acute distress--she has a cushingoid facies .?EYES:?sclera non-icteric .?ORAL CAVITY:?mucosa moist .?NECK/THYROID:?no cervical lymphadenopathy, neck supple .?SKIN:?nonjaundiced, no spider angiomata. .?HEART:?S1, S2 normal .?LUNGS:?Bilateral wheezing .?ABDOMEN:?normal bowel sounds, no guarding or rigidity, no hepatosplenomegaly, no masses palpable, soft, nontender, nondistended. .?EXTREMITIES:?no edema .?NEUROLOGIC:?alert and oriented .? Assessment: * Assessment: 1.?Crohns colitis, without c omplications - K50.10 (Primary)?2.?Diarrhea, unspecified type - R19.7?3.?Crohn's disease of perianal region with fistula - K50.113?4.?Crohn's disease of large intestine with fistula - K50.113?5.?Increased storage iron - E83.19? Overall, Fauzia appears well f rom a clinical standpoint. Her Crohn's disease seems [...] to keep you advised of her progress. Plan: * Treatment: 2.?Increased storage iron?LAB: IRON + IBC (FE) ?LAB: Ferritin Notes: Stay off Iron. Do my Iron labs when you do Dr. Blackman'angie.?? * Procedure Codes:?3017F COLOR ECTAL CA SCREEN DOC [id number] TOBACCO [id number] BP SCR NOT PRFRM REC REASON NOS * Follow Up:?6 Months * * Sign off status: Completed true * Provider:?Jose Juan Hare MD Date:? 024 Generated for Marin mahan/Pio/Adarsh on:?03/07/2025 03:42 PM EDT History and Physical Notes * HPI (History of Present Illness) Category Sub-Category Detail Notes Category Not es incontinence I saw Fauzia in followup today in regard to her underlying history of Crohn's disease and elevated iron studies. I last saw Fauzia in February. Since that time she has been doing well in regard to the Crohn's disease other than intermittent diarrhea which responds readily to Imodium. She has continued on the same regimen of the weekly Humira, azathioprine, and mesalamine. Most days her bowel movements are regular but she will have some loose stool and will then take Imodium for that with good relief. She has not noticed any signs of bleeding, rectal pain, any perianal drainage, nor abdominal pain. She enjoys a good appetite and denies any significant heartburn or dysphagia. She denies any abdominal distention, vomiting, significant heartburn, nor dysphagia. As you know, she was found to have an elevated ferritin and iron saturation when labs were checked for some anemia over the summer. She had been on supplemental iron and was advised to stop it. 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 She does not know of any family history of hemochromatosis nor cirrhosis. Her initial iron saturation was 59% in June and came down to 37% in July. Her initial ferritin level was over 1400 in June and came down to 1,143 in July. Her most recent labs in July showed an otherwise stable CBC and normal liver profile. Examination Category Sub-Category Detail Notes Category Not es General Examination GENERAL APPEARANCE: pleasant , well [...]
--- OUTSIDE RECORDS SUMMARY | 2025-03-07 15:43 | XMS_ITS ---
Author Organization [facility] Address [address] [place] [address] Care Team Providers Care Impregnator Electrolytic Capacitors Name Role Phone Yehuda HALL, Richard Primary Care Provider Unavailab Noelle Wilson Unavailable [phone] Encounters Encounter Location Date Provider Diagnosis [address] [address] 01/26/2025 Noelle Camargo Plan Of Treatment Next Appt Details Provider Name:Noelle A Raman , 04/27/2025 01:00:00 PM, [address] [place] [address], [address], Progress Notes * Alexsandra HOLLEY ADOB: 7 (60 yo F)Acc No.[id number]:01/26/2025 Progress Notes Patient:?Alexsandra HOLLEY Provider:?Noelle Camargo DPM :1965???Age:59 Y???Sex:Female D ate:01/26/2025 Address:[address] [place] [address], ANAYA [id number] Pcp:Richard Blackman MD Subjective: * Chief Complaints: * ??? * Medical History:? Objective: * Vitals:? Assessment: Plan: * Treatment: * Images: * The named appointment provid er may or may not be the originator of this progress note, and it is not deemed complete until electronically signed by the appointment provider. Sign off status: Pending * Provider:?Noelle Camargo DPM Date:?2024 Generated for Marin mahan/Pio/Adarsh on:?03/07/2025 03:43 PM EDT
--- OUTSIDE RECORDS SUMMARY | 2025-03-07 15:43 | XMS_ITS ---
Author Organization [facility] Address [address] [place] [address] Care Team Providers Care Link Trainer Maintenance Worker Name Role Phone Richard Blackman MD Primary Care Provider Unavailab chris Rocio Camargoe Unavailable [phone] Allergies Allergen (clinical drug ingredient) Drug/Non Drug [...] No Encounters Encounter Location Date Provider Diagnosis [facility] [address] [place] [address] 11/10/2024 Noelle Camargo Plan Of Treatment Next Appt Details Provider Name:Noelle Camargo , 04/27/2025 01:00:00 PM, [address] [place], [address], Progress Notes * Alexsandra HOLLEY ADOB: 7 (60 yo F)Acc No.[id number]:11/10/2024 Progress Notes Patient:?Alexsandra HOLLEY Provider:?Noelle Camargo DPM :1965???Age:59 Y???Sex:Female D ate:11/10/2024 Address:[address] [place] [id number] Pcp:Richard Blackman MD Subjective: * Chief Complaints: [...] Vascular phlebitis (clots). * Hospitalization/Major Diagno stic Procedure:[place] [place], [facility] [place] pintch nerve 05/2017, [facility] [place] Kidney infection 03/2018. * Family History:?Mother: [...] Camargo DPM Date:?2023 Generated for Marin mahan/Pio/Adarsh on:?03/07/2025 03:42 PM EDT
--- OUTSIDE RECORDS SUMMARY | 2025-03-07 15:43 | XMS_ITS ---
Author Organization [facility] Address [address] [place] [address] Care Team Providers Care Hand Screen Printer Name Role Phone Yehuda HALL, Richard Primary Care Provider UnavailJose Juan Chawla Unavailable [phone] Allergies Allergen (clinical drug ingredient) Drug/Non Drug Allergy documented on EMR Reaction Allergy Type Onset Date Status amoxicillin / clavulanate Augmentin diarrhea Drug Allergy Active amoxicillin Amoxicillin Unknown Drug Allergy Act vini seasonal (uncoded) Unknown Allergy A ctive REASON FOR VISIT Patient presents today for crohn's Medications Medication SIG (Take, Route, Frequency, Duration) Notes Start Date End Date Status Benadryl 50 1 tablet as needed O rally every 4 hrs PRN Active Lisinopril 5 MG 1 tablet Orally Once a day Active azaTHIOprine 50 mg TAKE 1 AND 1/2 TABLE TS BY MOUTH EVERY DAY Orally Daily for 30 days Active Apriso 0.375 GM TAKE FOUR CAPSULES B Y MOUTH EVERY MORNING for 30 Activ e Motrin PRN Active Omeprazole Magnesium 20 MG 1 tablet 30 m inutes before morning meal Orally Once a day for 30 day(s) Active LaMICtal 100mg 1 tablet Orally QD Active Humira Pen 40 MG/0.8ML 0.8 ml Subcutaneous weekly Active Ativan 1 MG 1 tablet as needed O rally prn Active Haloperidol 10 MG 1 tablet Orally Once a day Active DuoNeb 1 4 po QD Active ProAir HFA 108 (90 Base) MCG/ACT 2 puffs as needed Inhalation every 4 hrs Active Losartan Potassium 25 MG 1 tablet Orally Once a day Active HumaLOG 100 UNIT/ML sliding scale Subcut aneous 4 times a day Active Tylenol Extra Strength 500 MG 1 tablet as needed Orally every 6 hrs/prn Active Advair Diskus 250-50 MCG/DOSE 1 puff Inhalation Twice a day Active Allopurinol 300 MG 1 tablet Orally Once a day Active Cranberry Concentrate 500 MG 3 Orally bid Active Metoprolol Succinate ER 25 MG 1 tablet Orally Once a day A ctive lamoTRIgine 100 MG 1 tablet Orally Once a day Active traZODone HCl 50 MG 3 tablet at bedtime Orally Once a day Active Lantus 100 UNIT/ML 54 units in the am a nd 46 units in the pm Subcutaneous daily Active Simvastatin 40 MG 1 tablet in the even ing Orally Once a day for 30 day(s) Active Social History Tobacco Use: Social History Observation Description Date Details (start date - stop date) Former Smoker NA - NA Tobacco Use/Smoking Question Answer Notes Patient is a former smoker How long has it been since you last smoked? 5-10 years Section Notes: Nonsmoker since 11/2012; no a lcohol Vital Signs Blood pressure systolic 111 mm Hg 02/29/20 25 Blood pressure diastolic 111 mm Hg 025 Height 63 in 02/28/2025 Weight 267 lbs 02/28/2025 BMI 47.29 kg/m2 02/28/2025 Encounters Encounter Location Date Provider Diagnosis [facility] [address] [place] [address] 02/28/2025 Jose Juan Hare Crohns colitis, with out complications K50.10 and Increased storage iron E83.19 Assessments Encounter [...] again for allowing me to participate in Nydias care. I shall continue to keep you advised of her progress. 02/28/2025 Increased storage iron (ICD-10 - E83.19) We will arrange for a phlebotomy at the [facility] for every three mnonths . [...] again for allowing me to participate in Nydias care. I shall continue to keep you advised of her progress. Plan Of Treatment Treatment Notes Assessment Notes Crohns colitis, without complications Co ntinue the same medical regimen and labs for the Crohn's disease Increased storage iron We will arrange f or a phlebotomy at the [facility] for every three mnonths Next Appt Details Follow Up: End 2024, Reas on: Provider Name:Jose Juan Hare , 10/27/2025 01:00:00 PM, [address] [facility], [address], [place], [address], Progress Notes * FAUZIA HOLLEY ADOB: 7 (60 yo F)Acc No.[id number]:02/28/2025 Progress Notes Patient:?FAUZIA HOLLEY A Provider:?Jose Juan Hare MD :1965???Age:60 Y???Sex:Female D ate:02/28/2025 Address:[address] [place] [address] Pcp:Richard Blackman MD Subjective: * Chief Complaints: * ???1. Patient presents today for crohn's. * HPI: ???incontinence:? I saw Fauzia in follow-up today in regular underlying history of Crohn's disease and excess iron. Since I last saw Fauzia in August 2024 she reports that she has been feeling well. She remains on the same regimen for her Crohn's disease including the azathioprine 75 mg daily, Humira SQ injections weekly, and mesalamine 1.5 g daily. She describes that her bowel movements have remained comfortable and without any significant diarrhea nor constipation. She denies any signs of bleeding. She enjoys a good appetite and denies any significant heartburn or dysphagia. She denies abdominal pain, jaundice, nor fevers. She denies any symptoms of active perianal disease such as rectal pain or drainage. Her most recent labs from early January revealed a stable hemoglobin of 11.5, white blood cell count 5000, and a normal platelet count. A liver profile was completely normal at that time as well. She describes that a recent ferritin level in your office was about 1000. The most recent one she had previously was 850 from August 2024. At t that time an iron saturation was 49% with an iron of 111. 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 * Medical History:?IDDM, DVT 2 0 yrs ago, Colonoscopy 10/[address] Briseno with the finding of colitis in left colon and rectum--bx in rectum showed a granuloma- started Apriso 02/2013, Denies AL,CVA,Lung disease,renal disease, Anemia-on Iron--Hgb approx 8 in 10/2012, and 12.9 in 01/2013---on B12 shots, Bipolar disease, Abscess near right kidney in 2008-drained with percutaneous catheters-at [facility], PVC's, Asthma, Colonoscopy 10/2016 revealed a very active distal proctitis, and a small area of colitis in the cecum--the remainder of the colon appeared normal--- she started Humira on 12/18/16, and started azathioprine in December 2016---Humira increased to weekly injections in 03/2017. She had therapeutic levels of her Humira and the azathioprine metabolites in the fall., Gout 02/21/17--took Motrin for 10 days--aggravated the Crohn's, Macrocytosis with normal Hgb-normal TSH, B12 level, and Folate in 07/2020, Colonoscopy in August 2021 was negative for any active colitis, tubular adenomas, nor dysplasia on biopsies, Upper endoscopy in August 2021 revealed only a small hiatal hernia, without any sign of esophagitis, esophageal stricture, nor eosinophilic esophagitis on biopsies--the EGJ was dilated but without any effect-a followup barium swallow did not show any significant pathology regarding her swallowing issues., Diarrhea requiring prednisone which gave her relief in the summer--at that time she had therapeutic Humira levels and negative Humira antibodies. A stool calprotectin level was minimally elevated and infectious etiologies were ruled out., COVID 11/2023, Colonoscopy in September of 2023 revealed pseudopolyps in the region of the cecum and rectum, as well as some scarring from Crohn's disease in those areas. However, there was no sign of any active Crohn's in the terminal ileum, colon, nor rectum. Biopsies were negative for any adenomatous changes or dysplasia. There was no evidence of any perianal disease., Azathioprine metabolite levels were stable in September of 2023, Elevated ferritin level of over 1400 in summer 2023. 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 Her iron studies started to improve by stopping her supplemental iron pill.. * Surgical History:?Tonsillect renetta . * Family History:?Father: dece ased.?Mother: , Colon [...] nurse. ???Nonsmoker since 11/2012; no alcohol. * Medications:?Taking Simvasta tin 40 MG Tablet 1 tablet in the evening Orally Once a day , Taking Lantus 100 UNIT/ML Solution 54 units in the am and 46 units in the pm Subcutaneous daily , Taking traZODone HCl 50 MG Tablet 3 tablet at bedtime Orally Once a day , Taking lamoTRIgine 100 MG Tablet 1 tablet Orally Once a day , Taking Metoprolol Succinate ER 25 MG Tablet Extended Release 24 Hour 1 tablet Orally Once a day , Taking Cranberry Concentrate 500 MG Capsule 3 Orally bid , Taking HumaLOG 100 UNIT/ML Solution Cartridge sliding scale Subcutaneous 4 times a day , Taking Losartan Potassium 25 MG Tablet 1 tablet Orally Once a day , Taking Allopurinol 300 MG Tablet 1 tablet Orally Once a day , Taking Advair Diskus 250-50 MCG/DOSE Aerosol Powder Breath Activated 1 puff Inhalation Twice a day , Taking Tylenol Extra Strength 500 MG Tablet 1 tablet as needed Orally every 6 hrs/prn , Taking Ativan 1 MG Tablet 1 tablet as needed Orally prn , Taking ProAir HFA 108 (90 Base) MCG/ACT Aerosol Solution 2 puffs as needed Inhalation every 4 hrs , Taking DuoNeb 1 1 4 po QD , Taking Haloperidol 10 MG Tablet 1 tablet Orally Once a day , Taking LaMICtal 100mg Tablet 1 tablet Orally QD , Taking Omeprazole Magnesium 20 MG Tablet Delayed Release 1 tablet 30 minutes before morning meal Orally Once a day , Taking Motrin , Notes to Pharmacist: PRN, Taking Humira Pen 40 MG/0.8ML Pen-injector Kit 0.8 ml Subcutaneous weekly , Taking Apriso 0.375 GM Capsule Extended Release 24 Hour TAKE FOUR CAPSULES BY MOUTH EVERY MORNING , Taking azaTHIOprine 50 mg Tablet TAKE 1 AND 1/2 TABLETS BY MOUTH EVERY DAY Orally Daily , Taking Lisinopril 5 MG Tablet 1 tablet Orally Once a day , Taking Benadryl 50 Tablet 1 tablet as needed Orally every 4 hrs PRN , Discontinued Vitamin D (Cholecalciferol) 25 MCG (1000 UT) Capsule 1 capsule Orally Once a day , Discontinued LORazepam 1 MG Tablet 1/2 in the am and 11/2 in the pm Orally Once a day , Discontinued Tylenol , Notes to Pharmacist: PRN, Discontinued Mesalamine 1000 MG Suppository 1 suppository at bedtime Rectal Once a day , Discontinued Mesalamine 1000 MG Suppository 1 suppository at bedtime Rectal QHS , Discontinued Breo Ellipta 100-25 MCG/INH Aerosol Powder Breath Activated 1 puff Inhalation Once a day , Discontinued Doxycycline Hyclate 100 MG Capsule 1 capsule Orally every 12 hrs , Discontinued Mesalamine 4 GM Enema 1 enema Rectal QHS , Discontinued predniSONE 5 MG Tablet 8 tablets daily for 1 week, and then decrease by 1 tablet(5mg) per week Orally Once a day , Discontinued Proctofoam HC 1-1 % Foam 1 application Rectal BID and QHS , Discontinued NovoLOG 100 UNIT/ML Solution sliding dose Subcutaneous QD , Discontinued Fluticasone Propionate 50 MCG/ACT Suspension 1 spray in each nostril Nasally Once a day , Discontinued Alaway 0.025 % Solution 1 drop into affected eye Ophthalmic Twice a day , Discontinued Mesalamine 1000 MG Suppository 1 suppository at bedtime Rectal QHS/prn , Medication List reviewed and reconciled with the patient * Allergies:?Amoxicillin, seas onal, Augmentin: diarrhea. Objective: * Vitals:?Wt: 267 lbs, Ht: 63 in, BMI:47.29Index, BP: 111/111 mm Hg, Wt-k.11. Assessment: * Assessment: 1.?Crohns colitis, without c omplications - K50.10 (Primary)???2.?Increased storage iron - E83.19??? . Overall, Fauzia appears quit e well and her Crohn's disease appears to [...] her progress. Plan: * Treatment: 2.?Increased storage iron? Notes: We will arrange for a phlebotomy at the [facility] for every three mnonths?? * Preventive Medicine:? ??Counseling:?Care goal follow-up plan:?Above Normal BMI Follow-up?Giving encouragement to exercise,?BMI management provided?Yes.? * Follow Up:?End of 2024 * * The named appointment provid er may or may not be the originator of this progress note, and it is not deemed complete until electronically signed by the appointment provider. Sign off status: Pending * Provider:?Jose Juan Hare MD Date:? 025 Generated for Marin mahan/Pio/Vinnyitting on:?03/07/2025 03:43 PM EDT
--- OUTSIDE RECORDS SUMMARY | 2025-03-07 15:44 | XMS_ITS | Patient Health Record ---
Author Organization [facility] Address [address] [place] [address] Care Team Providers Care Hat And Cap Drying Room Attendant Name Role Phone Richard Blackman MD Primary Care Provider Unavailab chris Camargo Noelle Unavailable [phone] Allergies Allergen (clinical drug ingredient) Drug/Non Drug [...] Status Risk Notes Problem Acquired hallux valgus (17839753) Hallux valgus (acquired), right foot (M20.11) Active confirmed Problem Primary gout (13580173) Idiopathic gout, right ankle and foot (M10.071) Active confirmed Problem Polyneuropathy due to diabetes mellitus type I (286134568) Type 1 diabetes mellitus with diabetic polyneuropathy (E10.42) Active confirmed Encounters Encounter Location Date Provider Diagnosis [address] [address] 08/25/[address] [address] 11/08/2024 Noelleace Camargo [address] [address] 01/24/2025 Noelle Camargo Plan Of Treatment Pending Test Test Name Order Date *Liver Function Test (LFT) 04/12/2012 51794-KQXRTKD NAIL, 6 OR MORE 12/24/2011 36275-TXTMFZH NAIL, -07/05/2012 46526-PQKJKVO NAIL, -10/04/2012 38058-WJUNYQX NAIL, -04/12/2012 45361-UEXLBLF NAIL, -04/11/2013 38429-LAMWWGC NAIL, 11-2707/11/2013 13540-BCFZXRU NAIL, -11/07/2013 64847-GLNONYS NAIL, -03/06/2014 09389-LIZQPZG NAIL, -08/17/2014 73709-VWQHMTB NAIL, -10/30/2014 74180-YWRGKPY NAIL, -01/17/2015 90938-YCDRHOL NAIL, -01/06/2013 86943-XZIUIYK NAIL, 1-5 04/19/2015 72484-ZYCLIOH NAIL, 1-5 07/19/2015 88972-Hwubcjnt Plate 07/19/2015 92413-Ssnqldhq Plate 03/06/2014 11103-Aknahmda Plate 04/19/2015 44259-Lllkmhbr Plate 01/17/2015 65214-Eabarjff Plate 10/30/2014 04897-Swnttcwu Plate 08/17/2014 31725-Ndhlqfkr Plate 08/15/2019 79039-IQK 12/29/2011 06047- Debride <25 sq cm 08/11/2011 38283-QOGXUCE SKIN/TISSUE 01/19/2012 19807-ZYDMCZL SKIN/TISSUE 02/02/2012 57942 I&D ABSCESS- SIMPLE,SINGLE 011 81033 I&D ABSCESS- SIMPLE,SINGLE 012 91445 I&D ABSCESS- SIMPLE,SINGLE 013 46180 I&D ABSCESS- SIMPLE,SINGLE 012 59255 I&D ABSCESS- SIMPLE,SINGLE 014 96733 I&D ABSCESS- SIMPLE,SINGLE 014 63565 I&D ABSCESS- SIMPLE,SINGLE 013 84966 I&D ABSCESS- SIMPLE,SINGLE 013 27762 I&D ABSCESS- SIMPLE,SINGLE 014 41660 I&D ABSCESS- SIMPLE,SINGLE 015 17527 I&D ABSCESS- SIMPLE,SINGLE 013 34834 I&D ABSCESS- SIMPLE,SINGLE 015 04439 I&D ABSCESS- SIMPLE,SINGLE 015 21705-YDST SKIN LESIONS, OVER 4 01/27/20 17 65765-VKNG SKIN LESIONS, OVER 4 04/27/20 17 72468-BWDJ SKIN LESIONS, OVER 4 08/15/20 19 42942-PFQE SKIN LESIONS, OVER 4 11/24/19 20 72691-NXFJ SKIN LESIONS, OVER 4 09/30/20 18 56118-MSXA SKIN LESIONS, OVER 4 12/30/19 19 91973-HTQD SKIN LESIONS, OVER 4 08/13/20 17 62875-VRVP SKIN LESIONS, OVER 4 12/28/19 18 20583-HZIT SKIN LESIONS, OVER 4 04/01/20 18 21845-QIAY SKIN LESIONS, OVER 4 07/01/20 18 30589-WGIB SKIN LESIONS, 2 TO 4 04/28/20 16 68998-YIOQ SKIN LESIONS, 2 TO 4 08/04/20 16 07538-WUML SKIN LESIONS, 2 TO 4 07/19/20 15 41673-GCRM SKIN LESIONS, 2 TO 4 10/25/20 15 54825-PUQF SKIN LESIONS, 2 TO 4 01/24/20 16 28062-WTQM SKIN LESIONS, 2 TO 4 04/19/20 15 86834-RKKY SKIN LESIONS, 2 TO 4 01/06/20 13 82505-ZAUE SKIN LESIONS, 2 TO 4 01/17/20 15 35527-KVKU SKIN LESIONS, 2 TO 4 10/30/20 14 21038-KJLS SKIN LESIONS, 2 TO 4 07/11/20 13 15524-VEML SKIN LESIONS, 2 TO 4 11/07/20 13 49999-BWFO SKIN LESIONS, 2 TO 4 03/06/20 14 85344-HTFJ SKIN LESIONS, 2 TO 4 08/17/20 14 58775-XTTL SKIN LESIONS, 2 TO 4 10/04/20 12 90817-DTYY SKIN LESIONS, 2 TO 4 04/11/20 13 64217-ALON SKIN LESIONS, 2 TO 4 07/05/20 12 87688-CTVY SKIN LESION 04/12/2012 U6436-LEYVXVXJ DYSTROPHIC NAILS ANY # R4815-VPCTFXSZ DYSTROPHIC NAILS ANY # F4226-QBRAMWJD DYSTROPHIC NAILS ANY # R4776-GCNUQUTE DYSTROPHIC NAILS ANY # X2230-TXNXFHYC DYSTROPHIC NAILS ANY # S2453-HGQQZYBU DYSTROPHIC NAILS ANY # U2616-VFTWIGWN DYSTROPHIC NAILS ANY # R8320-JFCFLJRU DYSTROPHIC NAILS ANY # J6496-UWNWBBFS DYSTROPHIC NAILS ANY # C1846-WAGIXTCT DYSTROPHIC NAILS ANY # K8772-GEYWENXA DYSTROPHIC NAILS ANY # M1372-IUMHKNSU DYSTROPHIC NAILS ANY # W1337-PNSYEJUW DYSTROPHIC NAILS ANY # E8353-JYNNSWHH DYSTROPHIC NAILS ANY # W9652-CUECGFVM DYSTROPHIC NAILS ANY # G2608-HQIPUZVU DYSTROPHIC NAILS ANY # X8312-KJEYYZEW DYSTROPHIC NAILS ANY # Y5950-FJSWGEXB DYSTROPHIC NAILS ANY # Y4958-QITZTDRW DYSTROPHIC NAILS ANY # F2117-DZTMHZBA DYSTROPHIC NAILS ANY # F6142-DDWPPITD DYSTROPHIC NAILS ANY # Q4226-GFVOVVKW DYSTROPHIC NAILS ANY # Y9743-HVBLGFPS DYSTROPHIC NAILS ANY # Next Appt Details Provider Name:Noelle Camargo , 04/27/2025 01:00:00 PM, [address] [place], [address], Insurance Providers Payer Name Payer Address Payer Phone Subscriber Number Group Number Insured Name Patient Relationship to Insured Coverage Start Date Coverage End Date Medicare [employer] [address] [place] [address] [id number] Alexsandra Thomas Self - patient is the insured 9 Medical (General) History Medical History History ICD Code transfusions psychiatric disorder chicken pox Gout diabetic depression hypercholesterolemia Anxiety disorder anemia crohns disease Arthritis asthma covid-19 High Blood Pressure Numbness Psoriasis/eczema Reflux ( GERD) Sciatica Vascular phlebitis (clots) Surgical History Surgery Date(Month/Year) [place] History Reason [place] [facility] [place] [facility] [place] [facility] [place]
--- OUTSIDE RECORDS SUMMARY | 2025-03-07 15:44 | XMS_ITS ---
Author Organization [facility] Address [address] [place] [address] Care Team Providers Care Tower Director Name Role Phone Richard Blackman MD Primary Care Provider Unavailab chris Rocio Camargoe Unavailable [phone] REASON FOR VISIT r/s ON 01/26 Encounters Encounter Location Date Provider Diagnosis [address] [address] 01/24/2025 Noelle Camargo Plan Of Treatment Next Appt Details Provider Name:Noelle Camargo , 04/27/2025 01:00:00 PM, [address] [place] [address], [address], Progress Notes * LEYDI Alexsandra ADOB: 7 (59 yo F)Acc No.[id number]:01/24/2025 Patient:?Regi HOLLEYcristina Blair :1965???Age:59 Y???Sex:Female Address:[address] [place] [address] [address], [place], [address] * true * Date:? Generated for Printi ng/Fatherong/eTransmitting on:?03/07/2025 03:43 PM EDT
== END 2025-03-07 12:45 | disposition home or self-care (01) ==
LOC: HO.BBR 12:44
PROVIDERS: PCP Internal Medicine; Visit Provider Internal Medicine
DX: E83.19 Other disorders of iron metabolism (principal)
CPT/HCPCS: 36415; 82728; 83540; 85014; 85018; 99195

== ENCOUNTER 2025-03-22 08:30 | Outpatient (REF) | payer MEDICARE, MEDICAID, SELFPAY ==
--- OUTSIDE RECORDS SUMMARY | 2025-03-22 08:45 | XMS_ITS ---
Author Organization [facility] Address [address] [facility] [place] [address] Care Team Providers Care Channel Specialist Name Role Phone Richard Blackman MD Primary Care Provider Unavailab chris Rocio Camargoe Unavailable [phone] Allergies Allergen (clinical drug ingredient) Drug/Non Drug [...] No Encounters Encounter Location Date Provider Diagnosis [facility] [address] [place] [address] 11/10/2024 Noelle Camargo Plan Of Treatment Next Appt Details Provider Name:Noelle Camargo , 04/27/2025 01:00:00 PM, [address] [place], [address], Progress Notes * Alexsandra HOLLEY ADOB: [birth year] (60 yo F)Acc No.[id number]:11/10/2024 Progress Notes Patient:?Alexsandra HOLLEY Provider:?Noelle Camargo DPM :1965???Age:59 Y???Sex:Female D ate:11/10/2024 Address:[address] [place] [id number] Pcp:Richard Blackman MD Subjective: * Chief Complaints: [...] Vascular phlebitis (clots). * Hospitalization/Major Diagno stic Procedure:?[facility] [place] 4 [place], [facility] [place] [facility] [place] Kidney infection [...] Camargo DPM Date:?2023 Generated for Marin mahan/Pio/Adarsh on:?03/22/2025 08:45 AM EDT
--- OUTSIDE RECORDS SUMMARY | 2025-03-22 08:45 | XMS_ITS | Patient Health Record ---
[facility] Address [address] [place] [address] Care Team Providers Care Post Doctoral Fellow Name Role Phone Richard Blackman MD Primary Care Provider Unavailab chris Camargo Noelle Unavailable [phone] Allergies Allergen (clinical drug ingredient) Drug/Non Drug [...] Status Risk Notes Problem Acquired hallux valgus (87077403) Hallux valgus (acquired), right foot (M20.11) Active confirmed Problem Primary gout (10662233) Idiopathic gout, right ankle and foot (M10.071) Active confirmed Problem Polyneuropathy due to diabetes mellitus type I (007377587) Type 1 diabetes mellitus with diabetic polyneuropathy (E10.42) Active confirmed Encounters Encounter Location Date Provider Diagnosis [address] [address] 08/25/[address] [address] 11/08/2024 Noelleace Camargo [address] [address] 01/24/2025 Noelle Camargo Plan Of Treatment Pending Test Test Name Order Date *Liver Function Test (LFT) 04/12/2012 39956-ELUFYDW NAIL, 6 OR MORE 12/24/2011 54116-SKNKVLU NAIL, -07/05/2012 03776-JNYYFBV NAIL, -10/04/2012 57681-FNGJLBS NAIL, -04/12/2012 99127-DXFOLPH NAIL, -04/11/2013 71725-AGYPNHL NAIL, 11-2707/11/2013 97800-AARIOHP NAIL, -11/07/2013 20087-LLGDCJM NAIL, -03/06/2014 79769-PHKFOAO NAIL, -08/17/2014 65486-HHEPNIN NAIL, -10/30/2014 74906-KYQNIXY NAIL, -01/17/2015 20463-ZNIYQQT NAIL, -01/06/2013 59848-AHEDNPX NAIL, 1-5 04/19/2015 92716-ATEBPOC NAIL, 1-5 07/19/2015 34893-Udxqbbdz Plate 07/19/2015 63747-Yavjwaji Plate 03/06/2014 37649-Qqoqjfzz Plate 04/19/2015 38243-Mznvunwm Plate 01/17/2015 01174-Gjszxtpi Plate 10/30/2014 85560-Xwafrebo Plate 08/17/2014 57237-Iaoyzmvy Plate 08/15/2019 62079-NAD 12/29/2011 66868- Debride <25 sq cm 08/11/2011 71236-IMQGWKY SKIN/TISSUE 01/19/2012 72605-GWHROXI SKIN/TISSUE 02/02/2012 72574 I&D ABSCESS- SIMPLE,SINGLE 011 06601 I&D ABSCESS- SIMPLE,SINGLE 012 63253 I&D ABSCESS- SIMPLE,SINGLE 013 20224 I&D ABSCESS- SIMPLE,SINGLE 012 14467 I&D ABSCESS- SIMPLE,SINGLE 014 87851 I&D ABSCESS- SIMPLE,SINGLE 014 95879 I&D ABSCESS- SIMPLE,SINGLE 013 45628 I&D ABSCESS- SIMPLE,SINGLE 013 54822 I&D ABSCESS- SIMPLE,SINGLE 014 28939 I&D ABSCESS- SIMPLE,SINGLE 015 88756 I&D ABSCESS- SIMPLE,SINGLE 013 80085 I&D ABSCESS- SIMPLE,SINGLE 015 07340 I&D ABSCESS- SIMPLE,SINGLE 015 63760-MTBI SKIN LESIONS, OVER 4 01/27/20 17 21818-JYGS SKIN LESIONS, OVER 4 04/27/20 17 68728-YJOW SKIN LESIONS, OVER 4 08/15/20 19 64151-NOIO SKIN LESIONS, OVER 4 11/24/19 20 77741-FJBM SKIN LESIONS, OVER 4 09/30/20 18 36275-IMPF SKIN LESIONS, OVER 4 12/30/19 19 32705-KGXU SKIN LESIONS, OVER 4 08/13/20 17 17081-GKPA SKIN LESIONS, OVER 4 12/28/19 18 57714-SRBV SKIN LESIONS, OVER 4 04/01/20 18 65906-WUDZ SKIN LESIONS, OVER 4 07/01/20 18 03475-DSKH SKIN LESIONS, 2 TO 4 04/28/20 16 11869-DREZ SKIN LESIONS, 2 TO 4 08/04/20 16 29608-FHDC SKIN LESIONS, 2 TO 4 07/19/20 15 11101-YVON SKIN LESIONS, 2 TO 4 10/25/20 15 91111-JWQO SKIN LESIONS, 2 TO 4 01/24/20 16 06438-RAAZ SKIN LESIONS, 2 TO 4 04/19/20 15 99077-QPIA SKIN LESIONS, 2 TO 4 01/06/20 13 44977-WSYJ SKIN LESIONS, 2 TO 4 01/17/20 15 24175-BGEF SKIN LESIONS, 2 TO 4 10/30/20 14 35930-LIBQ SKIN LESIONS, 2 TO 4 07/11/20 13 37447-BZPO SKIN LESIONS, 2 TO 4 11/07/20 13 88584-EVQJ SKIN LESIONS, 2 TO 4 03/06/20 14 03294-YMCI SKIN LESIONS, 2 TO 4 08/17/20 14 48965-FVHY SKIN LESIONS, 2 TO 4 10/04/20 12 10362-SCSO SKIN LESIONS, 2 TO 4 04/11/20 13 27445-GKDI SKIN LESIONS, 2 TO 4 07/05/20 12 51464-BAEN SKIN LESION 04/12/2012 Z8228-YAARJVZQ DYSTROPHIC NAILS ANY # D5445-XWWMJAGU DYSTROPHIC NAILS ANY # H2939-WDWQWBHH DYSTROPHIC NAILS ANY # A7523-JJXLYRTE DYSTROPHIC NAILS ANY # L7265-NBHEPCAI DYSTROPHIC NAILS ANY # H3030-WYYGVLBZ DYSTROPHIC NAILS ANY # X3296-XJMTOSHO DYSTROPHIC NAILS ANY # H7396-MNVDUFAB DYSTROPHIC NAILS ANY # I9791-JMNKZPXV DYSTROPHIC NAILS ANY # D9360-MADAESDN DYSTROPHIC NAILS ANY # Y0289-FKTGMCUD DYSTROPHIC NAILS ANY # L9806-ACETOXXP DYSTROPHIC NAILS ANY # O3374-PDNNEKMB DYSTROPHIC NAILS ANY # O2001-FOYNGMOL DYSTROPHIC NAILS ANY # Z8588-CZXXUOIS DYSTROPHIC NAILS ANY # S8109-SRQXCMSL DYSTROPHIC NAILS ANY # G1784-HNERHJXY DYSTROPHIC NAILS ANY # C2228-JBXEEIRS DYSTROPHIC NAILS ANY # F9173-HTFKBPFA DYSTROPHIC NAILS ANY # I1918-KCKBNOQA DYSTROPHIC NAILS ANY # X1872-VLOZEFGJ DYSTROPHIC NAILS ANY # J7947-FBADHZNM DYSTROPHIC NAILS ANY # B7327-GWSZFKDP DYSTROPHIC NAILS ANY # Next Appt Details Provider Name:Noelle Camargo , 04/27/2025 01:00:00 PM, [address] [place], [address], Insurance Providers Payer Name Payer Address Payer Phone Subscriber Number Group Number Insured Name Patient Relationship to Insured Coverage Start Date Coverage End Date Medicare [employer] [address] [place] [address] [id number] Alexsandra Thomas Self - patient is the insured 9 Medical (General) History Medical History History ICD Code transfusions psychiatric disorder chicken pox Gout diabetic depression hypercholesterolemia Anxiety disorder anemia crohns disease Arthritis asthma covid-19 High Blood Pressure Numbness Psoriasis/eczema Reflux ( GERD) Sciatica Vascular phlebitis (clots) Surgical History Surgery Date(Month/Year) Hospitalization History Reason Date(Month/Year) [facility] [place] 03/2018 [facility] [place] pintch nerve 05/2017 [facility] [place] asthma 4 days 08/2016
--- OUTSIDE RECORDS SUMMARY | 2025-03-22 08:45 | XMS_ITS ---
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 Name Role Phone Yehuda HALL, Richard Primary Care Provider Unavailab Noelle Wilson Unavailable [phone] Encounters Encounter Location Date Provider Diagnosis [address] [address] 01/26/2025 Noelle Camargo Plan Of Treatment Next Appt Details Provider Name:Nolele A Raman , 04/27/2025 01:00:00 PM, [address] [place] [address], [phone], Progress Notes * Alexsandra HOLLEY ADOB: [birth year] (60 yo F)Acc No.[id number]:01/26/2025 Progress Notes Patient:?Alexsandra HOLLEY Provider:?Noelle Camargo DPM :1965???Age:59 Y???Sex:Female D ate:01/26/2025 Address:[address] [place] [address] [address] [phone] Pcp:Richard Blackman MD Subjective: * Chief Complaints: [...] Camargo DPM Date:?2024 Generated for Marin mahan/Pio/Adarsh on:?03/22/2025 08:45 AM EDT
--- OUTSIDE RECORDS SUMMARY | 2025-03-22 08:46 | XMS_ITS ---
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 Name Role Phone Richard Blackman MD Primary Care Provider Unavailab chris Rocio Camargoe Unavailable [phone] REASON FOR VISIT r/s ON 01/26 Encounters Encounter Location Date Provider Diagnosis [address] [address] 01/24/2025 Noelle Camargo Plan Of Treatment Next Appt Details Provider Name:Noelle Camargo , 04/27/2025 01:00:00 PM, [address] [place], [address], Progress Notes * LEYDI Alexsandra ADOB: 7 (59 yo F)Acc No.[id number]:01/24/2025 Patient:?Regi HOLLEYcristina Blair :1965???Age:59 Y???Sex:Female Address:[address] [place] [address] [address], [place], [address] * true * Date:? Generated for Printi ng/Fatherong/eTransmitting on:?03/22/2025 08:45 AM EDT
[2025-03-22 10:03] LABS: MANUAL DIFF FLAG NO
[2025-03-22 10:09] LABS: Eosinophils Absolute Auto 0.2 X10*3/uL (0.0-0.4); Eosinophils Percent Auto 4.6 % (0-4); Hematocrit 29.2 % (37.0-47.0); Hemoglobin 10.2 g/dl (12.0-16.0); Imm Gran Abs Auto 0.06 X10*3/uL (0.00-0.03); Imm Gran Pct Auto 1.5 % (0.0-0.4); Lymphocytes Absolute Auto 1.3 X10*3/uL (1.2-4.9); Lymphocytes Percent Auto 32.8 % (20-40); Mean Corpuscular HGB Conc 34.9 g/dl (31.0-35.0); Mean Corpuscular Hemoglobin 40.5 pg (27.0-33.0); Monocytes Absolute Auto 0.2 X10*3/uL (0.1-1.2); Monocytes Percent Auto 4.6 % (2-11); NRBC Pct Auto 0.5 /100WBC (0.0-0.2); Neutrophils Absolute Auto 2.2 x10*3/uL (2.0-8.3); Neutrophils Percent Auto 55.5 % (45-73); Platelet Count 139 X10*3/uL (160-400); Red Blood Count 2.52 X10*6/uL (4.20-5.50); White Blood Count 3.9 X10*3/uL (4.8-10.8)
[2025-03-22 10:10] LABS: Mean Corpuscular Volume 115.9 fL (80.0-98.0)
[2025-03-22 10:15] LABS: Estimated Average Glucose 111 mg/dL; Hemoglobin A1C 102.1428 umol/L; Hemoglobin A1c % 5.5 % (<6.0); Total Hemoglobin (HGBA1C) 2779.2867 umol/L
[2025-03-22 10:45] LABS: Alanine Aminotransferase 19 U/L (0-31); Alkaline Phosphatase 43 U/L (39-117); Aspartate Amino Transferase 21 U/L (5-31); Bilirubin Direct 0.2 mg/dL (0.0-0.5); Bilirubin Total 0.6 mg/dL (0.0-1.0)
== END 2025-03-22 08:31 | disposition home or self-care (01) ==
LOC: HO.HMGCLDS 08:30
PROVIDERS: Internal Medicine; PCP Internal Medicine; Visit Provider Internal Medicine
DX: E11.9 Type 2 diabetes mellitus without complications (principal); Z79.4 Long term (current) use of insulin
CPT/HCPCS: 36415; 80076; 83036; 85025

== ENCOUNTER 2025-05-15 12:59 | Outpatient (AMB) | payer MEDICARE, MEDICAID, SELFPAY ==
--- NOTE | 2025-05-15 13:06 | A.OFFPC_ITS ---
Vital Signs 05/15/25 13:11 Height 5 ft 2.99 in Weight 267 lb 6 oz BMI 47.4 BP 124/60 Blood Pressure Location Rt brachial Position Sitting Respiration 16 Pulse 77 Pulse Source Pulse Oximeter Temp 97.3 F Temp Source Temporal Artery Scan Pulse Oximetry (%) 98 Oxygen Delivery Method Room Air Intake Visit Reasons: establish care Doctor Of Chiropractic Required: No Accompanied by: Self / Same As Patient Allergies amoxicillin (AMOXICILLIN) Allergy (Intermediate, Verified 05/15/25 13:45) BLOODY DIARRHEA clavulanic acid (From AUGMENTIN) Adverse Reaction (Intermediate, Verified 05/15/25 13:45) DIARRHEA Medication List - Last Reconciled 05/15/25 by Lauren Reyes PA-C albuterol sulfate 90 mcg/actuation (ProAir HFA) 2 puffs inhalation Q4-6H PRN allopurinol 1 tab PO DAILY azathioprine 1.5 tabs PO DAILY fluconazole 1 tab PO DAILY fluticasone propion-salmeterol 250-50 mcg/dose (Advair Diskus) 1 puff inhalation BID haloperidol 1 tab PO BEDTIME insulin glargine (Lantus U-100 Insulin) 70 units subcut BEDTIME insulin lispro (Humalog U-100 Insulin) 4X daily as instructed sliding scale lamotrigine 1 tab PO BEDTIME lorazepam 1 mg PO BID losartan 1 tab PO BEDTIME mesalamine ER (Apriso) 4 caps PO DAILY metoprolol succinate ER 1 tab PO DAILY omeprazole 20 mg PO BEDTIME simvastatin 1 tab PO DAILY trazodone 300 mg PO BEDTIME Tobacco use date assessed: 05/15/25 Dental Screening Dental Screen Date: 05/15/25 Did you have a dental visit in the last 12 months?: Yes Did you have a dental problem in the last 6 months where you did not have access to dental care?: No Was dental information given to patient?: Patient has dentist HPI establish care HPI Details The patient is a 60-year-old female presenting for a new patient appointment to establish care and an annual physical examination. The patient has a history of asthma, managed with albuterol inhaler, and reports being well-controlled without the need for a piping design specialist at present. She was previously under the care of Dr. Salas for pulmonary issues but has not required recent intervention. The patient is diagnosed with gout, for which she is on allopurinol. She also has Crohn's disease, managed by Dr. Hare, and recently underwent a colonoscopy last year. The patient has diabetes mellitus, managed with insulin, taking 70 units at bedtime and using a sliding scale during the day. She is followed by an home visits nurse and has an A1c of 5.5%. The patient reports chronic anemia with a hemoglobin of 10.2 and hematocrit of 29.2, without any rectal bleeding or black stools. She also has elevated ferritin levels, for which she donates blood regularly. The patient has a history of hyperthyroidism and is monitored for thyroid levels. She reports psoriasis, managed with topical treatments, and is under the care of Dr. Mejia's PA. [facility] Medical History (Updated 05/15/25 @ 14:07 by Lauren Reyes PA-C) Morbid obesity with BMI of 45.0-49.9, adult Breast cancer screening Psoriasis Chronic anemia Type 2 diabetes mellitus with hemoglobin A1c goal of less than 7.0% Establishing care with new doctor, encounter for Annual physical exam History of macrocytosis Gout Hx of abdominal abscess Diabetes Anxiety Elevated cholesterol HTN (hypertension) Anemia COPD (chronic obstructive pulmonary disease) Asthma Depression Bipolar 1 disorder GERD (gastroesophageal reflux disease) Crohn's disease Surgical History History of esophagogastroduodenoscopy (EGD) Hx of tonsillectomy Hx of colonoscopy Family History Father Parkinsons Mother Emphysema lung Social History Housing: Condominium Alcohol intake: current Alcohol intake frequency: does not drink Patient Tobacco Use Status: Former Tobacco user Advance Directives Date on File: 08/28/21 service: No Current occupational status: disabled Cognitive needs: No Hearing needs: No Vision needs: No Questionnaire PHQ-9 Over the last 2 weeks, how often have you been bothered by any of the following problems? 1. Little interest or pleasure in doing things: nearly every day 2. Feeling down, depressed, or hopeless: more than half the days 3. Trouble falling or staying asleep, or sleeping too much: nearly every day 4. Feeling tired or having little energy: more than half the days 5. Poor appetite or overeating: more than half the days 6. Feeling bad about yourself - or that you are a failure or have let yourself or your family down: not at all 7. Trouble concentrating on things, such as reading the newspaper or watching television: not at all 8. Moving or speaking so slowly that other people could have noticed. Or the opposite - being so fidgety or restless that you have been moving around a lot more than usual: not at all 9. Thoughts that you would be better off or of hurting yourself in some way: not at all Total score: 12 Depression Screening Interpretation: Positive Depression Screening Follow-up: Existing condition and In treatment Depression Screening Done: Yes 19948 - PHQ-9 Billing: Yes Source: Developed by Drs. Jose Juan Arroyo, Elsy Fortune, John Feliciano and colleagues, with an educational ankush from [employer]. Thrive Questionnaire Date Thrive assessed: 05/15/25 I am a: Patient What is your living situation today?: I have a steady place to live Within the past 12 months, did the food you bought not last and you didn't have the money to get more?: Never true Within the past 12 months, did you worry whether your food would run out before you got money to buy more?: Never true Do you have trouble paying for medicines?: No Do you have trouble getting transportation to medical appointments?: No Do you have trouble paying your heating and electricity bill?: No Do you have trouble taking care of your child, family member or friend?: No Do you have trouble with day-to-day activities such as bathing, preparing meals, shopping, managing finances, etc.?: No Are you currently unemployed and looking for a job?: No Are you interested in more education?: No Please select the resources that you would like help with: None Currently or been in a relationship where the following occur: No concerns reported THRIVE Score: 0 AUDIT C Alcohol Use Questionnaire (AUDIT-C) 1. How often do you have a drink containing alcohol?: Never 3. How often do you have six or more drinks on one occasion?: Never Total Score: 0 Score Reviewed/Action Taken: No RENETTA-7 AMB Questionnaire RENETTA-7 Date RENETTA - 7 assessed: 05/15/25 Feeling nervous, anxious, or on edge: 0 = Not at all Not being able to stop or control worryin = Not at all Worrying too much about different things: 0 = Not at all Trouble relaxin = Not at all Being so restless that it is hard to sit still: 0 = Not at all Becoming easily annoyed or irritable: 0 = Not at all Feeling afraid as if something awful might happen: 0 = Not at all Total RENETTA-7 score (0-4 normal; 5-9 mild; 10-14 moderate; 15-21 severe): 0 Source: Developed by Drs. Jose Juan Arroyo, Elsy Fortune, John Feliciano and colleagues, with an educational ankush from [employer]. RENETTA-7 Assessment Billing RENETTA-7 Assessment Tool: RENETTA-7 Assessment 43420 Review of Systems Const Details: - Respiratory: Denies dyspnea, cough, or wheezing. - Cardiovascular: Denies chest pain, orthopnea, or syncope. - Gastrointestinal: Reports diarrhea frequently, denies rectal bleeding or melena. - Dermatological: Reports psoriasis and eczema. Physical exam (Primary Care) Vital Signs: Last Vital Signs Temp 97.3 F 05/15/25 13:11 Pulse 77 05/15/25 13:11 Resp 16 05/15/25 13:11 BP 124/60 05/15/25 13:11 Pulse Ox 98 05/15/25 13:11 Oxygen Delivery Method Room Air 05/15/25 13:11 Care Plan Goal for BP management: <140/90 at Goal BMI result Body Mass Index 47.4 BMI Assessment/Plan discussion: High BMI High, discussed plan: lifestyle, weight reduction, dietary, physical activity and alcohol moderation Tobacco/Smoking Status: Tobacco use Status Tobacco use date assessed 05/15/25 05/15/25 13:11 Patient Tobacco Use Status Former Tobacco user 05/15/25 13:22 PHQ-9: PHQ-9 Score PHQ-9: Total score 12 05/15/25 13:31 Depression Screening Interpretation: Positive Depression Screening Follow-up: Existing condition and In treatment Thrive Assessment: Date of Thrive Assessment Date Thrive assessed 05/15/25 05/15/25 13:11 Currently or been in a relationship where the following occur: No concerns reported Const Other: Appearance: Alert. Oriented X3. No acute distress. Head: Normal external exam. Normocephalic. Atraumatic. Eyes: Pupils are equal, round, and reactive to light. Extraocular movements intact. Conjunctiva and sclera normal. Eyelids normal. Ears: External auditory canal normal. Tympanic membranes normal. A little bit of eczema noted. Throat: Pharynx normal. Uvula midline. Moist mucous membranes. Neck: Normal inspection. Neck supple. Full range of motion. No adenopathy. Thyroid Normal. No meningeal signs. No neck mass noted. Cardiovascular: Normal heart rate and rhythm. Heart sound normal. No murmurs noted. Pulses normal throughout. Respiratory: No respiratory distress. Painless inspiration. Breath sounds normal. No wheezes/rales/rhonchi noted. Chest nontender. No accessory muscle usage noted or decreased air movement noted. Abdomen: Soft and nontender. Bowel sounds normal in all 4 quadrants. No distention noted. No organomegaly noted. No visible injury noted. Back: No costovertebral angle tenderness. Full range of motion noted. Skin: Skin warm and dry. Normal skin color. Normal skin turgor. Psoriasis noted to ears. No additional rashes/lesions/lacerations noted. Extremities: No lower extremity edema. Extremities exhibit normal range of motion. Extremities nontender. Neuro: Oriented X 3. No motor deficit. No sensory deficit. Reflexes normal. Results Reviewed Results Reviewed: - Labs: Hemoglobin 10.2 g/dL, Hematocrit 29.2%, Ferritin 879 ng/mL, A1c 5.5%. Coding Level of Care Code New Pt Level 4 (70499) New Pt Prev Care 40-64y(83524) Diagnoses Annual physical exam Z00.00 Establishing care with new doctor, encounter for Z76.89 Asthma J45.909 Type 2 diabetes mellitus with hemoglobin A1c goal of less than 7.0% E11.9 Chronic anemia D64.9 Crohn's disease K50.90 Gout M10.9 Psoriasis L40.9 Breast cancer screening Z12.39 Morbid obesity with BMI of 45.0-49.9, adult E66.01; Z68.42 Additional Codes RENETTA-7 Assessment Billing - RENETTA-7 Assessment Tool: RENETTA-7 Assessment 81711 ([id number]) PHQ-9 - 41882 - PHQ-9 Billing: Yes ([id number]) Assessment & Plan Assessment & Plan (1) Annual physical exam: Code(s): Z00.00 - Encounter for general adult medical examination without abnormal findings Category: Medical (2) Establishing care with new doctor, encounter for: Code(s): Z76.89 - Persons encountering health services in other specified circumstances Category: Medical (3) Asthma: Code(s): J45.909 - Unspecified asthma, uncomplicated Category: Medical Plan: The patient's asthma is currently well-controlled with the use of an albuterol inhaler. No need for piping design specialist follow-up was deemed necessary at this time. (4) Type 2 diabetes mellitus with hemoglobin A1c goal of less than 7.0%: Code(s): E11.9 - Type 2 diabetes mellitus without complications Category: Medical Plan: The patient's diabetes is managed with insulin, taking 70 units at bedtime and using a sliding scale during the day. The A1c level is well-controlled at 5.5%. Follow-up with an home visits nurse is ongoing. (5) Chronic anemia: Code(s): D64.9 - Anemia, unspecified Category: Medical Plan: The patient has chronic anemia with a hemoglobin of 10.2 and hematocrit of 29.2. No signs of rectal bleeding or melena were reported. Monitoring and management include regular blood donations due to elevated ferritin levels. (6) Crohn's disease: Code(s): K50.90 - Crohn's disease, unspecified, without complications Category: Medical Plan: The patient is under the care of Dr. Hare for Crohn's disease and had a colonoscopy last year. Continued management with current arc welding machine operator is planned. (7) Gout: Code(s): M10.9 - Gout, unspecified Category: Medical Plan: The patient is on allopurinol for gout management. No acute gout flares were reported during the visit. (8) Psoriasis: Code(s): L40.9 - Psoriasis, unspecified Category: Medical Plan: The patient is managing psoriasis with topical treatments and is under the care of Dr. Mejia's PA. Continued dermatological care is planned. (9) Breast cancer screening: Code(s): Z12.39 - Encounter for other screening for malignant neoplasm of breast Category: Medical Plan: A referral for a mammogram was made as the patient has not had one in a couple of years. The patient expressed interest in completing this screening. (10) Morbid obesity with BMI of 45.0-49.9, adult: Code(s): E66.01 - Morbid (severe) obesity due to excess calories; Z68.42 - Body mass index [BMI] 45.0-49.9, adult Category: Medical Plan: Patient to improve diet and exercise regimen. Condition is chronic and stable continue to monitor. Plan Plan Patient was informed and verbally consented to the use of an ambient scribe for clinic note documentation during this visit. 1. Asthma The patient's asthma is currently well-controlled with the use of an albuterol inhaler. No need for piping design specialist follow-up was deemed necessary at this time. 2. Gout The patient is on allopurinol for gout management. No acute gout flares were reported during the visit. 3. Crohn's Disease The patient is under the care of Dr. Hare for Crohn's disease and had a co lonoscopy last year. Continued management with current arc welding machine operator is planned. 4. Diabetes Mellitus The patient's diabetes is managed with insulin, taking 70 units at bedtime and using a sliding scale during the day. The A1c level is well-controlled at 5.5%. Follow-up with an home visits nurse is ongoing. 5. Chronic Anemia The patient has chronic anemia with a hemoglobin of 10.2 and hematocrit of 29.2. No signs of rectal bleeding or melena were reported. Monitoring and management include regular blood donations due to elevated ferritin levels. 6. Psoriasis The patient is managing psoriasis with topical treatments and is under the care of Dr. Mejia's PA. Continued dermatological care is planned. 7. Preventative Care: Mammogram Referral A referral for a mammogram was made as the patient has not had one in a couple of years. The patient expressed interest in completing this screening. During the visit, we discussed the management of the patient's chronic conditions, including asthma, gout, Crohn's disease, diabetes, and psoriasis. We reviewed the importance of regular follow-ups with specialists, including the home visits nurse and arc welding machine operator. The patient was advised on the need for a mammogram and the process for scheduling it. We also discussed the patient's current medication regimen and the importance of adherence. The patient was informed about the need for fasting before certain blood tests and was provided with instructions for follow-up care. Orders: Orders Lipid Panel Today Z00.00 - Encounter for general adult medical examination without abnormal findings Vitamin B12 and Folate Today Z00.00 - Encounter for general adult medical examination without abnormal findings MM screening mammo BI Today Z12.31 - Encounter for screening mammogram for malignant neoplasm of breast TSH reflex Free T4 Today Z00.00 - Encounter for general adult medical examination without abnormal findings Magnesium Today Z00.00 - Encounter for general adult medical examination without abnormal findings Comprehensive [place]. Panel Fast Today Z00.00 - Encounter for general adult medical examination without abnormal findings Vitamin D 25-OH Total Today Z00.00 - Encounter for general adult medical examination without abnormal findings Patient Instructions: - Continue using albuterol inhaler as needed for asthma control. - Take allopurinol as prescribed for gout management. - Follow up with Dr. Hare for Crohn's disease management. - Monitor blood sugar levels and follow insulin regimen as directed. - Schedule and attend a mammogram appointment. - Continue regular blood donations to manage ferritin levels. - Follow up with home visits nurse and logistics/shipper as scheduled. - Fast for 10-12 hours before blood tests as instructed.
[2025-05-15 13:11] VITALS: BP 124/60; PULSE 77; RESP 16; TEMP 36.3; O2SAT 98; BMI 47.4
--- OUTSIDE RECORDS SUMMARY | 2025-05-15 14:22 | XMS_ITS | Patient Health Record ---
Author Organization [facility] Address [address] [place] [address] Care Team Providers Care Per Diem Name Role Phone Richard Blackman MD Primary Care Provider Jose Juan Floyd Unavailable [phone] Allergies Allergen (clinical drug ingredient) Drug/Non Drug Allergy documented on EMR Reaction Allergy Type Onset Date Status amoxicillin / clavulanate Augmentin diarrhea Drug Allergy Active amoxicillin Amoxicillin Unknown Drug Allergy Act vini seasonal (uncoded) Unknown Allergy A ctive Results Component Value Reference Range Notes Ferritin Reviewed date:07/31/2024 06:55:24 PM Interpretation: Performing Lab:[address] [phone] Notes/Report: Ferritin 1464 10-250 ng/mL Vitamin B12 and Folate Reviewed date:07/11/2024 11:28:26 PM Interpretation: Performing Lab:[address] [phone] Notes/Report: Vitamin B12 317 200-900 pg/mL NORMAL 200-900 PG/ML INDETERMINATE 160-199 PG/ML DEFICIENT < 160 PG/ML Folate 13.3 > or = 4.0 ng/mL Reference Values: > or = 4.0 ng/mL < 4.0 ng/mL suggests folate deficiency Methotrexate, aminopterin and folinic acid (leucovorin) are chemotherapeutic agents whose molecular structures are similar to folate; therefore, the [employer] folate assay cannot be used for patients using these drugs. Ferritin Reviewed date:08/07/2024 05:13:16 PM Interpretation: Performing Lab:[address] [phone] Notes/Report: Ferritin 1143 10-250 ng/mL Complete Blood Count Auto Di ff Reviewed date:07/04/2024 10:59:03 PM Interpretation: Performing Lab:[facility], [address] [place] [phone] Notes/Report: White Blood Count 6.5 4.8-10.8 X10*3/uL [...] Panel Reviewed date:07/04/2024 11:06:00 PM Interpretation: Performing Lab:[facility], [address] [place] [phone] Notes/Report: Bilirubin Total 0.6 0.0-1.0 mg/dL Bilirubin Direct 0.2 0.0-0.5 mg/dL Aspartate Amino Transferase 21 5-31 U/L Alanine Aminotransferase 13 0-31 U/L Total Protein 6.2 6.5-8.0 g/dL Albumin Level 3.8 3.5-5.0 g/dL Alkaline Phosphatase 54 39-117 U/L IRON PROFILE Reviewed date:07/31/2024 06:53:32 PM Interpretation: Performing Lab:[facility], [address] [place] [phone] Notes/Report: Iron 125 30-160 mcg/dL Total Iron Binding Capacity 211 228-428 mcg/dL Percent Iron Saturation 59 15-50 % Unsaturated Iron Binding 86 Complete Blood Count Auto Di ff Reviewed date:08/07/2024 05:01:42 PM Interpretation: Performing Lab:[facility], [address] [place] [phone] Notes/Report: White Blood Count 6.3 4.8-10.8 X10*3/uL [...] Hemochromatosis Reviewed date:09/06/2024 04:44:10 PM Interpretation: Performing Lab:[facility], [address] [place] [phone] Notes/Report: DNA Analysis Hemochromatosis See Below RESULT: [...] clinical information reviewed by Alek Lamb, PhD, [facility], [facility]. DETAILED ASSAY INFORMATION: Hereditary hemochromatosis (HH) [...] variants in the HFE gene, C282Y (NM 933079.2: c.845G>A, p.Lab061Vek) and H63D (NM 566973.2: c.187C>G, p.Qjc96Siv), that are commonly associated with HH. These [...] Health care providers, please contact your local [facility] genetic counselor or call [phone] ( ) for assistance with the interpretation of these results. This test was developed and its analytical performance characteristics have been determined by [facility]. It has not been cleared or approved by FDA. This assay has been validated pursuant to the CLIA regulations and is used for clinical purposes. For more information, please refer to http://education.[employer]/faq/hemoch romatosis. (This link is being provided for informational/educationa l purposes only.) A portion of the testing was performed at [facility]. Reviewed and signed by Laboratory results and submitted clinical information reviewed by Alek Lamb, PhD, [facility], [facility], Signed on 08/17/2024 at 10:22 THIS TEST WAS PERFORMED AT: [facility] [id number] [place] [address] CELINE FIGUEROA MD,PHD,MATTHEW Liver Panel Reviewed date:08/07/2024 05:02:19 PM Interpretation: Performing Lab:[facility], [address] [place] [phone] Notes/Report: Bilirubin Total 0.8 0.0-1.0 mg/dL Bilirubin Direct 0.2 0.0-0.5 mg/dL Aspartate Amino Transferase 16 5-31 U/L Alanine Aminotransferase 16 0-31 U/L Total Protein 6.3 6.5-8.0 g/dL Albumin Level 3.9 3.5-5.0 g/dL Alkaline Phosphatase 60 39-117 U/L IRON PROFILE Reviewed date:08/07/2024 05:02:27 PM Interpretation: Performing Lab:[facility], [address] [place] [phone] Notes/Report: Iron 82 30-160 mcg/dL Total Iron Binding Capacity 220 228-428 mcg/dL Percent Iron Saturation 37 15-50 % Unsaturated Iron Binding 138 Complete Blood Count Auto Di ff Reviewed date:09/14/2024 07:02:12 PM Interpretation: Performing Lab:[facility], [address] [place] [phone] Notes/Report: White Blood Count 4.6 4.8-10.8 X10*3/uL [...] Panel Reviewed date:09/06/2024 04:45:24 PM Interpretation: Performing Lab:[facility], [address] [place] [phone] Notes/Report: Bilirubin Total 0.6 0.0-1.0 mg/dL Bilirubin Direct 0.2 0.0-0.5 mg/dL Aspartate Amino Transferase 18 5-31 U/L Alanine Aminotransferase 19 0-31 U/L Total Protein 6.2 6.5-8.0 g/dL Albumin Level 4.0 3.5-5.0 g/dL Alkaline Phosphatase 53 39-117 U/L IRON PROFILE Reviewed date:09/22/2024 01:17:40 PM Interpretation: Performing Lab:[address] [phone] Notes/Report: Iron 111 30-160 mcg/dL Total Iron Binding Capacity 227 228-428 mcg/dL Percent Iron Saturation 49 15-50 % Unsaturated Iron Binding 116 Ferritin (Not yet reviewed b y provider) Interpretation: Performing Lab:[facility], [address] [place] [phone] Notes/Report: Ferritin 850 10-250 ng/mL Complete Blood Count Auto Di ff Reviewed date:11/04/2024 06:12:41 PM Interpretation: Performing Lab:[address] [phone] Notes/Report: White Blood Count 4.2 4.8-10.8 X10*3/uL [...] Panel Reviewed date:11/04/2024 06:13:02 PM Interpretation: Performing Lab:[address] [phone] Notes/Report: Bilirubin Total 0.7 0.0-1.0 mg/dL Bilirubin Direct 0.2 0.0-0.5 mg/dL Aspartate Amino Transferase 19 5-31 U/L Alanine Aminotransferase 18 0-31 U/L Total Protein 6.0 6.5-8.0 g/dL Albumin Level 3.9 3.5-5.0 g/dL Alkaline Phosphatase 52 39-117 U/L Complete Blood Count Auto Di ff Reviewed date:12/22/2024 04:23:03 PM Interpretation: Performing Lab:[address] [phone] Notes/Report: White Blood Count 4.4 4.8-10.8 X10*3/uL [...] Panel Reviewed date:12/23/2024 06:24:28 PM Interpretation: Performing Lab:[address] [phone] Notes/Report: Bilirubin Total 0.7 0.0-1.0 mg/dL Bilirubin Direct 0.2 0.0-0.5 mg/dL Aspartate Amino Transferase 21 5-31 U/L Alanine Aminotransferase 19 0-31 U/L Total Protein 6.6 6.5-8.0 g/dL Albumin Level 4.1 3.5-5.0 g/dL Alkaline Phosphatase 50 39-117 U/L Complete Blood Count Auto Di ff Reviewed date:01/26/2025 10:12:17 AM Interpretation: Performing Lab:[address] [phone] Notes/Report: White Blood Count 5.0 4.8-10.8 X10*3/uL [...] Panel Reviewed date:01/26/2025 10:12:38 AM Interpretation: Performing Lab:[facility], [address] [place] [phone] Notes/Report: Bilirubin Total 0.6 0.0-1.0 mg/dL Bilirubin Direct 0.2 0.0-0.5 mg/dL Aspartate Amino Transferase 31 5-31 U/L Alanine Aminotransferase 25 0-31 U/L Total Protein 6.4 6.5-8.0 g/dL Albumin Level 3.9 3.5-5.0 g/dL Alkaline Phosphatase 52 39-117 U/L IRON PROFILE Reviewed date:03/09/2025 12:47:04 AM Interpretation: Performing Lab:[facility], [address] [place] [phone] Notes/Report: Iron 110 30-160 mcg/dL Total Iron Binding Capacity 232 228-428 mcg/dL Percent Iron Saturation 47 15-50 % Unsaturated Iron Binding 122 Ferritin Reviewed date:03/09/2025 12:43:59 AM Interpretation: Performing Lab:[facility], [address] [place] [phone] Notes/Report: Ferritin 879 10-250 ng/mL Therapeutic Phlebotomy Reviewed date:03/09/2025 12:45:21 AM Interpretation: Performing Lab:[facility], [address] [place] [phone] Notes/Report: THER/HGB 10.9 12.0-16.0 g/dL THER/HCT TNP 37.0-47.0 % Therapeutic Phlebotomy Phlebotomy Performed 500 mls drawn on 03/07/25. Please note that a copy of this report has been sent to the Primary Care Physician, the ordering physician and any physician designated by patient request. Complete Blood Count Auto Di ff (Not yet reviewed by provider) Interpretation: Performing Lab:[facility], [address] [place] [phone] Notes/Report: White Blood Count 3.9 4.8-10.8 X10*3/uL Red Blood Count 2.52 4.20-5.50 X10*6/uL Hemoglobin 10.2 12.0-16.0 g/dl Hematocrit 29.2 37.0-47.0 % Mean Corpuscular Volume 115.9 80.0-98.0 fL Mean Corpuscular Hemoglobin 40.5 27.0-33.0 pg Mean Corpuscular HGB Conc 34.9 31.0-35.0 g/dl Red Cell Distribution Width 17.0 11.0-16.0 % Platelet Count 139 160-400 X10*3/uL Mean Platelet Volume 10.0 9.4-12.3 fL Neutrophils Percent Auto 55.5 45-73 % Imm Gran Pct Auto 1.5 0.0-0.4 % Lymphocytes Percent Auto 32.8 20-40 % Monocytes Percent Auto 4.6 2-11 % Eosinophils Percent Auto 4.6 0-4 % Basophils Percent Auto 1.0 0-2 % NRBC Pct Auto 0.5 0.0-0.2 /100WBC Neutrophils Absolute Auto 2.2 2.0-8.3 x10*3/u L Imm Gran Abs Auto 0.06 0.00-0.03 X10*3/uL Lymphocytes Absolute Auto 1.3 1.2-4.9 X10*3/u L Monocytes Absolute Auto 0.2 0.1-1.2 X10*3/uL Eosinophils Absolute Auto 0.2 0.0-0.4 X10*3/u L Basophils Absolute Auto 0.0 0.0-0.2 X10*3/uL NRBC Abs Auto 0.020 0.0-0.012 X10*3/uL Liver Panel Reviewed date:03/22/2025 01:09:49 PM Interpretation: Performing Lab:[facility], [address] [place] [phone] Notes/Report: Bilirubin Total 0.6 0.0-1.0 mg/dL Bilirubin Direct 0.2 0.0-0.5 mg/dL Aspartate Amino Transferase 21 5-31 U/L Alanine Aminotransferase 19 0-31 U/L Total Protein 6.0 6.5-8.0 g/dL Albumin Level 4.0 3.5-5.0 g/dL Alkaline Phosphatase 43 39-117 U/L Reason For Referral No Information Medications Medication [...] 1 tablet Orally Once a day Active Apriso 0.375 GM TAKE FOUR CAPSULES B Y MOUTH EVERY MORNING for 30 Activ e lamoTRIgine 100 MG 1 tablet Orally Once [...] O rally every 4 hrs PRN Active Humira Pen 40 MG/0.8ML 0.8 ml [...] last smoked? 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) Inflammatory polyps of colon without complications (K51.40) Active confirmed Problem Diverticular disease of colon (142562317) Diverticulosis of large intestine without perforation or abscess without bleeding (K57.30) Active confirmed Problem Dysphagia (03651083) Dysphagia (R13.10) Active confirmed Problem 26848308 Abdominal pain, epigastric (R10.13) Active confirmed Problem Crohn (47423774) Crohn's disease of colon (K50.10) Active confirmed Problem Anemia (251752061) Anemia (D64.9) Active confir med Problem 77540795 Crohns colitis, without complications (K50.10) Active confirmed Problem Crohns disease (39237478) Crohns disease (K50.90) Active confirmed Problem 61073706 Other iron deficiency anemia (D50.8) Active confirmed Problem Pseudopolyposis of colon (63241927) Inflammatory polyps, without complications (K51.40) Active confirmed Problem 256359184 Anemia, unspecif ied type (D64.9) Active confirmed Problem Increased storage iron (75123138) Increased storage iron (E83.19) Active confirmed Problem Esophageal reflux finding (309284038) Gastroesophageal reflux (K21.9) Active confirmed Problem 82873634 Diarrhea, unspecified type (R19.7) Active confirmed Problem 7143659 Crohn's disease of large intestine without complication (K50.10) Active confirmed Problem 546596272 Crohn's disease of perianal region with fistula (K50.113) Active confirmed Problem 03127840 Gallbladder slud ge (K82.8) Active confirmed Problem 860048744 Macrocytosis without anemia (D75.89) Active confirmed Problem 43783288 Diarrhea of presumed infectious origin (R19.7) Active confirmed Problem Crohn (8966003) Crohn''s disease of large intestine without complication (K50.10) Active confirmed Problem Crohn's disease of large bowel (0563723) Crohn''s disease of colon without complication (K50.10) Active confirmed Problem 06924679 Crohn's disease of colon without complication (K50.10) Active confirmed Problem 98206745 Esophageal dysphagia (R13.19) Active confirmed Problem 317134651 Encounter for therapeutic drug monitoring (Z51.81) Active confirmed Vital Signs Blood pressure diastolic 111 mm Hg 02/28/2025 Height 63 in 02/28/2025 Blood pressure systolic 111 mm Hg 02/28/2025 Weight 267 lbs 02/28/2025 BMI 47.29 kg/m2 02/28/2025 Encounters Encounter Location Date Provider Diagnosis [facility] [address] [place] [phone] 08/30/2024 Jose Juan Hare Crohns colitis, with out complications K50.10 ; Diarrhea, unspecified type R19.7 ; Crohn's disease of perianal region with fistula K50.113 ; Crohn's disease of large intestine with fistula K50.113 and Increased storage iron E83.19 [facility] [address] [place] [phone] 02/28/2025 Jose Juan Hare Crohns colitis, with out complications K50.10 and Increased storage iron E83.19 [facility] [address] [place] [phone] 06/28/2024 Jose Juan Hare Crohn''s disease of colon without complication K50.10 [facility] [address] [place] [phone] 07/04/2024 Jose Juan Hare Anemia D64.9 [facility] [address] [place] [phone] 07/31/2024 Jose Juan Hare Increased storage ir on E83.19 [facility] [address] [place] [address] 12/07/2024 Jose Juan Hare Assessments Encounter Date [...] keep you advised of her progress. 02/28/2025 Crohns colitis, without complications (ICD-10 - K50.10) Continue the same medical regimen and labs for the Crohn's disease Overall, Fauzia appears quite well and her [...] the process. I will plan to see her back again toward the end of the [...] will arrange for a phlebotomy at the [facility] for every three mnonths Overall, Fauzia appears quite well and her [...] the process. I will plan to see her back again toward the end of the [...] Date CHEM 7 PROFILE 05/13/2023 LIVER PROFILE 04/17/2017 LIVER PROFILE 03/27/2017 LIVER PROFILE 04/23/2022 LIVER PROFILE 07/01/2018 LIVER PROFILE 05/13/2023 LIVER PROFILE 09/05/2020 LIVER PROFILE 06/28/2024 LIVER PROFILE 05/04/2023 LIVER PROFILE 06/13/2020 IRON + IBC (FE) 11/30/2017 IRON + IBC (FE) 07/04/2024 IRON + IBC (FE) 07/31/2024 IRON + IBC (FE) 08/30/2024 FERRITIN 11/30/2017 CRP 04/17/2017 CRP 11/30/2017 CRP 05/13/2023 VITAMIN B12 AND FOLATE 07/05/2020 VITAMIN B12 AND FOLATE 11/30/2017 CBC w DIFF 06/28/2024 CBC w DIFF 05/04/2023 CBC w DIFF 06/13/2020 CBC w DIFF 03/27/2017 CBC w DIFF 04/23/2022 CBC w DIFF 07/01/2018 CBC w DIFF 05/13/2023 CBC w DIFF 09/05/2020 CBC with MANUAL DIFFERENTIAL 04/17/2017 SED RATE (ESR) 05/13/2023 SED RATE (ESR) 04/17/2017 SED RATE (ESR) 11/30/2017 HEMOCHROMATOSIS (C282Y) 07/31/2024 NUC HIDA SCAN 11/30/2017 XR BARIUM SWALLOW-ESOPHAGUS 09/05/2021 PROMETHEUS THIOPURINE METABOLITES (TPMT) 09/08/2023 PROMETHEUS THIOPURINE METABOLITES (TPMT) 10/13/2017 PROMETHEUS THIOPURINE METABOLITES (TPMT) 08/18/2018 TSH REFLEX FREE T4 07/05/2020 HUMIRA LEVEL/AB (ADALIMUMAB LEVEL/AB) HUMIRA LEVEL/AB (ADALIMUMAB LEVEL/AB) HUMIRA LEVEL/AB (ADALIMUMAB LEVEL/AB) C DIFFICILE RFLX PCR 05/13/2023 Complete Blood Count Auto Diff Ferritin 09/21/2024 Ferritin 08/30/2024 Future Test Test Name Order Date UPPER GI ENDOSCOPY BALLOOON DILATION OF ESOPH 07/26/2021 COLONOSCOPY 07/26/2021 COLONOSCOPY 09/08/2023 Next Appt Details Provider Name:Jose Juan Chance Hare , 10/27/2025 01:00:00 PM, [address] [place] [address], [address], [place], [address], Insurance Providers Payer Name Payer Address Payer Phone Subscriber Number Group Number Insured Name Patient Relationship to Insured Coverage Start Date Coverage End Date MEDICARE OF [place] [address] [place] [address] [id number] FAUZIA HOLLEY Self - patient is the insured MEDICAID OF [facility] [address] [place] [address] [phone] [id number] FAUZIA HOLLEY Self - patient is the insured Medical (General) History Medical History History ICD Code IDDM DVT 20 yrs ago Colonoscopy 10/[address] Briseno with the finding of colitis in left colon and rectum--bx in rectum showed a granuloma-started Apriso 02/2013 Denies ND,CVA,Lung disease,renal disease Anemia-on Iron--Hgb approx 8 in 10/2012, and 12.9 in 01/2013---on B12 shots Bipolar disease Abscess near right kidney in 2008-drained with percutaneous catheters-at [facility] PVC's Asthma Colonoscopy 10/2016 revealed a very [...]
== END 2025-05-15 13:49 | disposition home or self-care (01) ==
LOC: HO.HMCSH 12:59
PROVIDERS: PCP Internal Medicine; Visit Provider Physician Assistant Medical
DX: Z00.00 Encounter for general adult medical examination without abnormal findings (principal); E11.9 Type 2 diabetes mellitus without complications; K50.90 Crohn's disease, unspecified, without complications; E66.01 Morbid (severe) obesity due to excess calories; Z68.42 Body mass index [BMI] 45.0-49.9, adult; Z76.89 Persons encountering health services in other specified circumstances; J45.909 Unspecified asthma, uncomplicated; D64.9 Anemia, unspecified; M10.9 Gout, unspecified; Z12.39 Encounter for other screening for malignant neoplasm of breast; L40.9 Psoriasis, unspecified

== ENCOUNTER → 2025-05-15 12:59 | Outpatient (BNVA) | payer MEDICARE, MEDICAID, SELFPAY | PROVIDERS: PCP Internal Medicine; Visit Provider Physician Assistant Medical | DX: Z00.00 Encounter for general adult medical examination without abnormal findings (principal); Z76.89 Persons encountering health services in other specified circumstances; J45.909 Unspecified asthma, uncomplicated; E11.9 Type 2 diabetes mellitus without complications; D64.9 Anemia, unspecified; K50.90 Crohn's disease, unspecified, without complications; M10.9 Gout, unspecified; L40.9 Psoriasis, unspecified; E66.01 Morbid (severe) obesity due to excess calories; Z68.42 Body mass index [BMI] 45.0-49.9, adult; Z71.3 Dietary counseling and surveillance | CPT/HCPCS: 96127; 99386 ==

== ENCOUNTER 2025-05-22 11:16 | Outpatient (REF) | payer MEDICARE, MEDICAID, SELFPAY ==
--- OUTSIDE RECORDS SUMMARY | 2025-05-22 12:10 | XMS_ITS | Patient Health Record ---
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 Name Role Phone Richard Blackman MD Primary Care Provider Jose Juan Floyd Unavailable [phone] Allergies Allergen (clinical drug ingredient) Drug/Non Drug Allergy documented on EMR Reaction Allergy Type Onset Date Status amoxicillin / clavulanate Augmentin diarrhea Drug Allergy Active amoxicillin Amoxicillin Unknown Drug Allergy Act vini seasonal (uncoded) Unknown Allergy A ctive Results Component Value Reference Range Notes Ferritin Reviewed date:07/31/2024 06:55:24 PM Interpretation: Performing Lab:[address] [phone] Notes/Report: Ferritin 1464 10-250 ng/mL Vitamin B12 and Folate Reviewed date:07/11/2024 11:28:26 PM Interpretation: Performing Lab:[address] [address] Notes/Report: Vitamin B12 317 200-900 pg/mL NORMAL 200-900 PG/ML INDETERMINATE 160-199 PG/ML DEFICIENT < 160 PG/ML Folate 13.3 > or = 4.0 ng/mL Reference Values: > or = 4.0 ng/mL < 4.0 ng/mL suggests folate deficiency Methotrexate, aminopterin and folinic acid (leucovorin) are chemotherapeutic agents whose molecular structures are similar to folate; therefore, the [employer] Worker folate assay cannot be used for patients using these drugs. Ferritin Reviewed date:08/07/2024 05:13:16 PM Interpretation: Performing Lab:[address] [phone] Notes/Report: Ferritin 1143 10-250 ng/mL Complete Blood Count Auto Di ff Reviewed date:07/04/2024 10:59:03 PM Interpretation: Performing Lab:[facility], [address] [place] [phone] Notes/Report: White Blood Count 6.5 4.8-10.8 X10*3/uL [...] Panel Reviewed date:07/04/2024 11:06:00 PM Interpretation: Performing Lab:[facility], [address] [place] [phone] Notes/Report: Bilirubin Total 0.6 0.0-1.0 mg/dL Bilirubin Direct 0.2 0.0-0.5 mg/dL Aspartate Amino Transferase 21 5-31 U/L Alanine Aminotransferase 13 0-31 U/L Total Protein 6.2 6.5-8.0 g/dL Albumin Level 3.8 3.5-5.0 g/dL Alkaline Phosphatase 54 39-117 U/L IRON PROFILE Reviewed date:07/31/2024 06:53:32 PM Interpretation: Performing Lab:[facility], [address] [place] [phone] Notes/Report: Iron 125 30-160 mcg/dL Total Iron Binding Capacity 211 228-428 mcg/dL Percent Iron Saturation 59 15-50 % Unsaturated Iron Binding 86 Complete Blood Count Auto Di ff Reviewed date:08/07/2024 05:01:42 PM Interpretation: Performing Lab:[facility], [address] [place] [phone] Notes/Report: White Blood Count 6.3 4.8-10.8 X10*3/uL [...] Hemochromatosis Reviewed date:09/06/2024 04:44:10 PM Interpretation: Performing Lab:[facility], [address] [place] [phone] Notes/Report: DNA Analysis Hemochromatosis See Below RESULT: [...] clinical information reviewed by Alek Lamb, PhD, [facility], [facility]. DETAILED ASSAY INFORMATION: Hereditary hemochromatosis (HH) [...] variants in the HFE gene, C282Y (NM 965986.2: c.845G>A, p.[id number]) and H63D (NM 806728.2: c.187C>G, p.Qrh11Hnq), that are commonly associated with HH. These [...] Health care providers, please contact your local [facility] genetic counselor or call [phone] ( ) for assistance with the interpretation of these results. This test was developed and its analytical performance characteristics have been determined by [facility]. It has not been cleared or approved by FDA. This assay has been validated pursuant to the CLIA regulations and is used for clinical purposes. For more information, please refer to http://education.Ommven/faq/hemoch romatosis. (This link is being provided for informational/educationa l purposes only.) A portion of the testing [place] [facility] [place]. Reviewed and signed by Laboratory results and submitted clinical information reviewed by Alek Lamb, PhD, [facility], [facility], Signed on 08/17/2024 at 10:22 THIS TEST WAS PERFORMED AT: [facility] [address] [place] [address] CELINE FIGUEROA MD,PHD,MATTHEW Liver Panel Reviewed date:08/07/2024 05:02:19 PM Interpretation: Performing Lab:[facility], [address] [place] [phone] Notes/Report: Bilirubin Total 0.8 0.0-1.0 mg/dL Bilirubin Direct 0.2 0.0-0.5 mg/dL Aspartate Amino Transferase 16 5-31 U/L Alanine Aminotransferase 16 0-31 U/L Total Protein 6.3 6.5-8.0 g/dL Albumin Level 3.9 3.5-5.0 g/dL Alkaline Phosphatase 60 39-117 U/L IRON PROFILE Reviewed date:08/07/2024 05:02:27 PM Interpretation: Performing Lab:[facility], [address] [place] [phone] Notes/Report: Iron 82 30-160 mcg/dL Total Iron Binding Capacity 220 228-428 mcg/dL Percent Iron Saturation 37 15-50 % Unsaturated Iron Binding 138 Complete Blood Count Auto Di ff Reviewed date:09/14/2024 07:02:12 PM Interpretation: Performing Lab:[facility], [address] [place] [phone] Notes/Report: White Blood Count 4.6 4.8-10.8 X10*3/uL [...] Panel Reviewed date:09/06/2024 04:45:24 PM Interpretation: Performing Lab:[facility], [address] [place] [phone] Notes/Report: Bilirubin Total 0.6 0.0-1.0 mg/dL Bilirubin Direct 0.2 0.0-0.5 mg/dL Aspartate Amino Transferase 18 5-31 U/L Alanine Aminotransferase 19 0-31 U/L Total Protein 6.2 6.5-8.0 g/dL Albumin Level 4.0 3.5-5.0 g/dL Alkaline Phosphatase 53 39-117 U/L IRON PROFILE Reviewed date:09/22/2024 01:17:40 PM Interpretation: Performing Lab:[address] [address] Notes/Report: Iron 111 30-160 mcg/dL Total Iron Binding Capacity 227 228-428 mcg/dL Percent Iron Saturation 49 15-50 % Unsaturated Iron Binding 116 Ferritin (Not yet reviewed b y provider) Interpretation: Performing Lab:[facility], [address] [place] [phone] Notes/Report: Ferritin 850 10-250 ng/mL Complete Blood Count Auto Di ff Reviewed date:11/04/2024 06:12:41 PM Interpretation: Performing Lab:[address] [address] Notes/Report: White Blood Count 4.2 4.8-10.8 X10*3/uL [...] Panel Reviewed date:11/04/2024 06:13:02 PM Interpretation: Performing Lab:[address] [address] Notes/Report: Bilirubin Total 0.7 0.0-1.0 mg/dL Bilirubin Direct 0.2 0.0-0.5 mg/dL Aspartate Amino Transferase 19 5-31 U/L Alanine Aminotransferase 18 0-31 U/L Total Protein 6.0 6.5-8.0 g/dL Albumin Level 3.9 3.5-5.0 g/dL Alkaline Phosphatase 52 39-117 U/L Complete Blood Count Auto Di ff Reviewed date:12/22/2024 04:23:03 PM Interpretation: Performing Lab:[address] [address] Notes/Report: White Blood Count 4.4 4.8-10.8 X10*3/uL [...] Panel Reviewed date:12/23/2024 06:24:28 PM Interpretation: Performing Lab:[address] [address] Notes/Report: Bilirubin Total 0.7 0.0-1.0 mg/dL Bilirubin Direct 0.2 0.0-0.5 mg/dL Aspartate Amino Transferase 21 5-31 U/L Alanine Aminotransferase 19 0-31 U/L Total Protein 6.6 6.5-8.0 g/dL Albumin Level 4.1 3.5-5.0 g/dL Alkaline Phosphatase 50 39-117 U/L Complete Blood Count Auto Di ff Reviewed date:01/26/2025 10:12:17 AM Interpretation: Performing Lab:[address] [address] Notes/Report: White Blood Count 5.0 4.8-10.8 X10*3/uL [...] Panel Reviewed date:01/26/2025 10:12:38 AM Interpretation: Performing Lab:[facility], [address] [place] [phone] Notes/Report: Bilirubin Total 0.6 0.0-1.0 mg/dL Bilirubin Direct 0.2 0.0-0.5 mg/dL Aspartate Amino Transferase 31 5-31 U/L Alanine Aminotransferase 25 0-31 U/L Total Protein 6.4 6.5-8.0 g/dL Albumin Level 3.9 3.5-5.0 g/dL Alkaline Phosphatase 52 39-117 U/L IRON PROFILE Reviewed date:03/09/2025 12:47:04 AM Interpretation: Performing Lab:[facility], [address] [place] [phone] Notes/Report: Iron 110 30-160 mcg/dL Total Iron Binding Capacity 232 228-428 mcg/dL Percent Iron Saturation 47 15-50 % Unsaturated Iron Binding 122 Ferritin Reviewed date:03/09/2025 12:43:59 AM Interpretation: Performing Lab:[facility], [address] [place] [phone] Notes/Report: Ferritin 879 10-250 ng/mL Therapeutic Phlebotomy Reviewed date:03/09/2025 12:45:21 AM Interpretation: Performing Lab:[facility], [address] [place] [phone] Notes/Report: THER/HGB 10.9 12.0-16.0 g/dL THER/HCT TNP 37.0-47.0 % Therapeutic Phlebotomy Phlebotomy Performed 500 mls drawn on 03/07/25. Please note that a copy of this report has been sent to the Primary Care Physician, the ordering physician and any physician designated by patient request. Complete Blood Count Auto Di ff (Not yet reviewed by provider) Interpretation: Performing Lab:[facility], [address] [place] [phone] Notes/Report: White Blood Count 3.9 4.8-10.8 X10*3/uL [...] Panel Reviewed date:03/22/2025 01:09:49 PM Interpretation: Performing Lab:[facility], [address] [place] [address] Notes/Report: Bilirubin Total 0.6 0.0-1.0 mg/dL Bilirubin [...] Problem Status W/U Status Risk Notes Problem 8320691 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) Active confirmed Problem Pseudopolyposis of colon (63232106) Inflammatory polyps of colon without complications (K51.40) Active confirmed Problem Diverticular disease of colon (186498332) Diverticulosis of large intestine without perforation or abscess without bleeding (K57.30) Active confirmed Problem Dysphagia (41498797) Dysphagia (R13.10) Active confirmed Problem 74235714 Abdominal pain, epigastric (R10.13) Active confirmed Problem Crohn (95276260) Crohn's disease of colon (K50.10) Active confirmed Problem Anemia (855254616) Anemia (D64.9) Active confir med Problem 80818782 Crohns colitis, without complications (K50.10) Active confirmed Problem Crohns disease (18120627) Crohns disease (K50.90) Active confirmed Problem 14066055 Other iron deficiency anemia (D50.8) Active confirmed Problem Pseudopolyposis of colon (15743756) Inflammatory polyps, without complications (K51.40) Active confirmed Problem 433538183 Anemia, unspecif ied type (D64.9) Active confirmed Problem Increased storage iron (97970986) Increased storage iron (E83.19) Active confirmed Problem Esophageal reflux finding (760494784) Gastroesophageal reflux (K21.9) Active confirmed Problem 47518559 Diarrhea, unspecified type (R19.7) Active confirmed Problem 8852631 Crohn's disease of large intestine without complication (K50.10) Active confirmed Problem 386028754 Crohn's disease of perianal region with fistula (K50.113) Active confirmed Problem 67549300 Gallbladder slud ge (K82.8) Active confirmed Problem 945414002 Macrocytosis without anemia (D75.89) Active confirmed Problem 18119581 Diarrhea of presumed infectious origin (R19.7) Active confirmed Problem Crohn (9279597) Crohn''s disease of large intestine without complication (K50.10) Active confirmed Problem Crohn's disease of large bowel (4672881) Crohn''s disease of colon without complication (K50.10) Active confirmed Problem 39777717 Crohn's disease of colon without complication (K50.10) Active confirmed Problem 54069827 Esophageal dysphagia (R13.19) Active confirmed Problem 493924784 Encounter for therapeutic drug monitoring (Z51.81) Active confirmed Vital Signs Blood pressure diastolic 111 mm Hg 02/28/2025 Height 63 in 02/28/2025 Blood pressure systolic 111 mm Hg 02/28/2025 Weight 267 lbs 02/28/2025 BMI 47.29 kg/m2 02/28/2025 Encounters Encounter Location Date Provider Diagnosis [facility] [address] [place] [phone] 08/30/2024 Jose Juan Hare Crohns colitis, with out complications K50.10 ; Diarrhea, unspecified type R19.7 ; Crohn's disease of perianal region with fistula K50.113 ; Crohn's disease of large intestine with fistula K50.113 and Increased storage iron E83.19 [facility] [address] [place] [phone] 02/28/2025 Jose Juan Hare Crohns colitis, with out complications K50.10 and Increased storage iron E83.19 [facility] [address] [place] [phone] 06/28/2024 Jose Juan Hare Crohn''s disease of colon without complication K50.10 [facility] [address] [place] [phone] 07/04/2024 Jose Juan Hare Anemia D64.9 [facility] [address] [place] [phone] 07/31/2024 Jose Juan Hare Increased storage ir on E83.19 [facility] [address] [place] [address] 12/07/2024 Jose Juan Hare Assessments Encounter Date [...] will arrange for a phlebotomy at the [facility] for every three mnonths Overall, [...] Juan Chance Hare , 10/27/2025 01:00:00 PM, [address] [place] [address], [address], [place], [address], Insurance Providers Payer Name Payer Address Payer Phone Subscriber Number Group Number Insured Name Patient Relationship to Insured Coverage Start Date Coverage End Date MEDICARE OF [place] [address] [facility] [address] [id number] FAUZIA HOLLEY Self - patient is the insured MEDICAID OF [facility] [address] [place] [address] [id number] FAUZIA HOLLEY Self - patient is the insured Medical (General) History Medical History History ICD Code IDDM DVT 20 yrs ago Colonoscopy 10/[address] Briseno with the finding of colitis in left colon and rectum--bx in rectum showed a granuloma-started Apriso 02/2013 Denies [place],CVA,Lung disease,renal disease Anemia-on Iron--Hgb approx 8 in 10/2012, and 12.9 in 01/2013---on B12 shots Bipolar disease Abscess near right kidney in 2008-drained with percutaneous catheters-at [facility] PVC's Asthma Colonoscopy 10/2016 revealed a very [...]
[2025-05-22 13:13] LABS: MANUAL DIFF FLAG NO
[2025-05-22 13:27] LABS: Basophils Percent Auto 0.5 % (0-2); Eosinophils Absolute Auto 0.3 X10*3/uL (0.0-0.4); Eosinophils Percent Auto 6.5 % (0-4); Hematocrit 30.1 % (37.0-47.0); Hemoglobin 10.5 g/dl (12.0-16.0); Imm Gran Abs Auto 0.03 X10*3/uL (0.00-0.03); Imm Gran Pct Auto 0.8 % (0.0-0.4); Lymphocytes Absolute Auto 1.2 X10*3/uL (1.2-4.9); Lymphocytes Percent Auto 31.6 % (20-40); Mean Corpuscular HGB Conc 34.9 g/dl (31.0-35.0); Mean Corpuscular Hemoglobin 40.5 pg (27.0-33.0); Monocytes Absolute Auto 0.1 X10*3/uL (0.1-1.2); Monocytes Percent Auto 2.8 % (2-11); Neutrophils Absolute Auto 2.2 x10*3/uL (2.0-8.3); Neutrophils Percent Auto 57.8 % (45-73); Platelet Count 149 X10*3/uL (160-400); Red Blood Count 2.59 X10*6/uL (4.20-5.50); Red Cell Distribution Width 15.8 % (11.0-16.0); White Blood Count 3.9 X10*3/uL (4.8-10.8)
[2025-05-22 13:28] LABS: Mean Corpuscular Volume 116.2 fL (80.0-98.0)
[2025-05-22 13:57] LABS: Alanine Aminotransferase 22 U/L (0-31); Albumin Level 4.1 g/dL (3.5-5.0); Alkaline Phosphatase 50 U/L (39-117); Anion Gap 11 (12-20); Aspartate Amino Transferase 22 U/L (5-31); Bilirubin Direct 0.2 mg/dL (0.0-0.5); Bilirubin Total 0.8 mg/dL (0.0-1.0); Blood Urea Nitrogen 14 mg/dL (9-16); Calcium 8.9 mg/dL (8.4-10.2); Carbon Dioxide 24 mmol/L (22-29); Chloride 109 mmol/L (96-108); Cholesterol 155 mg/dL (<200); Estimated Glomerular Filt Rate > 60; Glucose Fasting 131 mg/dL (60-99); HDL Cholesterol 34 mg/dL (>40); LDL Cholesterol Calculated 70 mg/dL (<100); Magnesium 1.9 mg/dL (1.6-2.6); Potassium 4.2 mmol/L (3.3-5.1); Sodium 140 mmol/L (135-145); Triglycerides 256 mg/dL (<150)
[2025-05-22 14:18] LABS: Folate 13.4 ng/mL (> or = 4.0); Vitamin B12 312 pg/mL (200-900)
[2025-05-22 14:28] LABS: TSH reflex Free T4 1.38 uIU/mL (0.32-4.0); Vitamin D 25-OH Total 20.3 ng/mL (>30)
== END 2025-05-22 11:17 | disposition home or self-care (01) ==
LOC: HO.HMGCLDS 11:16
PROVIDERS: PCP Physician Assistant Medical; Referring Provider Internal Medicine; Visit Provider Physician Assistant Medical
DX: Z00.00 Encounter for general adult medical examination without abnormal findings (principal)
CPT/HCPCS: 36415; 80053; 80061; 80076; 82248; 82306; 82607; 82746; 83735; 84443; 85025

== ENCOUNTER 2025-06-06 12:52 | Outpatient (REF) | payer MEDICARE, MEDICAID, SELFPAY ==
--- OUTSIDE RECORDS SUMMARY | 2024-11-10 06:30 | XMS_ITS ---
Author Organization [facility] Address [address] [facility] [place] [address] Care Team Providers Care Lumber Salvager Name Role Phone Richard Blackman MD Primary Care Provider Unavailab chris Rocio Camargoe Unavailable [phone] Allergies Allergen (clinical drug ingredient) Drug/Non Drug [...] No Encounters Encounter Location Date Provider Diagnosis [facility] [place] [address] [place] [address] 11/10/2024 Noelle Camargo Plan Of Treatment Next Appt Details Provider Name:Noelle Camargo , 08/07/2025 01:00:00 PM, [address] [place], [address], Progress Notes * Alexsandra HOLLEY ADOB: 7 (60 yo F)Acc No.[id number]:11/10/2024 Progress Notes Patient: Alexsandra MEMBRENO Provider: Neptali Camargo DPM :1965 A ge:59 Y S ex:Female Date:11/10/2024 Address:[address] [place] [address], [address]-[address] Pcp:Richard Blackman MD Subjective: * Chief [...] enies. C ardiovascular: Pacemaker d enies. 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 W PW d enies. C [...] stic Procedure: H asthma 4 days 08/2016, [facility] [place], [facility] [place] Kidney [place] 03/2018. * Family History: [...] 01/11/2024 Generated for Marin mahan/Pio/Adarsh on: 0 06/06/2025 02:05 PM EDT
--- OUTSIDE RECORDS SUMMARY | 2025-06-06 14:06 | XMS_ITS | Patient Health Record ---
Author Organization [facility] Address [address] [place] [address] Care Team Providers Care Academic Affairs Assistant Name Role Phone Yehuda (RETIRED) Richard HALL Primary Care Provider Unavailable Jose Juan Hare Unavailable [phone] Allergies Allergen (clinical drug ingredient) Drug/Non Drug Allergy documented on EMR Reaction Allergy Type Onset Date Status amoxicillin / clavulanate Augmentin diarrhea Drug Allergy Active amoxicillin Amoxicillin Unknown Drug Allergy Act vini seasonal (uncoded) Unknown Allergy A ctive Results Component Value Reference Range Notes Ferritin Reviewed date:07/31/2024 06:55:24 PM Interpretation: Performing Lab:[address] [phone] Notes/Report: Ferritin 1464 10-250 ng/mL Vitamin B12 and Folate Reviewed date:07/11/2024 11:28:26 PM Interpretation: Performing Lab:[address] [phone] Notes/Report: Vitamin B12 317 200-900 pg/mL NORMAL 200-900 PG/ML INDETERMINATE 160-199 PG/ML DEFICIENT < 160 PG/ML Folate 13.3 > or = 4.0 ng/mL Reference Values: > or = 4.0 ng/mL < 4.0 ng/mL suggests folate deficiency Methotrexate, aminopterin and folinic acid (leucovorin) are chemotherapeutic agents whose molecular structures are similar to folate; therefore, the [employer] folate assay cannot be used for patients using these drugs. Ferritin Reviewed date:08/07/2024 05:13:16 PM Interpretation: Performing Lab:[facility], [address] [place] [phone] Notes/Report: Ferritin 1143 10-250 ng/mL Complete Blood Count Auto Di ff Reviewed date:07/04/2024 10:59:03 PM Interpretation: Performing Lab:[facility], [address] [place] [phone] Notes/Report: White Blood Count 6.5 4.8-10.8 X10*3/uL [...] Panel Reviewed date:07/04/2024 11:06:00 PM Interpretation: Performing Lab:[facility], [address] [place] [phone] Notes/Report: Bilirubin Total 0.6 0.0-1.0 mg/dL Bilirubin Direct 0.2 0.0-0.5 mg/dL Aspartate Amino Transferase 21 5-31 U/L Alanine Aminotransferase 13 0-31 U/L Total Protein 6.2 6.5-8.0 g/dL Albumin Level 3.8 3.5-5.0 g/dL Alkaline Phosphatase 54 39-117 U/L IRON PROFILE Reviewed date:07/31/2024 06:53:32 PM Interpretation: Performing Lab:[facility], [address] [place] [phone] Notes/Report: Iron 125 30-160 mcg/dL Total Iron Binding Capacity 211 228-428 mcg/dL Percent Iron Saturation 59 15-50 % Unsaturated Iron Binding 86 Complete Blood Count Auto Di ff Reviewed date:08/07/2024 05:01:42 PM Interpretation: Performing Lab:[facility], [address] [place] [phone] Notes/Report: White Blood Count 6.3 4.8-10.8 X10*3/uL [...] Hemochromatosis Reviewed date:09/06/2024 04:44:10 PM Interpretation: Performing Lab:[facility], [address] [place] [phone] Notes/Report: DNA Analysis Hemochromatosis See Below RESULT: [...] results and submitted clinical information reviewed by Aelk Lamb, PhD, [facility], [facility]. DETAILED ASSAY INFORMATION: Hereditary hemochromatosis [...] variants in the HFE gene, C282Y (NM 759113.2: c.845G>A, p.Jgp058Zow) and H63D (NM 698780.2: c.187C>G, p.Lxw40Imi), that are commonly associated with HH. These [...] Health care providers, please contact your local [employer] genetic counselor or call [phone] ( ) for assistance with the interpretation of these results. This test was developed and its analytical performance characteristics have been determined by [employer] [facility]. It has not been cleared or approved by FDA. This assay has been validated pursuant to the CLIA regulations and is used for clinical purposes. For more information, please refer to http://education.GENWI.Glovico/faq/hemoch romatosis. (This link is being provided for informational/educationa l purposes only.) A portion of the testing was performed at [facility]. Reviewed and signed by Laboratory results and submitted clinical information reviewed by Alek Lamb, PhD, [facility], [facility], Signed on 08/17/2024 at 10:22 THIS TEST WAS PERFORMED AT: [address] [address] [place] [address] CELINE FIGUEROA MD,PHD,MATTHEW Liver Panel Reviewed date:08/07/2024 05:02:19 PM Interpretation: Performing Lab:[facility], [address] [place] [phone] Notes/Report: Bilirubin Total 0.8 0.0-1.0 mg/dL Bilirubin Direct 0.2 0.0-0.5 mg/dL Aspartate Amino Transferase 16 5-31 U/L Alanine Aminotransferase 16 0-31 U/L Total Protein 6.3 6.5-8.0 g/dL Albumin Level 3.9 3.5-5.0 g/dL Alkaline Phosphatase 60 39-117 U/L IRON PROFILE Reviewed date:08/07/2024 05:02:27 PM Interpretation: Performing Lab:[facility], [address] [place] [phone] Notes/Report: Iron 82 30-160 mcg/dL Total Iron Binding Capacity 220 228-428 mcg/dL Percent Iron Saturation 37 15-50 % Unsaturated Iron Binding 138 Complete Blood Count Auto Di ff Reviewed date:09/14/2024 07:02:12 PM Interpretation: Performing Lab:[facility], [address] [place] [phone] Notes/Report: White Blood Count 4.6 4.8-10.8 X10*3/uL [...] Panel Reviewed date:09/06/2024 04:45:24 PM Interpretation: Performing Lab:[facility], [address] [place] [phone] Notes/Report: Bilirubin Total 0.6 0.0-1.0 mg/dL Bilirubin Direct 0.2 0.0-0.5 mg/dL Aspartate Amino Transferase 18 5-31 U/L Alanine Aminotransferase 19 0-31 U/L Total Protein 6.2 6.5-8.0 g/dL Albumin Level 4.0 3.5-5.0 g/dL Alkaline Phosphatase 53 39-117 U/L IRON PROFILE Reviewed date:09/22/2024 01:17:40 PM Interpretation: Performing Lab:[address] [phone] Notes/Report: Iron 111 30-160 mcg/dL Total Iron Binding Capacity 227 228-428 mcg/dL Percent Iron Saturation 49 15-50 % Unsaturated Iron Binding 116 Ferritin (Not yet reviewed b y provider) Interpretation: Performing Lab:[facility], [address] [place] [phone] Notes/Report: Ferritin 850 10-250 ng/mL Complete Blood Count Auto Di ff Reviewed date:11/04/2024 06:12:41 PM Interpretation: Performing Lab:[address] [phone] Notes/Report: White Blood Count 4.2 4.8-10.8 X10*3/uL [...] Panel Reviewed date:11/04/2024 06:13:02 PM Interpretation: Performing Lab:[address] [phone] Notes/Report: Bilirubin Total 0.7 0.0-1.0 mg/dL Bilirubin Direct 0.2 0.0-0.5 mg/dL Aspartate Amino Transferase 19 5-31 U/L Alanine Aminotransferase 18 0-31 U/L Total Protein 6.0 6.5-8.0 g/dL Albumin Level 3.9 3.5-5.0 g/dL Alkaline Phosphatase 52 39-117 U/L Complete Blood Count Auto Di ff Reviewed date:12/22/2024 04:23:03 PM Interpretation: Performing Lab:[address] [phone] Notes/Report: White Blood Count 4.4 4.8-10.8 X10*3/uL [...] Panel Reviewed date:12/23/2024 06:24:28 PM Interpretation: Performing Lab:[address] [phone] Notes/Report: Bilirubin Total 0.7 0.0-1.0 mg/dL Bilirubin Direct 0.2 0.0-0.5 mg/dL Aspartate Amino Transferase 21 5-31 U/L Alanine Aminotransferase 19 0-31 U/L Total Protein 6.6 6.5-8.0 g/dL Albumin Level 4.1 3.5-5.0 g/dL Alkaline Phosphatase 50 39-117 U/L Complete Blood Count Auto Di ff Reviewed date:01/26/2025 10:12:17 AM Interpretation: Performing Lab:[address] [phone] Notes/Report: White Blood Count 5.0 4.8-10.8 X10*3/uL [...] Panel Reviewed date:01/26/2025 10:12:38 AM Interpretation: Performing Lab:[facility], [address] [place] [phone] Notes/Report: Bilirubin Total 0.6 0.0-1.0 mg/dL Bilirubin Direct 0.2 0.0-0.5 mg/dL Aspartate Amino Transferase 31 5-31 U/L Alanine Aminotransferase 25 0-31 U/L Total Protein 6.4 6.5-8.0 g/dL Albumin Level 3.9 3.5-5.0 g/dL Alkaline Phosphatase 52 39-117 U/L IRON PROFILE Reviewed date:03/09/2025 12:47:04 AM Interpretation: Performing Lab:[facility], [address] [place] [phone] Notes/Report: Iron 110 30-160 mcg/dL Total Iron Binding Capacity 232 228-428 mcg/dL Percent Iron Saturation 47 15-50 % Unsaturated Iron Binding 122 Ferritin Reviewed date:03/09/2025 12:43:59 AM Interpretation: Performing Lab:[facility], [address] [place] [phone] Notes/Report: Ferritin 879 10-250 ng/mL Therapeutic Phlebotomy Reviewed date:03/09/2025 12:45:21 AM Interpretation: Performing Lab:[facility], [address] [place] [phone] Notes/Report: THER/HGB 10.9 12.0-16.0 g/dL THER/HCT TNP 37.0-47.0 % Therapeutic Phlebotomy Phlebotomy Performed 500 mls drawn on 03/07/25. Please note that a copy of this report has been sent to the Primary Care Physician, the ordering physician and any physician designated by patient request. Complete Blood Count Auto Di ff (Not yet reviewed by provider) Interpretation: Performing Lab:[facility], [address] [place] [phone] Notes/Report: White Blood Count 3.9 4.8-10.8 X10*3/uL [...] Panel Reviewed date:03/22/2025 01:09:49 PM Interpretation: Performing Lab:[facility], [address] [place] [phone] Notes/Report: Bilirubin Total 0.6 0.0-1.0 mg/dL Bilirubin Direct 0.2 0.0-0.5 mg/dL Aspartate Amino Transferase 21 5-31 U/L Alanine Aminotransferase 19 0-31 U/L Total Protein 6.0 6.5-8.0 g/dL Albumin Level 4.0 3.5-5.0 g/dL Alkaline Phosphatase 43 39-117 U/L Complete Blood Count Auto Di ff Reviewed date:05/22/2025 11:05:25 PM Interpretation: Performing Lab:[facility], [address] [place] [phone] Notes/Report: White Blood Count 3.9 4.8-10.8 X10*3/uL Red Blood Count 2.59 4.20-5.50 X10*6/uL Hemoglobin 10.5 12.0-16.0 g/dl Hematocrit 30.1 37.0-47.0 % Mean Corpuscular Volume 116.2 80.0-98.0 fL Mean Corpuscular Hemoglobin 40.5 27.0-33.0 pg Mean Corpuscular HGB Conc 34.9 31.0-35.0 g/dl Red Cell Distribution Width 15.8 11.0-16.0 % Platelet Count 149 160-400 X10*3/uL Mean Platelet Volume 11.0 9.4-12.3 fL Neutrophils Percent Auto 57.8 45-73 % Imm Gran Pct Auto 0.8 0.0-0.4 % Lymphocytes Percent Auto 31.6 20-40 % Monocytes Percent Auto 2.8 2-11 % Eosinophils Percent Auto 6.5 0-4 % Basophils Percent Auto 0.5 0-2 % NRBC Pct Auto 1.0 0.0-0.2 /100WBC Neutrophils Absolute Auto 2.2 2.0-8.3 x10*3/u L Imm Gran Abs Auto 0.03 0.00-0.03 X10*3/uL Lymphocytes Absolute Auto 1.2 1.2-4.9 X10*3/u L Monocytes Absolute Auto 0.1 0.1-1.2 X10*3/uL Eosinophils Absolute Auto 0.3 0.0-0.4 X10*3/u L Basophils Absolute Auto 0.0 0.0-0.2 X10*3/uL NRBC Abs Auto 0.040 0.0-0.012 X10*3/uL Therapeutic Phlebotomy (Not yet reviewed by provider) Interpretation: Performing Lab:[facility], [address] [place] [phone] Notes/Report: THER/HGB 11.3 12.0-16.0 g/dL THER/HCT TNP 37.0-47.0 % Therapeutic Phlebotomy Phlebotomy Performed 500 mls drawn on 06/06/25. 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) Active confirmed Problem Pseudopolyposis of colon (15443070) Inflammatory polyps of colon without complications (K51.40) Active confirmed Problem Diverticular disease of colon (211628055) Diverticulosis of large intestine without perforation or abscess without bleeding (K57.30) Active confirmed Problem Dysphagia (38472578) Dysphagia (R13.10) Active confirmed Problem 21022473 Abdominal pain, epigastric (R10.13) Active confirmed Problem Crohn (40162978) Crohn's disease of colon (K50.10) Active confirmed Problem Anemia (835422662) Anemia (D64.9) Active confir med Problem 40761483 Crohns colitis, without complications (K50.10) Active confirmed Problem Crohns disease (83280014) Crohns disease (K50.90) Active confirmed Problem 33532555 Other iron deficiency anemia (D50.8) Active confirmed Problem Pseudopolyposis of colon (86263295) Inflammatory polyps, without complications (K51.40) Active confirmed Problem 646839381 Anemia, unspecif ied type (D64.9) Active confirmed Problem Increased storage iron (95016279) Increased storage iron (E83.19) Active confirmed Problem Esophageal reflux finding (064754991) Gastroesophageal reflux (K21.9) Active confirmed Problem 36062217 Diarrhea, unspecified type (R19.7) Active confirmed Problem 0261181 Crohn's disease of large intestine without complication (K50.10) Active confirmed Problem 633662362 Crohn's disease of perianal region with fistula (K50.113) Active confirmed Problem 81330109 Gallbladder slud ge (K82.8) Active confirmed Problem 762127510 Macrocytosis without anemia (D75.89) Active confirmed Problem 33055835 Diarrhea of presumed infectious origin (R19.7) Active confirmed Problem Crohn (6460296) Crohn''s disease of large intestine without complication (K50.10) Active confirmed Problem Crohn's disease of large bowel (4853664) Crohn''s disease of colon without complication (K50.10) Active confirmed Problem 60614043 Crohn's disease of colon without complication (K50.10) Active confirmed Problem 20806919 Esophageal dysphagia (R13.19) Active confirmed Problem 078480816 Encounter for therapeutic drug monitoring (Z51.81) Active confirmed Vital Signs Blood pressure diastolic 111 mm Hg 02/28/2025 Height 63 in 02/28/2025 Blood pressure systolic 111 mm Hg 02/28/2025 Weight 267 lbs 02/28/2025 BMI 47.29 kg/m2 02/28/2025 Encounters Encounter Location Date Provider Diagnosis [facility] [address] [place] [phone] 08/30/2024 Jose Juan Hare Crohns colitis, with out complications K50.10 ; Diarrhea, unspecified type R19.7 ; Crohn's disease of perianal region with fistula K50.113 ; Crohn's disease of large intestine with fistula K50.113 and Increased storage iron E83.19 [facility] [address] [place] [phone] 02/28/2025 Jose Juan Hare Crohns colitis, with out complications K50.10 and Increased storage iron E83.19 [facility] [address] [place] [phone] 06/28/2024 Jose Juan Hare Crohn''s disease of colon without complication K50.10 [facility] [address] [place] [phone] 07/04/2024 Jose Juan Hare Anemia D64.9 [facility] [address] [place] [address] 07/31/2024 Jose Juan Hare Increased storage ir on E83.19 [facility] [address] [place] [address] 12/07/2024 Joes Juan Hare Assessments Encounter Date Diagnosis (ICD [...] will arrange for a phlebotomy at the [facility] Blood [facility] for every three mnonths Overall, [...] Date CHEM 7 PROFILE 05/13/2023 LIVER PROFILE 03/27/2017 LIVER PROFILE 04/23/2022 LIVER PROFILE 07/01/2018 LIVER PROFILE 05/13/2023 LIVER PROFILE 09/05/2020 LIVER PROFILE 06/28/2024 LIVER PROFILE 05/04/2023 LIVER PROFILE 06/13/2020 LIVER PROFILE 04/17/2017 IRON + IBC (FE) 11/30/2017 IRON + IBC (FE) 07/04/2024 IRON + IBC (FE) 07/31/2024 IRON + IBC (FE) 08/30/2024 FERRITIN 11/30/2017 CRP 04/17/2017 CRP 11/30/2017 CRP 05/13/2023 VITAMIN B12 AND FOLATE 07/05/2020 VITAMIN B12 AND FOLATE 11/30/2017 CBC w DIFF 06/13/2020 CBC w DIFF 03/27/2017 CBC w DIFF 04/23/2022 CBC w DIFF 07/01/2018 CBC w DIFF 05/13/2023 CBC w DIFF 09/05/2020 CBC w DIFF 06/28/2024 CBC w DIFF 05/04/2023 CBC with MANUAL DIFFERENTIAL 04/17/2017 SED RATE [...] PCR 05/13/2023 Complete Blood Count Auto Diff 5 Ferritin 09/21/2024 Ferritin 08/30/2024 Therapeutic Phlebotomy 06/06/2025 Future Test Test Name Order Date UPPER GI ENDOSCOPY BALLOOON DILATION OF ESOPH 07/26/2021 COLONOSCOPY 07/26/2021 COLONOSCOPY 09/08/2023 Next Appt Details Provider Name:Jose Juan Hare , 10/27/2025 01:00:00 PM, [address] [place] [address], [facility] [address], [place], [address], Insurance Providers Payer Name Payer Address Payer Phone Subscriber Number Group Number Insured Name Patient Relationship to Insured Coverage Start Date Coverage End Date MEDICARE OF [place] [address] [place] [id number] FAUZIA HOLLEY Self - patient is the insured MEDICAID OF [facility] [address] [place] [address] [id number] FAUZIA HOLLEY Self - patient is the insured Medical (General) History Medical History History ICD Code IDDM DVT 20 yrs ago Colonoscopy 10/[address] Briseno with the finding of colitis in left colon and rectum--bx in rectum showed a granuloma-started Apriso 02/2013 Denies DE,CVA,Lung disease,renal disease Anemia-on Iron--Hgb approx 8 in 10/2012, and 12.9 in 01/2013---on B12 shots Bipolar disease Abscess near right kidney in 2008-drained with percutaneous catheters-at [facility] PVC's Asthma Colonoscopy 10/2016 revealed a very active distal proctitis, and a small area of colitis in the cecum--the remainder of the colon appeared normal--- she started Humira on 12/18/16, and started azathioprine in December 2016---Humira increased to weekly injections in 03/2017. She had therapeutic levels of her Humira and the azathioprine metabolites in the fall. Gout 02/21/17--took Motrin for 10 days--ag gravated [...]
== END 2025-06-06 12:53 | disposition home or self-care (01) ==
LOC: HO.BBR 12:52
PROVIDERS: PCP Physician Assistant Medical; Visit Provider Internal Medicine
DX: E83.19 Other disorders of iron metabolism (principal)
CPT/HCPCS: 85018; 99195

== ENCOUNTER 2025-06-22 13:09 | Outpatient (REF) | payer MEDICARE, MEDICAID, SELFPAY ==
--- OUTSIDE RECORDS SUMMARY | 2024-11-10 06:30 | XMS_ITS ---
Author Organization [facility] Address [address] [facility] [place] [address] Care Team Providers Care Lean Manufacturing Leader Name Role Phone Richard Blackman MD Primary Care Provider Unavailab chris Rocio Camargoe Unavailable [phone] Allergies Allergen (clinical drug ingredient) Drug/Non Drug [...] No Encounters Encounter Location Date Provider Diagnosis [facility] [place] [address] [place] [address] 11/10/2024 Noelle Camargo Plan Of Treatment Next Appt Details Provider Name:Noelle Camargo , 08/07/2025 01:00:00 PM, [address] [place], [address], Progress Notes * Alexsandra HOLLEY ADOB: 7 (60 yo F)Acc No.[id number]:11/10/2024 Progress Notes Patient: Alexsandra MEMBRENO Provider: Neptali Camargo DPM :1965 A ge:59 Y S ex:Female Date:11/10/2024 Address:[address] [place] [address], [address]-[address] Pcp:Richard Blackman MD Subjective: * Chief [...] enies. C ardiovascular: Pacemaker d enies. M FILE CONVERSION OPERATOR d enies. W PW d enies. [...] Procedure: H asthma 4 days 08/2016, [facility] [place], [facility] [place]. * Family History: [...] Date: 01/11/2024 Generated for Marin mahan/Pio/Adarsh on: 0 06/22/2025 01:22 PM EDT
--- OUTSIDE RECORDS SUMMARY | 2025-06-22 13:22 | XMS_ITS | Patient Health Record ---
Author Organization [facility] Address [address] [place] [address] Care Team Providers Care Tree Trimming Line Technician Name Role Phone Yehuda (RETIRED) Richard HALL Primary Care Provider Unavailable Jose Juan Hare Unavailable [phone] Allergies Allergen (clinical drug ingredient) Drug/Non Drug Allergy documented on EMR Reaction Allergy Type Onset Date Status amoxicillin / clavulanate Augmentin diarrhea Drug Allergy Active amoxicillin Amoxicillin Unknown Drug Allergy Act vini seasonal (uncoded) Unknown Allergy A ctive Results Component Value Reference Range Notes Ferritin Reviewed date:07/31/2024 06:55:24 PM Interpretation: Performing Lab:[address] [address] Notes/Report: Ferritin 1464 10-250 ng/mL Vitamin B12 and Folate Reviewed date:07/11/2024 11:28:26 PM Interpretation: Performing Lab:[address] [address] Notes/Report: Vitamin B12 317 200-900 pg/mL NORMAL 200-900 PG/ML INDETERMINATE 160-199 PG/ML DEFICIENT < 160 PG/ML Folate 13.3 > or = 4.0 ng/mL Reference Values: > or = 4.0 ng/mL < 4.0 ng/mL suggests folate deficiency Methotrexate, aminopterin and folinic acid (leucovorin) are chemotherapeutic agents whose molecular structures are similar to folate; therefore, the Foreign Car [employer]ic folate assay cannot be used for patients using these drugs. Ferritin Reviewed date:08/07/2024 05:13:16 PM Interpretation: Performing Lab:[facility], [address] [place] [address] Notes/Report: Ferritin 1143 10-250 ng/mL Complete Blood Count Auto Di ff Reviewed date:07/04/2024 10:59:03 PM Interpretation: Performing Lab:[facility], [address] [place] [address] Notes/Report: White Blood Count 6.5 4.8-10.8 X10*3/uL [...] Panel Reviewed date:07/04/2024 11:06:00 PM Interpretation: Performing Lab:[facility], [address] [place] [address] Notes/Report: Bilirubin Total 0.6 0.0-1.0 mg/dL Bilirubin Direct 0.2 0.0-0.5 mg/dL Aspartate Amino Transferase 21 5-31 U/L Alanine Aminotransferase 13 0-31 U/L Total Protein 6.2 6.5-8.0 g/dL Albumin Level 3.8 3.5-5.0 g/dL Alkaline Phosphatase 54 39-117 U/L IRON PROFILE Reviewed date:07/31/2024 06:53:32 PM Interpretation: Performing Lab:[facility], [address] [place] [address] Notes/Report: Iron 125 30-160 mcg/dL Total Iron Binding Capacity 211 228-428 mcg/dL Percent Iron Saturation 59 15-50 % Unsaturated Iron Binding 86 Complete Blood Count Auto Di ff Reviewed date:08/07/2024 05:01:42 PM Interpretation: Performing Lab:[facility], [address] [place] [phone] Notes/Report: White Blood Count 6.3 4.8-10.8 X10*3/uL [...] Hemochromatosis Reviewed date:09/06/2024 04:44:10 PM Interpretation: Performing Lab:[facility], [address] [place] [address] Notes/Report: DNA Analysis Hemochromatosis See Below RESULT: [...] reviewed by Alek Lamb, PhD, [facility], [facility]. DETAILED ASSAY INFORMATION: Hereditary hemochromatosis (HH) [...] variants in the HFE gene, C282Y (NM 294732.2: c.845G>A, p.Lfs371Kgb) and H63D (NM 008043.2: c.187C>G, p.Wqt11Tpm), that are commonly associated with HH. These [...] Health care providers, please contact your local [facility] genetic counselor or call [phone] ( ) for assistance with the interpretation of these results. This test was developed and its analytical performance characteristics have been determined by [facility]. It has not been cleared or approved by FDA. This assay has been validated pursuant to the CLIA regulations and is used for clinical purposes. For more information, please refer to http://education.[employer]/faq/hemoch romatosis. (This link is being provided for informational/educationa l purposes only.) A portion of the testing was performed at [facility]. Reviewed and signed by Laboratory results and submitted clinical information reviewed by Alek Lamb, PhD, [facility], [facility], Signed on 08/17/2024 at 10:22 THIS TEST WAS PERFORMED AT: [employer] [address] [place] [address] CELINE FIGUEROA MD,PHD,MATTHEW Liver Panel Reviewed date:08/07/2024 05:02:19 PM Interpretation: Performing Lab:[facility], [address] [place] [address] Notes/Report: Bilirubin Total 0.8 0.0-1.0 mg/dL Bilirubin Direct 0.2 0.0-0.5 mg/dL Aspartate Amino Transferase 16 5-31 U/L Alanine Aminotransferase 16 0-31 U/L Total Protein 6.3 6.5-8.0 g/dL Albumin Level 3.9 3.5-5.0 g/dL Alkaline Phosphatase 60 39-117 U/L IRON PROFILE Reviewed date:08/07/2024 05:02:27 PM Interpretation: Performing Lab:[facility], [address] [place] [address] Notes/Report: Iron 82 30-160 mcg/dL Total Iron Binding Capacity 220 228-428 mcg/dL Percent Iron Saturation 37 15-50 % Unsaturated Iron Binding 138 Complete Blood Count Auto Di ff Reviewed date:09/14/2024 07:02:12 PM Interpretation: Performing Lab:[facility], [address] [place] [phone] Notes/Report: White Blood Count 4.6 4.8-10.8 X10*3/uL [...] Panel Reviewed date:09/06/2024 04:45:24 PM Interpretation: Performing Lab:[facility], [address] [place] [address] Notes/Report: Bilirubin Total 0.6 0.0-1.0 mg/dL Bilirubin Direct 0.2 0.0-0.5 mg/dL Aspartate Amino Transferase 18 5-31 U/L Alanine Aminotransferase 19 0-31 U/L Total Protein 6.2 6.5-8.0 g/dL Albumin Level 4.0 3.5-5.0 g/dL Alkaline Phosphatase 53 39-117 U/L IRON PROFILE Reviewed date:09/22/2024 01:17:40 PM Interpretation: Performing Lab:[address] [address] Notes/Report: Iron 111 30-160 mcg/dL Total Iron Binding Capacity 227 228-428 mcg/dL Percent Iron Saturation 49 15-50 % Unsaturated Iron Binding 116 Ferritin (Not yet reviewed b y provider) Interpretation: Performing Lab:[facility], [address] [place] [address] Notes/Report: Ferritin 850 10-250 ng/mL Complete Blood Count Auto Di ff Reviewed date:11/04/2024 06:12:41 PM Interpretation: Performing Lab:[address] [address] Notes/Report: White Blood Count 4.2 4.8-10.8 X10*3/uL [...] Panel Reviewed date:11/04/2024 06:13:02 PM Interpretation: Performing Lab:[address] [address] Notes/Report: Bilirubin Total 0.7 0.0-1.0 mg/dL Bilirubin Direct 0.2 0.0-0.5 mg/dL Aspartate Amino Transferase 19 5-31 U/L Alanine Aminotransferase 18 0-31 U/L Total Protein 6.0 6.5-8.0 g/dL Albumin Level 3.9 3.5-5.0 g/dL Alkaline Phosphatase 52 39-117 U/L Complete Blood Count Auto Di ff Reviewed date:12/22/2024 04:23:03 PM Interpretation: Performing Lab:[address] [address] Notes/Report: White Blood Count 4.4 4.8-10.8 X10*3/uL [...] Panel Reviewed date:12/23/2024 06:24:28 PM Interpretation: Performing Lab:[address] [address] Notes/Report: Bilirubin Total 0.7 0.0-1.0 mg/dL Bilirubin Direct 0.2 0.0-0.5 mg/dL Aspartate Amino Transferase 21 5-31 U/L Alanine Aminotransferase 19 0-31 U/L Total Protein 6.6 6.5-8.0 g/dL Albumin Level 4.1 3.5-5.0 g/dL Alkaline Phosphatase 50 39-117 U/L Complete Blood Count Auto Di ff Reviewed date:01/26/2025 10:12:17 AM Interpretation: Performing Lab:[address] [address] Notes/Report: White Blood Count 5.0 4.8-10.8 X10*3/uL [...] Panel Reviewed date:01/26/2025 10:12:38 AM Interpretation: Performing Lab:[facility], [address] [place] [phone] Notes/Report: Bilirubin Total 0.6 0.0-1.0 mg/dL Bilirubin Direct 0.2 0.0-0.5 mg/dL Aspartate Amino Transferase 31 5-31 U/L Alanine Aminotransferase 25 0-31 U/L Total Protein 6.4 6.5-8.0 g/dL Albumin Level 3.9 3.5-5.0 g/dL Alkaline Phosphatase 52 39-117 U/L IRON PROFILE Reviewed date:03/09/2025 12:47:04 AM Interpretation: Performing Lab:[facility], [address] [place] [address] Notes/Report: Iron 110 30-160 mcg/dL Total Iron Binding Capacity 232 228-428 mcg/dL Percent Iron Saturation 47 15-50 % Unsaturated Iron Binding 122 Ferritin Reviewed date:03/09/2025 12:43:59 AM Interpretation: Performing Lab:[facility], [address] [place] [address] Notes/Report: Ferritin 879 10-250 ng/mL Therapeutic Phlebotomy Reviewed date:03/09/2025 12:45:21 AM Interpretation: Performing Lab:[facility], [address] [place] [address] Notes/Report: THER/HGB 10.9 12.0-16.0 g/dL THER/HCT TNP 37.0-47.0 % Therapeutic Phlebotomy Phlebotomy Performed 500 mls drawn on 03/07/25. Please note that a copy of this report has been sent to the Primary Care Physician, the ordering physician and any physician designated by patient request. Complete Blood Count Auto Di ff (Not yet reviewed by provider) Interpretation: Performing Lab:[facility], [address] [place] [address] Notes/Report: White Blood Count 3.9 4.8-10.8 X10*3/uL [...] Panel Reviewed date:03/22/2025 01:09:49 PM Interpretation: Performing Lab:[facility], [address] [place] [address] Notes/Report: Bilirubin Total 0.6 0.0-1.0 mg/dL Bilirubin Direct 0.2 0.0-0.5 mg/dL Aspartate Amino Transferase 21 5-31 U/L Alanine Aminotransferase 19 0-31 U/L Total Protein 6.0 6.5-8.0 g/dL Albumin Level 4.0 3.5-5.0 g/dL Alkaline Phosphatase 43 39-117 U/L Complete Blood Count Auto Di ff Reviewed date:05/22/2025 11:05:25 PM Interpretation: Performing Lab:[facility], [address] [place] [address] Notes/Report: White Blood Count 3.9 4.8-10.8 X10*3/uL [...] (Not yet reviewed by provider) Interpretation: Performing Lab:[facility], [address] [place] [address] Notes/Report: THER/HGB 11.3 12.0-16.0 g/dL THER/HCT TNP [...] Problem Status W/U Status Risk Notes Problem 9841206 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) Active confirmed Problem Pseudopolyposis of colon (05382085) Inflammatory polyps of colon without complications (K51.40) Active confirmed Problem Diverticular disease of colon (928740145) Diverticulosis of large intestine without perforation or abscess without bleeding (K57.30) Active confirmed Problem Dysphagia (68215078) Dysphagia (R13.10) Active confirmed Problem 76554166 Abdominal pain, epigastric (R10.13) Active confirmed Problem Crohn (28200628) Crohn's disease of colon (K50.10) Active confirmed Problem Anemia (827289130) Anemia (D64.9) Active confir med Problem 53029942 Crohns colitis, without complications (K50.10) Active confirmed Problem Crohns disease (77693965) Crohns disease (K50.90) Active confirmed Problem 37669987 Other iron deficiency anemia (D50.8) Active confirmed Problem Pseudopolyposis of colon (11985417) Inflammatory polyps, without complications (K51.40) Active confirmed Problem 340558945 Anemia, unspecif ied type (D64.9) Active confirmed Problem Increased storage iron (23364550) Increased storage iron (E83.19) Active confirmed Problem Esophageal reflux finding (917266848) Gastroesophageal reflux (K21.9) Active confirmed Problem 79883471 Diarrhea, unspecified type (R19.7) Active confirmed Problem 5866258 Crohn's disease of large intestine without complication (K50.10) Active confirmed Problem 263129673 Crohn's disease of perianal region with fistula (K50.113) Active confirmed Problem 70900276 Gallbladder slud ge (K82.8) Active confirmed Problem 033152670 Macrocytosis without anemia (D75.89) Active confirmed Problem 04155468 Diarrhea of presumed infectious origin (R19.7) Active confirmed Problem Crohn (9862020) Crohn''s disease of large intestine without complication (K50.10) Active confirmed Problem Crohn's disease of large bowel (1588277) Crohn''s disease of colon without complication (K50.10) Active confirmed Problem 84883225 Crohn's disease of colon without complication (K50.10) Active confirmed Problem 37974505 Esophageal dysphagia (R13.19) Active confirmed Problem 482449158 Encounter for therapeutic drug monitoring (Z51.81) Active confirmed Vital Signs Blood pressure diastolic 111 mm Hg 02/28/2025 Height 63 in 02/28/2025 Blood pressure systolic 111 mm Hg 02/28/2025 Weight 267 lbs 02/28/2025 BMI 47.29 kg/m2 02/28/2025 Encounters Encounter Location Date Provider Diagnosis [facility] [address] [place] [address] 08/30/2024 Jose Juan Hare Crohns colitis, with out complications K50.10 ; Diarrhea, unspecified type R19.7 ; Crohn's disease of perianal region with fistula K50.113 ; Crohn's disease of large intestine with fistula K50.113 and Increased storage iron E83.19 [facility] [address] [place] [address] 02/28/2025 Jose Juan Hare Crohns colitis, with out complications K50.10 and Increased storage iron E83.19 [facility] [address] [place] [address] 06/28/2024 Jose Juan Hare Crohn''s disease of colon without complication K50.10 [facility] [address] [place] [address] 07/04/2024 Jose Juan Hare Anemia D64.9 [facility] [address] [place] [address] 07/31/2024 Jose Juan Hare Increased storage ir on E83.19 [facility] [address] [place] [address] 12/07/2024 Jose Juan Hare Assessments Encounter Date [...] will arrange for a phlebotomy at the [facility] for every three mnonths Overall, [...] Name:Jose Juan Hare , 10/27/2025 01:00:00 PM, [address] [place] [address], [facility] [address], [place], [address], Insurance Providers Payer Name Payer Address Payer Phone Subscriber Number Group Number Insured Name Patient Relationship to Insured Coverage Start Date Coverage End Date MEDICARE OF [place] [address] [place] GUI[place]EN [address] [id number] FAUZIA HOLLEY Self - patient is the insured MEDICAID OF [facility] [address] [place] [address] [id number] FAUZIA HOLLEY Self - patient is the insured Medical (General) History Medical History History ICD Code IDDM DVT 20 yrs ago Colonoscopy 10/[address] Briseno with the finding of colitis in left colon and rectum--bx in rectum showed a granuloma-started Apriso 02/2013 Denies [place],CVA,Lung disease,renal disease Anemia-on Iron--Hgb approx 8 in 10/2012, and 12.9 in 01/2013---on B12 shots Bipolar disease Abscess near right kidney in 2008-drained with percutaneous catheters-at [facility] PVC's Asthma Colonoscopy 10/2016 revealed a very [...]
[2025-06-22 15:54] LABS: Hematocrit 30.1 % (37.0-47.0); Hemoglobin 10.6 g/dl (12.0-16.0); Imm Gran Abs Auto 0.05 X10*3/uL (0.00-0.03); Imm Gran Pct Auto 1.3 % (0.0-0.4); Lymphocytes Absolute Auto 1.1 X10*3/uL (1.2-4.9); Mean Corpuscular HGB Conc 35.2 g/dl (31.0-35.0); Mean Corpuscular Hemoglobin 40.6 pg (27.0-33.0); NRBC Abs Auto 0.040 X10*3/uL (0.0-0.012); Platelet Count 145 X10*3/uL (160-400); Red Blood Count 2.61 X10*6/uL (4.20-5.50); White Blood Count 3.9 X10*3/uL (4.8-10.8)
[2025-06-22 15:56] LABS: MANUAL DIFF FLAG SCAN; Mean Corpuscular Volume 115.3 fL (80.0-98.0); NRBC Pct Auto 1.0 /100WBC (0.0-0.2)
[2025-06-22 16:10] LABS: Alanine Aminotransferase 19 U/L (0-31); Albumin Level 4.1 g/dL (3.5-5.0); Alkaline Phosphatase 50 U/L (39-117); Aspartate Amino Transferase 24 U/L (5-31); Total Protein 6.0 g/dL (6.5-8.0)
== END 2025-06-22 13:10 | disposition home or self-care (01) ==
LOC: HO.HMGCLR 13:09
PROVIDERS: PCP Physician Assistant Medical; Visit Provider Internal Medicine
DX: K50.10 Crohn's disease of large intestine without complications (principal)
CPT/HCPCS: 36415; 80076; 85025

== ENCOUNTER 2025-08-29 13:14 | Outpatient (REF) | payer MEDICARE, MEDICAID, SELFPAY ==
--- OUTSIDE RECORDS SUMMARY | 2024-11-10 06:30 | XMS_ITS ---
Author Organization [facility] Address [address] [facility] [place] [address] Care Team Providers Care Active Directory Systems Administrator Name Role Phone Richard Blackman MD Primary Care Provider Unavailab chris Rocio Camargoe Unavailable [phone] Allergies Allergen (clinical drug ingredient) Drug/Non Drug [...] No Encounters Encounter Location Date Provider Diagnosis [facility] [place] [address] [place] [address] 11/10/2024 Noelle Camargo Plan Of Treatment Next Appt Details Provider Name:Noelle Camargo , 11/06/2025 02:00:00 PM, [address] [place], [address], Progress Notes * Alexsandra HOLLEY ADOB: 7 (60 yo F)Acc No.[id number]:11/10/2024 Progress Notes Patient: Alexsandra MEMBRENO Provider: Neptali Camargo DPM :1965 A ge:59 Y S ex:Female Date:11/10/2024 Address:[address] [place] [address], [address]-[address] Pcp:Richard Blackman MD Subjective: * Chief [...] enies. C ardiovascular: Pacemaker d enies. 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 W PW d enies. C [...] stic Procedure: H asthma 4 days 08/2016, [facility] [place] 05[place]2017, [facility] [place] 03/2018. * Family History: [...] provider. Sign off status: Pending * Provider: Npetali Camargo DPM Date: 01/11/2024 Generated for Marin mahan/Pio/Adarhs on: 04:14 PM EDT
--- OUTSIDE RECORDS SUMMARY | 2025-01-26 09:00 | XMS_ITS ---
Author Organization [facility] Address [address] [place] [address] Care Team Providers Care Housecleaner Name Role Phone Yehuda HALL, Richard Primary Care Provider UnavailNoelle Echevarria [phone] Encounters Encounter Location Date Provider Diagnosis [address] [address] 01/26/2025 Noelle Camargo Plan Of Treatment Next Appt Details Provider Name:Noelleligia Camargo , 11/06/2025 02:00:00 PM, [address] [place] [address], [address], Progress Notes * Alexsandra HOLLEY ADOB: [birth year] (60 yo F)Acc No.[id number]:01/26/2025 Progress Notes Patient: Alexsandra MEMBRENO Provider: Bambi Camargo DPM :1965 A ge:59 Y S ex:Female Date:01/26/2025 Address:[address] [place] [address], [address], [id number] Pcp:Richard Blackman MD Subjective: * Chief Complaints: [...] 01/26/2025 Generated for Marin mahan/Pio/Adarsh on: 1 04:14 PM EDT
--- OUTSIDE RECORDS SUMMARY | 2025-08-07 09:00 | XMS_ITS ---
Author Organization [facility] Address [address] [place] [address] Care Team Providers Care Coil Machine Supervisor Name Role Phone Yehuda HALL, Richard Primary Care Provider UnavailNoelle Echevarria [phone] Encounters Encounter Location Date Provider Diagnosis [address] [address] 08/07/2025 Noelle Camargo Plan Of Treatment Next Appt Details Provider Name:Noelleligia Camargo , 11/06/2025 02:00:00 PM, [address] [place] [address], [phone], Progress Notes * Alexsandra HOLLEY ADOB: [birth year] (60 yo F)Acc No.[id number]:08/07/2025 Progress Note Patient: Alexsandra MEMBRENO Provider: Bambi Camargo DPM :1965 A ge:60 Y S ex:Female Date:08/07/2025 Address:[address] [place] [address], [address], [id number] Pcp:Richard Blackman MD Subjective: * Chief Complaints: [...] 08/07/2025 Generated for Marin mahan/Pio/Adarsh on: 1 04:14 PM EDT
--- OUTSIDE RECORDS SUMMARY | 2025-08-28 10:03 | XMS_ITS ---
Author Organization [facility] Address [address] [facility] [address] [place] [address] Care Team Providers Care Battery Plate Remover Name Role Phone Yehuda (RETIRED) Richard HALL Primary Care Provider Unavailable Jose Juan Hare Unavailable [phone] REASON FOR VISIT recurrent labs Encounters Encounter Location Date Provider Diagnosis [facility] [address] [facility] [address] [place] [address] 08/28/2025 Jose Juan Hare Crohn''s disease of colon without complication K50.10 Assessments Encounter Date Diagnosis (ICD Code) Assessment Notes Treatment Notes Treatment Clinical Notes Section Notes 08/28/2025 Crohn''s disease of colon without complication (ICD-10 - K50.10) Plan Of Treatment Pending Test Test Name Order Date LIVER PROFILE 08/28/2025 CBC w DIFF 08/28/2025 Next Appt Details Provider Name:Jose Juan Robson Ananya , 10/27/2025 01:00:00 PM, [address] [place] [address], [address], [place], [address], Progress Notes * FAUZIA HOLLEY ADOB: [birth year] (60 yo F)Acc No.[id number]:08/28/2025 Patient: LUIS MEMBRENOH Rossy :1965 A ge:60 Y S ex:Female Address:[address] [place] [address] [address] , [place], [address] Subjective: * Chief Complaints: * R ecurrent labs * Medical History: * Surgical History: * Hospitalization/Major Diagno stic Procedure: * Medications: Objective: * Vitals: * Physical Examination: Assessment: * Assessment: 1. C rohn''s disease of colon without complication - K50.10 (Primary) Plan: * Treatment: ?LAB: CBC w DIFF* Monthly * Procedure Codes: * true * Date: Generated for Marin mahan/Pio/Adarsh on: 04:15 PM EDT
--- OUTSIDE RECORDS SUMMARY | 2025-08-29 16:15 | XMS_ITS | Patient Health Record ---
Author Organization [facility] Address [address] [place] [address] Care Team Providers Care Direct Care Worker Name Role Phone Richard Blackman MD Primary Care Provider Unavailab chris Noelle Camargo Unavailable [phone] Allergies Allergen (clinical drug ingredient) Drug/Non Drug Allergy documented on EMR Reaction Allergy Type Onset Date Status amoxicillin Amoxicillin diarrhea Drug Allergy Act vini amoxicillin / clavulanate Augmentin Unknown Drug Allergy Active Results Component Value Reference Range Notes HEMOGLOBIN A1C (GLYCOHEMOGLO BIN) Reviewed date:04/27/2025 12:59:46 PM Interpretation: Performing Lab: Notes/Report: HEMOGLOBIN A1C % (HH) 5.5 Reason For Referral No Information Medications Medication SIG (Take, Route, Frequency, Duration) Notes Start Date End Date Status Levaquin 500 MG 1 tablet Orally Once a day Not-Taking Trifluoperazine HCl Not-Taking Lantus Subcutaneous Not-Tristian ing Advair Diskus 250-50 MCG/ACT 1 puff Inhalation Twice a day Active Humira Active Apriso 0.375 GM 4 capsules in the morning Orally Once a day; Duration: 30 day(s) Active Omeprazole 20 MG 1 capsule 1/2 to 1 hour before morning meal Orally Once a day Active HumaLOG 100 UNIT/ML as directed Injection Active NovoLOG Not-Taking Canasa Not-Taking lamoTRIgine Active Losartan Potassium 25 MG 1 tablet Orally Once a day Active Tricor Not-Taking Simvastatin 40 MG 1 tablet in the evening Orally Once a day Active Haldol 5 mg qd Not-Taki ng Allopurinol 300 MG 1 tablet Orally Once a day Active UltiCare Insulin Syringe Not-Taking LORazepam 2 MG 1 tablet at bedtime as needed Orally Once a day Active medroxyPROGESTERone Acetate Not-Taking Extra Depth Orthopedic Shoes (1 Pair) with Customized Heat Molded Multidensity Innersoles (3 Pair) as directed Dx: NIDDM/Polyneuropathy (E11.42), Hammertoe Foot Deformity (M20.41,M20.42), Preulcerative Skin Lesion(s) (L85.1 04/27/2025 Active Haloperidol 10 MG 1 tablet Orally Once a day Active Metoprolol Succinate ER Not-Taking traZODone HCl 150 MG 1 tablet at bedtime Orally Once a day Active Clotrimazole-Betamethasone Not-Taking azaTHIOprine 50 MG as directed Orally Active LaMICtal Not-Taking Metoprolol Succinate 25 MG 1 capsule Ora lly Once a day Active Provera 20 MG 1 tablet Orally Twic e a day; Duration: 5 day(s) Not-Taking Ferrous Sulfate 325 (65 Fe) MG 1 tablet Orally Once a day; Duration: 30 day(s) Not-Taking Immunizations Vaccine Route Administration Date Status Comme nts Influenza Unknown 08/26/2016 Administered Influenza Unknown 09/02/2017 Administered Influenza Unknown 08/07/2018 Administered Influenza Unknown 08/09/2019 Administered Social History Tobacco Use: Social History Observation Description Date Details (start date - stop date) Never Smoker NA - NA Alcohol Screen Question Answer Notes Did you have a drink containing alcohol in the p ast year? No Points 0 Interpretation Negative Tobacco use other than smoking: Question Answer Notes Are you an other tobacco user? No Tobacco Control (Standard) Question Answer Notes Tobacco use: Nonsmoker Problems Problem Type SNOMED Code ICD Code Onset Dates Problem Status W/U Status Risk Notes Problem Acquired hammer toe of right foot (9793688935097067 ) Other hammer toe(s) (acquired), right foot (M20.41) Active confirmed Problem Acquired hammer toe of left foot (9289683913810567 ) Other hammer toe(s) (acquired), left foot (M20.42) Active confirmed Problem Polyneuropathy due to type 2 diabetes mellitus (591456527) Type 2 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) Active confirmed Problem Acquired hallux valgus (98769836) Hallux valgus (acquired), right foot (M20.11) Active confirmed Problem Neuropathy (713040256) Neuropathy (G62.9) Active confirmed Vital Signs Blood pressure diastolic 76 mm Hg 04/27/2025 Height 5 ft 2 in in 04/27/2025 Blood pressure systolic 112 mm Hg 04/27/2025 Weight 265 lbs 04/27/2025 BMI 48.46 kg/m2 04/27/2025 Procedures Procedure Date Ordered Date Performed Result Body Sit e 55618-BGJC SKIN LESIONS, OVER 4 04/27/2025 N/A N5489-CRKIYCGB DYSTROPHIC NAILS ANY # 04/27/2025 N/A Encounters Encounter Location Date Provider Diagnosis [address] [address] 04/27/2025 Noelle Raman Hallux valgus (acquired), right foot M20.11 ; Other hammer toe(s) (acquired), right foot M20.41 ; Bunion of right foot M21.611 ; Other hammer toe(s) (acquired), left foot M20.42 ; Type 2 diabetes mellitus with diabetic polyneuropathy E11.42 and Neuropathy G62.[address] [address] 11/08/[address] [address] 01/24/[address] [address] 08/07/2025 Noelle Camargo Assessments Encounter Date Diagnosis (ICD Code) Assessment Notes Treatment Notes Treatment Clinical Notes Section Notes 04/27/2025 Other hammer toe(s) (acquired), right foot (ICD-10 - M20.41) Patient Educated with: DIABETIC FOOT CARE INSTRUCTIONS. pdf (DIABETIC FOOT CARE INSTRUCTIONS. pdf) 04/27/2025 Hallux valgus (acquired), right foot (ICD-10 - M20.11) 04/27/2025 Bunion of right foot (ICD-10 - M21.611) 04/27/2025 Other hammer toe(s) (acquired), left foot (ICD-10 - M20.42) 04/27/2025 Type 2 diabetes mellitus with diabetic polyneuropathy (ICD-10 - E11.42) 04/27/2025 Neuropathy (ICD-10 - G62.9) Plan Of Treatment Pending Test Test Name Order Date *Liver Function Test (LFT) 04/12/2012 35912-FVRHNXE NAIL, 6 OR MORE 12/24/2011 46077-WHVMTCH NAIL, 1-07/05/2012 21387-VLGIYXA NAIL, -10/04/2012 31759-NQUQMUS NAIL, -04/12/2012 23924-VCZRBYK NAIL, -04/11/2013 87346-OYIRPZZ NAIL, -07/11/2013 81535-LCKAGPZ NAIL, -11/07/2013 09592-EWYLKBP NAIL, -03/06/2014 62780-FCAJAGK NAIL, -08/17/2014 32693-IQFVWEI NAIL, -10/30/2014 96135-TLSMVNV NAIL, -01/17/2015 07725-XXYNJUF NAIL, -01/06/2013 66299-RGMLZSC NAIL, -04/19/2015 83109-KSOTPKQ NAIL, -07/19/2015 35968-Jfzmbopy Plate 07/19/2015 18840-Pstmkhxv Plate 03/06/2014 33266-Peyzcqfm Plate 04/19/2015 10638-Nwwhbihy Plate 01/17/2015 73774-Cezpqczh Plate 10/30/2014 33559-Vqaevunm Plate 08/17/2014 68962-Qkidshcy Plate 08/15/2019 94625-ZHC 12/29/2011 08461- Debride <25 sq cm 08/11/2011 95230-LUZJPFN SKIN/TISSUE 01/19/2012 85797-EXBRKPK SKIN/TISSUE 02/02/2012 06689 I&D ABSCESS- SIMPLE,SINGLE 011 08155 I&D ABSCESS- SIMPLE,SINGLE 012 82098 I&D ABSCESS- SIMPLE,SINGLE 013 37506 I&D ABSCESS- SIMPLE,SINGLE 012 44927 I&D ABSCESS- SIMPLE,SINGLE 014 72851 I&D ABSCESS- SIMPLE,SINGLE 014 39418 I&D ABSCESS- SIMPLE,SINGLE 013 92125 I&D ABSCESS- SIMPLE,SINGLE 013 64788 I&D ABSCESS- SIMPLE,SINGLE 014 05605 I&D ABSCESS- SIMPLE,SINGLE 015 33046 I&D ABSCESS- SIMPLE,SINGLE 013 79752 I&D ABSCESS- SIMPLE,SINGLE 015 62571 I&D ABSCESS- SIMPLE,SINGLE 015 13234-NBRP SKIN LESIONS, OVER 4 01/27/20 17 63489-OXCE SKIN LESIONS, OVER 4 04/27/20 17 67032-CLTW SKIN LESIONS, OVER 4 08/15/20 19 02806-MEGB SKIN LESIONS, OVER 4 11/24/19 20 76191-WBRT SKIN LESIONS, OVER 4 09/30/20 18 60644-JRRI SKIN LESIONS, OVER 4 12/30/19 19 26551-HIYQ SKIN LESIONS, OVER 4 08/13/20 17 42192-VUQU SKIN LESIONS, OVER 4 12/28/19 18 85492-BJIX SKIN LESIONS, OVER 4 04/01/20 18 20170-QWZB SKIN LESIONS, OVER 4 07/01/20 18 81604-FIZN SKIN LESIONS, OVER 4 04/27/20 25 26214-UPWP SKIN LESIONS, 2 TO 4 04/28/20 16 26288-JZDB SKIN LESIONS, 2 TO 4 08/04/20 16 32212-QZQQ SKIN LESIONS, 2 TO 4 07/19/20 15 56921-PGBF SKIN LESIONS, 2 TO 4 10/25/20 15 32747-QWTT SKIN LESIONS, 2 TO 4 01/24/20 16 12055-WUMU SKIN LESIONS, 2 TO 4 04/19/20 15 64574-CZPQ SKIN LESIONS, 2 TO 4 01/06/20 13 63099-SRCE SKIN LESIONS, 2 TO 4 01/17/20 15 01754-BWJD SKIN LESIONS, 2 TO 4 10/30/20 14 75871-JAUC SKIN LESIONS, 2 TO 4 07/11/20 13 03520-MEFQ SKIN LESIONS, 2 TO 4 11/07/20 13 98394-VUYW SKIN LESIONS, 2 TO 4 03/06/20 14 76374-ZQEI SKIN LESIONS, 2 TO 4 08/17/20 14 95752-CEMT SKIN LESIONS, 2 TO 4 10/04/20 12 58036-BTRJ SKIN LESIONS, 2 TO 4 04/11/20 13 39694-HUQS SKIN LESIONS, 2 TO 4 07/05/20 12 65596-ONHE SKIN LESION 04/12/2012 N1801-TRZMSZPU DYSTROPHIC NAILS ANY # H8800-AAQCLAHC DYSTROPHIC NAILS ANY # W0395-RBTTMTAM DYSTROPHIC NAILS ANY # S4043-ZFQFYXOH DYSTROPHIC NAILS ANY # V1297-GIHRQCEG DYSTROPHIC NAILS ANY # T8329-SPUZTGVH DYSTROPHIC NAILS ANY # R3696-ROCWPRUE DYSTROPHIC NAILS ANY # G4453-BIGQHECP DYSTROPHIC NAILS ANY # J4943-ABNTOXKF DYSTROPHIC NAILS ANY # R8614-JLUCOTGQ DYSTROPHIC NAILS ANY # D0802-HTOGIOGO DYSTROPHIC NAILS ANY # U0788-XEYNEQYA DYSTROPHIC NAILS ANY # Z8093-WANXYYXT DYSTROPHIC NAILS ANY # A3644-AHIWSBCM DYSTROPHIC NAILS ANY # H8178-NKKJFKBL DYSTROPHIC NAILS ANY # C8823-VNITBMPL DYSTROPHIC NAILS ANY # N3661-SOKWVXHP DYSTROPHIC NAILS ANY # E0829-JJHXGZPT DYSTROPHIC NAILS ANY # C1524-OQQFAPIL DYSTROPHIC NAILS ANY # W6981-XIQDUFYP DYSTROPHIC NAILS ANY # Y9307-GVZZAUYN DYSTROPHIC NAILS ANY # E0896-NRINFYZG DYSTROPHIC NAILS ANY # G4763-USOHROAP DYSTROPHIC NAILS ANY # D4339-ONYMWGLP DYSTROPHIC NAILS ANY # Next Appt Details Provider Name:Noelle Camargo , 11/06/2025 02:00:00 PM, [address] [place] [address], [phone], Insurance Providers Payer Name Payer Address Payer Phone Subscriber Number Group Number Insured Name Patient Relationship to Insured Coverage Start Date Coverage End Date Medicare [employer] [address] [place] [address] [id number] Alexsandra Thomas Self - patient is the insured 9 Medical (General) History Medical History History ICD Code transfusions psychiatric disorder chicken pox Gout diabetic depression hypercholesterolemia Anxiety disorder anemia crohns disease Arthritis asthma covid-19 High Blood Pressure Numbness Psoriasis/eczema Reflux ( GERD) Sciatica Vascular phlebitis (clots) Surgical History Surgery Date(Month/Year) Hospitalization History Reason Date(Month/Year) [facility] [place] - Kidney infection 03/2018 [facility]- pintch nerve 05/2017 [facility] [place] asthma 4 days 08/2016
--- OUTSIDE RECORDS SUMMARY | 2025-08-29 16:15 | XMS_ITS | Patient Health Record ---
Author Organization [facility] Address [address] [place] [address] Care Team Providers Care Glass Maker Name Role Phone Yehuda (RETIRED) Richard HALL Primary Care Provider Unavailable Jose Juan Hare Unavailable [phone] Allergies Allergen (clinical drug ingredient) Drug/Non Drug Allergy documented on EMR Reaction Allergy Type Onset Date Status amoxicillin / clavulanate Augmentin diarrhea Drug Allergy Active amoxicillin Amoxicillin Unknown Drug Allergy Act vini seasonal (uncoded) Unknown Allergy A ctive Results Component Value Reference Range Notes Complete Blood Count Auto Di ff Reviewed date:09/14/2024 07:02:12 PM Interpretation: Performing Lab:[facility], [address] [place] [phone] Notes/Report: White Blood Count 4.6 4.8-10.8 X10*3/uL [...] Panel Reviewed date:09/06/2024 04:45:24 PM Interpretation: Performing Lab:[address] [phone] Notes/Report: Bilirubin Total 0.6 0.0-1.0 mg/dL Bilirubin Direct 0.2 0.0-0.5 mg/dL Aspartate Amino Transferase 18 5-31 U/L Alanine Aminotransferase 19 0-31 U/L Total Protein 6.2 6.5-8.0 g/dL Albumin Level 4.0 3.5-5.0 g/dL Alkaline Phosphatase 53 39-117 U/L IRON PROFILE Reviewed date:09/22/2024 01:17:40 PM Interpretation: Performing Lab:[address] [phone] Notes/Report: Iron 111 30-160 mcg/dL Total Iron Binding Capacity 227 228-428 mcg/dL Percent Iron Saturation 49 15-50 % Unsaturated Iron Binding 116 Ferritin (Not yet reviewed b y provider) Interpretation: Performing Lab:[address] [phone] Notes/Report: Ferritin 850 10-250 ng/mL Complete Blood Count Auto Di ff Reviewed date:11/04/2024 06:12:41 PM Interpretation: Performing Lab:[address] [phone] Notes/Report: White Blood Count 4.2 4.8-10.8 X10*3/uL [...] Panel Reviewed date:11/04/2024 06:13:02 PM Interpretation: Performing Lab:[facility], [address] [place] [phone] Notes/Report: Bilirubin Total 0.7 0.0-1.0 mg/dL Bilirubin Direct 0.2 0.0-0.5 mg/dL Aspartate Amino Transferase 19 5-31 U/L Alanine Aminotransferase 18 0-31 U/L Total Protein 6.0 6.5-8.0 g/dL Albumin Level 3.9 3.5-5.0 g/dL Alkaline Phosphatase 52 39-117 U/L Complete Blood Count Auto Di ff Reviewed date:12/22/2024 04:23:03 PM Interpretation: Performing Lab:[facility], [address] [place] [phone] Notes/Report: White Blood Count 4.4 4.8-10.8 X10*3/uL [...] Panel Reviewed date:12/23/2024 06:24:28 PM Interpretation: Performing Lab:[facility], [address] [place] [phone] Notes/Report: Bilirubin Total 0.7 0.0-1.0 mg/dL Bilirubin Direct 0.2 0.0-0.5 mg/dL Aspartate Amino Transferase 21 5-31 U/L Alanine Aminotransferase 19 0-31 U/L Total Protein 6.6 6.5-8.0 g/dL Albumin Level 4.1 3.5-5.0 g/dL Alkaline Phosphatase 50 39-117 U/L Complete Blood Count Auto Di ff Reviewed date:01/26/2025 10:12:17 AM Interpretation: Performing Lab:[facility], [address] [place] [phone] Notes/Report: White Blood Count 5.0 4.8-10.8 X10*3/uL [...] date:01/26/2025 10:12:38 AM Interpretation: Performing Lab:[facility], [address] [place] [phone] Notes/Report: Bilirubin Total 0.6 0.0-1.0 mg/dL Bilirubin Direct 0.2 0.0-0.5 mg/dL Aspartate Amino Transferase 31 5-31 U/L Alanine Aminotransferase 25 0-31 U/L Total Protein 6.4 6.5-8.0 g/dL Albumin Level 3.9 3.5-5.0 g/dL Alkaline Phosphatase 52 39-117 U/L IRON PROFILE Reviewed date:03/09/2025 12:47:04 AM Interpretation: Performing Lab:[facility], [address] [place] [phone] Notes/Report: Iron 110 30-160 mcg/dL Total Iron Binding Capacity 232 228-428 mcg/dL Percent Iron Saturation 47 15-50 % Unsaturated Iron Binding 122 Ferritin Reviewed date:03/09/2025 12:43:59 AM Interpretation: Performing Lab:[facility], [address] [place] [phone] Notes/Report: Ferritin 879 10-250 ng/mL Therapeutic Phlebotomy Reviewed date:03/09/2025 12:45:21 AM Interpretation: Performing Lab:[facility], [address] [place] [phone] Notes/Report: THER/HGB 10.9 12.0-16.0 g/dL THER/HCT TNP 37.0-47.0 % Therapeutic Phlebotomy Phlebotomy Performed 500 mls drawn on 03/07/25. Please note that a copy of this report has been sent to the Primary Care Physician, the ordering physician and any physician designated by patient request. Complete Blood Count Auto Di ff (Not yet reviewed by provider) Interpretation: Performing Lab:[facility], [address] [place] [phone] Notes/Report: White Blood Count 3.9 4.8-10.8 X10*3/uL [...] date:03/22/2025 01:09:49 PM Interpretation: Performing Lab:[facility], [address] [place] [phone] Notes/Report: Bilirubin Total 0.6 0.0-1.0 mg/dL Bilirubin Direct 0.2 0.0-0.5 mg/dL Aspartate Amino Transferase 21 5-31 U/L Alanine Aminotransferase 19 0-31 U/L Total Protein 6.0 6.5-8.0 g/dL Albumin Level 4.0 3.5-5.0 g/dL Alkaline Phosphatase 43 39-117 U/L Complete Blood Count Auto Di ff Reviewed date:05/22/2025 11:05:25 PM Interpretation: Performing Lab:[facility], [address] [place] [phone] Notes/Report: White Blood Count 3.9 4.8-10.8 X10*3/uL [...] reviewed by provider) Interpretation: Performing Lab:[facility], [address] [place] [phone] Notes/Report: THER/HGB 11.3 12.0-16.0 g/dL THER/HCT TNP 37.0-47.0 % Therapeutic Phlebotomy Phlebotomy Performed 500 mls drawn on 07/15/25. Please note that a copy of this report has been sent to the Primary Care Physician, the ordering physician and any physician designated by patient request. Complete Blood Count Auto Di ff Reviewed date:06/22/2025 05:58:27 PM Interpretation: Performing Lab:[facility], [address] [place] [phone] Notes/Report: White Blood Count 3.9 4.8-10.8 X10*3/uL Red Blood Count 2.61 4.20-5.50 X10*6/uL Hemoglobin 10.6 12.0-16.0 g/dl Hematocrit 30.1 37.0-47.0 % Mean Corpuscular Volume 115.3 80.0-98.0 fL Mean Corpuscular Hemoglobin 40.6 27.0-33.0 pg Mean Corpuscular HGB Conc 35.2 31.0-35.0 g/dl Red Cell Distribution Width 16.3 11.0-16.0 % Platelet Count 145 160-400 X10*3/uL Mean Platelet Volume 11.0 9.4-12.3 fL Neutrophils Percent Auto 59.1 45-73 % Imm Gran Pct Auto 1.3 0.0-0.4 % Lymphocytes Percent Auto 29.3 20-40 % Monocytes Percent Auto 5.4 2-11 % Eosinophils Percent Auto 3.9 0-4 % Basophils Percent Auto 1.0 0-2 % NRBC Pct Auto 1.0 0.0-0.2 /100WBC Neutrophils Absolute Auto 2.3 2.0-8.3 x10*3/u L Imm Gran Abs Auto 0.05 0.00-0.03 X10*3/uL Lymphocytes Absolute Auto 1.1 1.2-4.9 X10*3/u L Monocytes Absolute Auto 0.2 0.1-1.2 X10*3/uL Eosinophils Absolute Auto 0.2 0.0-0.4 X10*3/u L Basophils Absolute Auto 0.0 0.0-0.2 X10*3/uL NRBC Abs Auto 0.040 0.0-0.012 X10*3/uL White Blood Count 3.9 4.8-10.8 X10*3/uL Red Blood Count 2.61 4.20-5.50 X10*6/uL Hemoglobin 10.6 12.0-16.0 g/dl Hematocrit 30.1 37.0-47.0 % Mean Corpuscular Volume 115.3 80.0-98.0 fL Mean Corpuscular Hemoglobin 40.6 27.0-33.0 pg Mean Corpuscular HGB Conc 35.2 31.0-35.0 g/dl Red Cell Distribution Width 16.3 11.0-16.0 % Platelet Count 145 160-400 X10*3/uL Mean Platelet Volume 11.0 9.4-12.3 fL Neutrophils Percent Auto 59.1 45-73 % Imm Gran Pct Auto 1.3 0.0-0.4 % Lymphocytes Percent Auto 29.3 20-40 % Monocytes Percent Auto 5.4 2-11 % Eosinophils Percent Auto 3.9 0-4 % Basophils Percent Auto 1.0 0-2 % NRBC Pct Auto 1.0 0.0-0.2 /100WBC Neutrophils Absolute Auto 2.3 2.0-8.3 x10*3/u L Imm Gran Abs Auto 0.05 0.00-0.03 X10*3/uL Lymphocytes Absolute Auto 1.1 1.2-4.9 X10*3/u L Monocytes Absolute Auto 0.2 0.1-1.2 X10*3/uL Eosinophils Absolute Auto 0.2 0.0-0.4 X10*3/u L Basophils Absolute Auto 0.0 0.0-0.2 X10*3/uL NRBC Abs Auto 0.040 0.0-0.012 X10*3/uL Liver Panel Reviewed date:06/22/2025 05:58:57 PM Interpretation: Performing Lab:[facility], [address] [place] [phone] Notes/Report: Bilirubin Total 0.8 0.0-1.0 mg/dL Bilirubin Direct 0.2 0.0-0.5 mg/dL Aspartate Amino Transferase 24 5-31 U/L Alanine Aminotransferase 19 0-31 U/L Total Protein 6.0 6.5-8.0 g/dL Albumin Level 4.1 3.5-5.0 g/dL Alkaline Phosphatase 50 39-117 U/L SLIDE REVIEW Reviewed date:06/22/2025 05:57:17 PM Interpretation: Performing Lab:[facility], [facility], [place] [address] Notes/Report: SLIDE REVIEW VERIFIED Reason For Referral No Information Medications Medication SIG (Take, Route, Frequency, Duration) Notes Start Date End Date Status azaTHIOprine 50 mg TAKE 1 AND 1/2 TABLE TS EVERY DAY for 30 Active Losartan Potassium 25 MG 1 tablet [...] 1 tablet Orally Once a day Active Benadryl 50 1 tablet as needed [...] Problem Status W/U Status Risk Notes Problem 4529473 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) Active confirmed Problem Pseudopolyposis of colon (23031961) Inflammatory polyps of colon without complications (K51.40) Active confirmed Problem Diverticular disease of colon (132411660) Diverticulosis of large intestine without perforation or abscess without bleeding (K57.30) Active confirmed Problem Dysphagia (50140219) Dysphagia (R13.10) Active confirmed Problem 42179486 Abdominal pain, epigastric (R10.13) Active confirmed Problem Crohn (87277080) Crohn's disease of colon (K50.10) Active confirmed Problem Anemia (934863057) Anemia (D64.9) Active confir med Problem 42989917 Crohns colitis, without complications (K50.10) Active confirmed Problem Crohns disease (44293191) Crohns disease (K50.90) Active confirmed Problem 92113844 Other iron deficiency anemia (D50.8) Active confirmed Problem Pseudopolyposis of colon (03831835) Inflammatory polyps, without complications (K51.40) Active confirmed Problem 546928311 Anemia, unspecif ied type (D64.9) Active confirmed Problem Increased storage iron (32314125) Increased storage iron (E83.19) Active confirmed Problem Esophageal reflux finding (720230731) Gastroesophageal reflux (K21.9) Active confirmed Problem 01973463 Diarrhea, unspecified type (R19.7) Active confirmed Problem 0363615 Crohn's disease of large intestine without complication (K50.10) Active confirmed Problem 340319349 Crohn's disease of perianal region with fistula (K50.113) Active confirmed Problem 43176440 Gallbladder slud ge (K82.8) Active confirmed Problem 767403982 Macrocytosis without anemia (D75.89) Active confirmed Problem 53170552 Diarrhea of presumed infectious origin (R19.7) Active confirmed Problem Crohn (2416033) Crohn''s disease of large intestine without complication (K50.10) Active confirmed Problem Crohn's disease of large bowel (0037354) Crohn''s disease of colon without complication (K50.10) Active confirmed Problem 25587356 Crohn's disease of colon without complication (K50.10) Active confirmed Problem 64678688 Esophageal dysphagia (R13.19) Active confirmed Problem 489148823 Encounter for therapeutic drug monitoring (Z51.81) Active confirmed Vital Signs Blood pressure diastolic 111 mm Hg 02/28/2025 Height 63 in 02/28/2025 Blood pressure systolic 111 mm Hg 02/28/2025 Weight 267 lbs 02/28/2025 BMI 47.29 kg/m2 02/28/2025 Encounters Encounter Location Date Provider Diagnosis [facility] [address] [place] [address] 08/30/2024 Jose Juan Hare Crohns colitis, with out complications K50.10 ; Diarrhea, unspecified type R19.7 ; Crohn's disease of perianal region with fistula K50.113 ; Crohn's disease of large intestine with fistula K50.113 and Increased storage iron E83.19 [facility] [address] [place] [address] 02/28/2025 Jose Juan Hare Crohns colitis, with out complications K50.10 and Increased storage iron E83.19 [facility] [address] [place] [address] 12/07/2024 Jose Juan Hare [facility] [address] [place] [address] 08/28/2025 Jose Juan Hare Crohn''s disease of [...] to keep you advised of her progress. 08/28/2025 Crohn''s disease of colon without complication (ICD-10 - K50.10) 08/30/2024 Crohn's disease of perianal region with [...] will arrange for a phlebotomy at the [facility] for every three mnonths Overall, [...] PROFILE 05/04/2023 LIVER PROFILE 06/13/2020 LIVER PROFILE 08/28/2025 IRON + IBC (FE) 11/30/2017 IRON + IBC (FE) 07/04/2024 IRON + IBC (FE) 07/31/2024 IRON + IBC (FE) 08/30/2024 FERRITIN 11/30/2017 CRP 04/17/2017 CRP 11/30/2017 CRP 05/13/2023 VITAMIN B12 AND FOLATE 07/05/2020 VITAMIN B12 AND FOLATE 11/30/2017 CBC w DIFF 06/28/2024 CBC w DIFF 05/04/2023 CBC w DIFF 06/13/2020 CBC w DIFF 08/28/2025 CBC w DIFF 03/27/2017 CBC w DIFF [...] 05/13/2023 Complete Blood Count Auto Diff Ferritin 08/30/2024 Ferritin 09/21/2024 Therapeutic Phlebotomy 06/06/2025 Future Test Test Name Order Date UPPER GI ENDOSCOPY BALLOOON DILATION OF ESOPH 07/26/2021 COLONOSCOPY 07/26/2021 COLONOSCOPY 09/08/2023 Next Appt Details Provider Name:Jose Juan Chance Ananya , 10/27/2025 01:00:00 PM, [address], [address], [place], [address], Insurance Providers Payer Name Payer Address Payer Phone Subscriber Number Group Number Insured Name Patient Relationship to Insured Coverage Start Date Coverage End Date MEDICARE OF [employer] [address] [place] [address] [id number] FAUZIA HOLLEY Self - patient is the insured MEDICAID OF [facility] [address] [place] [address] [id number] FAUZIA HOLLEY Self - patient is the insured Medical (General) History Medical History History ICD Code IDDM DVT 20 yrs ago Colonoscopy 10/[address] Briseno with the finding of colitis in left colon and rectum--bx in rectum showed a granuloma-started Apriso 02/2013 Denies DC,CVA,Lung disease,renal disease Anemia-on Iron--Hgb approx 8 in 10/2012, and 12.9 in 01/2013---on B12 shots Bipolar disease Abscess near right kidney in 2008-drained with percutaneous catheters-at [facility] PVC's Asthma Colonoscopy 10/2016 revealed [...]
[2025-08-29 16:24] LABS: Hematocrit 24.0 % (37.0-47.0); Hemoglobin 8.6 g/dl (12.0-16.0); Imm Gran Abs Auto 0.02 X10*3/uL (0.00-0.03); Imm Gran Pct Auto 0.7 % (0.0-0.4); Lymphocytes Absolute Auto 1.0 X10*3/uL (1.2-4.9); MANUAL DIFF FLAG SCAN; Mean Corpuscular HGB Conc 35.8 g/dl (31.0-35.0); Mean Corpuscular Hemoglobin 41.5 pg (27.0-33.0); Mean Corpuscular Volume 115.9 fL (80.0-98.0); NRBC Abs Auto 0.000 X10*3/uL (0.0-0.012); NRBC Pct Auto 0.0 /100WBC (0.0-0.2); Platelet Count 160 X10*3/uL (160-400); Red Blood Count 2.07 X10*6/uL (4.20-5.50); SCAN SMEAR FLAG 1; White Blood Count 2.8 X10*3/uL (4.8-10.8)
[2025-08-29 16:37] LABS: Alanine Aminotransferase 12 U/L (0-31); Albumin Level 4.0 g/dL (3.5-5.0); Alkaline Phosphatase 60 U/L (39-117); Aspartate Amino Transferase 18 U/L (5-31); Total Protein 6.1 g/dL (6.5-8.0)
== END 2025-08-29 13:15 | disposition home or self-care (01) ==
LOC: HO.HMGCLDS 13:14
PROVIDERS: PCP Physician Assistant Medical; Visit Provider Internal Medicine
DX: K50.10 Crohn's disease of large intestine without complications (principal)
CPT/HCPCS: 36415; 80076; 85025

== ENCOUNTER 2025-08-30 15:23 | Emergency (ER) | payer MEDICARE, MEDICAID, SELFPAY ==
[2025-08-30 15:33] VITALS: BP 131/66; PULSE 91; RESP 16; TEMP 37.1; O2SAT 100; BMI 47.7
--- NOTE | 2025-08-30 15:34 | ED.GENADULT ---
HPI - General Adult General Chief complaint: Recheck/Abnormal Lab/Rx Stated complaint: abn lab (Dr. Hare) Time Seen by Provider: 08/30/25 20:41 Source: patient Limitations: no limitations History of Present Illness HPI narrative: 60F with a past medical history of chronic anemia with macrocytosis, Crohn's disease, morbid obesity, HTN, HLD, T2DM, asthma, gout, bipolar disorder who presents to the ED for abnormal labs. Was recommended to come in by PCP for anemia and leukopenia. Patient states labs were drawn yesterday, ordered by Dr. Hare her clin application specialist. Shares she has been donating blood every 3 months for the past 6 months, last in May. As therapeutic phlebotomy for elevated iron levels. Endorsing fatigue but denies abdominal pain, hematemesis, hematochezia, melena, or overt bleeding from other sources. Related Data Home Medications ?Medication ?Instructions ?Recorded ?Confirmed albuterol sulfate 90 mcg/actuation 2 puff inhalation Q4-6H PRN 08/23/21 05/15/25 aerosol inhaler (ProAir HFA) Shortness Of Breath Or Wheezing azathioprine 50 mg tablet 1.5 tab PO DAILY 08/23/21 05/15/25 fluconazole 150 mg tablet 1 tab PO DAILY 08/23/21 05/15/25 haloperidol 10 mg tablet 1 tab PO BEDTIME 08/23/21 05/15/25 insulin lispro 100 unit/mL See Rx Instructions .Route .COMPLEX 08/23/21 05/15/25 subcutaneous solution (Humalog U-100 Insulin) lamotrigine 100 mg tablet 1 tab PO BEDTIME 08/23/21 05/15/25 lorazepam 1 mg tablet 1 mg PO BID 08/23/21 05/15/25 mesalamine 0.375 gram 4 cap PO DAILY 08/23/21 05/15/25 capsule,extended release 24 hr (Apriso) omeprazole 20 mg capsule,delayed 20 mg PO BEDTIME 08/23/21 05/15/25 release insulin glargine 100 unit/mL 70 unit subcut BEDTIME 05/15/25 05/15/25 subcutaneous solution (Lantus U-100 Insulin) trazodone 300 mg tablet 300 mg PO BEDTIME 05/15/25 05/15/25 Previous Rx's ?Medication ?Instructions ?Recorded cholecalciferol (vitamin D3) 50 50 mcg PO DAILY #90 caps 05/24/25 mcg (2,000 unit) capsule simvastatin 40 mg tablet 40 mg PO QPM #90 tabs 05/24/25 fluticasone 250 mcg-salmeterol 50 1 ea inhalation BID #60 ea 07/26/25 mcg/dose blistr powdr for inhalation (Advair Diskus) allopurinol 300 mg tablet 300 mg PO DAILY #90 tabs 08/23/25 losartan 25 mg tablet 25 mg PO BEDTIME #90 tabs 08/23/25 metoprolol succinate 25 mg 25 mg PO DAILY #90 tabs 08/23/25 tablet,extended release 24 hr blood-glucose sensor (FreeStyle #1 ea 08/28/25 Bossman 3 Plus Sensor device) blood-glucose,machine puller and laster,cont #1 ea 08/28/25 (FreeStyle Bossman 3 [place]) Allergies Allergy/AdvReac Type Severity Reaction Status Date / Time amoxicillin (AMOXICILLIN) Allergy Intermediate BLOODY Verified 08/30/25 15:36 DIARRHEA clavulanic acid (From AdvReac Intermediate DIARRHEA Verified 08/30/25 15:36 AUGMENTIN) Review of Systems Review of Systems: Yes all other systems are reviewed and are negative Constitutional: Constitutional: Reports fatigue Cardiovascular: Cardiovascular: Denies chest pain and Denies dyspnea Respiratory: Respiratory: Denies hemoptysis and Denies dyspnea Gastrointestinal: Gastrointestinal: Denies melena, Denies hematochezia, Denies coffee ground emesis, Reports diarrhea and Denies hematemesis Psychiatric: Psychiatric: Reports anxiety Endocrine: Endocrine: Reports fatigue Hematologic/Lymphatic: Hematologic/Lymphatic: Denies easy bleeding and Denies easy bruising PMFSH Past Medical History Attestation statement: The following information was validated with the patient. Medical History (Updated 08/30/25 @ 22:32 by DENYS Rene) Hypertriglyceridemia Vitamin D deficiency History of mammogram (~12/17/21) Morbid obesity with BMI of 45.0-49.9, adult Breast cancer screening Psoriasis Chronic anemia Type 2 diabetes mellitus with hemoglobin A1c goal of less than 7.0% Establishing care with new doctor, encounter for Annual physical exam History of macrocytosis Gout Hx of abdominal abscess Diabetes Anxiety Elevated cholesterol HTN (hypertension) Anemia COPD (chronic obstructive pulmonary disease) Asthma Depression Bipolar 1 disorder GERD (gastroesophageal reflux disease) Crohn's disease Surgical History (Updated 05/15/25 @ 14:12 by Lauren Reyes PA-C) History of esophagogastroduodenoscopy (EGD) Hx of tonsillectomy Hx of colonoscopy (~10/22/23) Family History Family History Father Parkinsons Mother Emphysema lung Social History Social History Housing: Condominium Alcohol intake: never Patient Tobacco Use Status: Former Tobacco user Smoked in Last 30 Days: No Use of substances other than those prescribed or required for medical reasons: No Advance Directives: Yes Advance Directives on File: Yes Advance Directives Date on File: 08/28/21 Do you have a plan to hurt others: No Plan Patient : No service: No Current occupational status: disabled Cognitive needs: No Hearing needs: No Vision needs: No Physical Exam ED Vital Signs: Vital Signs - 24 hr 08/30/25 15:33 08/30/25 18:09 08/30/25 21:12 Temperature 98.7 F 97.6 F 98.9 F Pulse Rate 91 80 75 Respiratory Rate 16 16 Blood Pressure 131/66 126/59 L 151/70 H Pulse Oximetry 100 97 100 Oxygen Delivery Method Room Air Room Air Room Air BMI result Body Mass Index 47.7 Const Other: Alert well-appearing General: no acute distress, alert and awake Nutritional Appearance: obese Orientation/consciousness: patient oriented x3 Resp Effort & Inspection: normal respiratory effort Auscultation: clear to auscultation bilaterally Cardio Other: Normal peripheral perfusion Rate: regular rate Rhythm: regular rhythm GI Other: Soft nontender nondistended obese abdomen, guaiac negative stool brown Skin Other: warm dry no rash no lesions/abrasions Neuro General: patient oriented x3, gait normal, no focal motor deficits and CN's II-XI intact bilaterally Psych Other: cooperative Course Course Course Narrative: This is a rapid medical exam performed by Trang Murphy NP: Additional HPI, ROS, PE not included below will be deferred to primary provider. Patient is a 60y/o F presenting to the ED after being called by PCP for leukopenia, anemia on recent labs. Labs were ordered by Dr. Hare. Patient states she has been donating blood every 3 mos, unsure if related. Reports fatigue but denies hematochezia or melena. Plan: repeat labs Medical Decision Making Medical Decision Making [facility] Narrative: 60F with a past medical history of chronic anemia with macrocytosis, Crohn's disease, morbid obesity, HTN, HLD, T2DM, asthma, gout, bipolar disorder who presents to the ED for abnormal labs. Was recommended to come in by PCP for anemia and leukopenia. Patient states labs were drawn yesterday, ordered by Dr. Hare her clin application specialist. Shares she has been donating blood every 3 months for the past 6 months, last in May. As therapeutic phlebotomy for elevated iron levels. Endorsing fatigue but denies abdominal pain, hematemesis, hematochezia, melena, or overt bleeding from other sources. I've considered the following diagnoses: overt bleeding presenting as hematemesis, hematochezia. Occult bleeding presenting as melena. Both denied by patient. Also, considered donor induced anemia. This usually presents as iron deficiency anemia with low MCV. Last MCV was 114, but donor induced anemia may be different in the setting of chronic elevated iron levels, patient states this has been the case for the last year and is undergoing outpatient evaluation. Patient's labs show leukopenia for the past 7 months, unlikely to be due to an acute process. Outpatient workup may be warranted. Per . Nava Jones PA-C......... I have reviewed the chart, there was no expect note, there is no documentation from primary care indicating their concern. In review of labs, her H&H are stable, I have repeated an H and H, it is actually improved, she has no active GI bleeding, she is chronically anemic she is also chronically leukopenic, her vitals are completely stable, her liver function tests are normal. There was no indication for her to be here. Plan: recheck H/H, stable. I've reviewed the following tests: CBC, CMP White count from August 29 2.8, from today 2.9, in May it has been 3.9, H&H 8.1 and 22.8, repeat 8.5 and 23, no electrolyte abnormalities and guaiac negative Differential Diagnosis Differential Diagnoses: The differential diagnosis associated with the presentation includes See medical decision-making Admission/Observation Consideration of admission/observation: Escalation of care including admission/observation considered Not applicable Lab Data MDM Lab Attestation statement: I reviewed the patient's lab results. 08/30/25 20:56 08/30/25 15:58 Labs: Lab Results 08/30/25 08/30/25 08/30/25 Range/Units 15:57 15:58 20:56 WBC 2.9 L (4.8-10.8) X10*3/uL RBC 2.00 L (4.20-5.50) X10*6/uL Hgb 8.1 L 8.5 L (12.0-16.0) g/dl Hct 22.8 L 23.0 L (37.0-47.0) % MCV 114.0 H (80.0-98.0) fL MCH 40.5 H (27.0-33.0) pg MCHC 35.5 H (31.0-35.0) g/dl RDW 17.1 H (11.0-16.0) % Plt Count 163 (160-400) X10*3/uL MPV 11.2 (9.4-12.3) fL Immature Gran % (Auto) 0.7 H (0.0-0.4) % Neut % (Auto) 59.1 (45-73) % Lymph % (Auto) 28.0 (20-40) % [place] % (Auto) 8.0 (2-11) % Eos % (Auto) 3.5 (0-4) % Baso % (Auto) 0.7 (0-2) % Lymph # (Auto) 0.8 L (1.2-4.9) X10*3/uL [place] # (Auto) 0.2 (0.1-1.2) X10*3/uL Eos # (Auto) 0.1 (0.0-0.4) X10*3/uL Baso # (Auto) 0.0 (0.0-0.2) X10*3/uL Abs Immat Gran (auto) 0.02 (0.00-0.03) X10*3/uL Absolute Neuts (auto) 1.7 L (2.0-8.3) x10*3/uL Absolute Nucleated RBC 0.000 (0.0-0.012) X10*3/uL Nucleated RBC % (auto) 0.0 (0.0-0.2) /100WBC Sodium 137 (135-145) mmol/L Potassium 4.7 (3.3-5.1) mmol/L Chloride 111 H (96-108) mmol/L Carbon Dioxide 19 L (22-29) mmol/L Anion Gap 12 (12-20) BUN 16 (9-16) mg/dL Creatinine 1.13 (0.5-1.4) mg/dL Estim Creat Clear Calc 66.2 Estimated GFR 49 Random Glucose 181 H (60-115) mg/dL Calcium 8.6 (8.4-10.2) mg/dL Total Bilirubin 1.0 (0.0-1.0) mg/dL AST 27 (5-31) U/L ALT 12 (0-31) U/L Alkaline Phosphatase 55 (39-117) U/L Total Protein 6.1 L (6.5-8.0) g/dL Albumin 4.0 (3.5-5.0) g/dL Stool Occult Blood (NEGATIVE) Blood Type A Positive Antibody Screen NEGATIVE 08/30/25 Range/Units 21:39 WBC (4.8-10.8) X10*3/uL RBC (4.20-5.50) X10*6/uL Hgb (12.0-16.0) g/dl Hct (37.0-47.0) % MCV (80.0-98.0) fL MCH (27.0-33.0) pg MCHC (31.0-35.0) g/dl RDW (11.0-16.0) % Plt Count (160-400) X10*3/uL MPV (9.4-12.3) fL Immature Gran % (Auto) (0.0-0.4) % Neut % (Auto) (45-73) % Lymph % (Auto) (20-40) % [place] % (Auto) (2-11) % Eos % (Auto) (0-4) % Baso % (Auto) (0-2) % Lymph # (Auto) (1.2-4.9) X10*3/uL [place] # (Auto) (0.1-1.2) X10*3/uL Eos # (Auto) (0.0-0.4) X10*3/uL Baso # (Auto) (0.0-0.2) X10*3/uL Abs Immat Gran (auto) (0.00-0.03) X10*3/uL Absolute Neuts (auto) (2.0-8.3) x10*3/uL Absolute Nucleated RBC (0.0-0.012) X10*3/uL Nucleated RBC % (auto) (0.0-0.2) /100WBC Sodium (135-145) mmol/L Potassium (3.3-5.1) mmol/L Chloride (96-108) mmol/L Carbon Dioxide (22-29) mmol/L Anion Gap (12-20) BUN (9-16) mg/dL Creatinine (0.5-1.4) mg/dL Estim Creat Clear Calc Estimated GFR Random Glucose (60-115) mg/dL Calcium (8.4-10.2) mg/dL Total Bilirubin (0.0-1.0) mg/dL AST (5-31) U/L ALT (0-31) U/L Alkaline Phosphatase (39-117) U/L Total Protein (6.5-8.0) g/dL Albumin (3.5-5.0) g/dL Stool Occult Blood NEGATIVE (NEGATIVE) Blood Type Antibody Screen Discharge Plan Discharge Clinical Impression: Chronic leukopenia, Anemia, chronic disease Patient Disposition: Home, Self-Care Additional Instructions: Your labs are completely stable, you have chronically low white blood cell count, you also are chronically anemic. Your blood counts are stable we repeated your hemoglobin and hematocrit, it is unchanged, if anything it is subtly improved. All of your liver function tests are normal. You do not have blood in your stool. Continue to follow up with your clin application specialist. Prescriptions: No Action simvastatin 40 mg tablet 40 mg PO QPM Qty: 90 3RF cholecalciferol (vitamin D3) 50 mcg (2,000 unit) capsule 50 mcg PO DAILY Qty: 90 3RF fluticasone propion-salmeterol [Advair Diskus] 250-50 mcg/dose blister with device 1 ea inhalation BID Qty: 60 3RF allopurinol 300 mg tablet 300 mg PO DAILY Qty: 90 3RF losartan 25 mg tablet 25 mg PO BEDTIME Qty: 90 3RF metoprolol succinate 25 mg tablet extended release 24 hr 25 mg PO DAILY Qty: 90 3RF (DME) FreeStyle Bossman 3 Plus Sensor Device See Rx Instructions .ROUTE .MEDSUPPLY Qty: 1 0RF Rx Instructions: Check glucose 3 times a day with meals (DME) FreeStyle Bossman 3 [place] Misc See Rx Instructions .ROUTE .MEDSUPPLY Qty: 1 0RF Rx Instructions: Check glucose 3 times a day with meals fluconazole 150 mg tablet 1 tab PO DAILY azathioprine 50 mg tablet 1.5 tab PO DAILY haloperidol 10 mg tablet 1 tab PO BEDTIME lorazepam 1 mg tablet 1 mg PO BID insulin lispro [Humalog U-100 Insulin] 100 unit/mL solution See Rx Instructions .ROUTE .COMPLEX Rx Instructions: 4X daily as instructed sliding scale lamotrigine 100 mg tablet 1 tab PO BEDTIME mesalamine [Apriso] 0.375 gram capsule,extended release 24hr 4 cap PO DAILY omeprazole 20 mg Capsule,Delayed Release(Dr/Ec) 20 mg PO BEDTIME albuterol sulfate [ProAir HFA] 90 mcg/actuation Hfa Aerosol Inhaler 2 puff INHALATION Q4-6H PRN (Reason: Shortness Of Breath Or Wheezing) insulin glargine [Lantus U-100 Insulin] 100 unit/mL solution 70 unit subcut BEDTIME trazodone 300 mg tablet 300 mg PO BEDTIME Print Language: Maori
[2025-08-30 16:17] LABS: MANUAL DIFF FLAG NO
[2025-08-30 16:20] LABS: Hematocrit 22.8 % (37.0-47.0); Hemoglobin 8.1 g/dl (12.0-16.0); Imm Gran Abs Auto 0.02 X10*3/uL (0.00-0.03); Imm Gran Pct Auto 0.7 % (0.0-0.4); Lymphocytes Absolute Auto 0.8 X10*3/uL (1.2-4.9); Mean Corpuscular HGB Conc 35.5 g/dl (31.0-35.0); Mean Corpuscular Hemoglobin 40.5 pg (27.0-33.0); NRBC Abs Auto 0.000 X10*3/uL (0.0-0.012); NRBC Pct Auto 0.0 /100WBC (0.0-0.2); Platelet Count 163 X10*3/uL (160-400); Red Blood Count 2.00 X10*6/uL (4.20-5.50); White Blood Count 2.9 X10*3/uL (4.8-10.8)
[2025-08-30 16:41] LABS: Alanine Aminotransferase 12 U/L (0-31); Albumin Level 4.0 g/dL (3.5-5.0); Alkaline Phosphatase 55 U/L (39-117); Anion Gap 12 (12-20); Aspartate Amino Transferase 27 U/L (5-31); Blood Urea Nitrogen 16 mg/dL (9-16); Calcium 8.6 mg/dL (8.4-10.2); Carbon Dioxide 19 mmol/L (22-29); Chloride 111 mmol/L (96-108); Creatinine Clr Calc Pharmacy 66.2; Estimated Glomerular Filt Rate 49; Potassium 4.7 mmol/L (3.3-5.1); Sodium 137 mmol/L (135-145); Total Protein 6.1 g/dL (6.5-8.0)
[2025-08-30 17:01] LABS: Mean Corpuscular Volume 114.0 fL (80.0-98.0)
[2025-08-30 18:09] VITALS: BP 126/59; PULSE 80; RESP 16; TEMP 36.4; O2SAT 97
[2025-08-30 21:02] LABS: Hematocrit 23.0 % (37.0-47.0); Hemoglobin 8.5 g/dl (12.0-16.0)
[2025-08-30 21:12] VITALS: BP 151/70; PULSE 75; TEMP 37.2; O2SAT 100
[2025-08-30 21:52] LABS: OBS Int Ctl Valid YES; OBS1 NEGATIVE (NEGATIVE)
--- NOTE | 2025-08-30 22:13 | PC.NURSE ---
PT came in ambulatory from triage following receiving her labs work, pts provider reported low WBC and HH prompting pt to be evaluated at the ED. PT is currently asymptomatic.
[2025-08-30 22:46] VITALS: BP 151/70; PULSE 75; RESP 16; TEMP 37.2; O2SAT 100
[2025-08-30 22:52] VITALS: BP 110/56; PULSE 88; RESP 17; TEMP 37.2; O2SAT 99
== END 2025-08-30 22:49 | disposition home or self-care (01) ==
PROVIDERS: Physician Assistant Medical; Registered Nurse Emergency; Emergency Provider Emergency Medicine; PCP Physician Assistant Medical
DX: R79.89 Other specified abnormal findings of blood chemistry (principal); D72.819 Decreased white blood cell count, unspecified; D64.9 Anemia, unspecified; E11.9 Type 2 diabetes mellitus without complications; Z79.4 Long term (current) use of insulin; Z79.899 Other long term (current) drug therapy
CPT/HCPCS: 36415; 80053; 82272; 85014; 85018; 85025; 86850; 86900; 86901; 99283; 99284

== ENCOUNTER 2025-09-11 13:00 | Outpatient (REF) | payer MEDICARE, MEDICAID, SELFPAY ==
--- OUTSIDE RECORDS SUMMARY | 2024-11-10 06:30 | XMS_ITS ---
Author Organization [facility] Address [address] [facility] [facility] [place] [address] Care Team Providers Care Animal Sitter Name Role Phone Richard Blackman MD Primary Care Provider Unavailab chris Rocio Camargoe Unavailable [phone] Allergies Allergen (clinical drug ingredient) Drug/Non Drug [...] No Encounters Encounter Location Date Provider Diagnosis [facility] [place] [address] [place] [address] 11/10/2024 Noelle Camargo Plan Of Treatment Next Appt Details Provider Name:Noelle Camargo , 11/06/2025 02:00:00 PM, [address] [place], [address], Progress Notes * Alexsandra HOLLEY ADOB: 7 (60 yo F)Acc No.[id number]:11/10/2024 Progress Notes Patient: Alexsandra MEMBRENO Provider: Neptali Camargo DPM :1965 A ge:59 Y S ex:Female Date:11/10/2024 Address:[address] [place] [address], [address]-[address] Pcp:Richard Blackman MD Subjective: * Chief [...] enies. C ardiovascular: Pacemaker d enies. M ASPNET DEVELOPER d enies. W PW d enies. C [...] stic Procedure: [place] asthma 4 days [place] [facility] [place], [facility] [place] 03/2018. * Family History: [...] Date: 01/11/2024 Generated for Marin mahan/Pio/Adarsh on: 05:07 PM EDT
--- OUTSIDE RECORDS SUMMARY | 2025-01-26 09:00 | XMS_ITS ---
Author Organization [facility] Address [address] [place] [address] Care Team Providers Care Filtration Operator Name Role Phone Yehuda HALL, Richard Primary Care Provider UnavailNoelle Echevarria [phone] Encounters Encounter Location Date Provider Diagnosis [address] [address] 01/26/2025 Noelle Camargo Plan Of Treatment Next Appt Details Provider Name:Noelleligia Camargo , 11/06/2025 02:00:00 PM, [address] [place] [address], [address], Progress Notes * Alexsadnra HOLLEY ADOB: [birth year] (60 yo F)Acc No.[id number]:01/26/2025 Progress Notes Patient: Alexsandra MEMBRENO Provider: Bambi Camargo DPM :1965 A ge:59 Y S ex:Female Date:01/26/2025 Address:[address] [place] [address], [address], [id number] Pcp:Richard Blackman MD Subjective: * Chief Complaints: [...] 01/26/2025 Generated for Marin mahan/Pio/Adarsh on: 1 05:08 PM EDT
--- OUTSIDE RECORDS SUMMARY | 2025-08-07 09:00 | XMS_ITS ---
Author Organization [facility] Address [address] [place] [address] Care Team Providers Care Structural Steel Worker Name Role Phone Yehuda HALL, Richard Primary Care Provider UnavailNoelle Echevarria [phone] Encounters Encounter Location Date Provider Diagnosis [address] [address] 08/07/2025 Noelle Camargo Plan Of Treatment Next Appt Details Provider Name:Noelleligia Camargo , 11/06/2025 02:00:00 PM, [address] [place] [address], [phone], Progress Notes * Alexsandra HOLLEY ADOB: [birth year] (60 yo F)Acc No.[id number]:08/07/2025 Progress Note Patient: Alexsandra MEMBRENO Provider: Bambi Camargo DPM :1965 A ge:60 Y S ex:Female Date:08/07/2025 Address:[address] [place] [address], [address], [id number] Pcp:Richard Blackman MD Subjective: * Chief Complaints: [...] 08/07/2025 Generated for Marin mahan/Pio/Adarsh on: 1 05:06 PM EDT
[2025-09-11 15:56] LABS: MANUAL DIFF FLAG NO
[2025-09-11 16:18] LABS: Imm Gran Abs Auto 0.07 X10*3/uL (0.00-0.03); Imm Gran Pct Auto 2.4 % (0.0-0.4); Lymphocytes Absolute Auto 0.9 X10*3/uL (1.2-4.9); Mean Corpuscular HGB Conc 33.9 g/dl (31.0-35.0); Mean Corpuscular Hemoglobin 38.9 pg (27.0-33.0); NRBC Abs Auto 0.030 X10*3/uL (0.0-0.012); Platelet Count 222 X10*3/uL (160-400); Red Blood Count 1.67 X10*6/uL (4.20-5.50); White Blood Count 2.9 X10*3/uL (4.8-10.8)
[2025-09-11 16:49] LABS: Mean Corpuscular Volume 115.0 fL (80.0-98.0); NRBC Pct Auto 1.0 /100WBC (0.0-0.2)
[2025-09-11 16:51] LABS: Hematocrit 19.2 % (37.0-47.0); Hemoglobin 6.5 g/dl (12.0-16.0)
[2025-09-11 16:57] LABS: Alanine Aminotransferase 12 U/L (0-31); Albumin Level 4.0 g/dL (3.5-5.0); Alkaline Phosphatase 61 U/L (39-117); Anion Gap 12 (12-20); Aspartate Amino Transferase 23 U/L (5-31); Blood Urea Nitrogen 14 mg/dL (9-16); Calcium 8.6 mg/dL (8.4-10.2); Carbon Dioxide 21 mmol/L (22-29); Chloride 108 mmol/L (96-108); Estimated Glomerular Filt Rate > 60; Iron 118 mcg/dL (30-160); Magnesium 2.0 mg/dL (1.6-2.6); Percent Iron Saturation 57 % (15-50); Potassium 4.3 mmol/L (3.3-5.1); Sodium 137 mmol/L (135-145); Total Iron Binding Capacity 207 mcg/dL (228-428); Total Protein 6.0 g/dL (6.5-8.0); Unsaturated Iron Binding 89 ug/dL
[2025-09-11 16:58] LABS: Ferritin 945 ng/mL (10-250)
--- OUTSIDE RECORDS SUMMARY | 2025-09-11 17:07 | XMS_ITS | Patient Health Record ---
Author Organization [facility] Address [address] [place] [address] Care Team Providers Care Supervisor Landscape Name Role Phone Yehuda (RETIRED) Richard HALL Primary Care Provider Unavailable Jose Juan Hare Unavailable [phone] Allergies Allergen (clinical drug ingredient) Drug/Non Drug Allergy documented on EMR Reaction Allergy Type Onset Date Status amoxicillin / clavulanate Augmentin diarrhea Drug Allergy Active amoxicillin Amoxicillin Unknown Drug Allergy Act vini seasonal (uncoded) Unknown Allergy A ctive Results Component Value Reference Range Notes IRON PROFILE Reviewed date:09/22/2024 01:17:40 PM Interpretation: Performing Lab:[address] [address] Notes/Report: Iron 111 30-160 mcg/dL Total Iron Binding Capacity 227 228-428 mcg/dL Percent Iron Saturation 49 15-50 % Unsaturated Iron Binding 116 Ferritin (Not yet reviewed by provider) Interpretation: Performing Lab:[facility], [address] [place] [phone] Notes/Report: Ferritin 850 10-250 ng/mL Complete Blood Count Auto Di ff Reviewed date:11/04/2024 06:12:41 PM Interpretation: Performing Lab:[address] [address] Notes/Report: White Blood Count 4.2 4.8-10.8 X10*3/uL [...] Panel Reviewed date:11/04/2024 06:13:02 PM Interpretation: Performing Lab:[address] [address] Notes/Report: Bilirubin Total 0.7 0.0-1.0 mg/dL Bilirubin Direct 0.2 0.0-0.5 mg/dL Aspartate Amino Transferase 19 5-31 U/L Alanine Aminotransferase 18 0-31 U/L Total Protein 6.0 6.5-8.0 g/dL Albumin Level 3.9 3.5-5.0 g/dL Alkaline Phosphatase 52 39-117 U/L Complete Blood Count Auto Di ff Reviewed date:12/22/2024 04:23:03 PM Interpretation: Performing Lab:[address] [address] Notes/Report: White Blood Count 4.4 4.8-10.8 X10*3/uL [...] Panel Reviewed date:12/23/2024 06:24:28 PM Interpretation: Performing Lab:[facility], [address] [place] [address] Notes/Report: Bilirubin Total 0.7 0.0-1.0 mg/dL Bilirubin Direct 0.2 0.0-0.5 mg/dL Aspartate Amino Transferase 21 5-31 U/L Alanine Aminotransferase 19 0-31 U/L Total Protein 6.6 6.5-8.0 g/dL Albumin Level 4.1 3.5-5.0 g/dL Alkaline Phosphatase 50 39-117 U/L Complete Blood Count Auto Di ff Reviewed date:01/26/2025 10:12:17 AM Interpretation: Performing Lab:[facility], [address] [place] [phone] Notes/Report: White Blood Count 5.0 4.8-10.8 X10*3/uL [...] Panel Reviewed date:01/26/2025 10:12:38 AM Interpretation: Performing Lab:[facility], [address] [place] [phone] Notes/Report: Bilirubin Total 0.6 0.0-1.0 mg/dL Bilirubin Direct 0.2 0.0-0.5 mg/dL Aspartate Amino Transferase 31 5-31 U/L Alanine Aminotransferase 25 0-31 U/L Total Protein 6.4 6.5-8.0 g/dL Albumin Level 3.9 3.5-5.0 g/dL Alkaline Phosphatase 52 39-117 U/L IRON PROFILE Reviewed date:03/09/2025 12:47:04 AM Interpretation: Performing Lab:[address] [address] Notes/Report: Iron 110 30-160 mcg/dL Total Iron Binding Capacity 232 228-428 mcg/dL Percent Iron Saturation 47 15-50 % Unsaturated Iron Binding 122 Ferritin Reviewed date:03/09/2025 12:43:59 AM Interpretation: Performing Lab:[address] [address] Notes/Report: Ferritin 879 10-250 ng/mL Therapeutic Phlebotomy Reviewed date:03/09/2025 12:45:21 AM Interpretation: Performing Lab:[address] [address] Notes/Report: THER/HGB 10.9 12.0-16.0 g/dL THER/HCT TNP 37.0-47.0 % Therapeutic Phlebotomy Phlebotomy Performed 500 mls drawn on 03/07/25. Please note that a copy of this report has been sent to the Primary Care Physician, the ordering physician and any physician designated by patient request. Complete Blood Count Auto Di ff (Not yet reviewed by provider) Interpretation: Performing Lab:[address] [address] Notes/Report: White Blood Count 3.9 4.8-10.8 X10*3/uL [...] Panel Reviewed date:03/22/2025 01:09:49 PM Interpretation: Performing Lab:[address] [address] Notes/Report: Bilirubin Total 0.6 0.0-1.0 mg/dL Bilirubin Direct 0.2 0.0-0.5 mg/dL Aspartate Amino Transferase 21 5-31 U/L Alanine Aminotransferase 19 0-31 U/L Total Protein 6.0 6.5-8.0 g/dL Albumin Level 4.0 3.5-5.0 g/dL Alkaline Phosphatase 43 39-117 U/L Complete Blood Count Auto Di ff Reviewed date:05/22/2025 11:05:25 PM Interpretation: Performing Lab:[address] [address] Notes/Report: White Blood Count 3.9 4.8-10.8 X10*3/uL [...] (Not yet reviewed by provider) Interpretation: Performing Lab:[address] [address] Notes/Report: THER/HGB 11.3 12.0-16.0 g/dL THER/HCT TNP 37.0-47.0 % Therapeutic Phlebotomy Phlebotomy Performed 500 mls drawn on 06/06/25. Please note that a copy of this report has been sent to the Primary Care Physician, the ordering physician and any physician designated by patient request. Complete Blood Count Auto Di ff Reviewed date:06/22/2025 05:58:27 PM Interpretation: Performing Lab:[address] [address] Notes/Report: White Blood Count 3.9 4.8-10.8 X10*3/uL [...] Panel Reviewed date:06/22/2025 05:58:57 PM Interpretation: Performing Lab:[address] [address] Notes/Report: Bilirubin Total 0.8 0.0-1.0 mg/dL Bilirubin Direct 0.2 0.0-0.5 mg/dL Aspartate Amino Transferase 24 5-31 U/L Alanine Aminotransferase 19 0-31 U/L Total Protein 6.0 6.5-8.0 g/dL Albumin Level 4.1 3.5-5.0 g/dL Alkaline Phosphatase 50 39-117 U/L SLIDE REVIEW Reviewed date:06/22/2025 05:57:17 PM Interpretation: Performing Lab:[facility], [address] [place] [address] Notes/Report: SLIDE REVIEW VERIFIED Complete Blood Count Auto Di ff (Not yet reviewed by provider) Interpretation: Performing Lab:[facility], [address] [place] [address] Notes/Report: White Blood Count 2.8 4.8-10.8 X10*3/uL Red Blood Count 2.07 4.20-5.50 X10*6/uL Hemoglobin 8.6 12.0-16.0 g/dl Hematocrit 24.0 37.0-47.0 % Mean Corpuscular Volume 115.9 80.0-98.0 fL Mean Corpuscular Hemoglobin 41.5 27.0-33.0 pg Mean Corpuscular HGB Conc 35.8 31.0-35.0 g/dl Red Cell Distribution Width 17.4 11.0-16.0 % Platelet Count 160 160-400 X10*3/uL Mean Platelet Volume 10.8 9.4-12.3 fL Neutrophils Percent Auto 51.4 45-73 % Imm Gran Pct Auto 0.7 0.0-0.4 % Lymphocytes Percent Auto 35.1 20-40 % Monocytes Percent Auto 7.8 2-11 % Eosinophils Percent Auto 4.3 0-4 % Basophils Percent Auto 0.7 0-2 % NRBC Pct Auto 0.0 0.0-0.2 /100WBC Neutrophils Absolute Auto 1.5 2.0-8.3 x10*3/u L Imm Gran Abs Auto 0.02 0.00-0.03 X10*3/uL Lymphocytes Absolute Auto 1.0 1.2-4.9 X10*3/u L Monocytes Absolute Auto 0.2 0.1-1.2 X10*3/uL Eosinophils Absolute Auto 0.1 0.0-0.4 X10*3/u L Basophils Absolute Auto 0.0 0.0-0.2 X10*3/uL NRBC Abs Auto 0.000 0.0-0.012 X10*3/uL White Blood Count 2.8 4.8-10.8 X10*3/uL Red Blood Count 2.07 4.20-5.50 X10*6/uL Hemoglobin 8.6 12.0-16.0 g/dl Hematocrit 24.0 37.0-47.0 % Mean Corpuscular Volume 115.9 80.0-98.0 fL Mean Corpuscular Hemoglobin 41.5 27.0-33.0 pg Mean Corpuscular HGB Conc 35.8 31.0-35.0 g/dl Red Cell Distribution Width 17.4 11.0-16.0 % Platelet Count 160 160-400 X10*3/uL Mean Platelet Volume 10.8 9.4-12.3 fL Neutrophils Percent Auto 51.4 45-73 % Imm Gran Pct Auto 0.7 0.0-0.4 % Lymphocytes Percent Auto 35.1 20-40 % Monocytes Percent Auto 7.8 2-11 % Eosinophils Percent Auto 4.3 0-4 % Basophils Percent Auto 0.7 0-2 % NRBC Pct Auto 0.0 0.0-0.2 /100WBC Neutrophils Absolute Auto 1.5 2.0-8.3 x10*3/u L Imm Gran Abs Auto 0.02 0.00-0.03 X10*3/uL Lymphocytes Absolute Auto 1.0 1.2-4.9 X10*3/u L Monocytes Absolute Auto 0.2 0.1-1.2 X10*3/uL Eosinophils Absolute Auto 0.1 0.0-0.4 X10*3/u L Basophils Absolute Auto 0.0 0.0-0.2 X10*3/uL NRBC Abs Auto 0.000 0.0-0.012 X10*3/uL Liver Panel Reviewed date:08/29/2025 04:44:21 PM Interpretation: Performing Lab:[address] [address] Notes/Report: Bilirubin Total 0.9 0.0-1.0 mg/dL Bilirubin Direct 0.3 0.0-0.5 mg/dL Aspartate Amino Transferase 18 5-31 U/L Alanine Aminotransferase 12 0-31 U/L Total Protein 6.1 6.5-8.0 g/dL Albumin Level 4.0 3.5-5.0 g/dL Alkaline Phosphatase 60 39-117 U/L SLIDE REVIEW Reviewed date:08/31/2025 01:40:03 AM Interpretation: Performing Lab:[address] [address] Notes/Report: SLIDE REVIEW VERIFIED Reason For Referral No Information Medications Medication SIG (Take, Route, Frequency, Duration) Notes Start Date End Date Status azaTHIOprine 50 mg TAKE 1 AND 1/2 TABLE TS EVERY DAY; Duration: 30 Active Losartan Potassium 25 MG 1 tablet Orally Once a day Active HumaLOG 100 UNIT/ML sliding scale Subcut aneous 4 times a day Active Cranberry Concentrate 500 MG 3 Orally bid Active Ativan 1 MG 1 tablet as needed O rally prn Active Simvastatin 40 MG 1 tablet in the even ing Orally Once a day; Duration: 30 day(s) Active Tylenol Extra Strength 500 [...] TAKE FOUR CAPSULES B Y MOUTH EVERY MORNING; Duration: 30 Active lamoTRIgine 100 MG 1 tablet Orally [...] inutes before morning meal Orally Once a day; Duration: 30 day(s) Active LaMICtal 100mg 1 tablet [...] Problem Status W/U Status Risk Notes Problem Fistula of large intestine due to Crohn's disease (7222052958783746) 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) Active confirmed Problem Pseudopolyposis of colon (12459288) Inflammatory polyps of colon without complications (K51.40) Active confirmed Problem Diverticular disease of colon (077043535) Diverticulosis of large intestine without perforation or abscess without bleeding (K57.30) Active confirmed Problem Dysphagia (86121318) Dysphagia (R13.10) Active confirmed Problem Epigastric pain (26740290) Abdominal pain, epigastric (R10.13) Active confirmed Problem Crohn's disease of colon (33397734) Crohn's disease of colon (K50.10) Active confirmed Problem Anemia (235521123) Anemia (D64.9) Active confir med Problem Crohn's disease of large bowel (9881995) Crohns colitis, without complications (K50.10) Active confirmed Problem Crohns disease (50236349) Crohns disease (K50.90) Active confirmed Problem Iron deficiency anemia (18510134) Other iron deficiency anemia (D50.8) Active confirmed Problem Pseudopolyposis of colon (08052399) Inflammatory polyps, without complications (K51.40) Active confirmed Problem Anemia (704163656) Anemia, unspe cified type (D64.9) Active confirmed Problem Increased storage iron (83821459) Increased storage iron (E83.19) Active confirmed Problem Esophageal reflux finding (761378802) Gastroesophageal reflux (K21.9) Active confirmed Problem Diarrhea (52126425) Diarrhea, unspecified type (R19.7) Active confirmed Problem Crohn's disease of large bowel (0185374) Crohn's disease of large intestine without complication (K50.10) Active confirmed Problem Crohn's disease of perianal region with fistula (K50.113) Active confirmed Problem Gallbladder disease (19488665) Gallbladder sludge (K82.8) Active confirmed Problem Macrocytosis - no anemia (845011981) Macrocytosis without anemia (D75.89) Active confirmed Problem Diarrhea of presumed infectious origin (32421561) Diarrhea of presumed infectious origin (R19.7) Active confirmed Problem Crohn's disease of large bowel (6590480) Crohn''s disease of large intestine without complication (K50.10) Active confirmed Problem Crohn's disease of large bowel (1455285) Crohn''s disease of colon without complication (K50.10) Active confirmed Problem Crohn's disease of large bowel (3760043) Crohn's disease of colon without complication (K50.10) Active confirmed Problem Esophageal dysphagia (04328171) Esophageal dysphagia (R13.19) Active confirmed Problem Drug monitoring done (350446267) Encounter for therapeutic drug monitoring (Z51.81) Active confirmed Vital Signs Blood pressure diastolic 111 mm Hg 02/28/2025 Height 63 in 02/28/2025 Blood pressure systolic 111 mm Hg 02/28/2025 Weight 267 lbs 02/28/2025 BMI 47.29 kg/m2 02/28/2025 Encounters Encounter Location Date Provider Diagnosis [facility] [address] [place] [address] 02/28/2025 Jose Juan Hare Crohns colitis, with out complications K50.10 and Increased storage iron E83.19 [facility] [address] [place] [address] 12/07/2024 Jose Juan Hare [facility] [address] [place] [address] 08/28/2025 Jose Juan Hare Crohn''s disease of [...] of colon without complication (ICD-10 - K50.10) 02/28/2025 Increased storage iron (ICD-10 - E83.19) We will arrange for a phlebotomy at the [facility] for every three mnonths Overall, [...] PCR 05/13/2023 Complete Blood Count Auto Diff Complete Blood Count Auto Diff 5 Ferritin 08/30/2024 Ferritin 09/21/2024 Therapeutic Phlebotomy 06/06/2025 Future Test Test Name Order Date UPPER GI ENDOSCOPY BALLOOON DILATION OF ESOPH 07/26/2021 COLONOSCOPY 07/26/2021 COLONOSCOPY 09/08/2023 Next Appt Details Provider Name:Jose Juan Hare , 10/27/2025 01:00:00 PM, [address] [place] [address], [facility] [address], [place], [address], Insurance Providers Payer Name Payer Address Payer Phone Subscriber Number Group Number Insured Name Patient Relationship to Insured Coverage Start Date Coverage End Date MEDICARE OF [place] [address] JESENIA GUILLEN [id number] FAUZIA HOLLEY Self - patient is the insured MEDICAID OF [facility] [address] [place] [address] [phone] [id number] FAUZIA HOLLEY Self - patient is the [...]
--- OUTSIDE RECORDS SUMMARY | 2025-09-11 17:09 | XMS_ITS | Patient Health Record ---
[facility] Address [address] [place] [address] Care Team Providers Care Conductor And Engineer Name Role Phone Richard Blackman MD Primary Care Provider Unavailab chris Noelle Camargo Unavailable [phone] Allergies Allergen (clinical drug ingredient) Drug/Non Drug [...] Problem Acquired hammer toe of right foot (3108076453946614 ) Other hammer toe(s) (acquired), right foot (M20.41) Active confirmed Problem Acquired hammer toe of left foot (4491656199475132 ) Other hammer toe(s) (acquired), left foot (M20.42) Active confirmed Problem Polyneuropathy due to type 2 diabetes mellitus (991771126) Type 2 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) Active confirmed Problem Acquired hallux valgus (59522747) Hallux valgus (acquired), right foot (M20.11) Active confirmed Problem Neuropathy (394797480) Neuropathy (G62.9) Active confirmed Vital Signs Blood pressure diastolic 76 mm Hg 04/27/2025 Height 5 ft 2 in in 04/27/2025 Blood pressure systolic 112 mm Hg 04/27/2025 Weight 265 lbs 04/27/2025 BMI 48.46 kg/m2 04/27/2025 Procedures Procedure Date Ordered Date Performed Result Body Sit e 57372-DJTX SKIN LESIONS, OVER 4 04/27/2025 N/A T2019-FUPYUUCJ DYSTROPHIC NAILS ANY # 04/27/2025 N/A Encounters Encounter Location Date Provider Diagnosis [address] [address] 04/27/2025 Noelle Raman Hallux valgus (acquired), right foot M20.11 ; Other hammer toe(s) (acquired), right foot M20.41 ; Bunion of right foot M21.611 ; Other hammer toe(s) (acquired), left foot M20.42 ; Type 2 diabetes mellitus with diabetic polyneuropathy E11.42 and Neuropathy G62.[address] [address] 11/08/[address] [address] 01/24/[address] [address] 08/07/2025 Noelle Camargo Assessments Encounter Date Diagnosis [...] Order Date *Liver Function Test (LFT) 04/12/2012 87651-DPLHBMW NAIL, 6 OR MORE 12/24/2011 15397-JADFGUJ NAIL, 1-07/05/2012 69863-OSVVEPV NAIL, -10/04/2012 99965-OACHDZV NAIL, -04/12/2012 43282-NSTCURY NAIL, -04/11/2013 53804-UQEDJYT NAIL, -07/11/2013 38097-TCZPUOC NAIL, -11/07/2013 98422-CZDAMAB NAIL, -03/06/2014 96600-GSRXWWO NAIL, -08/17/2014 12463-TYFBODH NAIL, -10/30/2014 36151-ONQEOFT NAIL, -01/17/2015 15218-HZLYNTB NAIL, -01/06/2013 03613-XHSBUKE NAIL, -04/19/2015 43215-WQVXZFS NAIL, -07/19/2015 01407-Qetncvzx Plate 07/19/2015 09005-Tbvakmcg Plate 03/06/2014 07215-Atjkavee Plate 04/19/2015 48530-Vrwrbvgq Plate 01/17/2015 98343-Satcnzej Plate 10/30/2014 80807-Vagxfsol Plate 08/17/2014 41312-Hdlnksqo Plate 08/15/2019 91682-MLZ 12/29/2011 03088- Debride <25 sq cm 08/11/2011 60327-CYWJRKU SKIN/TISSUE 01/19/2012 50687-WLHPPVH SKIN/TISSUE 02/02/2012 04102 I&D ABSCESS- SIMPLE,SINGLE 011 54960 I&D ABSCESS- SIMPLE,SINGLE 012 53708 I&D ABSCESS- SIMPLE,SINGLE 013 11203 I&D ABSCESS- SIMPLE,SINGLE 012 59240 I&D ABSCESS- SIMPLE,SINGLE 014 41131 I&D ABSCESS- SIMPLE,SINGLE 014 24766 I&D ABSCESS- SIMPLE,SINGLE 013 78896 I&D ABSCESS- SIMPLE,SINGLE 013 22492 I&D ABSCESS- SIMPLE,SINGLE 014 21990 I&D ABSCESS- SIMPLE,SINGLE 015 67750 I&D ABSCESS- SIMPLE,SINGLE 013 69731 I&D ABSCESS- SIMPLE,SINGLE 015 65036 I&D ABSCESS- SIMPLE,SINGLE 015 00866-OUOS SKIN LESIONS, OVER 4 01/27/20 17 15510-ZVMS SKIN LESIONS, OVER 4 04/27/20 17 59753-SNTY SKIN LESIONS, OVER 4 08/15/20 19 89714-YAZH SKIN LESIONS, OVER 4 11/24/19 20 37987-DHKW SKIN LESIONS, OVER 4 09/30/20 18 80990-HRTX SKIN LESIONS, OVER 4 12/30/19 19 53014-NGLM SKIN LESIONS, OVER 4 08/13/20 17 75010-PYLH SKIN LESIONS, OVER 4 12/28/19 18 95578-EGJU SKIN LESIONS, OVER 4 04/01/20 18 46584-DZWL SKIN LESIONS, OVER 4 07/01/20 18 58615-DMLT SKIN LESIONS, OVER 4 04/27/20 25 13345-XHIW SKIN LESIONS, 2 TO 4 04/28/20 16 22859-BMCT SKIN LESIONS, 2 TO 4 08/04/20 16 23379-EAKJ SKIN LESIONS, 2 TO 4 07/19/20 15 18153-NFNL SKIN LESIONS, 2 TO 4 10/25/20 15 55742-APTD SKIN LESIONS, 2 TO 4 01/24/20 16 93590-QRUF SKIN LESIONS, 2 TO 4 04/19/20 15 80138-APSI SKIN LESIONS, 2 TO 4 01/06/20 13 14415-YISN SKIN LESIONS, 2 TO 4 01/17/20 15 32969-XEXR SKIN LESIONS, 2 TO 4 10/30/20 14 23162-BGXX SKIN LESIONS, 2 TO 4 07/11/20 13 22943-KPZR SKIN LESIONS, 2 TO 4 11/07/20 13 56161-ABBM SKIN LESIONS, 2 TO 4 03/06/20 14 98413-KDUB SKIN LESIONS, 2 TO 4 08/17/20 14 34282-RFBC SKIN LESIONS, 2 TO 4 10/04/20 12 22745-MFOK SKIN LESIONS, 2 TO 4 04/11/20 13 48324-IXNX SKIN LESIONS, 2 TO 4 07/05/20 12 79294-HJKZ SKIN LESION 04/12/2012 G9067-HCOSNQAN DYSTROPHIC NAILS ANY # H7575-JTCKJLBB DYSTROPHIC NAILS ANY # I2286-ZYUSSEEO DYSTROPHIC NAILS ANY # A8279-ACRPAIBE DYSTROPHIC NAILS ANY # K2088-NTHXIYLG DYSTROPHIC NAILS ANY # P6261-DWNZMHOQ DYSTROPHIC NAILS ANY # C9733-RZMBXYRI DYSTROPHIC NAILS ANY # J0453-OJNCHEMJ DYSTROPHIC NAILS ANY # Q2036-ZSAQKFVA DYSTROPHIC NAILS ANY # D7660-VNAWOSOL DYSTROPHIC NAILS ANY # A4043-CQUJPKRW DYSTROPHIC NAILS ANY # Q7436-JMRRSGJV DYSTROPHIC NAILS ANY # Y5510-OALKXHQA DYSTROPHIC NAILS ANY # X6795-CHQAXEEC DYSTROPHIC NAILS ANY # Z7286-KWFWQGAF DYSTROPHIC NAILS ANY # Z7658-RHQIJNUD DYSTROPHIC NAILS ANY # A1173-HQGWJROZ DYSTROPHIC NAILS ANY # Y8345-KBNZSWYS DYSTROPHIC NAILS ANY # R8413-POJMWKGV DYSTROPHIC NAILS ANY # Y6971-MYXJMVUA DYSTROPHIC NAILS ANY # G2046-VLGGNOMS DYSTROPHIC NAILS ANY # J2536-ZYOAHSOX DYSTROPHIC NAILS ANY # J5591-UJYHNGQP DYSTROPHIC NAILS ANY # M2027-WRSXBUYU DYSTROPHIC NAILS ANY # Next Appt Details Provider Name:Noelle Camargo , 11/06/2025 02:00:00 PM, [address] [place] [address], [address], Insurance Providers Payer Name Payer Address Payer Phone Subscriber Number Group Number Insured Name Patient Relationship to Insured Coverage Start Date Coverage End Date Medicare National [employer] [address] [place] [address] [id number] Alexsandra Thomas Self - patient is the insured 9 Medical (General) History Medical History History ICD Code transfusions psychiatric disorder chicken pox Gout diabetic depression hypercholesterolemia Anxiety disorder anemia crohns disease Arthritis asthma covid-19 High Blood Pressure Numbness Psoriasis/eczema Reflux ( GERD) Sciatica Vascular phlebitis (clots) Surgical History Surgery Date(Month/Year) Hospitalization History Reason Date(Month/Year) [facility] [place] - Kidney infection 03/2018 [facility] pintch nerve 05/2017 [facility] asthma 4 days 08/2016
[2025-09-11 17:20] LABS: Folate 7.8 ng/mL (> or = 4.0); Vitamin B12 > 2000 pg/mL (200-900)
== END 2025-09-11 13:01 | disposition home or self-care (01) ==
LOC: HO.HMGCLDS 13:00
PROVIDERS: PCP Physician Assistant Medical; Visit Provider Physician Assistant Medical
DX: Z13.89 Encounter for screening for other disorder (principal)
CPT/HCPCS: 36415; 80053; 82607; 82728; 82746; 83540; 83735; 85025; 96127; 96372; 99212; J3420

== ENCOUNTER 2025-09-11 13:00 | Outpatient (AMB) | payer MEDICARE, MEDICAID, SELFPAY ==
--- NOTE | 2025-09-11 13:03 | A.OFFPC_ITS ---
Vital Signs 09/11/25 13:07 Height 5 ft 3.23 in Weight 260 lb BMI 45.7 BP 126/59 L Blood Pressure Location Lt radial Position Sitting Pulse 87 Pulse Source Pulse Oximeter Temp 97.0 F Temp Source Temporal Artery Scan Pulse Oximetry (%) 97 Oxygen Delivery Method Room Air Intake Visit Reasons: Follow Up Aboriginal Education Teacher Required: No Accompanied by: Self / Same As Patient Allergies amoxicillin (AMOXICILLIN) Allergy (Intermediate, Verified 09/11/25 15:55) BLOODY DIARRHEA clavulanic acid (From AUGMENTIN) Adverse Reaction (Intermediate, Verified 09/11/25 15:55) DIARRHEA Medication List - Last Reconciled 09/11/25 by Lauren Reyes PA-C albuterol sulfate 90 mcg/actuation (ProAir HFA) 2 puffs inhalation Q4-6H PRN allopurinol 300 mg PO DAILY azathioprine 1.5 tabs PO DAILY blood-glucose sensor ([employer] PowerStyle Bossman 3 Plus Sensor device) Check glucose 3 times a day with meals blood-glucose,personal banking advisor,cont (FreeStyle Bossman 3 [place]) Check glucose 3 times a day with meals cholecalciferol (vitamin D3) 50 mcg PO DAILY fluconazole 1 tab PO DAILY fluticasone propion-salmeterol 250-50 mcg/dose (Advair Diskus) 1 ea inhalation BID haloperidol 1 tab PO BEDTIME insulin glargine (Lantus U-100 Insulin) 70 units subcut BEDTIME insulin lispro (Humalog U-100 Insulin) 4X daily as instructed sliding scale lamotrigine 1 tab PO BEDTIME lorazepam 1 mg PO BID losartan 25 mg PO BEDTIME mesalamine ER (Apriso) 4 caps PO DAILY metoprolol succinate ER 25 mg PO DAILY omeprazole 20 mg PO BEDTIME simvastatin 40 mg PO QPM trazodone 300 mg PO BEDTIME Tobacco use date assessed: 09/11/25 Dental Screening Dental Screen Date: 09/11/25 Did you have a dental visit in the last 12 months?: Yes Did you have a dental problem in the last 6 months where you did not have access to dental care?: No Was dental information given to patient?: Patient has dentist HPI Follow Up HPI Details The patient is a 60-year-old female presenting with a follow-up for anemia and diabetes management. Patient had outpatient labs on 08/29/2025 which revealed an H&H of 8.6/24.0 with a platelet count of 160,000. She was recommended to go to the emergency department due to patient had fatigue and shortness of breath. She was seen at [facility] Emergency Department and was discharged home with follow- up. Patient donates blood every 3 months for the past 6 months last time she do not it was in May. As therapeutic phlebotomy for elevated ferritin levels. Patient denies any black or bloody stools, vomiting any blood, any wounds that are nonhealing in draining or any other symptoms complaints or concerns. Due to patient not having any active bleeding and only having fatigue and having close follow-up she was discharged home. She reports since she has been discharged home she continues with the fatigue and shortness of breath although she denies any chest pain. She also denies any black or bloody stools or any vaginal bleeding or any draining wounds. The patient does have a history of chronic anemia with macrocytosis, Crohn's disease, morbid obesity, hypertension, hyperlipidemia, type 2 diabetes, asthma, gout, bipolar disorder. She is being followed by Dr. Esteban her android architect. The anemia has been persistent despite no evidence of rectal bleeding. She was previously hospitalized many years ago due to an abdominal abscess, which led to a significant drop in her blood count and required blood transfusions. Currently, there is no abscess present, and the source of her anemia remains unidentified. The patient is also managing diabetes mellitus, with her last hemoglobin A1c recorded at 5.6%. She is on insulin therapy, including Lantus and Humalog, and reports good control of her blood glucose levels. Patient denies any other symptoms complaints or concerns at this time. Reports she is not currently on any iron supplements. [facility] Medical History (Updated 09/11/25 @ 16:13 by Lauren eRyes PA-C) Vitamin B12 deficiency Macrocytic anemia Hypertriglyceridemia Vitamin D deficiency History of mammogram (~12/17/21) Morbid obesity with BMI of 45.0-49.9, adult Breast cancer screening Psoriasis Chronic anemia Type 2 diabetes mellitus with hemoglobin A1c goal of less than 7.0% Establishing care with new doctor, encounter for Annual physical exam History of macrocytosis Gout Hx of abdominal abscess Diabetes Anxiety Elevated cholesterol HTN (hypertension) Anemia COPD (chronic obstructive pulmonary disease) Asthma Depression Bipolar 1 disorder GERD (gastroesophageal reflux disease) Crohn's disease Surgical History History of esophagogastroduodenoscopy (EGD) Hx of tonsillectomy Hx of colonoscopy (~10/22/23) Family History Father Parkinsons Mother Emphysema lung Social History Housing: Condominium Alcohol intake: never Patient Tobacco Use Status: Former Tobacco user Advance Directives Date on File: 08/28/21 service: No Current occupational status: disabled Cognitive needs: No Hearing needs: No Vision needs: No Questionnaire PHQ-9 Over the last 2 weeks, how often have you been bothered by any of the following problems? 1. Little interest or pleasure in doing things: nearly every day 2. Feeling down, depressed, or hopeless: more than half the days 3. Trouble falling or staying asleep, or sleeping too much: nearly every day 4. Feeling tired or having little energy: more than half the days 5. Poor appetite or overeating: more than half the days 6. Feeling bad about yourself - or that you are a failure or have let yourself or your family down: not at all 7. Trouble concentrating on things, such as reading the newspaper or watching television: not at all 8. Moving or speaking so slowly that other people could have noticed. Or the opposite - being so fidgety or restless that you have been moving around a lot more than usual: not at all 9. Thoughts that you would be better off or of hurting yourself in some way: not at all Total score: 12 Depression Screening Interpretation: Positive Depression Screening Follow-up: Existing condition and In treatment Depression Screening Done: Yes 39208 - PHQ-9 Billing: Yes Source: Developed by Drs. Jose Juan Arroyo, Elsy Fortune, John Feliciano and colleagues, with an educational ankush from [employer]. Thrive Questionnaire Date Thrive assessed: 09/11/25 I am a: Patient What is your living situation today?: I have a steady place to live Within the past 12 months, did the food you bought not last and you didn't have the money to get more?: Never true Within the past 12 months, did you worry whether your food would run out before you got money to buy more?: Never true Do you have trouble paying for medicines?: No Do you have trouble getting transportation to medical appointments?: No Do you have trouble paying your heating and electricity bill?: No Do you have trouble taking care of your child, family member or friend?: No Do you have trouble with day-to-day activities such as bathing, preparing meals, shopping, managing finances, etc.?: No Are you currently unemployed and looking for a job?: No Are you interested in more education?: No Please select the resources that you would like help with: None Currently or been in a relationship where the following occur: No concerns reported THRIVE Score: 0 AUDIT C Alcohol Use Questionnaire (AUDIT-C) 1. How often do you have a drink containing alcohol?: Never 3. How often do you have six or more drinks on one occasion?: Never Total Score: 0 Score Reviewed/Action Taken: No RENETTA-7 AMB Questionnaire RENETTA-7 Date RENETTA - 7 assessed: 09/11/25 Feeling nervous, anxious, or on edge: 0 = Not at all Not being able to stop or control worryin = Not at all Worrying too much about different things: 0 = Not at all Trouble relaxin = Not at all Being so restless that it is hard to sit still: 0 = Not at all Becoming easily annoyed or irritable: 0 = Not at all Feeling afraid as if something awful might happen: 0 = Not at all Total RENETTA-7 score (0-4 normal; 5-9 mild; 10-14 moderate; 15-21 severe): 0 Source: Developed by Drs. Jose Juan Arroyo, Elsy Fortune, John Feliciano and colleagues, with an educational ankush from [employer]. RENETTA-7 Assessment Billing RENETTA-7 Assessment Tool: RENETTA-7 Assessment 30158 Review of Systems Const Details: - Cardiovascular: Reports palpitations and fatigue. Denies chest pain. - Respiratory: Reports dyspnea on exertion. Denies cough or wheezing. - Gastrointestinal: Denies abdominal pain or rectal bleeding. All systems reviewed & are unremarkable except as noted in HPI and below Physical exam (Primary Care) Vital Signs: Last Vital Signs Temp 97.0 F 09/11/25 13:07 Pulse 87 09/11/25 13:07 BP 126/59 L 09/11/25 13:07 Pulse Ox 97 09/11/25 13:07 Oxygen Delivery Method Room Air 09/11/25 13:07 Care Plan Goal for BP management: <140/90 at Goal BMI result Body Mass Index 45.7 BMI Assessment/Plan discussion: High BMI High, discussed plan: lifestyle, weight reduction, dietary, physical activity, alcohol moderation and other Tobacco/Smoking Status: Tobacco use Status Tobacco use date assessed 09/11/25 09/11/25 13:05 Patient Tobacco Use Status Former Tobacco user 09/11/25 13:03 PHQ-9: PHQ-9 Score PHQ-9: Total score 12 09/11/25 13:20 Depression Screening Interpretation: Positive Depression Screening Follow-up: Existing condition and In treatment Thrive Assessment: Date of Thrive Assessment Date Thrive assessed 09/11/25 09/11/25 13:05 Currently or been in a relationship where the following occur: No concerns reported Const Other: Appearance: Alert. Oriented X3. No acute distress, but appears pale, which is not her normal color. Head: Normal external exam. Normocephalic. Atraumatic. Eyes: Pupils are equal, round, and reactive to light. Extraocular movements intact. Conjunctiva and sclera pallor Eyelids normal. Throat: Pharynx normal. Uvula midline. Moist mucous membranes. Neck: Normal inspection. Neck supple. Full range of motion. Cardiovascular: Heart rate is 87. Normal heart rate and rhythm. Heart sound normal. No murmurs noted. Pulses normal throughout. Respiratory: No respiratory distress. Painless inspiration. Breath sounds normal. No wheezes/rales/rhonchi noted. Chest nontender. No accessory muscle usage noted or decreased air movement noted. Reports feeling short of breath on exertion. Abdomen: Soft and nontender. No distention noted. No organomegaly noted. Back:Full range of motion noted. Skin: Skin warm and dry. Patient appears pallor. Extremities: Extremities exhibit normal range of motion. Office Procedures Flu Questionnaire Does the patient have a severe egg allergy?: No Does the patient have severe life threatening allergies?: No Does the patient have a fever or illness today?: No Has the patient ever had Guillain-Alburnett Syndrome?: No Has the patient ever had any past reaction to a flu shot?: No Office Meds cyanocobalamin (vitamin B-12) 1,000 mcg/mL injection solution Performing Provider: Lauren Reyes PA-C Per[facility] Administered by: Lauren Reyes PA-C on 09/11/25 16:14 Dose Route Admin Location Dispensed Lot Number Expiration Date NDC Nut Sorter 1,000 mcg IM 1 mL Total Dispensed Waste 1 mL 0 % Immunizations Fluarix [id number] (PF) 45 mcg (15 mcg x 3)/0.5 mL IM syringe Performing Provider: Lauren Reyes PA-C Performing Location: [facility] Documented (not given) by: Sofia Murphy CMA on 09/11/25 13:13 Reason Not Given: Received Previously Results Reviewed Results Reviewed: - Labs: White blood cell count 2.9 thousand, hemoglobin 8.5 g/dL, hematocrit 23.0%, MCV 114 fL, platelet count 163,000, sodium and potassium normal, glucose normal. - Labs: Ferritin levels elevated, B12 level 312 (normal range 200-900). Coding Level of Care Code Est Pt Level 4 (21557) Complex EM visit Add On G2211 Diagnoses Macrocytic anemia D53.9 Vitamin B12 deficiency E53.8 Type 2 diabetes mellitus with hemoglobin A1c goal of less than 7.0% E11.9 Crohn's disease K50.90 Additional Codes RENETTA-7 Assessment Billing - RENETTA-7 Assessment Tool: RENETTA-7 Assessment 48018 ([id number]) PHQ-9 - 24965 - PHQ-9 Billing: Yes ([id number]) Time Spent (min) 50 Assessment & Plan Assessment & Plan (1) Macrocytic anemia: Code(s): D53.9 - Nutritional anemia, unspecified Category: Medical Plan: The patient will be referred to hematology and oncology for further evaluation of her anemia. Patient given a B12 injection at this time. She will receive monthly B12 injections. A complete blood count (CBC), comprehensive metabolic panel (CMP), and ferritin iron profile have been ordered to assess her current status. A follow-up appointment is scheduled in two weeks to monitor her condition and adjust treatment as necessary. (2) Vitamin B12 deficiency: Code(s): E53.8 - Deficiency of other specified B group vitamins Category: Medical Plan: The patient received a vitamin B12 injection to address her macrocytic anemia. She may require monthly B12 injections depending on her response to treatment. (3) Type 2 diabetes mellitus with hemoglobin A1c goal of less than 7.0%: Code(s): E11.9 - Type 2 diabetes mellitus without complications Category: Medical Plan: The patient's diabetes is well-controlled with a hemoglobin A1c of 5.6%. She is advised to continue her current insulin regimen, including Lantus and Humalog, and maintain regular monitoring of her blood glucose levels. (4) Crohn's disease: Code(s): K50.90 - Crohn's disease, unspecified, without complications Category: Medical Plan: The patient's Crohn's disease is currently stable with no abdominal pain reported. No immediate changes to her management plan are necessary at this time. Plan Plan Patient was informed and verbally consented to the use of an ambient scribe for clinic note documentation during this visit. 1. Anemia The patient will be referred to hematology and oncology for further evaluation of her anemia. Patient given a B12 injection at this time. She will receive monthly B12 injections. A complete blood count (CBC), comprehensive metabolic panel (CMP), and ferritin iron profile have been ordered to assess her current status. A follow-up appointment is scheduled in two weeks to monitor her condition and adjust treatment as necessary. 2. Crohn's Disease The patient's Crohn's disease is currently stable with no abdominal pain reported. No immediate changes to her management plan are necessary at this time. 3. Diabetes Mellitus The patient's diabetes is well-controlled with a hemoglobin A1c of 5.6%. She is advised to continue her current insulin regimen, including Lantus and Humalog, and maintain regular monitoring of her blood glucose levels. 4. Macrocytic Anemia The patient received a vitamin B12 injection to address her macrocytic anemia. She may require monthly B12 injections depending on her response to treatment. 5. B12 deficiency Patient will receive B12 injections monthly I discussed with the patient the need for further evaluation by hematology and oncology to determine the cause of her anemia. We reviewed her current lab results and the importance of monitoring her blood levels closely. I explained the potential need for blood transfusions if her hemoglobin levels drop further. The patient was informed about the B12 injection she received and the possibility of requiring monthly injections. Orders: Orders Influenza [id number] Immunization Today Z23 - Encounter for immunization Comprehensive Met. Panel Today Z00.00 - Encounter for general adult medical examination without abnormal findings IRON PROFILE Today D64.9 - Anemia, unspecified Vitamin B12 and Folate Today Z00.00 - Encounter for general adult medical examination without abnormal findings Complete Blood Count Auto Diff Today Z00.00 - Encounter for general adult medical examination without abnormal findings Ferritin Today D64.9 - Anemia, unspecified Magnesium Today Z00.00 - Encounter for general adult medical examination without abnormal findings AMB Vitamin B12 Injection Patient Supplied Today D53.9 - Nutritional anemia, unspecified, D64.9 - Anemia, unspecified, E53.8 - Deficiency of other specified B group vitamins Referrals Hematology & Oncology Referral D53.9 - Nutritional anemia, unspecified Medications: Refilled blood-glucose sensor ([employer] PowerStyle Bossman 3 Plus Sensor device) Check glucose 3 times a day with meals 1 ea 0RF E11.9 - Type 2 diabetes mellitus without complications blood-glucose,personal banking advisor,cont (FreeStyle Bossman 3 [place]) Check glucose 3 times a day with meals 1 ea 0RF E11.9 - Type 2 diabetes mellitus without complications Patient Instructions: - Follow up with hematology and oncology as scheduled. - Complete the ordered blood tests today to monitor anemia status. - Continue current diabetes management plan and monitor blood glucose levels regularly. - Return for a follow-up appointment in two weeks or sooner if symptoms worsen. - Report any new symptoms or changes in health immediately.
[2025-09-11 13:07] VITALS: BP 126/59; PULSE 87; TEMP 36.1; O2SAT 97; BMI 45.7
== END 2025-09-11 13:33 | disposition home or self-care (01) ==
LOC: HO.HMCSH 13:00
PROVIDERS: PCP Physician Assistant Medical; Visit Provider Physician Assistant Medical
DX: D53.9 Nutritional anemia, unspecified (principal); E53.8 Deficiency of other specified B group vitamins; E11.9 Type 2 diabetes mellitus without complications; K50.90 Crohn's disease, unspecified, without complications; Z23 Encounter for immunization

== ENCOUNTER 2025-09-11 17:19 | Inpatient (IN) | payer MEDICARE, MEDICAID, SELFPAY ==
--- NOTE | ~2025-09-11 | US_ITS ---
EXAMINATION: US ABDOMEN COMPLETE CLINICAL INFORMATION: Probable hepatosplenomegaly.. COMPARISON: Correlated to CT dated April 15, 2018. TECHNIQUE: Real-time ultrasound of the abdomen using a curvilinear transducer with grayscale and color Doppler technique. FINDINGS: PANCREAS: [Peripancreatic fluid collections. ABDOMINAL AORTA: The proximal, mid, and distal segments are normal in caliber. INFERIOR VENA CAVA: Visualized portions are normal. LIVER: Liver measures 17 cm per technologist. Increased echotexture. Subtle nodular surface. No solid or cystic lesion. No intrahepatic biliary ductal dilatation. GALLBLADDER: Multiple layering hyperechoic abnormalities with posterior shadowing in the gallbladder lumen without pericholecystic fluid collection or gallbladder wall thickening. COMMON BILE DUCT: 3 mm. RIGHT KIDNEY: 13 cm. Volume loss. Renal cortical thinning. Normal echotexture. No hydronephrosis. No solid or cystic lesion. LEFT KIDNEY: 14 cm. Normal echotexture. Renal cortical thinning. No gross hydronephrosis. No solid or cystic lesion.. SPLEEN: 14 cm. No solid or cystic lesion. FREE FLUID: None. US/US abdomen complete IMPRESSION: Hepatosplenomegaly and likely hepatic steatosis and possibly sclerosis versus hepatocellular dysfunction. Cholelithiasis. No ascites. No hydronephrosis. Electronically signed by: Chintan Larkin MD 09/15/2025 02:57 PM EDT
[2025-09-11 17:42] VITALS: BP 144/65; PULSE 88; RESP 18; TEMP 36.6; O2SAT 99; BMI 48.3
--- NOTE | 2025-09-11 17:46 | ECG_ITS ---
Test Reason : WEAKNESS Blood Pressure : */* mmHG Vent. Rate : 90 BPM Atrial Rate : 90 BPM P-R Int : 194 ms QRS Dur : 88 ms QT Int : 374 ms P-R-T Axes : 1 55 35 degrees QTcB Int : 457 ms Normal sinus rhythm Cannot rule out Anterior infarct , age undetermined Abnormal ECG When compared with ECG of 20-Sep-2016 21:39, Non-specific change in ST segment in Anterior leads Nonspecific T wave abnormality now evident in Anterior leads Referred By: Dylan Hoffmann Electronically Signed By: SAQIB MARTINEZ MD
--- NOTE | 2025-09-11 17:46 | ED.GENADULT ---
HPI - General Adult General Chief complaint: Recheck/Abnormal Lab/Rx Stated complaint: clinical labs abnormal sent by pcp Time Seen by Provider: 09/11/25 18:44 History of Present Illness HPI narrative: Patient is a 60-year-old female presented today with having generalized malaise. Sometimes when she walks she gets some chest pain. There is no vaginal bleeding. There is no rectal bleeding. She has a history of Crohn's disease. No fever no chills no chest pain normally. Chest pain is only with exertion. Also feels short winded when she takes a shower. Patient from home no new leg swelling no history of blood clots. Had previously needed transfusion positive history of diabetes no history of coronary artery disease. Never had a heart attack never had a stroke. Related Data Home Medications ?Medication ?Instructions ?Recorded ?Confirmed albuterol sulfate 90 mcg/actuation 2 puff inhalation Q4-6H PRN 08/23/21 09/11/25 aerosol inhaler (ProAir HFA) Shortness Of Breath Or Wheezing azathioprine 50 mg tablet 1.5 tab PO DAILY 08/23/21 09/11/25 fluconazole 150 mg tablet 1 tab PO DAILY 08/23/21 09/11/25 haloperidol 10 mg tablet 1 tab PO BEDTIME 08/23/21 09/11/25 insulin lispro 100 unit/mL See Rx Instructions .Route .COMPLEX 08/23/21 09/11/25 subcutaneous solution (Humalog U-100 Insulin) lamotrigine 100 mg tablet 1 tab PO BEDTIME 08/23/21 09/11/25 lorazepam 1 mg tablet 1 mg PO BID 08/23/21 09/11/25 mesalamine 0.375 gram 4 cap PO DAILY 08/23/21 09/11/25 capsule,extended release 24 hr (Apriso) omeprazole 20 mg capsule,delayed 20 mg PO BEDTIME 08/23/21 09/11/25 release insulin glargine 100 unit/mL 70 unit subcut BEDTIME 05/15/25 09/11/25 subcutaneous solution (Lantus U-100 Insulin) trazodone 300 mg tablet 300 mg PO BEDTIME 05/15/25 09/11/25 Previous Rx's ?Medication ?Instructions ?Recorded cholecalciferol (vitamin D3) 50 50 mcg PO DAILY #90 caps 05/24/25 mcg (2,000 unit) capsule simvastatin 40 mg tablet 40 mg PO QPM #90 tabs 05/24/25 fluticasone 250 mcg-salmeterol 50 1 ea inhalation BID #60 ea 07/26/25 mcg/dose blistr powdr for inhalation (Advair Diskus) allopurinol 300 mg tablet 300 mg PO DAILY #90 tabs 08/23/25 losartan 25 mg tablet 25 mg PO BEDTIME #90 tabs 08/23/25 metoprolol succinate 25 mg 25 mg PO DAILY #90 tabs 08/23/25 tablet,extended release 24 hr blood-glucose sensor (FreeStyle #1 ea 09/11/25 Bossman 3 Plus Sensor device) blood-glucose,chief nurse executive,cont #1 ea 09/11/25 (FreeStyle Bossman 3 [place]) Allergies Allergy/AdvReac Type Severity Reaction Status Date / Time amoxicillin (AMOXICILLIN) Allergy Intermediate BLOODY Verified 09/11/25 17:46 DIARRHEA clavulanic acid (From AdvReac Intermediate DIARRHEA Verified 09/11/25 17:46 AUGMENTIN) Review of Systems Review of Systems: Positive chest pain with exertion No fever no chills no diaphoresis No bloody stool Yes all other systems are reviewed and are negative PMFSH Past Medical History Attestation statement: The following information was validated with the patient. Medical History Vitamin B12 deficiency Macrocytic anemia Hypertriglyceridemia Vitamin D deficiency History of mammogram (~12/17/21) Morbid obesity with BMI of 45.0-49.9, adult Breast cancer screening Psoriasis Chronic anemia Type 2 diabetes mellitus with hemoglobin A1c goal of less than 7.0% Establishing care with new doctor, encounter for Annual physical exam History of macrocytosis Gout Hx of abdominal abscess Diabetes Anxiety Elevated cholesterol HTN (hypertension) Anemia COPD (chronic obstructive pulmonary disease) Asthma Depression Bipolar 1 disorder GERD (gastroesophageal reflux disease) Crohn's disease Surgical History History of esophagogastroduodenoscopy (EGD) Hx of tonsillectomy Hx of colonoscopy (~10/22/23) Family History Family History Father Parkinsons Mother Emphysema lung Social History Social History Housing: Condominium Alcohol intake: never Patient Tobacco Use Status: Former Tobacco user Advance Directives: No Advance Directives Information Provided: Yes Advance Directives Date on File: 08/28/21 Do you have a plan to hurt others: No Plan service: No Current occupational status: disabled Cognitive needs: No Hearing needs: No Vision needs: No Physical Exam ED Exam Exam: Appearance: Alert. Oriented X3. No acute distress. Eyes: Pupils equal, round and reactive to light. ENT: Pharynx normal. Neck: Normal inspection. Neck supple. No lymph nodes noted. No crepitus CVS: Normal heart rate and rhythm. Pulses normal. Normal S1 and S2 Respiratory: No respiratory distress. Breath sounds normal. No Wheezing. No rales Abdomen: Soft and nontender. No rigidity. No distention. good BS x4 Skin: Skin warm and dry. Normal skin color. Normal skin turgor. Rectal brown stool heme negative Extremities: No lower extremity edema. Neurovascular intact to all extremities. No Lacerations. No Rash Neuro: Oriented X 3. No motor deficit. No sensory deficit. Moving all extermities. No slurred speech Vital Signs: Vital Signs - 24 hr 09/11/25 17:42 Temperature 98 F Pulse Rate 88 Respiratory Rate 18 Blood Pressure 144/65 H Pulse Oximetry 99 Oxygen Delivery Method Room Air BMI result Body Mass Index 48.3 Course Course Course Narrative: RME, this is a rapid medical exam performed by Alfonzo Hoffmann please refer to primary provider for complete H&P- 60-year-old female presents for evaluation of his anemia. She had an outpatient labs that showed a hemoglobin of 6.5. Denies any bleeding. Plan for repeat labs including a type and screen Medical Decision Making Medical Decision Making MDM Narrative: Well-appearing not acute distress. Positive chest pain with exertion likely related to the low hemoglobin patient does have a cardiac risk being that she is diabetic. She is also 60. Will transfuse with blood x2 units. Patient to be admitted. Case consulted with the hospitalist team. Differential Diagnosis Differential Diagnoses: The differential diagnosis associated with the presentation includes ACS, pneumonia, GI bleed, vaginal bleeding Admission/Observation Consideration of admission/observation: Escalation of care including admission/observation considered Consult Healthcare Provider Management of the patient was discussed with: Hospitalist Lab Data MDM Lab Attestation statement: I reviewed the patient's lab results. 09/11/25 18:00 09/11/25 18:00 Labs: Lab Results 09/11/25 09/11/25 Range/Units 18:00 19:45 WBC 2.7 L (4.8-10.8) X10*3/uL RBC 1.57 L (4.20-5.50) X10*6/uL Hgb 6.2 L* (12.0-16.0) g/dl Hct 17.5 L* (37.0-47.0) % MCV 111.5 H (80.0-98.0) fL MCH 39.5 H (27.0-33.0) pg MCHC 35.4 H (31.0-35.0) g/dl RDW 17.1 H (11.0-16.0) % Plt Count 197 (160-400) X10*3/uL MPV 10.6 (9.4-12.3) fL Immature Gran % (Auto) 2.6 H (0.0-0.4) % Neut % (Auto) 52.9 (45-73) % Lymph % (Auto) 28.7 (20-40) % [place] % (Auto) 14.0 H (2-11) % Eos % (Auto) 1.1 (0-4) % Baso % (Auto) 0.7 (0-2) % Lymph # (Auto) 0.8 L (1.2-4.9) X10*3/uL [place] # (Auto) 0.4 (0.1-1.2) X10*3/uL Eos # (Auto) 0.0 (0.0-0.4) X10*3/uL Baso # (Auto) 0.0 (0.0-0.2) X10*3/uL Abs Immat Gran (auto) 0.07 H (0.00-0.03) X10*3/uL Absolute Neuts (auto) 1.4 L (2.0-8.3) x10*3/uL Absolute Nucleated RBC 0.020 H (0.0-0.012) X10*3/uL Nucleated RBC % (auto) 0.7 H (0.0-0.2) /100WBC Sodium 137 (135-145) mmol/L Potassium 4.0 (3.3-5.1) mmol/L Chloride 107 (96-108) mmol/L Carbon Dioxide 23 (22-29) mmol/L Anion Gap 11 L (12-20) BUN 14 (9-16) mg/dL Creatinine 0.98 (0.5-1.4) mg/dL Estim Creat Clear Calc 76.9 Estimated GFR 58 Random Glucose 203 H (60-115) mg/dL Calcium 8.4 (8.4-10.2) mg/dL Total Bilirubin 0.9 (0.0-1.0) mg/dL AST 16 (5-31) U/L ALT 11 (0-31) U/L Alkaline Phosphatase 60 (39-117) U/L Troponin I High Sens < 2.7 (<3.5-17.0) ng/L Total Protein 5.8 L (6.5-8.0) g/dL Albumin 3.9 (3.5-5.0) g/dL Stool Occult Blood NEGATIVE (NEGATIVE) Blood Type A Positive Antibody Screen NEGATIVE Crossmatch See Detail Independent Interpretation I performed an independent interpretation of an: EKG (My interpretation of patient's EKG showed a sinus rhythm heart rate is 80 MD QRS QTC within normal limits there is no acute ST segment elevation noted.) External Record Review External record reviewed: Office record Outpatient GI note reviewed Chronic Conditions Patient?s care impacted by: Diabetes Social Determinants Patient?s care significantly limited by Social Determinants of Health including: Problems related to primary support group Critical Care Time Critical Care Time Critical Care Time: Yes Total Critical Care Time: 31 Attestation: I have personally provided 31 minutes of critical care time exclusive of time spent on separately billable procedures. ?Time includes review of lab data, radiology results, discussion with consultants, and monitoring for potential decompensation. ?Interventions were performed as documented above Discharge Plan Discharge Clinical Impression: Anemia, Angina of effort Patient Disposition: Admitted As Inpatient
[2025-09-11 18:06] LABS: MANUAL DIFF FLAG NO
[2025-09-11 18:08] LABS: Imm Gran Abs Auto 0.07 X10*3/uL (0.00-0.03); Imm Gran Pct Auto 2.6 % (0.0-0.4); Lymphocytes Absolute Auto 0.8 X10*3/uL (1.2-4.9); Mean Corpuscular HGB Conc 35.4 g/dl (31.0-35.0); Mean Corpuscular Hemoglobin 39.5 pg (27.0-33.0); NRBC Abs Auto 0.020 X10*3/uL (0.0-0.012); NRBC Pct Auto 0.7 /100WBC (0.0-0.2); Platelet Count 197 X10*3/uL (160-400); Red Blood Count 1.57 X10*6/uL (4.20-5.50); White Blood Count 2.7 X10*3/uL (4.8-10.8)
[2025-09-11 18:15] LABS: Mean Corpuscular Volume 111.5 fL (80.0-98.0)
[2025-09-11 18:17] LABS: Hemoglobin 6.2 g/dl (12.0-16.0)
[2025-09-11 18:18] LABS: Hematocrit 17.5 % (37.0-47.0)
[2025-09-11 18:28] LABS: Alanine Aminotransferase 11 U/L (0-31); Albumin Level 3.9 g/dL (3.5-5.0); Alkaline Phosphatase 60 U/L (39-117); Anion Gap 11 (12-20); Aspartate Amino Transferase 16 U/L (5-31); Blood Urea Nitrogen 14 mg/dL (9-16); Calcium 8.4 mg/dL (8.4-10.2); Carbon Dioxide 23 mmol/L (22-29); Chloride 107 mmol/L (96-108); Creatinine Clr Calc Pharmacy 76.9; Estimated Glomerular Filt Rate 58; Potassium 4.0 mmol/L (3.3-5.1); Sodium 137 mmol/L (135-145); Total Protein 5.8 g/dL (6.5-8.0)
[2025-09-11 18:37] LABS: Troponin-I High Sensitivity < 2.7 ng/L (<3.5-17.0)
[2025-09-11 19:48] VITALS: BP 147/55; PULSE 90; RESP 16; O2SAT 99
[2025-09-11 19:51] LABS: OBS Int Ctl Valid YES; OBS1 NEGATIVE (NEGATIVE)
--- NOTE | 2025-09-11 19:51 | PM.IMHP ---
History of Present Illness Date of Service: 09/11/25 Chief Complaint: Anemia 60-year-old female with a past medical history of HTN, HL, dm, COPD, Crohn's disease, psoriasis, obesity, GERD, bipolar, gout presented to the hospital today with a chief complaint of anemia. Patient mentioned that she had routine labs done by her PCP and noted to have low hemoglobin subsequently asked her to go to the ER for further evaluation. Patient denies any signs of bleeding. Denies any chest pain or palpitations. Denies taking [id number] pain medications. Denies any abdominal pain. Denies any shortness of breath or dyspnea on exertion. Review of all other systems is negative except mentioned above ER course: Per ER team, patient exam was benign. On labs noted hemoglobin of 6.8. Stool guaiac was sent. Patient ordered for 2 units of PRBC. [facility] Medical History Vitamin B12 deficiency Macrocytic anemia Hypertriglyceridemia Vitamin D deficiency History of mammogram (~12/17/21) Morbid obesity with BMI of 45.0-49.9, adult Breast cancer screening Psoriasis Chronic anemia Type 2 diabetes mellitus with hemoglobin A1c goal of less than 7.0% Establishing care with new doctor, encounter for Annual physical exam History of macrocytosis Gout Hx of abdominal abscess Diabetes Anxiety Elevated cholesterol HTN (hypertension) Anemia COPD (chronic obstructive pulmonary disease) Asthma Depression Bipolar 1 disorder GERD (gastroesophageal reflux disease) Crohn's disease Family History Father Parkinsons Mother Emphysema lung Surgical History History of esophagogastroduodenoscopy (EGD) Hx of tonsillectomy Hx of colonoscopy (~10/22/23) Social History Housing: Condominium Alcohol intake: never Patient Tobacco Use Status: Former Tobacco user Advance Directives: No Advance Directives Information Provided: Yes Advance Directives Date on File: 08/28/21 Do you have a plan to hurt others: No Plan service: No Current occupational status: disabled Cognitive needs: No Hearing needs: No Vision needs: No Meds Allergies Allergy/AdvReac Type Severity Reaction Status Date / Time amoxicillin (AMOXICILLIN) Allergy Intermediate BLOODY Verified 09/11/25 17:46 DIARRHEA clavulanic acid (From AdvReac Intermediate DIARRHEA Verified 09/11/25 17:46 AUGMENTIN) Active Medications: Current Medications Acetaminophen (Acetaminophen 325 Mg Tablet) 650 mg PO Q6H PRN PRN Reason: Pain, Mild 1-3,fever,headache Calcium Carbonate (Calcium Carbonate 750 Mg Tab.Chew) 750 mg PO Q4H PRN PRN Reason: Heartburn Dextrose/Sodium Chloride (D51/2ns) 1,000 mls @ 100 mls/hr IVCONT .Q10H KALLI Magnesium Hydroxide (Milk Of Magnesia 30 Ml Oral.Susp) 30 ml PO DAILY PRN PRN Reason: Constipation Melatonin (Melatonin 3 Mg Tablet) 6 mg PO BEDTIME PRN PRN Reason: Insomnia Sodium Chloride (0.9 % Sodium Chloride Flush 3 Ml Syringe) 3 ml IVFLUSH QSHIFT KALLI Home Medications ?Medication ?Instructions ?Recorded ?Confirmed ?Last Taken ?Type albuterol sulfate 90 mcg/actuation 2 puff inhalation Q4-6H PRN 08/23/21 09/11/25 Unknown History aerosol inhaler (ProAir HFA) Shortness Of Breath Or Wheezing azathioprine 50 mg tablet 1.5 tab PO DAILY 08/23/21 09/11/25 Unknown History fluconazole 150 mg tablet 1 tab PO DAILY 08/23/21 09/11/25 Unknown History haloperidol 10 mg tablet 1 tab PO BEDTIME 08/23/21 09/11/25 Unknown History insulin lispro 100 unit/mL See Rx Instructions .Route .COMPLEX 08/23/21 09/11/25 Unknown History subcutaneous solution (Humalog U-100 Insulin) lamotrigine 100 mg tablet 1 tab PO BEDTIME 08/23/21 09/11/25 Unknown History lorazepam 1 mg tablet 1 mg PO BID 08/23/21 09/11/25 Unknown History mesalamine 0.375 gram 4 cap PO DAILY 08/23/21 09/11/25 Unknown History capsule,extended release 24 hr (Apriso) omeprazole 20 mg capsule,delayed 20 mg PO BEDTIME 08/23/21 09/11/25 Unknown History release insulin glargine 100 unit/mL 70 unit subcut BEDTIME 05/15/25 09/11/25 Unknown History subcutaneous solution (Lantus U-100 Insulin) trazodone 300 mg tablet 300 mg PO BEDTIME 05/15/25 09/11/25 Unknown History Physical Exam Vital Signs and Narrative: Vital Signs: Last Vital Signs Temp 98 F 09/11/25 17:42 Pulse 90 09/11/25 19:48 Resp 16 09/11/25 19:48 BP 147/55 H 09/11/25 19:48 Pulse Ox 99 09/11/25 19:48 O2 Del Method Room Air 09/11/25 19:48 BMI result Body Mass Index 48.3 Gen: Appears be in no acute distress HEENT: NCAT, Moist mucosa. Pulmonary: Vesicular breath sounds, fair air entry CVS: Normal S1-S2 Abdomen: BS+, Soft, Nontender Extremities: Warm well perfused Neuro: Alert and awake. Results Labs 09/11/25 18:00 09/11/25 18:00 Labs: Laboratory Results - last 24 hr 09/11/25 09/11/25 18:00 19:45 MCV 111.5 H MCH 39.5 H MCHC 35.4 H RDW 17.1 H Plt Count 197 MPV 10.6 Immature Gran % (Auto) 2.6 H Neut % (Auto) 52.9 Lymph % (Auto) 28.7 [place] % (Auto) 14.0 H Eos % (Auto) 1.1 Baso % (Auto) 0.7 Lymph # (Auto) 0.8 L [place] # (Auto) 0.4 Eos # (Auto) 0.0 Baso # (Auto) 0.0 Abs Immat Gran (auto) 0.07 H Absolute Neuts (auto) 1.4 L Absolute Nucleated RBC 0.020 H Nucleated RBC % (auto) 0.7 H Anion Gap 11 L Estim Creat Clear Calc 76.9 Estimated GFR 58 Random Glucose 203 H Calcium 8.4 Total Bilirubin 0.9 AST 16 ALT 11 Alkaline Phosphatase 60 Troponin I High Sens < 2.7 Total Protein 5.8 L Albumin 3.9 Stool Occult Blood NEGATIVE Blood Type A Positive Antibody Screen NEGATIVE Assessment and Plan (1) Anemia: Qualifiers: Anemia type: unspecified type Qualified Code(s): D64.9 - Anemia, unspecified Status: Acute Plan 60-year-old female with a past medical history of HTN, HL, dm, COPD, Crohn's disease, psoriasis, obesity, GERD, bipolar, gout presented to the hospital today with a chief complaint of anemia. Anemia: Patient hemoglobin on presentation noted to be 6.8. Denies any signs of bleeding Stool guaiac negative Will obtain iron folate and B12 Hematology consult in a.m. Patient being ordered for 2 units of PRBC. Chest pain: Patient reports chest discomfort with the ER team. Currently pain-free. EKG nonischemic. Troponin negative. Diabetes: Insulin sliding scale. Hold home regimen for now. Bipolar disorder: Resume home medications once med rec is finished. Hypertension: Hold home antihypertensives for now DVT prophylaxis: SCD boots Code status: Full code Quality Stroke Does the patient have a stroke diagnosis?: No VTE Prior VTE?: No VTE Risk Level:: Medical - moderate - high VTE Device Contraindication: N/A - Device Ordered VTE Drug Contraindication: Treatment Not Indicated
[2025-09-11 20:18] LABS: Appearance Urine Clear; Glucose Urine UA Negative (Negative); PH 6.0 (5.0-9.0); Specific Gravity - Urine 1.010 (1.005-1.025); UMIC TRIGGER UACC YES
[2025-09-11 20:26] LABS: Iron 99 mcg/dL (30-160); Percent Iron Saturation 47 % (15-50); Total Iron Binding Capacity 209 mcg/dL (228-428); Unsaturated Iron Binding 110 ug/dL
--- NOTE | 2025-09-11 20:43 | PHA.MEDREC ---
Addendum entered by Yarely Pierre RPh 09/11/25 21:02: REVIEWED BY PHARMACIST Original Note: Pharmacy Consult ? Medication Reconciliation Pharmacy has completed the medication reconciliation. Spoke with pt and she confirmed her medications. Pt taking Lantus 70 units at bedtime, Humalog as needed QIDACHS for Hyperglycemia and she is taking Trazodone 150mg 2 tabs (300mg) scheduled at bedtime.
[2025-09-11 21:03] LABS: Folate 9.1 ng/mL (> or = 4.0); Vitamin B12 > 2000 pg/mL (200-900)
[2025-09-11 21:27] VITALS: BP 142/56; PULSE 82; RESP 16; TEMP 37.3; O2SAT 98
[2025-09-11 21:34] VITALS: BP 142/56; PULSE 82; RESP 16; TEMP 37.3
[2025-09-11 21:42] LABS: Glucose, Whole Blood 128 mg/dL (60-115)
[2025-09-11 21:55] VITALS: BP 143/68; PULSE 82; RESP 18; O2SAT 100
[2025-09-11] MEDS: Dextrose 5 % and 0.45 % NaCl 1,000 ML 100 ML IVCONT (23:26)
[2025-09-11 23:27] LABS: Glucose, Whole Blood 131 mg/dL (60-115)
--- NOTE | 2025-09-11 23:34 | PC.NURSE ---
Took over care from Kian José at 23:00. Poc taken, no coveraged need at this time, second Iv line placed in Right AC 20g. pt denies any pain that this time, call short at the bedside.
--- NOTE | 2025-09-11 23:38 | PC.NURSE ---
pt placed on bedside monitor.
[2025-09-12] VITALS (14 sets, daily range): BP systolic 130–165; BP diastolic 57–84; PULSE 78–94; RESP 12–23; TEMP 36.5–37.7; O2SAT 98–100
--- NOTE | 2025-09-12 00:18 | PC.NURSE ---
pt left AC Iv removed, infiltration, Notified Nate Rodriguez, will attempt to place ultra sound Iv.
--- NOTE | 2025-09-12 01:24 | PC.NURSE ---
Second unit of RBC started, pt tolerating well.
[2025-09-12] MEDS: 0.9 % Sodium Chloride Flush 3 ML SYRINGE IVFLUSH (04:00)
[2025-09-12 05:24] LABS: Alanine Aminotransferase 10 U/L (0-31); Albumin Level 3.8 g/dL (3.5-5.0); Alkaline Phosphatase 57 U/L (39-117); Anion Gap 13 (12-20); Aspartate Amino Transferase 18 U/L (5-31); Blood Urea Nitrogen 12 mg/dL (9-16); Calcium 8.4 mg/dL (8.4-10.2); Carbon Dioxide 19 mmol/L (22-29); Chloride 110 mmol/L (96-108); Creatinine Clr Calc Pharmacy 99.3; Estimated Glomerular Filt Rate > 60; Potassium 3.9 mmol/L (3.3-5.1); Sodium 138 mmol/L (135-145); Total Protein 5.8 g/dL (6.5-8.0)
--- NOTE | 2025-09-12 06:09 | PC.NURSE ---
medicated per mar.
[2025-09-12 06:45] LABS: Imm Gran Abs Auto 0.06 X10*3/uL (0.00-0.03); Imm Gran Pct Auto 2.4 % (0.0-0.4); Lymphocytes Absolute Auto 0.8 X10*3/uL (1.2-4.9); MANUAL DIFF FLAG SCAN; Mean Corpuscular HGB Conc 34.2 g/dl (31.0-35.0); Mean Corpuscular Hemoglobin 38.0 pg (27.0-33.0); NRBC Abs Auto 0.020 X10*3/uL (0.0-0.012); NRBC Pct Auto 0.8 /100WBC (0.0-0.2); Platelet Count 185 X10*3/uL (160-400); Red Blood Count 1.71 X10*6/uL (4.20-5.50); SCAN SMEAR FLAG 1
[2025-09-12 07:06] LABS: Mean Corpuscular Volume 111.1 fL (80.0-98.0); White Blood Count 2.5 X10*3/uL (4.8-10.8)
[2025-09-12 07:16] LABS: Hematocrit 19.0 % (37.0-47.0); Hemoglobin 6.5 g/dl (12.0-16.0)
[2025-09-12 07:19] LABS: Reticulocytes Absolute 0.076 X10*6/uL (0.026-0.095)
[2025-09-12 07:42] LABS: Glucose, Whole Blood 210 mg/dL (60-115)
--- NOTE | 2025-09-12 07:44 | HO.PM.IMPN ---
Subjective Subjective Date of Service: 09/12/25 Interval History: f/u on symptomatic anemia, suspected hemolysis hgb essentially unchanged following transfusion initial hgb 6.2 went to 6.5 after 2 units of RBC Physical Exam Vital Signs: Vital Signs: Last Vital Signs Temp 99.7 F 09/12/25 03:53 Pulse 88 09/12/25 03:53 Resp 17 09/12/25 03:53 BP 156/70 H 09/12/25 03:53 Pulse Ox 100 09/11/25 21:55 O2 Del Method Room Air 09/11/25 21:55 BMI result Body Mass Index 48.3 Const: Other: General: Alert, no acute distress HEENT: No pallor of conjunctiva, no icterus Cardiovascular: Regular rate and rhythm, no murmurs Respiratory: Clear to auscultation bilaterally Abdomen: Soft, non-tender, no hepatosplenomegaly Extremities: No edema, no petechiae or ecchymoses Neuro: Alert and oriented, no focal deficits Skin: No rashes, no jaundice, has bilater bruise in antecubital area from infiltrated IVs Objective Data Active Medications Acetaminophen (Acetaminophen 325 Mg Tablet) 650 mg PO Q6H PRN PRN Reason: Pain, Mild 1-3,fever,headache Calcium Carbonate (Calcium Carbonate 750 Mg Tab.Chew) 750 mg PO Q4H PRN PRN Reason: Heartburn Dextrose (Dextrose 50 % 25 Gm/50 Ml Syringe) 25 gm IVPUSH Q15M PRN; Protocol PRN Reason: per Hypoglycemia Standing Ord. Glucose (Glucose Gel 15 Gm Gel..Gram.) 15 gm PO Q15M PRN; Protocol PRN Reason: per Hypoglycemia Standing Ord. Dextrose/Sodium Chloride (D51/2ns) 1,000 mls @ 100 mls/hr IVCONT .Q10H [facility] Last Admin: 09/12/25 06:06 Dose: Not Given Documented By: CT Non-Admin Reason: IV Running Insulin Human Lispro (Insulin Lispro 100 Unit/Ml 3 Ml Vial) 0 unit SUBCUT QIDACHS [facility]; Protocol Last Admin: 09/11/25 23:12 Dose: Not Given Documented By: CT Non-Admin Reason: No Insulin Coverage Magnesium Hydroxide (Milk Of Magnesia 30 Ml Oral.Susp) 30 ml PO DAILY PRN PRN Reason: Constipation Melatonin (Melatonin 3 Mg Tablet) 6 mg PO BEDTIME PRN PRN Reason: Insomnia Pantoprazole Sodium (Pantoprazole Sodium 40 Mg/10 Ml Vial) 40 mg IVPUSH DAILY@0630 [facility] Last Admin: 09/12/25 06:03 Dose: 40 mg Documented By: CT Sodium Chloride (0.9 % Sodium Chloride Flush 3 Ml Syringe) 3 ml IVFLUSH QSHIFT [facility] Last Admin: 09/12/25 04:00 Dose: 3 ml Documented By: CT Labs 09/12/25 06:18 09/12/25 04:33 Labs: Laboratory Results - last 24 hr 09/11/25 09/11/25 09/11/25 18:00 19:45 19:59 MCV 111.5 H MCH 39.5 H MCHC 35.4 H RDW 17.1 H Plt Count 197 MPV 10.6 Immature Gran % (Auto) 2.6 H Neut % (Auto) 52.9 Lymph % (Auto) 28.7 [place] % (Auto) 14.0 H Eos % (Auto) 1.1 Baso % (Auto) 0.7 Lymph # (Auto) 0.8 L [place] # (Auto) 0.4 Eos # (Auto) 0.0 Baso # (Auto) 0.0 Abs Immat Gran (auto) 0.07 H Absolute Neuts (auto) 1.4 L Absolute Nucleated RBC 0.020 H Nucleated RBC % (auto) 0.7 H Smear Tech's Comments Absolute Retic Percent Retic Immature Retic Fraction Retic Hgb Equivalent Anion Gap 11 L Estim Creat Clear Calc 76.9 Estimated GFR 58 POC Glucose Random Glucose 203 H Haptoglobin Calcium 8.4 Iron 99 TIBC 209 L % Saturation 47 Unsat Iron Binding 110 Total Bilirubin 0.9 AST 16 ALT 11 Alkaline Phosphatase 60 Lactate Dehydrogenase Troponin I High Sens < 2.7 Total Protein 5.8 L Albumin 3.9 Vitamin B12 > 2000 H Folate 9.1 Urine Color Urine Appearance Urine pH Ur Specific [place] Urine Protein Urine Glucose (UA) Urine Ketones Urine Blood Urine Nitrite Ur Leukocyte Esterase Urine RBC Urine WBC Ur Squamous Epith Cells Urine Bacteria Hyaline Casts Stool Occult Blood NEGATIVE Blood Type A Positive Antibody Screen NEGATIVE Crossmatch See Detail 09/11/25 09/11/25 09/11/25 20:10 21:38 23:10 MCV MCH MCHC RDW Plt Count MPV Immature Gran % (Auto) Neut % (Auto) Lymph % (Auto) [place] % (Auto) Eos % (Auto) Baso % (Auto) Lymph # (Auto) [place] # (Auto) Eos # (Auto) Baso # (Auto) Abs Immat Gran (auto) Absolute Neuts (auto) Absolute Nucleated RBC Nucleated RBC % (auto) Smear Tech's Comments Absolute Retic Percent Retic Immature Retic Fraction Retic Hgb Equivalent Anion Gap Estim Creat Clear Calc Estimated GFR POC Glucose 128 H 131 H Random Glucose Haptoglobin Calcium Iron TIBC % Saturation Unsat Iron Binding Total Bilirubin AST ALT Alkaline Phosphatase Lactate Dehydrogenase Troponin I High Sens Total Protein Albumin Vitamin B12 Folate Urine Color Yellow Urine Appearance Clear Urine pH 6.0 Ur Specific [place] 1.010 Urine Protein Negative Urine Glucose (UA) Negative Urine Ketones Negative Urine Blood Negative Urine Nitrite Negative Ur Leukocyte Esterase Trace H Urine RBC 0-2 Urine WBC 0-5 Ur Squamous Epith Cells 6-10 Urine Bacteria None Seen Hyaline Casts 0-2 Stool Occult Blood Blood Type Antibody Screen Crossmatch 09/12/25 09/12/25 09/12/25 04:33 06:18 07:40 MCV 111.1 H MCH 38.0 H MCHC 34.2 RDW 18.5 H Plt Count 185 MPV 10.9 Immature Gran % (Auto) 2.4 H Neut % (Auto) 50.0 Lymph % (Auto) 33.9 [place] % (Auto) 12.1 H Eos % (Auto) 0.8 Baso % (Auto) 0.8 Lymph # (Auto) 0.8 L [place] # (Auto) 0.3 Eos # (Auto) 0.0 Baso # (Auto) 0.0 Abs Immat Gran (auto) 0.06 H Absolute Neuts (auto) 1.2 L Absolute Nucleated RBC 0.020 H Nucleated RBC % (auto) 0.8 H Smear Tech's Comments VERIFIED Absolute Retic 0.076 Percent Retic 4.5 H Immature Retic Fraction 25.6 H Retic Hgb Equivalent 41.4 H Anion Gap 13 Estim Creat Clear Calc 99.3 Estimated GFR > 60 POC Glucose 210 H Random Glucose 160 H Haptoglobin 71 Calcium 8.4 Iron TIBC % Saturation Unsat Iron Binding Total Bilirubin 1.1 H AST 18 ALT 10 Alkaline Phosphatase 57 Lactate Dehydrogenase 243 H Troponin I High Sens Total Protein 5.8 L Albumin 3.8 Vitamin B12 Folate Urine Color Urine Appearance Urine pH Ur Specific [place] Urine Protein Urine Glucose (UA) Urine Ketones Urine Blood Urine Nitrite Ur Leukocyte Esterase Urine RBC Urine WBC Ur Squamous Epith Cells Urine Bacteria Hyaline Casts Stool Occult Blood Blood Type Antibody Screen Crossmatch Assessment and Plan (1) Hemolytic anemia: Status: Acute Plan 60-year-old female with multiple comorbidities presented with severe, asymptomatic anemia (Hgb 6.8) found on routine labs. No signs of bleeding. Received 2 units PRBCs in the ER. Anemia / Concern for Hemolysis Severe, asymptomatic anemia (Hgb 6.8 on arrival, now 6.5 post-transfusion). No evidence of bleeding; stool guaiac negative. Labs notable for elevated reticulocyte count (41.4%), LDH 243, and indirect hyperbilirubinemia (total bili 1.1), raising concern for hemolysis. Iron, folate, and B12 levels obtained. Hematology consult requested. Additional workup for hemolysis requested: , and peripheral smear. Monitor hemoglobin and clinical status. GI consult and transfuse 2 more units Chest Pain Reported in ER, now resolved. EKG non-ischemic, troponin negative. Monitor for recurrence. Diabetes Mellitus Hold home regimen; manage with insulin sliding scale. Monitor blood glucose. Bipolar Disorder Resume home medications once med rec is complete. Monitor for symptoms. Hypertension Hold home antihypertensives for now. Monitor blood pressure. DVT Prophylaxis: device Reason for Inpatient Stay: Severe anemia requiring transfusion and further evaluation. Quality Stroke Does the patient have a stroke diagnosis?: No VTE Prior VTE?: No VTE Risk Level:: Medical - moderate - high VTE Device Contraindication: N/A - Device Ordered VTE Drug Contraindication: Treatment Not Indicated
--- NOTE | 2025-09-12 10:25 | MHC.CM.PN ---
IMM 09/12/25, Pt. lives alone, She does not use home health services or DME. PCP confirmed: DENYS Ortiz. HCP discussed, pt. will complete form and it will be added to chart. She can arrange a ride home at [place], DCP: home, self care, CM to follow for DC needs.
[2025-09-12 11:36] LABS: Fibrinogen 527 MG/DL (259-690); INTERNATIONAL NORM RATIO 1.0 (0.9-1.1); Prothrombin Time 11.6 SEC (10.9-12.4)
--- NOTE | 2025-09-12 11:37 | P.CNHO_ITS ---
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 Patient is being managed by Dr. Hare for both above conditions. Here recommended therapeutic phlebotomy for iron overload state, she got this done twice, in February and June 2025. For the last month she developed exertional shortness of breath, palpitation and weakness. Her PCP ordered blood work yesterday and found her to be anemic and referred her to the emergency room. She also noted to exacerbation of her chronic leukopenia. Patient reports receiving blood transfusion around 2008 at [facility] when she was being treated for an abdominal abscess. Subsequently she met with Dr. Santiago for assessment of leukopenia and macrocytic anemia. That time her counts were stable and seemed to improve and therefore bone marrow aspiration was deferred although it was considered. Patient denies any constitutional symptoms such as fever, chills, night sweats or unexplained weight loss. No headache or dizziness. She denies any nosebleed or hematuria. No hematochezia or abdominal pain. She has not been on any new medications. She denies any recent infections. She does not consume any alcohol. 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 She is now disabled from bipolar disorder. No significant family history of cancer other than grandfather having had colon cancer. Review of Systems - Constitutional Reports as per HPI, Reports fatigue, Reports lack of energy, Reports malaise, Denies night sweats, Denies poor appetite, Denies weight gain, Denies weight loss - Cardiovascular Reports no additional cardiovascular complaints, Denies chest pain with activity - Respiratory Reports no additional respiratory complaints, Denies cough, Denies hemoptysis, Reports dyspnea - Gastrointestinal Reports no additional gastrointestinal complaints, Denies abdominal pain, Denies belching, Denies bright, red blood in stools, Denies change in bowel habits [facility] Medical History: Medical History (Last Reviewed 09/11/25 @ 19:55 by Yadira Youngblood MD) Anemia Annual physical exam Anxiety Asthma Bipolar 1 disorder Breast cancer screening Chronic anemia COPD (chronic obstructive pulmonary disease) Crohn's disease Depression Diabetes Elevated cholesterol Establishing care with new doctor, encounter for GERD (gastroesophageal reflux disease) Gout History of macrocytosis History of mammogram Onset Date: ~12/17/21 HTN (hypertension) Hx of abdominal abscess Hypertriglyceridemia Macrocytic anemia Morbid obesity with BMI of 45.0-49.9, adult Psoriasis Type 2 diabetes mellitus with hemoglobin A1c goal of less than 7.0% Vitamin B12 deficiency Vitamin D deficiency Family History: Family History (Last Reviewed 09/11/25 @ 19:55 by Yadira Youngblood MD) Father Parkinsons Mother Emphysema lung Surgical History: Surgical History (Last Reviewed 09/11/25 @ 19:55 by Yadira Youngblood MD) History of esophagogastroduodenoscopy (EGD) Hx of colonoscopy Onset Date: ~10/22/23 Hx of tonsillectomy Social History: Social History (Last Reviewed 09/11/25 @ 19:55 by Yadira Youngblood MD) Living Situation History[facility] Alcohol History Details: 1. How often do you have a drink containing alcohol?: a. Never 3. How often do you have six or more drinks on one occasion?: a. Never AUDIT-C Alcohol total score: 0 Tobacco History: Patient Tobacco Use Status: Former Tobacco user Smoked in Last 30 Days: No Substance Use History: Use of substances other than those prescribed or required for medical reasons : No Advance Directives: Advance Directives: No Advance Directives Information Provided: Yes Advance Directives Date on File: 08/28/21 Homicidal Assessment: Do you have a plan to hurt others: No Plan Nutrition Assessment: Nutrition Risks: No Nutritional Risk Patient : No Occupation Assessmet: service: No Current occupational status: disabled Home Medications and Allergies Current Medications: Current Medications Acetaminophen (Acetaminophen 325 Mg Tablet) 650 mg PO Q6H PRN PRN Reason: Pain, Mild 1-3,fever,headache Calcium Carbonate (Calcium Carbonate 750 Mg Tab.Chew) 750 mg PO Q4H PRN PRN Reason: Heartburn Dextrose (Dextrose 50 % 25 Gm/50 Ml Syringe) 25 gm IVPUSH Q15M PRN; Protocol PRN Reason: per Hypoglycemia Standing Ord. Glucose (Glucose Gel 15 Gm Gel..Gram.) 15 gm PO Q15M PRN; Protocol PRN Reason: per Hypoglycemia Standing Ord. Dextrose/Sodium Chloride (D51/2ns) 1,000 mls @ 100 mls/hr IVCONT .Q10H [facility] Last Admin: 09/12/25 06:06 Dose: Not Given Insulin Human Lispro (Insulin Lispro 100 Unit/Ml 3 Ml Vial) 0 unit SUBCUT QIDACHS [facility]; Protocol Last Admin: 09/12/25 08:20 Dose: 4 unit Magnesium Hydroxide (Milk Of Magnesia 30 Ml Oral.Susp) 30 ml PO DAILY PRN PRN Reason: Constipation Melatonin (Melatonin 3 Mg Tablet) 6 mg PO BEDTIME PRN PRN Reason: Insomnia Pantoprazole Sodium (Pantoprazole Sodium 40 Mg/10 Ml Vial) 40 mg IVPUSH DAILY@06 [facility] Last Admin: 09/12/25 06:03 Dose: 40 mg Sodium Chloride (0.9 % Sodium Chloride Flush 3 Ml Syringe) 3 ml IVFLUSH QSHIFT [facility] Last Admin: 09/12/25 08:11 Dose: Not Given Home Medications ?Medication ?Instructions ?Recorded ?Confirmed ?Type azathioprine 50 mg tablet 75 mg PO DAILY 08/23/21 09/11/25 History haloperidol 10 mg tablet 10 mg PO BEDTIME 08/23/21 09/11/25 Histo ry insulin lispro 100 unit/mL See Protocol subcut QIDACHS PRN 08/23/21 09/11/25 History subcutaneous solution (Humalog Hyperglycemia U-100 Insulin) lamotrigine 100 mg tablet 100 mg PO BEDTIME 08/23/21 09/11/25 Hist ory lorazepam 1 mg tablet 1 mg PO BID 08/23/21 09/11/25 History mesalamine 0.375 gram 1.5 g PO DAILY 08/23/21 09/11/25 History capsule,extended release 24 hr (Apriso) omeprazole 20 mg capsule,delayed 20 mg PO DAILY@0630 08/23/21 09/11/25 Hi story release insulin glargine 100 unit/mL 70 unit subcut BEDTIME 05/15/25 09/11/25 History subcutaneous solution (Lantus U-100 Insulin) albuterol sulfate 90 mcg/actuation 2 puff inhalation Q4-6H PRN 09/11/25 History aerosol inhaler Shortness Of Breath Or Wheezing betamethasone dipropionate 0.05 % 1 appl topical BID 09/11/25 09/11/25 His tory lotion ketoconazole 2 % topical cream 1 appl topical BID 09/11/25 09/11/25 His tory loratadine 10 mg tablet (Claritin) 10 mg PO DAILY 09/11/25 09/11/25 History simvastatin 40 mg tablet 40 mg PO BEDTIME 09/11/25 09/11/25 Histo ry trazodone 150 mg tablet 300 mg PO BEDTIME insomnia 09/11/2508/24 History Allergies Allergy/AdvReac Type Severity Reaction Status Date / Time amoxicillin (AMOXICILLIN) Allergy Intermediate BLOODY Verified 09/11/25 17:46 DIARRHEA clavulanic acid (From AdvReac Intermediate DIARRHEA Verified 09/11/25 17:46 AUGMENTIN) Physical Exam Vital signs: Vital Signs Temp 99.3 F 09/12/25 09:24 Pulse 94 09/12/25 09:24 Resp 16 09/12/25 09:24 BP 131/74 09/12/25 09:24 Pulse Ox 98 09/12/25 08:57 O2 Del Method Room Air 09/12/25 08:57 Intake & Output 09/11/25 09/12/25 09/12/25 18:59 06:59 18:59 Intake Total 700 / 700 0 / 0 Balance 700 / 700 0 / 0 Intake: Intake (Blood Product) Amount 700 / 700 0 / 0 Red Blood Cells (E0336) Unit 0 / 0 [id number] Red Blood Cells (E0336) Unit 350 / 350 [id number] Red Blood Cells (E0336) Unit 350 / 350 [id number] Other: Weight 119.748 kg Weight 119.748 kg - Constitutional Present: no acute distress, obese - Routine HEENT Exam Head: Present: normal inspection Eye: Present: EOMI, conjunctivae pale - Routine Neck Exam Present: supple. Absent: lymphadenopathy - Routine Respiratory Exam Present: CTAB. Absent: wheezes - Routine Cardiovascular Exam Cardiovascular: Present: RRR, S1, S2 - Routine Abdominal Exam Present: soft - Routine Extremities Exam Present: normal inspection - Routine Skin Exam Present: intact, ecchymosis Comments: Ecchymosis bilateral forearms at phlebotomy/IV site - Routine Neurological Exam Present: alert, oriented X3 Hem/Onc Consult Result - Labs CBC & Chem 7: 09/12/25 06:18 09/12/25 04:33 Labs: Short CBC 09/11/25 09/12/25 Range/Units 18:00 06:18 WBC 2.7 L 2.5 L (4.8-10.8) X10*3/uL Hgb 6.2 L* 6.5 L* (12.0-16.0) g/dl Hct 17.5 L* 19.0 L* (37.0-47.0) % Plt Count 197 185 (160-400) X10*3/uL BMP 09/11/25 09/12/25 18:00 04:33 Sodium 137 138 Potassium 4.0 3.9 Chloride 107 110 H Carbon Dioxide 23 19 L BUN 14 12 Creatinine 0.98 0.76 Calcium 8.4 8.4 Liver Function 09/11/25 09/12/25 Range/Units 18:00 04:33 Total Bilirubin 0.9 1.1 H (0.0-1.0) mg/dL AST 16 18 (5-31) U/L ALT 11 10 (0-31) U/L Alkaline Phosphatase 60 57 (39-117) U/L Albumin 3.9 3.8 (3.5-5.0) g/dL Urine 09/11/25 Range/Units 20:10 Urine Color Yellow Urine Appearance Clear Urine pH 6.0 (5.0-9.0) Ur Specific [place] 1.010 (1.005-1.025) Urine Protein Negative (Neg-Trace) mg/dL Urine Glucose (UA) Negative (Negative) mg/dL Assessment and Plan Patient Active problem list reviewed?: Yes (1) Anemia Status: Acute Assessment and plan: 1. This is a 60-year-old woman with underlying Crohn's disease, iron overload secondary to heterozygous positivity for C2A2Y mutation who is presenting with acute macrocytic anemia and slight worsening of chronic leukopenia. Patient has been on azathioprine 75 mg daily for many years, she therefore has chronic macrocytosis. Her hemoglobin in January 2025 was 11.5 gram/dL. She underwent therapeutic phlebotomy in February and subsequently June 2025. This was ordered by support teacher for her iron overload state. Her hemoglobin has been declining since she started the therapeutic phlebotomy, in April and May her hemoglobin was around 10.5 gram/dL, beginning of August 2025, it was down to 8.1 gram/dL. She does not have any hematinic deficiencies. Vitamin B12 and folate levels are not low, she does not have iron-deficiency. She does not consume any alcohol. Her kidney functions are normal. No evidence of hemolysis or occult gastrointestinal blood losses. Coagulation tests including fibrinogen level are normal. This could be from a combination of donating blood and myelosuppression secondary to azathioprine. Underlying bone marrow problems such as myelodysplastic syndrome is also a consideration. At this time I would have her hold azathioprine, continue with blood transfusion to bring hemoglobin to least 8 gram/dL. No further therapeutic phlebotomy, if necessary iron chelation can be considered. Depending upon her response to blood transfusion, further assessment such as bone marrow aspiration/biopsy could be considered. Thank you for the consultation. - Time Spent With Patient Time Spent with Patient (in minutes): 30 Additional Coding: - Additional E/M codes Complex E/M visit Add On: CPT G2211
[2025-09-12 11:39] LABS: Partial Thromboplastin Time 24.2 SEC (26.7-34.1)
--- NOTE | 2025-09-12 12:17 | MHC.CM.PN ---
Pt. completed HCP form today naming: Brittney. It was added to chart, pat. given 2 copies.
--- NOTE | 2025-09-12 13:09 | PC.NURSE ---
Patient refused everything but apple juice. Patient refused all medications.
[2025-09-12 13:14] LABS: Glucose, Whole Blood 169 mg/dL (60-115)
[2025-09-12] MEDS: Dextrose 5 % and 0.45 % NaCl 1,000 ML 100 ML IVCONT (15:57)
[2025-09-12 16:35] LABS: Glucose, Whole Blood 154 mg/dL (60-115)
[2025-09-12 20:05] LABS: Glucose, Whole Blood 160 mg/dL (60-115)
--- NOTE | 2025-09-13 00:24 | CONS_ITS ---
DATE OF SERVICE: 09/12/2025 REFERRING PHYSICIAN: Dr. Sanchez REASON FOR CONSULTATION: Anemia. HISTORY OF PRESENT ILLNESS: The patient is a pleasant 60-year-old woman who was admitted to the hospital yesterday with anemia. She was evaluated by her primary care provider as an outpatient and had laboratory studies done documenting a hematocrit of 19.2 yesterday afternoon. Previous hematocrit on August 30 was 23. She denies any rectal bleeding. She denies any change in her bowel habits. Weight and appetite have been stable. She has a history of Crohn disease involving the colon and has been treated with azathioprine and Humira as well as mesalamine. She has not had any exacerbation of her recent symptoms. She also has a history of iron overload and has undergone phlebotomies. Stool occult blood testing on admission was negative. She has been seen in consultation by Dr. Junior and is currently being transfused. Last phlebotomy was in June of this year. PAST MEDICAL HISTORY: 1. Crohn disease. 2. Hypertension. 3. Hyperlipidemia. 4. Diabetes mellitus. 5. Psoriasis. 6. Elevated body mass index. 7. Gastroesophageal reflux disease. 8. Bipolar disorder. 9. Abdominal abscess requiring drainage. CURRENT MEDICATIONS: Her current medication list is reviewed in the chart. ALLERGIES: AMOXICILLIN AND CARBONIC ACID. FAMILY HISTORY: This is reviewed with the patient and is noncontributory. SOCIAL HISTORY: There is no current tobacco, alcohol, or substance abuse. REVIEW OF SYSTEMS: SKIN: No pruritus. HEENT: Negative. CARDIOPULMONARY: No shortness of breath or chest pain. GASTROINTESTINAL: As above. GENITOURINARY: Negative. NEUROPSYCHIATRIC: Negative. PHYSICAL EXAMINATION: GENERAL: Shows a pleasant female, lying comfortably in bed. VITAL SIGNS: Reviewed in the electronic medical record and are stable. SKIN: Anicteric. HEENT: Shows no scleral icterus. NECK: Without lymphadenopathy or thyromegaly. LUNGS: Clear. HEART: Shows a regular rate and rhythm. S1, S2. No murmur. ABDOMEN: Soft without focal masses or tenderness. Bowel sounds are present. No organomegaly is noted. EXTREMITIES: Without edema. LABORATORY DATA AND IMAGING STUDIES: Reviewed. IMPRESSION: Anemia. She does not appear to have any exacerbation of her Crohn disease or active GI issues at this time. I agree with transfusing her and obtaining Hematology consultation as you are doing. She should avoid phlebotomy at this time. I would recommend continuing her present medications for her Crohn disease with the exception of the azathioprine, which could have contributed to some of her anemia. Thanks for asking me to see her. I will follow her in the hospital as needed. MD VITO Davidson/ROSALINA / [phone]
[2025-09-13] MEDS: Dextrose 5 % and 0.45 % NaCl 1,000 ML 100 ML IVCONT ×2 (01:00→15:12)
[2025-09-13 03:39] VITALS: BP 130/60; PULSE 73; RESP 18; TEMP 36.2; O2SAT 97
--- NOTE | 2025-09-13 07:14 | PC.NURSE ---
Dr Leone texted and notified no labs ordered for this AM.
[2025-09-13 07:47] LABS: Glucose, Whole Blood 174 mg/dL (60-115)
[2025-09-13 08:00] VITALS: BP 136/61; PULSE 78; RESP 16; TEMP 36.4; O2SAT 97
[2025-09-13] MEDS: Fluticasone/Vilanterol 100/25 BLST.W.DEV 1 PUFF INHALE (08:08)
[2025-09-13 08:11] VITALS: PULSE 78; RESP 16
[2025-09-13 08:59] LABS: Hematocrit 22.3 % (37.0-47.0); Hemoglobin 8.0 g/dl (12.0-16.0); Mean Corpuscular HGB Conc 35.9 g/dl (31.0-35.0); Mean Corpuscular Hemoglobin 35.7 pg (27.0-33.0); Mean Corpuscular Volume 99.6 fL (80.0-98.0); NRBC Abs Auto 0.000 X10*3/uL (0.0-0.012); NRBC Pct Auto 0.0 /100WBC (0.0-0.2); Platelet Count 139 X10*3/uL (160-400); Red Blood Count 2.24 X10*6/uL (4.20-5.50)
[2025-09-13 09:03] LABS: White Blood Count 2.5 X10*3/uL (4.8-10.8)
--- NOTE | 2025-09-13 10:52 | HO.PM.IMPN ---
Subjective Subjective Date of Service: 09/13/25 Interval History: f/u on symptomatic anemia, suspected hemolysis hgb essentially unchanged following transfusion initial hgb 6.2 went to 8 after 4 units Physical Exam Vital Signs: Vital Signs: Last Vital Signs Temp 97.6 F 09/13/25 08:00 Pulse 78 09/13/25 08:11 Resp 16 09/13/25 08:11 BP 136/61 09/13/25 08:00 Pulse Ox 97 09/13/25 08:00 O2 Del Method Room Air 09/13/25 08:00 BMI result Body Mass Index 48.3 Const: Other: General: Alert, no acute distress HEENT: No pallor of conjunctiva, no icterus Cardiovascular: Regular rate and rhythm, no murmurs Respiratory: Clear to auscultation bilaterally Abdomen: Soft, non-tender, no hepatosplenomegaly Extremities: No edema, no petechiae or ecchymoses Neuro: Alert and oriented, no focal deficits Skin: No rashes, no jaundice, has bilater bruise in antecubital area from infiltrated IVs Objective Data Active Medications Acetaminophen (Acetaminophen 325 Mg Tablet) 650 mg PO Q6H PRN PRN Reason: Pain, Mild 1-3,fever,headache Albuterol Sulfate (Albuterol Sulfate 90 Mcg 8 Gm Inhaler) 2 puff INHALE Q4H PRN PRN Reason: Shortness Of Breath Or Wheezing Allopurinol (Allopurinol 300 Mg Tablet) 300 mg PO DAILY COUNT INCLUDES THE [facility] Last Admin: 09/13/25 08:05 Dose: 300 mg Documented By: NANCIE Atorvastatin Calcium (Atorvastatin Calcium 20 Mg Tablet) 20 mg PO BEDTIME COUNT INCLUDES THE [facility] Last Admin: 09/12/25 21:00 Dose: 20 mg Documented By: ANNE Calcium Carbonate (Calcium Carbonate 750 Mg Tab.Chew) 750 mg PO Q4H PRN PRN Reason: Heartburn Dextrose (Dextrose 50 % 25 Gm/50 Ml Syringe) 25 gm IVPUSH Q15M PRN; Protocol PRN Reason: per Hypoglycemia Standing Ord. Fluticasone/Vilanterol (Fluticasone/Vilanterol 100/25 Blst.W.Dev) 1 puff INHALE RDAILY COUNT INCLUDES THE [facility] Last Admin: 09/13/25 08:08 Dose: 1 puff Documented By: LOAN Glucose (Glucose Gel 15 Gm Gel..Gram.) 15 gm PO Q15M PRN; Protocol PRN Reason: per Hypoglycemia Standing Ord. Haloperidol (Haloperidol 5 Mg Tablet) 10 mg PO BEDTIME COUNT INCLUDES THE [facility] Last Admin: 09/12/25 21:00 Dose: 10 mg Documented By: ANNE Dextrose/Sodium Chloride (D51/2ns) 1,000 mls @ 100 mls/hr IVCONT .Q10H COUNT INCLUDES THE [facility] Last Infusion: 09/13/25 07:45 Dose: 0 mls/hr Documented By: NANCIE Insulin Human Lispro (Insulin Lispro 100 Unit/Ml 3 Ml Vial) 0 unit SUBCUT QIDACHS COUNT INCLUDES THE [facility]; Protocol Last Admin: 09/13/25 08:05 Dose: 2 unit Documented By: NANCIE Lamotrigine (Lamotrigine 100 Mg Tablet) 100 mg PO BEDTIME COUNT INCLUDES THE [facility] Last Admin: 09/12/25 21:00 Dose: 100 mg Documented By: ANNE Loratadine (Loratadine 10 Mg Tablet) 10 mg PO DAILY COUNT INCLUDES THE [facility] Last Admin: 09/13/25 08:05 Dose: 10 mg Documented By: NANCIE Lorazepam (Lorazepam 1 Mg Tablet) 1 mg PO BID COUNT INCLUDES THE [facility] Last Admin: 09/13/25 08:05 Dose: 1 mg Documented By: NANCIE Magnesium Hydroxide (Milk Of Magnesia 30 Ml Oral.Susp) 30 ml PO DAILY PRN PRN Reason: Constipation Melatonin (Melatonin 3 Mg Tablet) 6 mg PO BEDTIME PRN PRN Reason: Insomnia Mesalamine (Mesalamine 0.375 Gm Cap.Er.24h) 1.5 gm PO DAILY COUNT INCLUDES THE [facility] Last Admin: 09/13/25 08:05 Dose: 1.5 gm Documented By: NANCIE Pantoprazole Sodium (Pantoprazole Sodium 40 Mg/10 Ml Vial) 40 mg IVPUSH DAILY@0630 COUNT INCLUDES THE [facility] Last Admin: 09/13/25 05:59 Dose: 40 mg Documented By: ANNE Sodium Chloride (0.9 % Sodium Chloride Flush 3 Ml Syringe) 3 ml IVFLUSH QSHIFT COUNT INCLUDES THE [facility] Last Admin: 09/13/25 07:31 Dose: Not Given Documented By: NANCIE Non-Admin Reason: IV Running Trazodone HCl (Trazodone Hcl 100 Mg Tablet) 300 mg PO BEDTIME COUNT INCLUDES THE [facility] Last Admin: 09/12/25 21:00 Dose: 300 mg Documented By: ANNE Vitamin D (Cholecalciferol (Vitamin D3) 25 Mcg Tablet) 50 mcg PO DAILY COUNT INCLUDES THE [facility] Last Admin: 09/13/25 08:05 Dose: 50 mcg Documented By: NANCIE Labs 09/13/25 08:40 09/12/25 04:33 Labs: Laboratory Results - last 24 hr 09/11/25 09/12/25 09/12/25 18:00 11:22 13:08 MCV MCH MCHC RDW Plt Count MPV Absolute Nucleated RBC Nucleated RBC % (auto) PT 11.6 INR 1.0 APTT 24.2 L Fibrinogen 527 POC Glucose 169 H Blood Type A Positive Antibody Screen NEGATIVE Crossmatch See Detail 09/12/25 09/12/25 09/13/25 16:26 20:02 07:43 MCV MCH MCHC RDW Plt Count MPV Absolute Nucleated RBC Nucleated RBC % (auto) PT INR APTT Fibrinogen POC Glucose 154 H 160 H 174 H Blood Type Antibody Screen Crossmatch 09/13/25 08:40 MCV 99.6 H D MCH 35.7 H MCHC 35.9 H RDW 24.3 H Plt Count 139 L MPV 10.5 Absolute Nucleated RBC 0.000 Nucleated RBC % (auto) 0.0 PT INR APTT Fibrinogen POC Glucose Blood Type Antibody Screen Crossmatch Assessment and Plan (1) Hemolytic anemia: Status: Acute Plan 60-year-old female with multiple comorbidities presented with severe, asymptomatic anemia (Hgb 6.8) found on routine labs. No signs of bleeding. Received 2 units PRBCs in the ER. Anemia / Concern for Hemolysis Severe, asymptomatic anemia (Hgb 6.8 on arrival, now 6.5 post-transfusion). No evidence of bleeding; stool guaiac negative. Labs notable for elevated reticulocyte count (41.4%), LDH 243, and indirect hyperbilirubinemia (normal bili), raising concern for hemolysis. Iron, folate, and B12 levels obtained. Hematology consult requested. Patient has history of Iron overload and has been treated in the past therapeutic phlebotomy and has been anemic since. She is thus far s/p 4 units of RBCs and Hgb 8 from 6. Hematolgoy recommends transfusion for Hgb less than 8, monitor H/H closely Chest Pain Reported in ER, now resolved. EKG non-ischemic, troponin negative. Monitor for recurrence. Diabetes Mellitus Hold home regimen; manage with insulin sliding scale. Monitor blood glucose. Bipolar Disorder Resume home medications once med rec is complete. Monitor for symptoms. Hypertension Hold home antihypertensives for now. Monitor blood pressure. DVT Prophylaxis: device Reason for Inpatient Stay: Severe anemia requiring transfusion and further evaluation. Quality Stroke Does the patient have a stroke diagnosis?: No VTE Prior VTE?: No VTE Risk Level:: Medical - moderate - high VTE Device Contraindication: N/A - Device Ordered VTE Drug Contraindication: Treatment Not Indicated
[2025-09-13 11:07] LABS: Glucose, Whole Blood 164 mg/dL (60-115)
--- NOTE | 2025-09-13 13:21 | MHC.CM.PN ---
Patient not medically cleared for dc. CM will continue to follow.
[2025-09-13 15:41] VITALS: BP 136/63; PULSE 84; RESP 16; TEMP 36.4; O2SAT 99
[2025-09-13 15:55] LABS: Glucose, Whole Blood 162 mg/dL (60-115)
[2025-09-13 19:48] VITALS: BP 136/63; PULSE 68; RESP 16; TEMP 36.4; O2SAT 96
[2025-09-13 20:31] LABS: Glucose, Whole Blood 139 mg/dL (60-115)
[2025-09-14] VITALS (10 sets, daily range): BP systolic 122–169; BP diastolic 58–79; PULSE 70–104; RESP 16–18; TEMP 36.6–37.6; O2SAT 96–100
[2025-09-14 07:39] LABS: Glucose, Whole Blood 155 mg/dL (60-115)
[2025-09-14] MEDS: 0.9 % Sodium Chloride Flush 3 ML SYRINGE IVFLUSH ×3 (07:56→20:19)
[2025-09-14] MEDS: Fluticasone/Vilanterol 100/25 BLST.W.DEV 1 PUFF INHALE (08:24)
[2025-09-14 09:26] LABS: Hematocrit 21.4 % (37.0-47.0); Hemoglobin 7.3 g/dl (12.0-16.0); Mean Corpuscular HGB Conc 34.1 g/dl (31.0-35.0); Mean Corpuscular Hemoglobin 34.4 pg (27.0-33.0); Mean Corpuscular Volume 100.9 fL (80.0-98.0); NRBC Abs Auto 0.000 X10*3/uL (0.0-0.012); NRBC Pct Auto 0.0 /100WBC (0.0-0.2); Platelet Count 128 X10*3/uL (160-400); Red Blood Count 2.12 X10*6/uL (4.20-5.50); White Blood Count 3.3 X10*3/uL (4.8-10.8)
--- NOTE | 2025-09-14 10:39 | P.PNIM_ITS ---
Subjective Subjective Date of Service: 09/14/25 Interval History: f/u on symptomatic anemia, suspected hemolysis s/p 4 units or RBC and Hgb 7 today, down from 8 yesterday, no active bleed Physical Exam 2 Vital Signs: Vital Signs: Last Vital Signs Temp 99.4 F 09/14/25 07:31 Pulse 70 09/14/25 08:26 Resp 16 09/14/25 08:26 BP 129/58 L 09/14/25 07:31 Pulse Ox 96 09/14/25 07:31 O2 Del Method Room Air 09/14/25 07:31 BMI result Body Mass Index 48.3 Const: Other: General: Alert, no acute distress HEENT: No pallor of conjunctiva, no icterus Cardiovascular: Regular rate and rhythm, no murmurs Respiratory: Clear to auscultation bilaterally Abdomen: Soft, non-tender, no hepatosplenomegaly Extremities: No edema, no petechiae or ecchymoses Neuro: Alert and oriented, no focal deficits Skin: No rashes, no jaundice, has bilater bruise in antecubital area from infiltrated IVs Objective Data Active Medications Acetaminophen (Acetaminophen 325 Mg Tablet) 650 mg PO Q6H PRN PRN Reason: Pain, Mild 1-3,fever,headache Albuterol Sulfate (Albuterol Sulfate 90 Mcg 8 Gm Inhaler) 2 puff INHALE Q4H PRN PRN Reason: Shortness Of Breath Or Wheezing Allopurinol (Allopurinol 300 Mg Tablet) 300 mg PO DAILY [facility] Last Admin: 09/14/25 07:56 Dose: 300 mg Documented By: DIANA Atorvastatin Calcium (Atorvastatin Calcium 20 Mg Tablet) 20 mg PO BEDTIME [facility] Last Admin: 09/13/25 20:46 Dose: 20 mg Documented By: RENE Calcium Carbonate (Calcium Carbonate 750 Mg Tab.Chew) 750 mg PO Q4H PRN PRN Reason: Heartburn Dextrose (Dextrose 50 % 25 Gm/50 Ml Syringe) 25 gm IVPUSH Q15M PRN; Protocol PRN Reason: per Hypoglycemia Standing Ord. Fluticasone/Vilanterol (Fluticasone/Vilanterol 100/25 Blst.W.Dev) 1 puff INHALE RDAILY [facility] Last Admin: 09/14/25 08:24 Dose: 1 puff Documented By: NIMA Glucose (Glucose Gel 15 Gm Gel..Gram.) 15 gm PO Q15M PRN; Protocol PRN Reason: per Hypoglycemia Standing Ord. Haloperidol (Haloperidol 5 Mg Tablet) 10 mg PO BEDTIME [facility] Last Admin: 09/13/25 20:47 Dose: 10 mg Documented By: RENE Insulin Human Lispro (Insulin Lispro 100 Unit/Ml 3 Ml Vial) 0 unit SUBCUT QIDACHS [facility]; Protocol Last Admin: 09/14/25 07:56 Dose: 2 unit Documented By: DIANA Lamotrigine (Lamotrigine 100 Mg Tablet) 100 mg PO BEDTIME [facility] Last Admin: 09/13/25 20:46 Dose: 100 mg Documented By: RENE Loratadine (Loratadine 10 Mg Tablet) 10 mg PO DAILY [facility] Last Admin: 09/14/25 07:55 Dose: 10 mg Documented By: DIANA Lorazepam (Lorazepam 1 Mg Tablet) 1 mg PO BID [facility] Last Admin: 09/14/25 07:56 Dose: 1 mg Documented By: DINAA Magnesium Hydroxide (Milk Of Magnesia 30 Ml Oral.Susp) 30 ml PO DAILY PRN PRN Reason: Constipation Melatonin (Melatonin 3 Mg Tablet) 6 mg PO BEDTIME PRN PRN Reason: Insomnia Mesalamine (Mesalamine 0.375 Gm Cap.Er.24h) 1.5 gm PO DAILY [facility] Last Admin: 09/14/25 07:56 Dose: 1.5 gm Documented By: DIANA Pantoprazole Sodium (Pantoprazole Sodium 40 Mg/10 Ml Vial) 40 mg IVPUSH DAILY@0630 [facility] Last Admin: 09/14/25 05:41 Dose: 40 mg Documented By: RENE Sodium Chloride (0.9 % Sodium Chloride Flush 3 Ml Syringe) 3 ml IVFLUSH QSHIFT [facility] Last Admin: 09/14/25 07:56 Dose: 3 ml Documented By: DIANA Trazodone HCl (Trazodone Hcl 100 Mg Tablet) 300 mg PO BEDTIME [facility] Last Admin: 09/13/25 20:47 Dose: 300 mg Documented By: RENE Vitamin D (Cholecalciferol (Vitamin D3) 25 Mcg Tablet) 50 mcg PO DAILY [facility] Last Admin: 09/14/25 07:56 Dose: 50 mcg Documented By: DIANA Labs 09/14/25 09:04 09/12/25 04:33 Labs: Laboratory Results - last 24 hr 09/13/25 09/13/25 09/13/25 11:03 15:45 20:22 MCV MCH MCHC RDW Plt Count MPV Absolute Nucleated RBC Nucleated RBC % (auto) POC Glucose 164 H 162 H 139 H 09/14/25 09/14/25 07:35 09:04 MCV 100.9 H MCH 34.4 H MCHC 34.1 RDW 23.6 H Plt Count 128 L MPV 10.1 Absolute Nucleated RBC 0.000 Nucleated RBC % (auto) 0.0 POC Glucose 155 H Assessment and Plan (1) Hemolytic anemia: Status: Acute Plan 60-year-old female with multiple comorbidities presented with severe, asymptomatic anemia (Hgb 6.8) found on routine labs. No signs of bleeding. Received 2 units PRBCs in the ER. Anemia / Concern for Hemolysis Severe, asymptomatic anemia (Hgb 6.8 on arrival, now 6.5 post-transfusion). No evidence of bleeding; stool guaiac negative. Labs notable for elevated reticulocyte count (41.4%), LDH 243, and indirect hyperbilirubinemia (normal bili), raising concern for hemolysis. Iron, folate, and B12 levels obtained. Hematology consult requested. Patient has history of Iron overload and has been treated in the past therapeutic phlebotomy and has been anemic since. She is thus far s/p 4 units of RBCs and Hgb 8 from 6. Hematolgoy recommends transfusion for Hgb less than 8, monitor H/H closely..transfuse 2 more units today and discuss further with hematology---for total 6 units thus far GI consult is pending Chest Pain Reported in ER, now resolved. EKG non-ischemic, troponin negative. Monitor for recurrence. Diabetes Mellitus Hold home regimen; manage with insulin sliding scale. Monitor blood glucose. Bipolar Disorder Resume home medications once med rec is complete. Monitor for symptoms. Hypertension Hold home antihypertensives for now. Monitor blood pressure. DVT Prophylaxis: device Reason for Inpatient Stay: Severe anemia requiring transfusion and further evaluation. Quality Stroke Does the patient have a stroke diagnosis?: No VTE Prior VTE?: No VTE Risk Level:: Medical - moderate - high VTE Device Contraindication: N/A - Device Ordered VTE Drug Contraindication: Treatment Not Indicated
[2025-09-14 11:20] LABS: Glucose, Whole Blood 164 mg/dL (60-115)
--- NOTE | 2025-09-14 14:57 | HO.MIDLINE_ITS ---
Midline Insertion MIDLINE INSERTION Diagnosis: difficult IV access Indication: blood products Pertinent Labs: Reviewed Technique: Using sterile technique including cap and mask, glove and drape, the left arm was prepped and draped in the usual sterile fashion of full barrier technique with CHG. Using ultrasound guidance, left basilic vein access was obta ined . 4fr single lumen nonPASV powermidline was positioned. The procedure was performed in 7. Ultrasound was used to document vein patency and for needle entry. A formal ultrasound picture was recorded. [employer] has released the line for use and it is currently dressed with a StatLock, Tegaderm, and CHG disc. Verification has been performed for blood return and line patency. Arm Circumference: 44cm Equipment: [employer] POWER MIDLINE catheter Catheter Type: 4fr single lumen non pasv Lot #: [id number]
[2025-09-14 16:40] LABS: Glucose, Whole Blood 160 mg/dL (60-115)
[2025-09-14 20:08] LABS: Glucose, Whole Blood 107 mg/dL (60-115)
[2025-09-15 04:00] VITALS: BP 133/64; PULSE 81; RESP 22; TEMP 36.1; O2SAT 96
[2025-09-15 07:26] LABS: Glucose, Whole Blood 186 mg/dL (60-115)
[2025-09-15 07:58] VITALS: BP 133/63; PULSE 87; RESP 17; TEMP 36.1; O2SAT 94
[2025-09-15] MEDS: 0.9 % Sodium Chloride Flush 3 ML SYRINGE IVFLUSH ×3 (08:01→20:13)
[2025-09-15] MEDS: Fluticasone/Vilanterol 100/25 BLST.W.DEV 1 PUFF INHALE (08:30)
[2025-09-15 08:31] VITALS: PULSE 91; RESP 16; O2SAT 97
[2025-09-15 08:31] LABS: Hematocrit 26.9 % (37.0-47.0); Hemoglobin 9.4 g/dl (12.0-16.0); Mean Corpuscular HGB Conc 34.9 g/dl (31.0-35.0); Mean Corpuscular Hemoglobin 34.4 pg (27.0-33.0); Mean Corpuscular Volume 98.5 fL (80.0-98.0); NRBC Abs Auto 0.000 X10*3/uL (0.0-0.012); NRBC Pct Auto 0.0 /100WBC (0.0-0.2); Platelet Count 121 X10*3/uL (160-400); Red Blood Count 2.73 X10*6/uL (4.20-5.50); White Blood Count 3.9 X10*3/uL (4.8-10.8)
[2025-09-15 09:25] LABS: Alanine Aminotransferase 9 U/L (0-31); Albumin Level 3.6 g/dL (3.5-5.0); Alkaline Phosphatase 64 U/L (39-117); Anion Gap 11 (12-20); Aspartate Amino Transferase 19 U/L (5-31); Blood Urea Nitrogen 10 mg/dL (9-16); Calcium 8.7 mg/dL (8.4-10.2); Carbon Dioxide 23 mmol/L (22-29); Chloride 109 mmol/L (96-108); Creatinine Clr Calc Pharmacy 103.4; Estimated Glomerular Filt Rate > 60; Potassium 3.7 mmol/L (3.3-5.1); Sodium 139 mmol/L (135-145); Total Protein 5.6 g/dL (6.5-8.0)
--- NOTE | 2025-09-15 10:59 | P.PNHO-ONC_ITS ---
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 Patient is being managed by Dr. Hare for both above conditions. Here recommended therapeutic phlebotomy for iron overload state, she got this done twice, in February and June 2025. For the last month she developed exertional shortness of breath, palpitation and weakness. Her PCP ordered blood work yesterday and found her to be anemic and referred her to the emergency room. She also noted to exacerbation of her chronic leukopenia. Patient reports receiving blood transfusion around 2008 at [facility] when she was being treated for an abdominal abscess. Subsequently she met with Dr. Santiago for assessment of leukopenia and macrocytic anemia. That time her counts were stable and seemed to improve and therefore bone marrow aspiration was deferred although it was considered. Patient denies any constitutional symptoms such as fever, chills, night sweats or unexplained weight loss. No headache or dizziness. She denies any nosebleed or hematuria. No hematochezia or abdominal pain. She has not been on any new medications. She denies any recent infections. She does not consume any alcohol. 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 She is now disabled from bipolar disorder. No significant family history of cancer other than grandfather having had colon cancer. Patient has had midline placed. So far she has received 6 units blood transfusion. She feels better today. [facility] Medical History: Medical History (Last Reviewed 09/12/25 @ 15:38 by Kathrin Diamond RN) Anemia Annual physical exam Anxiety Asthma Bipolar 1 disorder Breast cancer screening Chronic anemia COPD (chronic obstructive pulmonary disease) Crohn's disease Depression Diabetes Elevated cholesterol Establishing care with new doctor, encounter for GERD (gastroesophageal reflux disease) Gout History of macrocytosis History of mammogram Onset Date: ~12/17/21 HTN (hypertension) Hx of abdominal abscess Hypertriglyceridemia Macrocytic anemia Morbid obesity with BMI of 45.0-49.9, adult Psoriasis Type 2 diabetes mellitus with hemoglobin A1c goal of less than 7.0% Vitamin B12 deficiency Vitamin D deficiency Family History: Family History (Last Reviewed 09/11/25 @ 19:55 by Yadira Youngblood MD) Father Parkinsons Mother Emphysema lung Surgical History: Surgical History (Last Reviewed 09/12/25 @ 15:38 by Kathrin Diamond RN) History of esophagogastroduodenoscopy (EGD) Hx of colonoscopy Onset Date: ~10/22/23 Hx of tonsillectomy Social History: Social History (Last Reviewed 09/11/25 @ 19:55 by Yadira Youngblood MD) Living Situation History: Household Members: None [facility]: [facility] Do you presently have visiting nurse or other home services: No Tobacco History: Patient Tobacco Use Status: Former Tobacco user Advance Directives: Advance Directives Date on File: 08/28/21 Occupation Assessmet: [place] service: No Current occupational status: disabled Home Medications and Allergies Current Medications: Current Medications Acetaminophen (Acetaminophen 325 Mg Tablet) 650 mg PO Q6H PRN PRN Reason: Pain, Mild 1-3,fever,headache Last Admin: 09/14/25 20:18 Dose: 650 mg Albuterol Sulfate (Albuterol Sulfate 90 Mcg 8 Gm Inhaler) 2 puff INHALE Q4H PRN PRN Reason: Shortness Of Breath Or Wheezing Allopurinol (Allopurinol 300 Mg Tablet) 300 mg PO DAILY [facility] Last Admin: 09/15/25 08:01 Dose: 300 mg Atorvastatin Calcium (Atorvastatin Calcium 20 Mg Tablet) 20 mg PO BEDTIME KALLI Last Admin: 09/14/25 20:18 Dose: 20 mg Calcium Carbonate (Calcium Carbonate 750 Mg Tab.Chew) 750 mg PO Q4H PRN PRN Reason: Heartburn Dextrose (Dextrose 50 % 25 Gm/50 Ml Syringe) 25 gm IVPUSH Q15M PRN; Protocol PRN Reason: per Hypoglycemia Standing Ord. Fluticasone/Vilanterol (Fluticasone/Vilanterol 100/25 Blst.W.Dev) 1 puff INHALE RDAILY [facility] Last Admin: 09/15/25 08:30 Dose: 1 puff Glucose (Glucose Gel 15 Gm Gel..Gram.) 15 gm PO Q15M PRN; Protocol PRN Reason: per Hypoglycemia Standing Ord. Haloperidol (Haloperidol 5 Mg Tablet) 10 mg PO BEDTIME [facility] Last Admin: 09/14/25 20:18 Dose: 10 mg Insulin Human Lispro (Insulin Lispro 100 Unit/Ml 3 Ml Vial) 0 unit SUBCUT QIDACHS [facility]; Protocol Last Admin: 09/15/25 08:01 Dose: 2 unit Lamotrigine (Lamotrigine 100 Mg Tablet) 100 mg PO BEDTIME [facility] Last Admin: 09/14/25 20:18 Dose: 100 mg Loratadine (Loratadine 10 Mg Tablet) 10 mg PO DAILY [facility] Last Admin: 09/15/25 08:01 Dose: 10 mg Lorazepam (Lorazepam 1 Mg Tablet) 1 mg PO BID [facility] Last Admin: 09/15/25 08:01 Dose: 1 mg Magnesium Hydroxide (Milk Of Magnesia 30 Ml Oral.Susp) 30 ml PO DAILY PRN PRN Reason: Constipation Melatonin (Melatonin 3 Mg Tablet) 6 mg PO BEDTIME PRN PRN Reason: Insomnia Mesalamine (Mesalamine 0.375 Gm Cap.Er.24h) 1.5 gm PO DAILY [facility] Last Admin: 09/15/25 08:00 Dose: 1.5 gm Sodium Chloride (0.9 % Sodium Chloride Flush 3 Ml Syringe) [facility] Last Admin: 09/15/25 08:01 Dose: 3 ml Trazodone HCl (Trazodone Hcl 100 Mg Tablet) 300 mg PO BEDTIME [facility] Last Admin: 09/14/25 20:17 Dose: 300 mg Vitamin D (Cholecalciferol (Vitamin D3) 25 Mcg Tablet) 50 mcg PO DAILY [facility] Last Admin: 09/15/25 08:00 Dose: 50 mcg Home Medications ?Medication ?Instructions ?Recorded ?Confirmed ?Type azathioprine 50 mg tablet 75 mg PO DAILY 08/23/21 09/11/25 History haloperidol 10 mg tablet 10 mg PO BEDTIME 08/23/21 09/11/25 Histo ry insulin lispro 100 unit/mL See Protocol subcut QIDACHS PRN 08/23/21 09/11/25 History subcutaneous solution (Humalog Hyperglycemia U-100 Insulin) lamotrigine 100 mg tablet 100 mg PO BEDTIME 08/23/21 09/11/25 Hist ory lorazepam 1 mg tablet 1 mg PO BID 08/23/21 09/11/25 History mesalamine 0.375 gram 1.5 g PO DAILY 08/23/21 09/11/25 History capsule,extended release 24 hr (Apriso) omeprazole 20 mg capsule,delayed 20 mg PO DAILY@0630 08/23/21 09/11/25 Hi story release insulin glargine 100 unit/mL 70 unit subcut BEDTIME 05/15/25 09/11/25 History subcutaneous solution (Lantus U-100 Insulin) albuterol sulfate 90 mcg/actuation 2 puff inhalation Q4-6H PRN 09/11/25 History aerosol inhaler Shortness Of Breath Or Wheezing betamethasone dipropionate 0.05 % 1 appl topical BID 09/11/25 09/11/25 His tory lotion ketoconazole 2 % topical cream 1 appl topical BID 09/11/25 09/11/25 His tory loratadine 10 mg tablet (Claritin) 10 mg PO DAILY 09/11/25 09/11/25 History simvastatin 40 mg tablet 40 mg PO BEDTIME 09/11/25 09/11/25 Histo ry trazodone 150 mg tablet 300 mg PO BEDTIME insomnia 09/11/2508/24 History Allergies Allergy/AdvReac Type Severity Reaction Status Date / Time amoxicillin (AMOXICILLIN) Allergy Intermediate BLOODY Verified 09/11/25 17:46 DIARRHEA clavulanic acid (From AdvReac Intermediate DIARRHEA Verified 09/11/25 17:46 AUGMENTIN) Exam Vital signs: Vital Signs Temp 96.9 F 09/15/25 07:58 Pulse 91 09/15/25 08:31 Resp 16 09/15/25 08:31 BP 133/63 09/15/25 07:58 Pulse Ox 94 09/15/25 07:58 O2 Del Method Room Air 09/15/25 07:58 Intake & Output 09/14/25 09/15/25 09/15/25 18:59 06:59 18:59 Intake Total 1180 / 1180 0 / 1180 Balance 1180 / 1180 0 / 1180 Intake: Intake, Oral Amount 480 / 480 0 / 480 Intake (Blood Product) Amount 700 / 700 Red Blood Cells (E0336) Unit 350 / 350 [id number] Red Blood Cells (E0336) Unit 350 / 350 [id number] Other: Meal Refused No NPO No Breakfast % Eaten 50% Lunch % Eaten 100% Number of Unmeasured Voids 2 1 Urine Bathroom Last Bowel Movement 09/13/25 09/14/25 09/14/25 Weight 119.748 kg BMI result Body Mass Index 48.3 - Constitutional Present: no acute distress, obese - Routine HEENT Exam Head: Present: normal inspection - Routine Respiratory Exam Present: CTAB. Absent: wheezes - Routine Cardiovascular Exam Cardiovascular: Present: RRR, S1, S2 - Routine Abdominal Exam Present: soft - Routine Extremities Exam Present: normal inspection - Routine Skin Exam Present: intact, ecchymosis - Routine Neurological Exam Present: alert, oriented X3 Data - Labs CBC & Chem 7: 09/15/25 08:11 09/15/25 08:54 Labs: Laboratory Last Values WBC 3.9 X10*3/uL (4.8-10.8) L 09/15/25 08:11 RBC 2.73 X10*6/uL (4.20-5.50) L D 09/15/25 08:11 Hgb 9.4 g/dl (12.0-16.0) L D 09/15/25 08:11 Hct 26.9 % (37.0-47.0) L D 09/15/25 08:11 MCV 98.5 fL (80.0-98.0) H 09/15/25 08:11 MCH 34.4 pg (27.0-33.0) H 09/15/25 08:11 MCHC 34.9 g/dl (31.0-35.0) 09/15/25 08:11 RDW 21.5 % (11.0-16.0) H 09/15/25 08:11 Plt Count 121 X10*3/uL (160-400) L 09/15/25 08:11 MPV 10.8 fL (9.4-12.3) 09/15/25 08:11 Immature Gran % (Auto) 2.4 % (0.0-0.4) H 09/12/25 06:18 Neut % (Auto) 50.0 % (45-73) 09/12/25 06:18 Lymph % (Auto) 33.9 % (20-40) 09/12/25 06:18 Dixon % (Auto) 12.1 % (2-11) H 09/12/25 06:18 Eos % (Auto) 0.8 % (0-4) 09/12/25 06:18 Baso % (Auto) 0.8 % (0-2) 09/12/25 06:18 Lymph # (Auto) 0.8 X10*3/uL (1.2-4.9) L 09/12/25 06:18 Dixon # (Auto) 0.3 X10*3/uL (0.1-1.2) 09/12/25 06:18 Eos # (Auto) 0.0 X10*3/uL (0.0-0.4) 09/12/25 06:18 Baso # (Auto) 0.0 X10*3/uL (0.0-0.2) 09/12/25 06:18 Abs Immat Gran (auto) 0.06 X10*3/uL (0.00-0.03) H 09/12/25 06:18 Absolute Neuts (auto) 1.2 x10*3/uL (2.0-8.3) L 09/12/25 06:18 Absolute Nucleated RBC 0.000 X10*3/uL (0.0-0.012) 09/15/25 08:11 Nucleated RBC % (auto) 0.0 /100WBC (0.0-0.2) 09/15/25 08:11 Smear Tech's Comments VERIFIED 09/12/25 06:18 Smear Path Review SEE NOTE 09/12/25 06:18 Absolute Retic 0.076 X10*6/uL (0.026-0.095) 09/12/25 06:18 Percent Retic 4.5 % (0.5-1.8) H 09/12/25 06:18 Immature Retic Fraction 25.6 % (3.0-15.9) H 09/12/25 06:18 Retic Hgb Equivalent 41.4 pg (30.0-35.0) H 09/12/25 06:18 PT 11.6 SEC (10.9-12.4) 09/12/25 11:22 INR 1.0 (0.9-1.1) 09/12/25 11:22 APTT 24.2 SEC (26.7-34.1) L 09/12/25 11:22 Fibrinogen 527 MG/DL (259-690) 09/12/25 11:22 Sodium 139 mmol/L (135-145) 09/15/25 08:54 Potassium 3.7 mmol/L (3.3-5.1) 09/15/25 08:54 Chloride 109 mmol/L (96-108) H 09/15/25 08:54 Carbon Dioxide 23 mmol/L (22-29) 09/15/25 08:54 Anion Gap 11 (12-20) L 09/15/25 08:54 BUN 10 mg/dL (9-16) 09/15/25 08:54 Creatinine 0.73 mg/dL (0.5-1.4) 09/15/25 08:54 Estim Creat Clear Calc 103.4 09/15/25 08:54 Estimated GFR > 60 09/15/25 08:54 POC Glucose 186 mg/dL (60-115) H 09/15/25 07:21 Random Glucose 205 mg/dL (60-115) H 09/15/25 08:54 Haptoglobin 71 mg/dL (35-250) 09/12/25 06:18 Calcium 8.7 mg/dL (8.4-10.2) 09/15/25 08:54 Iron 99 mcg/dL (30-160) 09/11/25 19:59 TIBC 209 mcg/dL (228-428) L 09/11/25 19:59 % Saturation 47 % (15-50) 09/11/25 19:59 Unsat Iron Binding 110 ug/dL 09/11/25 19:59 Total Bilirubin 1.6 mg/dL (0.0-1.0) H 09/15/25 08:54 AST 19 U/L (5-31) 09/15/25 08:54 ALT 9 U/L (0-31) 09/15/25 08:54 Alkaline Phosphatase 64 U/L (39-117) 09/15/25 08:54 Lactate Dehydrogenase 270 U/L (122-220) H 09/15/25 08:54 Troponin I High Sens < 2.7 ng/L (<3.5-17.0) 09/11/25 18:00 Total Protein 5.6 g/dL (6.5-8.0) L 09/15/25 08:54 Albumin 3.6 g/dL (3.5-5.0) 09/15/25 08:54 Vitamin B12 > 2000 pg/mL (200-900) H 09/11/25 19:59 Folate 9.1 ng/mL (> or = 4.0) 09/11/25 19:59 Urine Color Yellow 09/11/25 20:10 Urine Appearance Clear 09/11/25 20:10 Urine pH 6.0 (5.0-9.0) 09/11/25 20:10 Ur Specific [place] 1.010 (1.005-1.025) 09/11/25 20:10 Urine Protein Negative mg/dL (Neg-Trace) 09/11/25 20:10 Urine Glucose (UA) Negative mg/dL (Negative) 09/11/25 20:10 Urine Ketones Negative mg/dL (Negative) 09/11/25 20:10 Urine Blood Negative (Negative) 09/11/25 20:10 Urine Nitrite Negative (Negative) 09/11/25 20:10 Ur Leukocyte Esterase Trace (Negative) H 09/11/25 20:10 Urine RBC 0-2 /HPF (0-2) 09/11/25 20:10 Urine WBC 0-5 /HPF (0-5) 09/11/25 20:10 Ur Squamous Epith Cells 6-10 /HPF (0-2) 09/11/25 20:10 Urine Bacteria None Seen (None Seen) 09/11/25 20:10 Hyaline Casts 0-2 /LPF (0-2) 09/11/25 20:10 Stool Occult Blood NEGATIVE (NEGATIVE) 09/11/25 19:45 Blood Type A Positive 09/11/25 18:00 Antibody Screen NEGATIVE 09/11/25 18:00 Crossmatch See Detail 09/11/25 18:00 Assessment and Plan Patient Active problem list reviewed?: Yes (1) Anemia Status: Acute Assessment and plan: 1. This is a 60-year-old woman with underlying Crohn's disease, iron overload secondary to heterozygous positivity for C2A2Y mutation who is presenting with acute macrocytic anemia and slight worsening of chronic leukopenia. Patient has been on azathioprine 75 mg daily for many years, she therefore has chronic macrocytosis. Her hemoglobin in January 2025 was 11.5 gram/dL. She underwent therapeutic phlebotomy in February and subsequently June 2025. This was ordered by subway conductor for her iron overload state. Her hemoglobin has been declining since she started the therapeutic phlebotomy, in April and May her hemoglobin was around 10.5 gram/dL, beginning of August 2025, it was down to 8.1 gram/dL. She does not have any hematinic deficiencies. Vitamin B12 and folate levels are not low, she does not have iron-deficiency. She does not consume any alcohol. Her kidney functions are normal. No evidence of hemolysis or occult gastrointestinal blood losses. Coagulation tests including fibrinogen level are normal. This could be from a combination of donating blood and myelosuppression secondary to azathioprine. Underlying bone marrow problems such as myelodysplastic syndrome is also a consideration. At this time I would have her hold azathioprine, continue with blood transfusion to bring hemoglobin to least 8 gram/dL. No further therapeutic phlebotomy, if necessary iron chelation can be considered. She has received 6 units blood transfusion over the last 3 days. Her hemoglobin today is 9.4 gram/dL. Based on her weight this is appropriate response. Her WBC count is gradually coming up. LDH is only marginally elevated. Rest of her labs are fine. Check ultrasound abdomen to rule out hypersplenism. If she has further drop in blood counts over the weekend, she will need bone marrow aspiration/biopsy. - Time Spent With Patient Time Spent with Patient (in minutes): 20 Additional Coding: - Additional E/M codes Complex E/M visit Add On: CPT G2211
--- NOTE | 2025-09-15 11:19 | MHC.CM.PN ---
Not medically cleared for dc. CM will continue to follow.
[2025-09-15 11:34] LABS: Glucose, Whole Blood 169 mg/dL (60-115)
--- NOTE | 2025-09-15 13:02 | HO.PM.IMPN ---
Subjective Subjective Date of Service: 09/15/25 Interval History: f/u on symptomatic anemia, suspected hemolysis s/p 4 units or RBC and Hgb 7 today, hgb is 9 after 2 units yesterday no sings fo bleeding Physical Exam Vital Signs: Vital Signs: Last Vital Signs Temp 96.9 F 09/15/25 07:58 Pulse 91 09/15/25 08:31 Resp 16 09/15/25 08:31 BP 133/63 09/15/25 07:58 Pulse Ox 94 09/15/25 07:58 O2 Del Method Room Air 09/15/25 07:58 BMI result Body Mass Index 48.3 Const: Other: General: Alert, no acute distress HEENT: No pallor of conjunctiva, no icterus Cardiovascular: Regular rate and rhythm, no murmurs Respiratory: Clear to auscultation bilaterally Abdomen: Soft, non-tender, no hepatosplenomegaly Extremities: No edema, no petechiae or ecchymoses Neuro: Alert and oriented, no focal deficits Skin: No rashes, no jaundice, has bilater bruise in antecubital area from infiltrated IVs Objective Data Active Medications Acetaminophen (Acetaminophen 325 Mg Tablet) 650 mg PO Q6H PRN PRN Reason: Pain, Mild 1-3,fever,headache Last Admin: 09/14/25 20:18 Dose: 650 mg Documented By: RENE Albuterol Sulfate (Albuterol Sulfate 90 Mcg 8 Gm Inhaler) 2 puff INHALE Q4H PRN PRN Reason: Shortness Of Breath Or Wheezing Allopurinol (Allopurinol 300 Mg Tablet) 300 mg PO DAILY [facility] Last Admin: 09/15/25 08:01 Dose: 300 mg Documented By: ARVIND Atorvastatin Calcium (Atorvastatin Calcium 20 Mg Tablet) 20 mg PO BEDTIME [facility] Last Admin: 09/14/25 20:18 Dose: 20 mg Documented By: RENE Calcium Carbonate (Calcium Carbonate 750 Mg Tab.Chew) 750 mg PO Q4H PRN PRN Reason: Heartburn Dextrose (Dextrose 50 % 25 Gm/50 Ml Syringe) 25 gm IVPUSH Q15M PRN; Protocol PRN Reason: per Hypoglycemia Standing Ord. Fluticasone/Vilanterol (Fluticasone/Vilanterol 100/25 Blst.W.Dev) 1 puff INHALE RDAILY [facility] Last Admin: 09/15/25 08:30 Dose: 1 puff Documented By: DEWAYNE Glucose (Glucose Gel 15 Gm Gel..Gram.) 15 gm PO Q15M PRN; Protocol PRN Reason: per Hypoglycemia Standing Ord. Haloperidol (Haloperidol 5 Mg Tablet) 10 mg PO BEDTIME [facility] Last Admin: 09/14/25 20:18 Dose: 10 mg Documented By: RENE Insulin Human Lispro (Insulin Lispro 100 Unit/Ml 3 Ml Vial) 0 unit SUBCUT QIDACHS [facility]; Protocol Last Admin: 09/15/25 11:49 Dose: Not Given Documented By: ARVIND Non-Admin Reason: No Insulin Coverage Lamotrigine (Lamotrigine 100 Mg Tablet) 100 mg PO BEDTIME [facility] Last Admin: 09/14/25 20:18 Dose: 100 mg Documented By: RENE Loratadine (Loratadine 10 Mg Tablet) 10 mg PO DAILY [facility] Last Admin: 09/15/25 08:01 Dose: 10 mg Documented By: ARVIND Lorazepam (Lorazepam 1 Mg Tablet) 1 mg PO BID [facility] Last Admin: 09/15/25 08:01 Dose: 1 mg Documented By: ARVIND Magnesium Hydroxide (Milk Of Magnesia 30 Ml Oral.Susp) 30 ml PO DAILY PRN PRN Reason: Constipation Melatonin (Melatonin 3 Mg Tablet) 6 mg PO BEDTIME PRN PRN Reason: Insomnia Mesalamine (Mesalamine 0.375 Gm Cap.Er.24h) 1.5 gm PO DAILY [facility] Last Admin: 09/15/25 08:00 Dose: 1.5 gm Documented By: ARVIND Sodium Chloride (0.9 % Sodium Chloride Flush 3 Ml Syringe) 3 ml IVFLUSH QSHIFT [facility] Last Admin: 09/15/25 08:01 Dose: 3 ml Documented By: ARVIND Trazodone HCl (Trazodone Hcl 100 Mg Tablet) 300 mg PO BEDTIME [facility] Last Admin: 09/14/25 20:17 Dose: 300 mg Documented By: RENE Vitamin D (Cholecalciferol (Vitamin D3) 25 Mcg Tablet) 50 mcg PO DAILY [facility] Last Admin: 09/15/25 08:00 Dose: 50 mcg Documented By: ARVIND Labs 09/15/25 08:11 09/15/25 08:54 Labs: Laboratory Results - last 24 hr 09/11/25 09/14/25 09/14/25 18:00 16:33 19:49 MCV MCH MCHC RDW Plt Count MPV Absolute Nucleated RBC Nucleated RBC % (auto) Anion Gap Estim Creat Clear Calc Estimated GFR POC Glucose 160 H 107 Random Glucose Calcium Total Bilirubin AST ALT Alkaline Phosphatase Lactate Dehydrogenase Total Protein Albumin Blood Type A Positive Antibody Screen NEGATIVE Crossmatch See Detail 09/15/25 09/15/25 09/15/25 07:21 08:11 08:54 MCV 98.5 H MCH 34.4 H MCHC 34.9 RDW 21.5 H Plt Count 121 L MPV 10.8 Absolute Nucleated RBC 0.000 Nucleated RBC % (auto) 0.0 Anion Gap 11 L Estim Creat Clear Calc 103.4 Estimated GFR > 60 POC Glucose 186 H Random Glucose 205 H Calcium 8.7 Total Bilirubin 1.6 H AST 19 ALT 9 Alkaline Phosphatase 64 Lactate Dehydrogenase 270 H Total Protein 5.6 L Albumin 3.6 Blood Type Antibody Screen Crossmatch 09/15/25 11:23 MCV MCH MCHC RDW Plt Count MPV Absolute Nucleated RBC Nucleated RBC % (auto) Anion Gap Estim Creat Clear Calc Estimated GFR POC Glucose 169 H Random Glucose Calcium Total Bilirubin AST ALT Alkaline Phosphatase Lactate Dehydrogenase Total Protein Albumin Blood Type Antibody Screen Crossmatch Assessment and Plan (1) Hemolytic anemia: Status: Acute Plan 60-year-old female with multiple comorbidities presented with severe, asymptomatic anemia (Hgb 6.8) found on routine labs. No signs of bleeding. Received 2 units PRBCs in the ER. Anemia / Concern for Hemolysis Severe, asymptomatic anemia (Hgb 6.8 on arrival, now 6.5 post-transfusion). No evidence of bleeding; stool guaiac negative. Labs notable for elevated reticulocyte count (41.4%), LDH 243, and indirect hyperbilirubinemia (normal bili), raising concern for hemolysis. Iron, folate, and B12 levels obtained. Hematology consult requested. Patient has history of Iron overload and has been treated in the past therapeutic phlebotomy and has been anemic since. She is thus far s/p 4 units of RBCs and Hgb 8 from 6. Hematolgoy recommends transfusion for Hgb less than 8, monitor H/H closely..transfuse 2 more units today and discuss further with hematology---for total 6 units, Hgb today 9. Seen by GI--no GI issues. if continues to go down might need bone marrow Bx can be done on outpatient basis Chest Pain Reported in ER, now resolved. EKG non-ischemic, troponin negative. Monitor for recurrence. Diabetes Mellitus Lantus 20 daily, 70at home, continue ssi, and monitor sugars Bipolar Disorder continue home meds Hypertension No meds, BP ok DVT Prophylaxis: device, out of bed ambulate Reason for Inpatient Stay: Severe anemia requiring transfusion and further evaluation. Home tomorrow if no indication for transfusion Quality Stroke Does the patient have a stroke diagnosis?: No VTE Prior VTE?: No VTE Risk Level:: Medical - moderate - high VTE Device Contraindication: N/A - Device Ordered VTE Drug Contraindication: Treatment Not Indicated
[2025-09-15] MEDS: Insulin Glargine,Hum.rec.anlog 100 UNIT/ML 10 ML VIAL 20 UNIT SUBCUT (14:28)
[2025-09-15 15:08] VITALS: BP 143/96; PULSE 99; RESP 18; TEMP 36.3; O2SAT 96
[2025-09-15] MEDS: HUMIRA 40 MG/0.4 ML 40 EACH SUBCUT (15:29)
[2025-09-15 16:04] LABS: Glucose, Whole Blood 215 mg/dL (60-115)
[2025-09-15 19:36] VITALS: BP 122/62; PULSE 82; RESP 20; TEMP 36.1; O2SAT 96
[2025-09-15 19:44] VITALS: BP 122/62; PULSE 84; RESP 20; TEMP 36.1; O2SAT 95
[2025-09-15 20:43] LABS: Glucose, Whole Blood 230 mg/dL (60-115)
[2025-09-15] MEDS: Insulin Glargine,Hum.rec.anlog 100 UNIT/ML 10 ML VIAL 10 UNIT SUBCUT (22:19)
[2025-09-16 03:21] VITALS: BP 119/60; PULSE 79; RESP 18; TEMP 36.3; O2SAT 93
[2025-09-16 06:18] LABS: Hematocrit 26.8 % (37.0-47.0); Hemoglobin 9.2 g/dl (12.0-16.0); Mean Corpuscular HGB Conc 34.3 g/dl (31.0-35.0); Mean Corpuscular Hemoglobin 34.1 pg (27.0-33.0); Mean Corpuscular Volume 99.3 fL (80.0-98.0); NRBC Abs Auto 0.000 X10*3/uL (0.0-0.012); NRBC Pct Auto 0.0 /100WBC (0.0-0.2); Platelet Count 126 X10*3/uL (160-400); Red Blood Count 2.70 X10*6/uL (4.20-5.50); White Blood Count 2.9 X10*3/uL (4.8-10.8)
[2025-09-16 07:41] LABS: Glucose, Whole Blood 163 mg/dL (60-115)
[2025-09-16 07:43] VITALS: BP 136/64; PULSE 72; RESP 18; TEMP 36.2; O2SAT 96
[2025-09-16] MEDS: Insulin Glargine,Hum.rec.anlog 100 UNIT/ML 10 ML VIAL 20 UNIT SUBCUT (08:00)
[2025-09-16] MEDS: 0.9 % Sodium Chloride Flush 3 ML SYRINGE IVFLUSH (08:04)
[2025-09-16] MEDS: Fluticasone/Vilanterol 100/25 BLST.W.DEV 1 PUFF INHALE (08:13)
[2025-09-16 08:15] VITALS: PULSE 77; RESP 18; O2SAT 96
--- NOTE | 2025-09-16 10:17 | P.DS_ITS ---
DS: Providers Provider Date of Service: 09/16/25 Date of admission: 09/11/25 19:48 Date of discharge: 09/16/25 Primary care physician: Lauren Reyes PA-C Consults: 09/11/25 19:57 Consult to Hematology / Oncology Routine Consulting Provider: Stephanie Oncology/Hematology Reason for consultation: anemia 09/12/25 08:35 Consult to Gastroenterology Routine Consulting Provider: Pioneer Braxton Gonzalez Reason for consultation: anemia Has provider been notified: No DS: Diagnosis Discharge Diagnosis (1) Hemolytic anemia: Status: Acute DS: Summary Hospital Course Hospital Course: admission hpi Chief Complaint: Anemia 60-year-old female with a past medical history of HTN, HL, dm, COPD, Crohn's disease, psoriasis, obesity, GERD, bipolar, gout presented to the hospital today with a chief complaint of anemia. Patient mentioned that she had routine labs done by her PCP and noted to have low hemoglobin subsequently asked her to go to the ER for further evaluation. Patient denies any signs of bleeding. Denies any chest pain or palpitations. Denies taking [id number] pain medications. Denies any abdominal pain. Denies any shortness of breath or dyspnea on exertion. Review of all other systems is negative except mentioned above ER course: Per ER team, patient exam was benign. On labs noted hemoglobin of 6.8. Stool guaiac was sent. Patient ordered for 2 units of PRBC. hospital course: 60-year-old female with multiple comorbidities presented with severe, asymptomatic anemia (Hgb 6.8) found on routine labs. No signs of bleeding. Received 2 units PRBCs in the ER and admitted for further testing and work up.. Anemia The patient presented with severe, asymptomatic anemia (hemoglobin 6.8 on arrival, now 6.5 post-transfusion). There is no evidence of active bleeding; stool guaiac is negative. Laboratory findings are notable for an elevated reticulocyte count (41.4%), LDH of 243, and indirect hyperbilirubinemia with a normal total bilirubin, raising concern for possible hemolysis, however further workup did not point to hemolysis. Iron, folate, and B12 levels are pending. The patient has a history of iron overload and has previously undergone therapeutic phlebotomy, with persistent anemia since then. She has received a total of 6 units of RBCs, with the last 2 transfusions administered on 10/23. Her hemoglobin has stabilized around 9 over the past two days. Gastroenterology evaluated the patient and found no evidence of acute GI pathology, so no intervention was recommended. Hematology was also consulted and recommended dis continuing azathioprine due to its potential for bone marrow suppression. They advised transfusing only if hemoglobin drops below 8, and suggested that a bone marrow biopsy may be necessary if hemoglobin continues to decline. Currently, the patient?s hemoglobin remains stable at 9. She will be monitored as an outpatient and is scheduled to follow up with the hematology clinic next week. Chest Pain Reported in ER, now resolved. EKG non-ischemic, troponin negative. Monitor for recurrence. Diabetes Mellitus Lantus 20 daily, 70at home, continue ssi, and monitor sugars Bipolar Disorder continue home meds Hypertension No meds, BP ok Time Attestation Discharge Coordination Time (in mins): 40 Quality: Safe Use of Opioids Does Pt have an Active Cancer Diagnosis on the Problem List?: No Quality: Stroke Does the patient have a stroke diagnosis?: No Physical Exam Vital Signs: Vital Signs: Last Vital Signs Temp 97.2 F 09/16/25 07:43 Pulse 77 09/16/25 08:15 Resp 18 09/16/25 08:15 BP 136/64 09/16/25 07:43 Pulse Ox 96 09/16/25 07:43 O2 Del Method Room Air 09/16/25 07:43 BMI result Body Mass Index 48.3 DS: Data Data Completed and Pending Labs on day of discharge: Laboratory Results - last 24 hr 09/15/25 09/15/25 09/15/25 11:23 15:59 20:40 WBC RBC Hgb Hct MCV MCH MCHC RDW Plt Count MPV Absolute Nucleated RBC Nucleated RBC % (auto) POC Glucose 169 H 215 H 230 H 09/16/25 09/16/25 05:54 07:32 WBC 2.9 L RBC 2.70 L Hgb 9.2 L Hct 26.8 L MCV 99.3 H MCH 34.1 H MCHC 34.3 RDW 21.1 H Plt Count 126 L MPV 11.3 Absolute Nucleated RBC 0.000 Nucleated RBC % (auto) 0.0 POC Glucose 163 H Discharge Plan Discharge Anticipated Discharge Date/Time: 09/16/25 09:56 Patient Disposition: Home, Self-Care Discharge Diagnosis: Anemia Referrals: Reyes,Lauren, PA-C [Primary Care Provider, Internal Medicine] - 1 Week Discharge Medications: Continued cholecalciferol (vitamin D3) 50 mcg (2,000 unit) capsule 50 mcg PO DAILY Qty: 90 3RF fluticasone propion-salmeterol [Advair Diskus] 250-50 mcg/dose blister with device 1 ea inhalation BID Qty: 60 3RF allopurinol 300 mg tablet 300 mg PO DAILY Qty: 90 3RF losartan 25 mg tablet 25 mg PO BEDTIME Qty: 90 3RF metoprolol succinate 25 mg tablet extended release 24 hr 25 mg PO DAILY Qty: 90 3RF haloperidol 10 mg tablet 10 mg PO BEDTIME lorazepam 1 mg tablet 1 mg PO BID insulin lispro [Humalog U-100 Insulin] 100 unit/mL solution See Protocol subcut QIDACHS PRN (Reason: Hyperglycemia) Protocol: Insulin Correction Scale Less than or equal to 110 ---- Give (units): 0 111 to 150 Give (units): 0 151 to 200 Give (units): 2 201 to 250 Give (units): 4 251 to 300 Give (units): 6 301 to 350 Give (units): 8 Greater than 350 Give (units): 10 Call MD if Blood Glucose > : 350 Rx Instructions: 4X daily as instructed sliding scale lamotrigine 100 mg tablet 100 mg PO BEDTIME mesalamine [Apriso] 0.375 gram capsule,extended release 24hr 1.5 g PO DAILY omeprazole 20 mg Capsule,Delayed Release(Dr/Ec) 20 mg PO DAILY@0630 insulin glargine [Lantus U-100 Insulin] 100 unit/mL solution 70 unit subcut BEDTIME trazodone 150 mg tablet 300 mg PO BEDTIME ketoconazole 2 % cream 1 appl topical BID betamethasone dipropionate 0.05 % lotion 1 appl topical BID albuterol sulfate 90 mcg/actuation HFA aerosol inhaler 2 puff inhalation Q4-6H PRN (Reason: Shortness Of Breath Or Wheezing) loratadine [Claritin] 10 mg Tablet 10 mg PO DAILY simvastatin 40 mg tablet 40 mg PO BEDTIME (DME) FreeStyle Bossman 3 Plus Sensor Device See Rx Instructions .ROUTE .MEDSUPPLY Qty: 1 0RF Rx Instructions: Check glucose 3 times a day with meals (DME) FreeStyle Bossman 3 [place] Misc See Rx Instructions .ROUTE .MEDSUPPLY Qty: 1 0RF Rx Instructions: Check glucose 3 times a day with meals Discontinued azathioprine 50 mg tablet 75 mg PO DAILY Diet: Advance to usual diet Activity on Discharge: As tolerated Stand Alone Forms: Patient Portal Discharge page Print Language: Icelandic Other Ambulatory Orders: Complete Blood Count no Diff (Routine) Timeframe: [id number] Facility: [facility] - Location: Laboratory Ordered By: Saman Melo Care Plan Goals: recovery from anemia Health Concerns: anemia etiology not clear Plan of Treatment: you will need to follow up with the hematology clinic stop taking Azathioprine--and follow up with GI doctor to discuss this further you will have lab draw Thursday if you have symptoms of weakness, shortness of breath or excessive tiredness, call 911 Assessment: see above
[2025-09-16 11:20] LABS: Glucose, Whole Blood 156 mg/dL (60-115)
--- NOTE | 2025-09-16 13:39 | MHC.CM.PN ---
PT MEDICALLY CLEARED FOR DC HOME SELF CARE, PT WILL ARRANGE FOR RIDE HOME
== END 2025-09-16 14:14 | disposition home or self-care (01) | DRG 812 ==
LOC: HO.ED 19:03 → HO.EDOVER 19:57 → HO.S3 09-12 13:41
PROVIDERS: Internal Medicine; Physician Assistant; Admitting Provider Hospitalist; Emergency Provider Emergency Medicine Emergency Medical Services; PCP Physician Assistant Medical; Visit Provider Internal Medicine
DX: D64.9 Anemia, unspecified (principal); K50.90 Crohn's disease, unspecified, without complications; Z68.42 Body mass index [BMI] 45.0-49.9, adult; F31.9 Bipolar disorder, unspecified; R07.9 Chest pain, unspecified; E66.9 Obesity, unspecified; E11.9 Type 2 diabetes mellitus without complications; I10 Essential (primary) hypertension; T45.1X5A Adverse effect of antineoplastic and immunosuppressive drugs, initial encounter; Z79.899 Other long term (current) drug therapy
CPT/HCPCS: 36410; 36415; 76700; 80053; 81001; 82272; 82607; 82728; 82746; 82947; 83010; 83540; 83615; 83735; 84484; 85025; 85027; 85045; 85384; 85610; 85730; 86850; 86900; 86901; 86923; 88184; 88185; 93005; 96127; 96372; 99212; 99285; C1751; J2470; J3420; P9016

== ENCOUNTER → 2025-09-11 17:46 | Outpatient (BNV) | payer MEDICARE, MEDICAID, SELFPAY | PROVIDERS: Admitting Provider Hospitalist; Emergency Provider Emergency Medicine Emergency Medical Services; PCP Physician Assistant Medical; Visit Provider Internal Medicine Cardiovascular Disease | DX: R94.31 Abnormal electrocardiogram [ECG] [EKG] (principal); R53.1 Weakness | CPT/HCPCS: 93010 ==

== ENCOUNTER 2025-09-11 19:48 | Outpatient (BNV) | payer MEDICARE, MEDICAID, SELFPAY | END 2025-09-15 13:46 | PROVIDERS: Admitting Provider Hospitalist; Emergency Provider Emergency Medicine Emergency Medical Services; PCP Physician Assistant Medical; Visit Provider Radiology Diagnostic Radiology | DX: R16.2 Hepatomegaly with splenomegaly, not elsewhere classified (principal) | CPT/HCPCS: 76700 ==

== ENCOUNTER → 2025-09-11 19:48 | Outpatient (BNV) | payer MEDICARE, MEDICAID, SELFPAY | PROVIDERS: Admitting Provider Hospitalist; Emergency Provider Emergency Medicine Emergency Medical Services; PCP Physician Assistant Medical; Visit Provider Internal Medicine | DX: D64.9 Anemia, unspecified (principal); D58.9 Hereditary hemolytic anemia, unspecified | CPT/HCPCS: 99223; 99232 ==

== ENCOUNTER → 2025-09-11 19:48 | Outpatient (BNV) | payer MEDICARE, MEDICAID, SELFPAY | PROVIDERS: Admitting Provider Hospitalist; Emergency Provider Emergency Medicine Emergency Medical Services; PCP Physician Assistant Medical; Visit Provider Internal Medicine | DX: D53.1 Other megaloblastic anemias, not elsewhere classified (principal); D72.819 Decreased white blood cell count, unspecified | CPT/HCPCS: 99222; 99232 ==

== ENCOUNTER 2025-09-25 13:09 | Outpatient (AMB) | payer MEDICARE, MEDICAID, SELFPAY ==
[2025-09-25 13:10] VITALS: BP 126/58; PULSE 66; RESP 16; TEMP 36.7; O2SAT 99; BMI 46.8
--- NOTE | 2025-09-25 13:10 | MHC.PC.OV ---
Vital Signs 09/25/25 13:10 Height 5 ft 3.23 in Weight 266 lb BMI 46.8 BP 126/58 L Blood Pressure Location Rt brachial Position Sitting Respiration 16 Pulse 66 Pulse Source Pulse Oximeter Temp 98.0 F Temp Source Temporal Artery Scan Pulse Oximetry (%) 99 Oxygen Delivery Method Room Air Intake Visit Reasons: ER Discharge Intake Note: Visit Reason: TCM Intake Note: Patient is here for hospital discharge follow up. Patient was discharged from [facility] Conference Interpreter Required: No Cruise Director: Not Required per policy Accompanied by: Self / Same As Patient Allergies amoxicillin (AMOXICILLIN) Allergy (Intermediate, Verified 09/25/25 13:49) BLOODY DIARRHEA clavulanic acid (From AUGMENTIN) Adverse Reaction (Intermediate, Verified 09/25/25 13:49) DIARRHEA Medication List - Last Reconciled 09/25/25 by Lauren Reyes PA-C albuterol sulfate 90 mcg/actuation 2 puffs inhalation Q4-6H PRN allopurinol 300 mg PO DAILY betamethasone dipropionate 0.05% 1 appl topical BID blood-glucose sensor (FreeStyle Bossman 3 Plus Sensor device) Check glucose 3 times a day with meals blood-glucose,supervisor core drilling,cont (FreeStyle Bossman 3 [place]) Check glucose 3 times a day with meals cholecalciferol (vitamin D3) 50 mcg PO DAILY fluticasone propion-salmeterol 250-50 mcg/dose (Advair Diskus) 1 ea inhalation BID haloperidol 10 mg PO BEDTIME insulin glargine (Lantus U-100 Insulin) 70 units subcut BEDTIME insulin lispro (Humalog U-100 Insulin) See Protocol sliding scale doses subcut QIDACHS PRN ketoconazole 2% 1 appl topical BID lamotrigine 100 mg PO BEDTIME loratadine (Claritin) 10 mg PO DAILY lorazepam 1 mg PO BID losartan 25 mg PO BEDTIME mesalamine ER (Apriso) 1.5 grams PO DAILY metoprolol succinate ER 25 mg PO DAILY omeprazole 20 mg PO DAILY@0630 simvastatin 40 mg PO BEDTIME trazodone 300 mg PO BEDTIME Tobacco use date assessed: 09/11/25 Dental Screening Dental Screen Date: 09/11/25 HPI HPI Comments History of Present Illness Details Patient presents to the office for a TCM visit. Date of admission: 09/11/25 Date of discharge: 09/16/25 This is a Follow-up from admission at [facility]/Hospital Course/Discharge Summary: The patient is a 60-year-old female presenting for a hospital discharge follow-up. She has a past medical history of hypertension, hyperlipidemia, diabetes, COPD, Crohn's disease, psoriasis, obesity, GERD, bipolar disorder, and gout. The patient was recently hospitalized from 09/11/2025 to 09/16/2025 at [facility] for severe asymptomatic anemia, which was discovered on routine labs ordered by myself her PCP. At the time of admission, she denied any signs of bleeding, chest pain, palpitations, use of [id number] pain medication, abdominal pain, or dyspnea on exertion. Her initial hemoglobin was 6.8 g/dL, and a stool guaiac test was negative. During her hospitalization, she received a total of 6 units of packed red blood cells. Laboratory findings were notable for an elevated reticulocyte count (41.4), LDH of 243, and indirect hyperbilirubinemia, which raised concern for hemolysis, but further workup did not confirm it. Gastroenterology and hematology were consulted; GI found no evidence of an acute bleed, and hematology recommended discontinuing azathioprine due to potential for bone marrow suppression. She has a history of iron overload and has previously undergone therapeutic phlebotomy. Her hemoglobin stabilized around 9 g/dL, with the last recorded levels being a hemoglobin of 9.2 g/dL and hematocrit of 26.8%. Since being discharged, she reports feeling much better and is now able to perform housework and bathe without experiencing shortness of breath or fatigue. Her diabetes is managed with 70 units of Lantus at bedtime and Lispro on a sliding scale as needed, and she follows with endocrinology. Discharged to/Current Location: Home Lives with: Self and Cat Diagnosis: Hemolytic anemia Procedures performed: Labs and then received multiple Blood transfusions New medications: none Discontinued medications: azathioprine Change medications/dosing:none Pending labs: None Pending diagnostic test: None Any Follow-up Labs required? CBC Any Follow-up Diagnostic test required? None How are you feeling? Much better she is able to bathe herself and do housework without being tired or SOB Are you in any pain or discomfort? Not at this time Do you have any questions about your condition or discharge instructions? No Were you able to get your medications filled? Yes Do you have any questions about your medications? No Any referrals required? Not at this time Were you able to schedule your follow-up appointment? Yes If home health was ordered, have they contact you? No Any outpatient services, if so, are you scheduled? No Are there any additional resources like transportation you might need during her recovery? No - VNA? No - [employer]? No - Meals on wheels? No Educational need/resources: What support system do you have? Brother Social History - Housing and living situation: The patient lives by herself with her cat. - Social support: Her brother is available to help her if needed. - Functional status: Since discharge, her functional status has improved; she is now able to perform housework and bathe without shortness of breath or fatigue. - Home health services: She denies any need for a [employer], visiting nurse, or Meals on Wheels. [facility] Medical History (Updated 09/25/25 @ 15:26 by Lauren Reyes PA-C) Hemolytic anemia Hospital discharge follow-up Vitamin B12 deficiency Macrocytic anemia Hypertriglyceridemia Vitamin D deficiency History of mammogram (~12/17/21) Morbid obesity with BMI of 45.0-49.9, adult Breast cancer screening Psoriasis Chronic anemia Type 2 diabetes mellitus with hemoglobin A1c goal of less than 7.0% Establishing care with new doctor, encounter for Annual physical exam History of macrocytosis Gout Hx of abdominal abscess Diabetes Anxiety Elevated cholesterol HTN (hypertension) COPD (chronic obstructive pulmonary disease) Asthma Depression Bipolar 1 disorder GERD (gastroesophageal reflux disease) Crohn's disease Surgical History History of esophagogastroduodenoscopy (EGD) Hx of tonsillectomy Hx of colonoscopy (~10/22/23) Family History Father Parkinsons Mother Emphysema lung Social History Household Members: None Housing: Condominium Do you presently have visiting nurse or other home services: No Alcohol intake: never Patient Tobacco Use Status: Former Tobacco user Advance Directives Date on File: 08/28/21 service: No Current occupational status: disabled Cognitive needs: No Hearing needs: No Vision needs: No Questionnaire PHQ-9 Over the last 2 weeks, how often have you been bothered by any of the following problems? 1. Little interest or pleasure in doing things: nearly every day 2. Feeling down, depressed, or hopeless: more than half the days 3. Trouble falling or staying asleep, or sleeping too much: nearly every day 4. Feeling tired or having little energy: more than half the days 5. Poor appetite or overeating: more than half the days 6. Feeling bad about yourself - or that you are a failure or have let yourself or your family down: not at all 7. Trouble concentrating on things, such as reading the newspaper or watching television: not at all 8. Moving or speaking so slowly that other people could have noticed. Or the opposite - being so fidgety or restless that you have been moving around a lot more than usual: not at all 9. Thoughts that you would be better off or of hurting yourself in some way: not at all Total score: 12 Depression Screening Interpretation: Positive Depression Screening Follow-up: Existing condition and In treatment Depression Screening Done: Yes 14717 - PHQ-9 Billing: Yes Source: Developed by Drs. Jose Juan Arroyo, Elsy Fortune, John Feliciano and colleagues, with an educational ankush from [employer]. Thrive Questionnaire Date Thrive assessed: 09/12/25 I am a: Patient What is your living situation today?: I have a steady place to live Within the past 12 months, did the food you bought not last and you didn't have the money to get more?: Never true Within the past 12 months, did you worry whether your food would run out before you got money to buy more?: Never true Do you have trouble paying for medicines?: No Do you have trouble getting transportation to medical appointments?: No Do you have trouble paying your heating and electricity bill?: No Do you have trouble taking care of your child, family member or friend?: No Do you have trouble with day-to-day activities such as bathing, preparing meals, shopping, managing finances, etc.?: No Are you currently unemployed and looking for a job?: No Are you interested in more education?: No Please select the resources that you would like help with: None Currently or been in a relationship where the following occur: No concerns reported THRIVE Score: 0 AUDIT C Alcohol Use Questionnaire (AUDIT-C) 1. How often do you have a drink containing alcohol?: Never 3. How often do you have six or more drinks on one occasion?: Never Total Score: 0 Score Reviewed/Action Taken: No RENETTA-7 AMB Questionnaire RENETTA-7 Date RENETTA - 7 assessed: 09/11/25 Feeling nervous, anxious, or on edge: 0 = Not at all Not being able to stop or control worryin = Not at all Worrying too much about different things: 0 = Not at all Trouble relaxin = Not at all Being so restless that it is hard to sit still: 0 = Not at all Becoming easily annoyed or irritable: 0 = Not at all Feeling afraid as if something awful might happen: 0 = Not at all Total RENETTA-7 score (0-4 normal; 5-9 mild; 10-14 moderate; 15-21 severe): 0 Source: Developed by Drs. Jose Juan Arroyo, Elsy Fortune, John Feliciano and colleagues, with an educational ankush from [employer]. RENETTA-7 Assessment Billing RENETTA-7 Assessment Tool: RENETTA-7 Assessment 32295 Review of Systems Const Details: - Constitutional: Reports feeling much better and denies fatigue since discharge. - Denies unintentional weight loss. - Cardiovascular: Denies chest pain or palpitations. - Respiratory: Denies dyspnea and shortness of breath. - Gastrointestinal: Denies abdominal pain. - Denies black or bloody stools. - Genitourinary: Denies blood in urine. - Musculoskeletal: Reports pain and bruising on both arms from IVs. - Denies any other pain or discomfort. - Neurological: Denies feeling dizzy. All systems reviewed & are unremarkable except as noted in HPI and below Physical exam (Primary Care) Vital Signs: Last Vital Signs Temp 98.0 F 09/25/25 13:10 Pulse 66 09/25/25 13:10 Resp 16 09/25/25 13:10 BP 126/58 L 09/25/25 13:10 Pulse Ox 99 09/25/25 13:10 Oxygen Delivery Method Room Air 09/25/25 13:10 Vitals signs have been reviewed. Care Plan Goal for BP management: <140/90 at Goal BMI result Body Mass Index 46.8 BMI Assessment/Plan discussion: High BMI High, discussed plan: lifestyle, weight reduction, dietary, physical activity, alcohol moderation and other Tobacco/Smoking Status: Tobacco use Status Tobacco use date assessed 09/11/25 09/25/25 13:12 Patient Tobacco Use Status Former Tobacco user 09/25/25 13:12 PHQ-9: PHQ-9 Score PHQ-9: Total score 12 09/25/25 13:53 Depression Screening Interpretation: Positive Depression Screening Follow-up: Existing condition and In treatment Thrive Assessment: Date of Thrive Assessment Date Thrive assessed 09/12/25 09/25/25 13:12 Currently or been in a relationship where the following occur: No concerns reported Const Other: Appearance: Alert. Oriented X3. No acute distress. Patient appears danilo and not pale. Head: Normal external exam. Normocephalic. Atraumatic. Eyes: Pupils are equal, round, and reactive to light. Extraocular movements intact. Conjunctiva and sclera normal. Eyelids normal. Throat: Pharynx normal. Uvula midline. Moist mucous membranes. Neck: Normal inspection. Neck supple. Full range of motion. Cardiovascular: Normal heart rate and rhythm. Heart sound normal. No murmurs noted. Pulses normal throughout. Blood pressure is a little low today, but patient is not feeling dizzy. Respiratory: No respiratory distress. Painless inspiration. Breath sounds normal. No wheezes/rales/rhonchi noted. Chest nontender. No accessory muscle usage noted or decreased air movement noted. Back: Full range of motion noted. Skin: Skin warm and dry. Normal skin color. Normal skin turgor. No rashes/lesions/lacerations noted. Extremities: No lower extremity edema. Extremities exhibit normal range of motion. Patient reports pain in both arms from blood transfusion. Neuro: Oriented X 3. No motor deficit. No sensory deficit. Reflexes normal. Results AMB Hemoglobin A1c AMB Hemoglobin A1c 5.2 % Last Edit by JORDAN Dye on 09/25/25 13:39 Results Reviewed Results Reviewed: Laboratory Last Values Hgb A1c (Clinic) 5.2 % (4.0-6.0) 09/25/25 13:27 - Hemoglobin A1c: 5.2%, noted to be falsely low due to anemia. - Hemoglobin: 6.8 g/dL on admission, 6.5 g/dL post-transfusion, stabilized around 9 g/dL at discharge, with last value of 9.2 g/dL. - Hematocrit: 26.8% at discharge. - Stool guaiac: Negative. - Reticulocyte count: 41.4. - LDH: 243. - Bilirubin: Indirect hyperbilirubinemia with a normal total bilirubin. - EKG: Non-ischemic. - Troponin: Negative. Coding Level of Care Code TCM High MDM <= 7 Days Complex EM visit Add On G2211 Diagnoses Hospital discharge follow-up Z09 Hemolytic anemia D58.9 Type 2 diabetes mellitus with hemoglobin A1c goal of less than 7.0% E11.9 Additional Codes RENETTA-7 Assessment Billing - RENETTA-7 Assessment Tool: RENETTA-7 Assessment 45746 ([id number]) PHQ-9 - 57262 - PHQ-9 Billing: Yes ([id number]) Time Spent (min) 60 Assessment & Plan Assessment & Plan (1) Hospital discharge follow-up: Code(s): Z09 - Encounter for follow-up examination after completed treatment for conditions other than malignant neoplasm Category: Medical (2) Hemolytic anemia: Code(s): D58.9 - Hereditary hemolytic anemia, unspecified Category: Medical Plan: The patient was recently hospitalized for severe anemia of unclear etiology, requiring 6 units of PRBCs, and was discharged with a stable hemoglobin of 9.2 g/dL. Azathioprine was discontinued by hematology due to its potential for bone marrow suppression. A repeat CBC has been ordered for today to monitor her hemoglobin levels. The patient has a follow-up appointment with a hematology nurse practitioner on 09/27/2025. A bone marrow biopsy may be necessary if her hemoglobin continues to decline. She will follow up in this clinic on November 07 to review the CBC results and hematology's recommendations. (3) Type 2 diabetes mellitus with hemoglobin A1c goal of less than 7.0%: Code(s): E11.9 - Type 2 diabetes mellitus without complications Category: Medical Plan: The patient's recent hemoglobin A1c of 5.2% is likely falsely low due to anemia; her true A1c is estimated to be between 5.7-6.2%, which indicates good control. She will continue her current insulin regimen of Lantus 70 units at bedtime and Lispro on a sliding scale as needed. No changes to her diabetes management are needed at this time, and she will follow up with her hot plate plywood press offbearer in December as scheduled. Plan Plan Patient was informed and verbally consented to the use of an ambient scribe for clinic note documentation during this visit. 1. Severe Anemia The patient was recently hospitalized for severe anemia of unclear etiology, requiring 6 units of PRBCs, and was discharged with a stable hemoglobin of 9.2 g/dL. Azathioprine was discontinued by hematology due to its potential for bone marrow suppression. A repeat CBC has been ordered for today to monitor her hemoglobin levels. The patient has a follow-up appointment with a hematology nurse practitioner on 09/27/2025. A bone marrow biopsy may be necessary if her hemoglobin continues to decline. She will follow up in this clinic on November 07 to review the CBC results and hematology's recommendations. 2. Type 2 Diabetes Mellitus The patient's recent hemoglobin A1c of 5.2% is likely falsely low due to anemia; her true A1c is estimated to be between 5.7-6.2%, which indicates good control. She will continue her current insulin regimen of Lantus 70 units at bedtime and Lispro on a sliding scale as needed. No changes to her diabetes management are needed at this time, and she will follow up with her hot plate plywood press offbearer in December as scheduled. 3. Chronic Condition Management The patient will continue her home medications, which were reconciled after her hospital stay. She confirmed she does not need any medication refills at this time. I reviewed the patient's recent hospital course for severe anemia, including her admission labs, the 6 units of blood transfused, and the results of her inpatient workup. I explained that her recent HgbA1c of 5.2% is likely an underestimation due to her anemia and transfusions, and her actual glycemic control is likely still good, in the 5.7-6.2% range. We discussed the plan for a repeat CBC today to monitor her blood counts. I confirmed she will follow up with the hematology nurse practitioner this week and will keep her follow-up appointment with me on November 07 to review all results and subsequent plans. I advised her that while she is feeling much better symptomatically, it is important to complete the recommended follow-up testing and appointments. Orders: Orders AMB Hemoglobin A1c Today E11.9 - Type 2 diabetes mellitus without complications Patient Instructions: - Please go to the lab today to get your blood drawn for a repeat Complete Blood Count (CBC). - You do not need to fast for this test. - Continue to take all your home medications as prescribed, except for Azathioprine, which has been stopped. - Attend your scheduled appointment with the hematology nurse practitioner on Thursday. - Keep your follow-up appointment in our office on November 07. - Watch for any signs of bleeding, such as black or bloody bowel movements or blood in your urine, and contact us if you notice any.
== END 2025-09-25 14:15 | disposition home or self-care (01) ==
LOC: HO.HMCSH 13:09
PROVIDERS: PCP Physician Assistant Medical; Visit Provider Physician Assistant Medical
DX: E11.9 Type 2 diabetes mellitus without complications (principal); D58.9 Hereditary hemolytic anemia, unspecified; Z09 Encounter for follow-up examination after completed treatment for conditions other than malignant neoplasm

== ENCOUNTER → 2025-09-25 13:09 | Outpatient (BNVA) | payer MEDICARE, MEDICAID, SELFPAY | PROVIDERS: PCP Physician Assistant Medical; Visit Provider Physician Assistant Medical | DX: Z09 Encounter for follow-up examination after completed treatment for conditions other than malignant neoplasm (principal); D58.9 Hereditary hemolytic anemia, unspecified; E11.9 Type 2 diabetes mellitus without complications | CPT/HCPCS: 83036; 96127; 99212 ==

== ENCOUNTER → 2025-09-26 12:59 | Outpatient (BNV) | payer MEDICARE, MEDICAID, SELFPAY | PROVIDERS: PCP Physician Assistant Medical; Referring Provider Physician Assistant Medical; Visit Provider Nurse Practitioner Family | DX: D61.818 Other pancytopenia (principal); E83.119 Hemochromatosis, unspecified; K50.90 Crohn's disease, unspecified, without complications | CPT/HCPCS: 99213 ==

== ENCOUNTER 2025-10-11 10:31 | Outpatient (AMB) | payer MEDICARE, MEDICAID, SELFPAY ==
--- OUTSIDE RECORDS SUMMARY | 2024-11-10 05:30 | XMS_ITS ---
Author Organization [facility] Address [address] [facility] [place] [address] Care Team Providers Care Preparer Samples And Repairs Name Role Phone Richard Blackman MD Primary Care Provider Unavailab chris Rocio Camargoe Unavailable [phone] Allergies Allergen (clinical drug ingredient) Drug/Non Drug [...] No Encounters Encounter Location Date Provider Diagnosis [facility] [place] [address] [place] [address] 11/10/2024 Noelle Camargo Plan Of Treatment Next Appt Details Provider Name:Noelle Camargo , 11/06/2025 02:00:00 PM, [address] [place], [address], Progress Notes * Alexsandra HOLLEY ADOB: [birth year] (60 yo F)Acc No.[id number]:11/10/2024 Progress Notes Patient: Alexsandra MEMBRENO Provider: Neptali Camargo DPM :1965 A ge:59 Y S ex:Female Date:11/10/2024 Address:[address] [place] [address], [address]-[address] Pcp:Richard Blackman MD Subjective: * Chief [...] enies. C ardiovascular: Pacemaker d enies. M FINANCIAL REPORTING ANALYST d enies. W PW d enies. C [...] stic Procedure: [place] 4 days [place] [facility] [place] [facility] [place] * Family History: [...] Date: 01/11/2024 Generated for Marin mahan/Pio/Adarsh on: 12/11/2024 08:29 PM EST
--- OUTSIDE RECORDS SUMMARY | 2025-01-26 08:00 | XMS_ITS ---
Author Organization [facility] Address [address] [place] [address] Care Team Providers Care Radiographic Technologist Name Role Phone Yehuda HALL, Richard Primary Care Provider UnavailNoelle Echevarria [phone] Encounters Encounter Location Date Provider Diagnosis [address] [address] 01/26/2025 Noelle Camargo Plan Of Treatment Next Appt Details Provider Name:Noelleligia Camargo , 11/06/2025 02:00:00 PM, [address] [place] [address], [address], Progress Notes * Alexsandra HOLLEY ADOB: [birth year] (60 yo F)Acc No.[id number]:01/26/2025 Progress Notes Patient: Alexsandra MEMBRENO Provider: Bambi Camargo DPM :1965 A ge:59 Y S ex:Female Date:01/26/2025 Address:[address] [place] [address], [address], [id number] Pcp:Richard Blackman MD Subjective: * Chief Complaints: * * Medical History: Objective: * Vitals: Assessment: Plan: * Treatment: * Images: * The named appointment provid er may or may not be the originator of this progress note, and it is not deemed complete until electronically signed by the appointment provider. Sign off status: Pending * Provider: Bambi Camargo DPM Date: 0 01/26/2025 Generated for Marin mahan/Pio/Adarsh on: 1 12/11/2024 08:30 PM EST
--- OUTSIDE RECORDS SUMMARY | 2025-08-07 08:00 | XMS_ITS ---
Author Organization [facility] Address [address] [place] [address] Care Team Providers Care Water Trainer Name Role Phone Yehuda HALL, Richard Primary Care Provider UnavailNoelle Echevarria [phone] Encounters Encounter Location Date Provider Diagnosis [address] [address] 08/07/2025 Noelle Camargo Plan Of Treatment Next Appt Details Provider Name:Noelleligia Camargo , 11/06/2025 02:00:00 PM, [address] [place] [address], [phone], Progress Notes * Alexsandra HOLLEY ADOB: [birth year] (60 yo F)Acc No.[id number]:08/07/2025 Progress Note Patient: Alexsandra MEMBRENO Provider: Bambi Camargo DPM :1965 A ge:60 Y S ex:Female Date:08/07/2025 Address:[address] [place] [address], [address], [id number] Pcp:Richard Blackman MD Subjective: * Chief Complaints: * * Medical History: Objective: * Vitals: Assessment: Plan: * Treatment: * Images: * The named appointment provid er may or may not be the originator of this progress note, and it is not deemed complete until electronically signed by the appointment provider. Sign off status: Pending * Provider: Bambi Camargo DPM Date: 0 08/07/2025 Generated for Marin mahan/Pio/Adarsh on: 1 12/11/2024 08:29 PM EST
--- NOTE | 2025-10-11 10:34 | MHC.OFFWIV ---
Intake Vital Signs 10/11/25 10:38 Height 5 ft 2 in Weight 268 lb BMI 49.0 BP 120/70 Blood Pressure Location Rt radial Position Sitting Pulse 70 Pulse Source Pulse Oximeter Temp 98.1 F Temp Source Oral Pulse Oximetry (%) 97 Oxygen Delivery Method Room Air Intake Visit Reasons: EP rt big toe redness swollen Intake Note: Patient presents c/o right great toe red & swollen x1 week. Patient states cat scratched that toe about 1 week ago. Patient Tobacco Use Status: Never used Tobacco Allergies amoxicillin (AMOXICILLIN) Allergy (Intermediate, Verified 10/11/25 10:40) BLOODY DIARRHEA clavulanic acid (From AUGMENTIN) Adverse Reaction (Intermediate, Verified 10/11/25 10:40) DIARRHEA HPI HPI Comments History of Present Illness Details History of Present Illness - The patient is a 60-year-old female presenting with a red and swollen toe following a cat scratch. - The scratch occurred a week ago, and the patient is concerned about infection due to her diabetic status. - The toe is red but not discharging pus, and there is no fever or streaking. - The patient has been soaking the toe in Epsom salts, which has been advised to continue. - The patient has a history of diabetes mellitus, with a recent blood glucose level of 149 mg/dL. - She was hospitalized a few weeks ago due to critical lab values, requiring six units of blood transfusion for anemia. - Her hemoglobin was critically low at 6 g/dL, and she also had leukopenia. Physical Exam General: Cooperative, healthy appearing, comfortable, no acute distress and well developed Orientation: Patient oriented x3 Respiratory: Normal respiratory effort and able to speak in complete sentences. Clear to auscultation bilaterally. No w/r/r noted. Cardiovascular: Regular rate and rhythm. Normal S1 and S2. No m/r/g noted. Pulses are 2+. Skin: Erythema noted on the right great toe. Healed scratch on the great toe. No streaking noted. No discharge or bleeding. No induration noted. Neuro: Sensation is intact. Extremities: No swelling noted. FROM of the digits on the right foot. No TTP of the right great toe. Ambulates with a steady gait. Strength is 5/5 on the LE. Patient was informed and verbally consented to the use of an ambient scribe for clinic note documentation during this visit. [facility] Medical History (Updated 09/26/25 @ 14:01 by Angella Kay NP) Hemolytic anemia Hospital discharge follow-up Vitamin B12 deficiency Macrocytic anemia Hypertriglyceridemia Vitamin D deficiency History of mammogram (~12/17/21) Morbid obesity with BMI of 45.0-49.9, adult Breast cancer screening Psoriasis Chronic anemia Type 2 diabetes mellitus with hemoglobin A1c goal of less than 7.0% Establishing care with new doctor, encounter for Annual physical exam History of macrocytosis Gout Hx of abdominal abscess Diabetes Anxiety Elevated cholesterol HTN (hypertension) COPD (chronic obstructive pulmonary disease) Asthma Depression Bipolar 1 disorder GERD (gastroesophageal reflux disease) Crohn's disease Surgical History History of esophagogastroduodenoscopy (EGD) Hx of tonsillectomy Hx of colonoscopy (~10/22/23) Family History Father Parkinsons Mother Emphysema lung Social History (Updated 09/26/25 @ 13:29 by Alma Saucedo) Household Members: None Housing: Condominium Do you presently have visiting nurse or other home services: No Alcohol intake: never Patient Tobacco Use Status: Never used Tobacco Advance Directives Date on File: 08/28/21 Current occupational status: disabled Cognitive needs: No Hearing needs: No Vision needs: No Review of Systems Const All systems reviewed & are unremarkable except as noted in HPI and below Physical Exam Vital Signs: Last Vital Signs Temp 98.1 F 10/11/25 10:38 Pulse 70 10/11/25 10:38 BP 120/70 10/11/25 10:38 Pulse Ox 97 10/11/25 10:38 Oxygen Delivery Method Room Air 10/11/25 10:38 BMI result Body Mass Index 49.0 Assessment & Plan Assessment & Plan (1) Cat scratch: Code(s): W55.03XA - Scratched by cat, initial encounter (2) Cellulitis of great toe of right foot: Code(s): L03.031 - Cellulitis of right toe Plan Most likely cellulitis after a cat scratch on her great toe plan - Initiate a 7-day course of antibiotics to prevent infection progression. - Advise continued soaking of the toe in Epsom salts. - Monitor for signs of worsening infection, such as increased redness, swelling, or fever. - Monitor blood glucose levels regularly. - Maintain adherence to diabetic management plan. - follow up as needed if no better Medications: New doxycycline hyclate 100 mg PO BID 14 tabs 0RF Coding Level of Care Code Est Pt Level 3 (61764) Diagnoses Cat scratch W55.03XA Cellulitis of great toe of right foot L03.031
[2025-10-11 10:38] VITALS: BP 120/70; PULSE 70; TEMP 36.7; O2SAT 97; BMI 49.0
--- OUTSIDE RECORDS SUMMARY | 2025-10-11 20:30 | XMS_ITS | Patient Health Record ---
Author Organization [facility] Address [address] [place] [address] Care Team Providers Care [employer] Name Role Phone Richard Blackman MD Primary Care Provider Unavailab chris Noelle Camargo Unavailable [phone] Allergies Allergen (clinical drug ingredient) Drug/Non Drug [...] Problem Acquired hammer toe of right foot (9878452539932942 ) Other hammer toe(s) (acquired), right foot (M20.41) Active confirmed Problem Acquired hammer toe of left foot (2558424759678880 ) Other hammer toe(s) (acquired), left foot (M20.42) Active confirmed Problem Polyneuropathy due to type 2 diabetes mellitus (650323767) Type 2 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) Active confirmed Problem Acquired hallux valgus (94880914) Hallux valgus (acquired), right foot (M20.11) Active confirmed Problem Neuropathy (657686284) Neuropathy (G62.9) Active confirmed Vital Signs Blood pressure diastolic 76 mm Hg 04/27/2025 Height 5 ft 2 in in 04/27/2025 Blood pressure systolic 112 mm Hg 04/27/2025 Weight 265 lbs 04/27/2025 BMI 48.46 kg/m2 04/27/2025 Procedures Procedure Date Ordered Date Performed Result Body Sit e 37040-YOOT SKIN LESIONS, OVER 4 04/27/2025 N/A T1403-NSRWBFFM DYSTROPHIC NAILS ANY # 04/27/2025 N/A Encounters Encounter Location Date Provider Diagnosis [address] [address] 04/27/2025 Noelle Raman Hallux valgus (acquired), right foot M20.11 ; Other hammer toe(s) (acquired), right foot M20.41 ; Bunion of right foot M21.611 ; Other hammer toe(s) (acquired), left foot M20.42 ; Type 2 diabetes mellitus with diabetic polyneuropathy E11.42 and Neuropathy G62.[address] [address] 11/08/[address] [address] 01/24/[address] [address] 08/07/2025 Noelle Camargo Assessments Encounter Date Diagnosis [...] Order Date *Liver Function Test (LFT) 04/12/2012 55905-UBLBEVU NAIL, 6 OR MORE 12/24/2011 33289-NWAGFKM NAIL, 1-07/05/2012 39423-TIULECE NAIL, -10/04/2012 10114-BZAOQAQ NAIL, -04/12/2012 91218-FRCYHRI NAIL, -04/11/2013 50333-GTIVEHC NAIL, -07/11/2013 00196-RQAAEKH NAIL, -11/07/2013 20774-PPCLGNT NAIL, -03/06/2014 56638-LRXSMVF NAIL, -08/17/2014 22946-VQRWWRW NAIL, -10/30/2014 95071-TYQWLTF NAIL, -01/17/2015 35801-WNBHWMT NAIL, -01/06/2013 02210-WUOQCAD NAIL, -04/19/2015 21889-NMARFLQ NAIL, -07/19/2015 26361-Klzwrffm Plate 07/19/2015 25277-Pyvwiapn Plate 03/06/2014 20093-Hibtjtan Plate 04/19/2015 88085-Koijlfvz Plate 01/17/2015 65326-Dtkwayij Plate 10/30/2014 46631-Cwevjqil Plate 08/17/2014 24603-Ffujlsgv Plate 08/15/2019 51075-JXL 12/29/2011 78168- Debride <25 sq cm 08/11/2011 13834-LTIUNNO SKIN/TISSUE 01/19/2012 36165-RTYZTSZ SKIN/TISSUE 02/02/2012 83882 I&D ABSCESS- SIMPLE,SINGLE 011 81860 I&D ABSCESS- SIMPLE,SINGLE 012 70826 I&D ABSCESS- SIMPLE,SINGLE 013 86446 I&D ABSCESS- SIMPLE,SINGLE 012 85303 I&D ABSCESS- SIMPLE,SINGLE 014 25183 I&D ABSCESS- SIMPLE,SINGLE 014 59757 I&D ABSCESS- SIMPLE,SINGLE 013 46191 I&D ABSCESS- SIMPLE,SINGLE 013 00493 I&D ABSCESS- SIMPLE,SINGLE 014 98835 I&D ABSCESS- SIMPLE,SINGLE 015 97959 I&D ABSCESS- SIMPLE,SINGLE 013 14415 I&D ABSCESS- SIMPLE,SINGLE 015 07081 I&D ABSCESS- SIMPLE,SINGLE 015 27217-JXUT SKIN LESIONS, OVER 4 01/27/20 17 21272-CJSB SKIN LESIONS, OVER 4 04/27/20 17 42293-LJLR SKIN LESIONS, OVER 4 08/15/20 19 66271-LUMB SKIN LESIONS, OVER 4 11/24/19 20 34410-DHMX SKIN LESIONS, OVER 4 09/30/20 18 00818-EHMU SKIN LESIONS, OVER 4 12/30/19 19 63664-BHLM SKIN LESIONS, OVER 4 08/13/20 17 52805-IMTZ SKIN LESIONS, OVER 4 12/28/19 18 44655-OOBY SKIN LESIONS, OVER 4 04/01/20 18 32093-PNVZ SKIN LESIONS, OVER 4 07/01/20 18 63609-OFDA SKIN LESIONS, OVER 4 04/27/20 25 60433-GLOE SKIN LESIONS, 2 TO 4 04/28/20 16 31438-EVSM SKIN LESIONS, 2 TO 4 08/04/20 16 60025-XYXR SKIN LESIONS, 2 TO 4 07/19/20 15 80111-MVCT SKIN LESIONS, 2 TO 4 10/25/20 15 31970-UEVU SKIN LESIONS, 2 TO 4 01/24/20 16 99147-USEQ SKIN LESIONS, 2 TO 4 04/19/20 15 34879-YSOV SKIN LESIONS, 2 TO 4 01/06/20 13 13620-UUTZ SKIN LESIONS, 2 TO 4 01/17/20 15 62825-RBUK SKIN LESIONS, 2 TO 4 10/30/20 14 74669-CDJJ SKIN LESIONS, 2 TO 4 07/11/20 13 95808-KFDK SKIN LESIONS, 2 TO 4 11/07/20 13 82212-GIOH SKIN LESIONS, 2 TO 4 03/06/20 14 72254-YFWX SKIN LESIONS, 2 TO 4 08/17/20 14 67893-GDFR SKIN LESIONS, 2 TO 4 10/04/20 12 56880-LICO SKIN LESIONS, 2 TO 4 04/11/20 13 18872-BXXX SKIN LESIONS, 2 TO 4 07/05/20 12 02107-KGCI SKIN LESION 04/12/2012 R4849-OMTCITLX DYSTROPHIC NAILS ANY # W2989-URZHLTSL DYSTROPHIC NAILS ANY # L3219-ANUDPEBE DYSTROPHIC NAILS ANY # J5515-ZYHFBALE DYSTROPHIC NAILS ANY # B1513-LFWJWULB DYSTROPHIC NAILS ANY # H5753-CVGAXEVO DYSTROPHIC NAILS ANY # X8605-HSEPRYLI DYSTROPHIC NAILS ANY # E3344-BGOCCGEW DYSTROPHIC NAILS ANY # F8704-CUVUTJMW DYSTROPHIC NAILS ANY # H0602-MWUCPRUF DYSTROPHIC NAILS ANY # X3184-HPGVRXVD DYSTROPHIC NAILS ANY # J3255-YNISEGHX DYSTROPHIC NAILS ANY # Z7654-JTPCJQCN DYSTROPHIC NAILS ANY # U5142-GOLBWRQB DYSTROPHIC NAILS ANY # T2041-SDMYKQTA DYSTROPHIC NAILS ANY # G9827-PXIAZBZS DYSTROPHIC NAILS ANY # Z7566-CHFFAJWY DYSTROPHIC NAILS ANY # A9737-KYDQRVOK DYSTROPHIC NAILS ANY # Z7964-FWBNXTBJ DYSTROPHIC NAILS ANY # L0550-FFQAYXDZ DYSTROPHIC NAILS ANY # P4257-SNQLYONC DYSTROPHIC NAILS ANY # Y3716-LBLZXCPX DYSTROPHIC NAILS ANY # I7049-HVHJAWYO DYSTROPHIC NAILS ANY # Z3919-FLKHQPAX DYSTROPHIC NAILS ANY # Next Appt Details Provider Name:Noelle Camargo , 11/06/2025 02:00:00 PM, [address] [place] [address], [id number], Insurance Providers Payer Name Payer Address Payer Phone Subscriber Number Group Number Insured Name Patient Relationship to Insured Coverage Start Date Coverage End Date Medicare [employer] [address] [place] [address] [id number] Alexsandra Thomas Self - patient is the insured 9 Medical (General) History Medical History History ICD Code transfusions psychiatric disorder chicken pox Gout diabetic depression hypercholesterolemia Anxiety disorder anemia crohns disease Arthritis asthma covid-19 High Blood Pressure Numbness Psoriasis/eczema Reflux ( GERD) Sciatica Vascular phlebitis (clots) Surgical History Surgery Date(Month/Year) Hospitalization History Reason Date(Month/Year) [facility] [place] [facility] [place]2017 [facility] [place] 4 days 08/2016
--- OUTSIDE RECORDS SUMMARY | 2025-10-11 20:30 | XMS_ITS | Patient Health Record ---
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[employer] Name Role Phone Yehuda (RETIRED) Richard HALL Primary Care Provider Unavailable Jose Juan Hare Unavailable [phone] Allergies Allergen (clinical drug ingredient) Drug/Non Drug Allergy documented on EMR Reaction Allergy Type Onset Date Status seasonal (uncoded) Unknown Allergy A ctive amoxicillin Amoxicillin Unknown Drug Allergy Act vini amoxicillin / clavulanate Augmentin diarrhea Drug Allergy Active Results Component Value Reference Range Flag Notes Complete Blood Count Auto Di ff Reviewed date:11/04/2024 06:12:41 PM Interpretation: Performing Lab:[facility], [address] [place] [phone] Notes/Report: White Blood Count 4.2 4.8-10.8 X10*3/uL L Red Blood Count 2.87 4.20-5.50 X10*6/uL L Hemoglobin 11.4 12.0-16.0 g/dl L Hematocrit 31.1 37.0-47.0 % L Mean Corpuscular Volume 108.4 80.0-98.0 fL H Mean Corpuscular Hemoglobin 39.7 27.0-33.0 pg H Mean Corpuscular HGB Conc 36.7 31.0-35.0 g/dl H Red Cell Distribution Width 15.8 11.0-16.0 % N Platelet Count 168 160-400 X10*3/uL N Mean Platelet Volume 10.8 9.4-12.3 fL N Neutrophils Percent Auto 59.7 45-73 % N Imm Gran Pct Auto 2.4 0.0-0.4 % H Lymphocytes Percent Auto 29.4 20-40 % N Monocytes Percent Auto 4.5 2-11 % N Eosinophils Percent Auto 3.3 0-4 % N Basophils Percent Auto 0.7 0-2 % N NRBC Pct Auto 0.9 0.0-0.2 /100WBC H Neutrophils Absolute Auto 2.5 2.0-8.3 x10*3/uL N Imm Gran Abs Auto 0.10 0.00-0.03 X10*3/uL H Lymphocytes Absolute Auto 1.2 1.2-4.9 X10*3/uL N Monocytes Absolute Auto 0.2 0.1-1.2 X10*3/uL N Eosinophils Absolute Auto 0.1 0.0-0.4 X10*3/uL N Basophils Absolute Auto 0.0 0.0-0.2 X10*3/uL N NRBC Abs Auto 0.040 0.0-0.012 X10*3/uL H Liver Panel Reviewed date:11/04/2024 06:13:02 PM Interpretation: Performing Lab:[address] [phone] Notes/Report: Bilirubin Total 0.7 0.0-1.0 mg/dL N Bilirubin Direct 0.2 0.0-0.5 mg/dL N Aspartate Amino Transferase 19 5-31 U/L N Alanine Aminotransferase 18 0-31 U/L N Total Protein 6.0 6.5-8.0 g/dL L Albumin Level 3.9 3.5-5.0 g/dL N Alkaline Phosphatase 52 39-117 U/L N Complete Blood Count Auto Di ff Reviewed date:12/22/2024 04:23:03 PM Interpretation: Performing Lab:[address] [phone] Notes/Report: White Blood Count 4.4 4.8-10.8 X10*3/uL L Red Blood Count 2.90 4.20-5.50 X10*6/uL L Hemoglobin 12.0 12.0-16.0 g/dl N Hematocrit 32.7 37.0-47.0 % L Mean Corpuscular Volume 112.8 80.0-98.0 fL H Mean Corpuscular Hemoglobin 41.4 27.0-33.0 pg H Mean Corpuscular HGB Conc 36.7 31.0-35.0 g/dl H Red Cell Distribution Width 16.5 11.0-16.0 % H Platelet Count 149 160-400 X10*3/uL L Mean Platelet Volume 10.7 9.4-12.3 fL N Neutrophils Percent Auto 54.5 45-73 % N Imm Gran Pct Auto 0.9 0.0-0.4 % H Lymphocytes Percent Auto 34.0 20-40 % N Monocytes Percent Auto 6.0 2-11 % N Eosinophils Percent Auto 3.9 0-4 % N Basophils Percent Auto 0.7 0-2 % N NRBC Pct Auto 0.5 0.0-0.2 /100WBC H Neutrophils Absolute Auto 2.4 2.0-8.3 x10*3/uL N Imm Gran Abs Auto 0.04 0.00-0.03 X10*3/uL H Lymphocytes Absolute Auto 1.5 1.2-4.9 X10*3/uL N Monocytes Absolute Auto 0.3 0.1-1.2 X10*3/uL N Eosinophils Absolute Auto 0.2 0.0-0.4 X10*3/uL N Basophils Absolute Auto 0.0 0.0-0.2 X10*3/uL N NRBC Abs Auto 0.020 0.0-0.012 X10*3/uL H Liver Panel Reviewed date:12/23/2024 06:24:28 PM Interpretation: Performing Lab:[address] [phone] Notes/Report: Bilirubin Total 0.7 0.0-1.0 mg/dL N Bilirubin Direct 0.2 0.0-0.5 mg/dL N Aspartate Amino Transferase 21 5-31 U/L N Alanine Aminotransferase 19 0-31 U/L N Total Protein 6.6 6.5-8.0 g/dL N Albumin Level 4.1 3.5-5.0 g/dL N Alkaline Phosphatase 50 39-117 U/L N Complete Blood Count Auto Di ff Reviewed date:01/26/2025 10:12:17 AM Interpretation: Performing Lab:[address] [phone] Notes/Report: White Blood Count 5.0 4.8-10.8 X10*3/uL N Red Blood Count 2.86 4.20-5.50 X10*6/uL L Hemoglobin 11.5 12.0-16.0 g/dl L Hematocrit 32.8 37.0-47.0 % L Mean Corpuscular Volume 114.7 80.0-98.0 fL H Mean Corpuscular Hemoglobin 40.2 27.0-33.0 pg H Mean Corpuscular HGB Conc 35.1 31.0-35.0 g/dl H Red Cell Distribution Width 16.0 11.0-16.0 % N Platelet Count 160 160-400 X10*3/uL N Mean Platelet Volume 10.9 9.4-12.3 fL N Neutrophils Percent Auto 58.4 45-73 % N Imm Gran Pct Auto 1.6 0.0-0.4 % H Lymphocytes Percent Auto 30.6 20-40 % N Monocytes Percent Auto 5.6 2-11 % N Eosinophils Percent Auto 3.0 0-4 % N Basophils Percent Auto 0.8 0-2 % N NRBC Pct Auto 0.4 0.0-0.2 /100WBC H Neutrophils Absolute Auto 2.9 2.0-8.3 x10*3/uL N Imm Gran Abs Auto 0.08 0.00-0.03 X10*3/uL H Lymphocytes Absolute Auto 1.5 1.2-4.9 X10*3/uL N Monocytes Absolute Auto 0.3 0.1-1.2 X10*3/uL N Eosinophils Absolute Auto 0.2 0.0-0.4 X10*3/uL N Basophils Absolute Auto 0.0 0.0-0.2 X10*3/uL N NRBC Abs Auto 0.020 0.0-0.012 X10*3/uL H Liver Panel Reviewed date:01/26/2025 10:12:38 AM Interpretation: Performing Lab:[facility], [address] [place] [phone] Notes/Report: Bilirubin Total 0.6 0.0-1.0 mg/dL N Bilirubin Direct 0.2 0.0-0.5 mg/dL N Aspartate Amino Transferase 31 5-31 U/L N Alanine Aminotransferase 25 0-31 U/L N Total Protein 6.4 6.5-8.0 g/dL L Albumin Level 3.9 3.5-5.0 g/dL N Alkaline Phosphatase 52 39-117 U/L N IRON PROFILE Reviewed date:03/09/2025 12:47:04 AM Interpretation: Performing Lab:[facility], [address] [place] [phone] Notes/Report: Iron 110 30-160 mcg/dL N Total Iron Binding Capacity 232 228-428 mcg/dL N Percent Iron Saturation 47 15-50 % N Unsaturated Iron Binding 122 Ferritin Reviewed date:03/09/2025 12:43:59 AM Interpretation: Performing Lab:[facility], [address] [place] [phone] Notes/Report: Ferritin 879 10-250 ng/mL H Therapeutic Phlebotomy Reviewed date:03/09/2025 12:45:21 AM Interpretation: Performing Lab:[facility], [address] [place] [phone] Notes/Report: THER/HGB 10.9 12.0-16.0 g/dL L THER/HCT TNP 37.0-47.0 % Therapeutic Phlebotomy Phlebotomy Performed 500 mls drawn on 03/07/25. Please note that a copy of this report has been sent to the Primary Care Physician, the ordering physician and any physician designated by patient request. Complete Blood Count Auto Di ff (Not yet reviewed by provider) Interpretation: Performing Lab:[address] [phone] Notes/Report: White Blood Count 3.9 4.8-10.8 X10*3/uL L Red Blood Count 2.52 4.20-5.50 X10*6/uL L Hemoglobin 10.2 12.0-16.0 g/dl L Hematocrit 29.2 37.0-47.0 % L Mean Corpuscular Volume 115.9 80.0-98.0 fL H Mean Corpuscular Hemoglobin 40.5 27.0-33.0 pg H Mean Corpuscular HGB Conc 34.9 31.0-35.0 g/dl N Red Cell Distribution Width 17.0 11.0-16.0 % H Platelet Count 139 160-400 X10*3/uL L Mean Platelet Volume 10.0 9.4-12.3 fL N Neutrophils Percent Auto 55.5 45-73 % N Imm Gran Pct Auto 1.5 0.0-0.4 % H Lymphocytes Percent Auto 32.8 20-40 % N Monocytes Percent Auto 4.6 2-11 % N Eosinophils Percent Auto 4.6 0-4 % H Basophils Percent Auto 1.0 0-2 % N NRBC Pct Auto 0.5 0.0-0.2 /100WBC H Neutrophils Absolute Auto 2.2 2.0-8.3 x10*3/uL N Imm Gran Abs Auto 0.06 0.00-0.03 X10*3/uL H Lymphocytes Absolute Auto 1.3 1.2-4.9 X10*3/uL N Monocytes Absolute Auto 0.2 0.1-1.2 X10*3/uL N Eosinophils Absolute Auto 0.2 0.0-0.4 X10*3/uL N Basophils Absolute Auto 0.0 0.0-0.2 X10*3/uL N NRBC Abs Auto 0.020 0.0-0.012 X10*3/uL H Liver Panel Reviewed date:03/22/2025 01:09:49 PM Interpretation: Performing Lab:[address] [phone] Notes/Report: Bilirubin Total 0.6 0.0-1.0 mg/dL N Bilirubin Direct 0.2 0.0-0.5 mg/dL N Aspartate Amino Transferase 21 5-31 U/L N Alanine Aminotransferase 19 0-31 U/L N Total Protein 6.0 6.5-8.0 g/dL L Albumin Level 4.0 3.5-5.0 g/dL N Alkaline Phosphatase 43 39-117 U/L N Complete Blood Count Auto Di ff Reviewed date:05/22/2025 11:05:25 PM Interpretation: Performing Lab:[address] [phone] Notes/Report: White Blood Count 3.9 4.8-10.8 X10*3/uL L Red Blood Count 2.59 4.20-5.50 X10*6/uL L Hemoglobin 10.5 12.0-16.0 g/dl L Hematocrit 30.1 37.0-47.0 % L Mean Corpuscular Volume 116.2 80.0-98.0 fL H Mean Corpuscular Hemoglobin 40.5 27.0-33.0 pg H Mean Corpuscular HGB Conc 34.9 31.0-35.0 g/dl N Red Cell Distribution Width 15.8 11.0-16.0 % N Platelet Count 149 160-400 X10*3/uL L Mean Platelet Volume 11.0 9.4-12.3 fL N Neutrophils Percent Auto 57.8 45-73 % N Imm Gran Pct Auto 0.8 0.0-0.4 % H Lymphocytes Percent Auto 31.6 20-40 % N Monocytes Percent Auto 2.8 2-11 % N Eosinophils Percent Auto 6.5 0-4 % H Basophils Percent Auto 0.5 0-2 % N NRBC Pct Auto 1.0 0.0-0.2 /100WBC H Neutrophils Absolute Auto 2.2 2.0-8.3 x10*3/uL N Imm Gran Abs Auto 0.03 0.00-0.03 X10*3/uL N Lymphocytes Absolute Auto 1.2 1.2-4.9 X10*3/uL N Monocytes Absolute Auto 0.1 0.1-1.2 X10*3/uL N Eosinophils Absolute Auto 0.3 0.0-0.4 X10*3/uL N Basophils Absolute Auto 0.0 0.0-0.2 X10*3/uL N NRBC Abs Auto 0.040 0.0-0.012 X10*3/uL H Therapeutic Phlebotomy (Not yet reviewed by provider) Interpretation: Performing Lab:[address] [phone] Notes/Report: THER/HGB 11.3 12.0-16.0 g/dL L THER/HCT TNP 37.0-47.0 % Therapeutic Phlebotomy Phlebotomy Performed 500 mls drawn on 06/06/25. Please note that a copy of this report has been sent to the Primary Care Physician, the ordering physician and any physician designated by patient request. Complete Blood Count Auto Di ff Reviewed date:06/22/2025 05:58:27 PM Interpretation: Performing Lab:[address], [place] [address] Notes/Report: White Blood Count 3.9 4.8-10.8 X10*3/uL L Red Blood Count 2.61 4.20-5.50 X10*6/uL L Hemoglobin 10.6 12.0-16.0 g/dl L Hematocrit 30.1 37.0-47.0 % L Mean Corpuscular Volume 115.3 80.0-98.0 fL H Mean Corpuscular Hemoglobin 40.6 27.0-33.0 pg H Mean Corpuscular HGB Conc 35.2 31.0-35.0 g/dl H Red Cell Distribution Width 16.3 11.0-16.0 % H Platelet Count 145 160-400 X10*3/uL L Mean Platelet Volume 11.0 9.4-12.3 fL N Neutrophils Percent Auto 59.1 45-73 % N Imm Gran Pct Auto 1.3 0.0-0.4 % H Lymphocytes Percent Auto 29.3 20-40 % N Monocytes Percent Auto 5.4 2-11 % N Eosinophils Percent Auto 3.9 0-4 % N Basophils Percent Auto 1.0 0-2 % N NRBC Pct Auto 1.0 0.0-0.2 /100WBC H Neutrophils Absolute Auto 2.3 2.0-8.3 x10*3/uL N Imm Gran Abs Auto 0.05 0.00-0.03 X10*3/uL H Lymphocytes Absolute Auto 1.1 1.2-4.9 X10*3/uL L Monocytes Absolute Auto 0.2 0.1-1.2 X10*3/uL N Eosinophils Absolute Auto 0.2 0.0-0.4 X10*3/uL N Basophils Absolute Auto 0.0 0.0-0.2 X10*3/uL N NRBC Abs Auto 0.040 0.0-0.012 X10*3/uL H White Blood Count 3.9 4.8-10.8 X10*3/uL L Red Blood Count 2.61 4.20-5.50 X10*6/uL L Hemoglobin 10.6 12.0-16.0 g/dl L Hematocrit 30.1 37.0-47.0 % L Mean Corpuscular Volume 115.3 80.0-98.0 fL H Mean Corpuscular Hemoglobin 40.6 27.0-33.0 pg H Mean Corpuscular HGB Conc 35.2 31.0-35.0 g/dl H Red Cell Distribution Width 16.3 11.0-16.0 % H Platelet Count 145 160-400 X10*3/uL L Mean Platelet Volume 11.0 9.4-12.3 fL N Neutrophils Percent Auto 59.1 45-73 % N Imm Gran Pct Auto 1.3 0.0-0.4 % H Lymphocytes Percent Auto 29.3 20-40 % N Monocytes Percent Auto 5.4 2-11 % N Eosinophils Percent Auto 3.9 0-4 % N Basophils Percent Auto 1.0 0-2 % N NRBC Pct Auto 1.0 0.0-0.2 /100WBC H Neutrophils Absolute Auto 2.3 2.0-8.3 x10*3/uL N Imm Gran Abs Auto 0.05 0.00-0.03 X10*3/uL H Lymphocytes Absolute Auto 1.1 1.2-4.9 X10*3/uL L Monocytes Absolute Auto 0.2 0.1-1.2 X10*3/uL N Eosinophils Absolute Auto 0.2 0.0-0.4 X10*3/uL N Basophils Absolute Auto 0.0 0.0-0.2 X10*3/uL N NRBC Abs Auto 0.040 0.0-0.012 X10*3/uL H Liver Panel Reviewed date:06/22/2025 05:58:57 PM Interpretation: Performing Lab:[address] [phone] Notes/Report: Bilirubin Total 0.8 0.0-1.0 mg/dL N Bilirubin Direct 0.2 0.0-0.5 mg/dL N Aspartate Amino Transferase 24 5-31 U/L N Alanine Aminotransferase 19 0-31 U/L N Total Protein 6.0 6.5-8.0 g/dL L Albumin Level 4.1 3.5-5.0 g/dL N Alkaline Phosphatase 50 39-117 U/L N SLIDE REVIEW Reviewed date:06/22/2025 05:57:17 PM Interpretation: Performing Lab:[address] [place] [address] Notes/Report: SLIDE REVIEW VERIFIED Complete Blood Count Auto Di ff Reviewed date:09/12/2025 09:23:54 AM Interpretation: Performing Lab:[facility], [address] [place] [phone] Notes/Report: White Blood Count 2.8 4.8-10.8 X10*3/uL L Red Blood Count 2.07 4.20-5.50 X10*6/uL L Hemoglobin 8.6 12.0-16.0 g/dl L Hematocrit 24.0 37.0-47.0 % L Mean Corpuscular Volume 115.9 80.0-98.0 fL H Mean Corpuscular Hemoglobin 41.5 27.0-33.0 pg H Mean Corpuscular HGB Conc 35.8 31.0-35.0 g/dl H Red Cell Distribution Width 17.4 11.0-16.0 % H Platelet Count 160 160-400 X10*3/uL N Mean Platelet Volume 10.8 9.4-12.3 fL N Neutrophils Percent Auto 51.4 45-73 % N Imm Gran Pct Auto 0.7 0.0-0.4 % H Lymphocytes Percent Auto 35.1 20-40 % N Monocytes Percent Auto 7.8 2-11 % N Eosinophils Percent Auto 4.3 0-4 % H Basophils Percent Auto 0.7 0-2 % N NRBC Pct Auto 0.0 0.0-0.2 /100WBC N Neutrophils Absolute Auto 1.5 2.0-8.3 x10*3/uL L Imm Gran Abs Auto 0.02 0.00-0.03 X10*3/uL N Lymphocytes Absolute Auto 1.0 1.2-4.9 X10*3/uL L Monocytes Absolute Auto 0.2 0.1-1.2 X10*3/uL N Eosinophils Absolute Auto 0.1 0.0-0.4 X10*3/uL N Basophils Absolute Auto 0.0 0.0-0.2 X10*3/uL N NRBC Abs Auto 0.000 0.0-0.012 X10*3/uL N White Blood Count 2.8 4.8-10.8 X10*3/uL L Red Blood Count 2.07 4.20-5.50 X10*6/uL L Hemoglobin 8.6 12.0-16.0 g/dl L Hematocrit 24.0 37.0-47.0 % L Mean Corpuscular Volume 115.9 80.0-98.0 fL H Mean Corpuscular Hemoglobin 41.5 27.0-33.0 pg H Mean Corpuscular HGB Conc 35.8 31.0-35.0 g/dl H Red Cell Distribution Width 17.4 11.0-16.0 % H Platelet Count 160 160-400 X10*3/uL N Mean Platelet Volume 10.8 9.4-12.3 fL N Neutrophils Percent Auto 51.4 45-73 % N Imm Gran Pct Auto 0.7 0.0-0.4 % H Lymphocytes Percent Auto 35.1 20-40 % N Monocytes Percent Auto 7.8 2-11 % N Eosinophils Percent Auto 4.3 0-4 % H Basophils Percent Auto 0.7 0-2 % N NRBC Pct Auto 0.0 0.0-0.2 /100WBC N Neutrophils Absolute Auto 1.5 2.0-8.3 x10*3/uL L Imm Gran Abs Auto 0.02 0.00-0.03 X10*3/uL N Lymphocytes Absolute Auto 1.0 1.2-4.9 X10*3/uL L Monocytes Absolute Auto 0.2 0.1-1.2 X10*3/uL N Eosinophils Absolute Auto 0.1 0.0-0.4 X10*3/uL N Basophils Absolute Auto 0.0 0.0-0.2 X10*3/uL N NRBC Abs Auto 0.000 0.0-0.012 X10*3/uL N Liver Panel Reviewed date:08/29/2025 04:44:21 PM Interpretation: Performing Lab:[facility], [address] [place] [phone] Notes/Report: Bilirubin Total 0.9 0.0-1.0 mg/dL N Bilirubin Direct 0.3 0.0-0.5 mg/dL N Aspartate Amino Transferase 18 5-31 U/L N Alanine Aminotransferase 12 0-31 U/L N Total Protein 6.1 6.5-8.0 g/dL L Albumin Level 4.0 3.5-5.0 g/dL N Alkaline Phosphatase 60 39-117 U/L N SLIDE REVIEW Reviewed date:08/31/2025 01:40:03 AM Interpretation: Performing Lab:[facility], [address] [place] [phone] Notes/Report: SLIDE REVIEW VERIFIED Reason For Referral No Information Medications Medication SIG (Take, Route, Frequency, Duration) Notes Start Date End Date Status azaTHIOprine 50 mg Tablet TAKE 1 AND 1/2 TABLETS EVERY DAY; Duration: 30 Active Losartan Potassium 25 MG Tablet 1 tablet Orally Once a day A ctive HumaLOG 100 UNIT/ML Solution Cartridge sliding scale Subcutaneous 4 times a day Active Cranberry Concentrate 500 MG Capsule 3 Orally bid Active Ativan 1 MG Tablet 1 tablet as needed O rally prn Active Simvastatin 40 MG Tablet 1 tablet in the evening Orally Once a day; Duration: 30 day(s) Active Tylenol Extra Strength 500 MG Tablet 1 tablet as needed Orally every 6 hrs/prn Active Advair Diskus 250-50 MCG/DOSE Aerosol Powder Breath Activated 1 puff Inhalation Twice a day Active Allopurinol 300 MG Tablet 1 tablet Orally Once a day Active Metoprolol Succinate ER 25 MG Tablet Extended Release 24 Hour 1 tablet Orally Once a day A ctive Haloperidol 10 MG Tablet 1 tablet Orally Once a day Active Apriso 0.375 GM Capsule Extended Release 24 Hour TAKE FOUR CAPSULES BY MOUTH EVERY MORNING; Duration: 30 Active lamoTRIgine 100 MG Tablet 1 tablet Orally Once a day Active traZODone HCl 50 MG Tablet 3 tablet at b edtime Orally Once a day Active DuoNeb 1 1 4 po QD Active Lantus 100 UNIT/ML Solution 54 units in the am and 46 units in the pm Subcutaneous daily Active ProAir HFA 108 (90 Base) MCG/ACT Aerosol Solution 2 puffs as needed Inhalation every 4 hrs Active Motrin PRN Active Omeprazole Magnesium 20 MG Tablet Delayed Release 1 tablet 30 minutes before morning meal Orally Once a day; Duration: 30 day(s) Active LaMICtal 100mg Tablet 1 tablet Orally QD Active Lisinopril 5 MG Tablet 1 tablet Orally Once a day Active Benadryl 50 Tablet 1 tablet as needed O rally every 4 hrs PRN Active Humira Pen 40 MG/0.8ML Pen-injector Kit 0.8 ml Subcutaneous weekly Active Immunizations Vaccine Route Administration Date Status Comme nts Flu vaccine no Preserv 3 and > Unknown 09/12/2014 Admin istered Flu vaccine no Preserv 3 and > Unknown 08/27/2016 Admin istered Flu vaccine no Preserv 3 and > Unknown 09/01/2017 Admin istered Influenza Unknown 08/23/2015 Administered Influenza Unknown 08/04/2018 Administered Influenza Unknown 08/09/2019 Administered Influenza Unknown 09/05/2020 Administered Influenza Unknown 08/07/2021 Administered Influenza Unknown 08/27/2022 Administered Influenza Unknown 08/25/2023 Administered Social History Tobacco Use: Social History Observation Description Date Details (start date - stop date) Former Smoker NA - NA Social History Tobacco Use: Social Info Question Answer Notes Tobacco Use/Smoking Patient is a former smoker How long has it been since you last smoked? 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 Problem Pseudopolyposis of colon (22597586) Inflammatory polyps of colon without complications (K51.40) Active confirmed Problem Diverticular disease of colon (678460145) Diverticulosis of large intestine without perforation or abscess without bleeding (K57.30) Active confirmed Problem Dysphagia (09955634) Dysphagia (R13.10) Active confirmed Problem Epigastric pain (05635483) Abdominal pain, epigastric (R10.13) Active confirmed Problem Crohn's disease of colon (09247217) Crohn's disease of colon (K50.10) Active confirmed Problem Anemia (632111474) Anemia (D64.9) Active confir med Problem Crohn's disease of large bowel (1831683) Crohns colitis, without complications (K50.10) Active confirmed Problem Crohns disease (95953644) Crohns disease (K50.90) Active confirmed Problem Iron deficiency anemia (03161047) Other iron deficiency anemia (D50.8) Active confirmed Problem Pseudopolyposis of colon (22889207) Inflammatory polyps, without complications (K51.40) Active confirmed Problem Anemia (226374640) Anemia, unspe cified type (D64.9) Active confirmed Problem Increased storage iron (22498622) Increased storage iron (E83.19) Active confirmed Problem Esophageal reflux finding (559623806) Gastroesophageal reflux (K21.9) Active confirmed Problem Diarrhea (38701502) Diarrhea, unspecified type (R19.7) Active confirmed Problem Crohn's disease of large bowel (5318827) Crohn's disease of large intestine without complication (K50.10) Active confirmed Problem Crohn's disease of perianal region with fistula (K50.113) Active confirmed Problem Gallbladder disease (91867486) Gallbladder sludge (K82.8) Active confirmed Problem Macrocytosis - no anemia (194231627) Macrocytosis without anemia (D75.89) Active confirmed Problem Diarrhea of presumed infectious origin (26846607) Diarrhea of presumed infectious origin (R19.7) Active confirmed Problem Crohn's disease of large bowel (3957361) Crohn''s disease of large intestine without complication (K50.10) Active confirmed Problem Crohn's disease of large bowel (1230864) Crohn''s disease of colon without complication (K50.10) Active confirmed Problem Crohn's disease of large bowel (3407754) Crohn's disease of colon without complication (K50.10) Active confirmed Problem Esophageal dysphagia (43903397) Esophageal dysphagia (R13.19) Active confirmed Problem Drug monitoring done (494083838) Encounter for therapeutic drug monitoring (Z51.81) Active confirmed Vital Signs Blood pressure diastolic 111 mm Hg 02/28/2025 Height 63 in 02/28/2025 Blood pressure systolic 111 mm Hg 02/28/2025 Weight 267 lbs 02/28/2025 BMI 47.29 kg/m2 02/28/2025 Encounters Encounter Location Date Provider Diagnosis [facility] [address] [place] [phone] 02/28/2025 Jose Juan Hare Crohns colitis, with out complications K50.10 and Increased storage iron E83.19 [facility] [address] [place] [phone] 10/11/2025 Jose Juan Hare [facility] [address] [place] [phone] 12/07/2024 Jose Juan Hare [facility] [address] [place] [phone] 08/28/2025 Jose Juan Hare Crohn''s disease of colon without complication K50.10 Assessments Encounter Date Diagnosis (ICD Code) Assessment Notes Treatment Notes Treatment Clinical Notes Section Notes 08/28/2025 Crohn''s disease of colon without complication (ICD-10 - K50.10) 02/28/2025 Crohns colitis, without complications (ICD-10 - [...] will arrange for a phlebotomy at the [facility] for every three mnonths Overall, [...] Date CHEM 7 PROFILE 05/13/2023 LIVER PROFILE 05/04/2023 LIVER PROFILE 09/05/2020 LIVER PROFILE 04/23/2022 LIVER PROFILE 07/01/2018 LIVER PROFILE 06/13/2020 LIVER PROFILE 03/27/2017 LIVER PROFILE 04/17/2017 LIVER PROFILE 05/13/2023 LIVER PROFILE 06/28/2024 LIVER PROFILE 08/28/2025 IRON + IBC (FE) 07/31/2024 IRON + IBC (FE) 07/04/2024 IRON + IBC (FE) 11/30/2017 IRON + IBC (FE) 08/30/2024 FERRITIN 11/30/2017 CRP 11/30/2017 CRP 04/17/2017 CRP 05/13/2023 VITAMIN B12 AND FOLATE 07/05/2020 VITAMIN B12 AND FOLATE 11/30/2017 CBC w DIFF 07/01/2018 CBC w DIFF 06/13/2020 CBC w DIFF 09/05/2020 CBC w DIFF 05/04/2023 CBC w DIFF 03/27/2017 CBC w DIFF 05/13/2023 CBC w DIFF 04/23/2022 CBC w DIFF 06/28/2024 CBC w DIFF 08/28/2025 CBC with MANUAL DIFFERENTIAL 04/17/2017 SED RATE (ESR) 11/30/2017 SED RATE (ESR) 04/17/2017 SED RATE (ESR) 05/13/2023 HEMOCHROMATOSIS (C282Y) 07/31/2024 NUC HIDA SCAN 11/30/2017 XR BARIUM SWALLOW-ESOPHAGUS 09/05/2021 PROMETHEUS THIOPURINE METABOLITES (TPMT) 10/13/2017 PROMETHEUS THIOPURINE METABOLITES (TPMT) 08/18/2018 PROMETHEUS THIOPURINE METABOLITES (TPMT) 09/08/2023 TSH REFLEX FREE T4 07/05/2020 HUMIRA LEVEL/AB (ADALIMUMAB LEVEL/AB) HUMIRA LEVEL/AB (ADALIMUMAB LEVEL/AB) HUMIRA LEVEL/AB (ADALIMUMAB LEVEL/AB) C DIFFICILE RFLX PCR 05/13/2023 Complete Blood Count Auto Diff Ferritin 09/21/2024 Ferritin 08/30/2024 Therapeutic Phlebotomy 06/06/2025 Future Test Test Name Order Date UPPER GI ENDOSCOPY BALLOOON DILATION OF ESOPH 07/26/2021 COLONOSCOPY 07/26/2021 COLONOSCOPY 09/08/2023 Next Appt Details Provider Name:Jose Juan Hare , 10/27/2025 01:00:00 PM, [address], [address], [place], [address], Insurance Providers Payer Name Payer Address Payer Phone Subscriber Number Group Number Insured Name Patient Relationship to Insured Coverage Start Date Coverage End Date MEDICARE OF [place] [address] [place] [address] [id number] FAUZIA HOLLEY Self - patient is the insured MEDICA[employer] OF [employer] [address] [place] [phone] [id number] FAUZIA HOLLEY Self - patient is the insured Medical (General) History Medical History History ICD Code IDDM DVT 20 yrs ago Colonoscopy 10/[address] Briseno with the finding of colitis in left colon and rectum--bx in rectum showed a granuloma-started Apriso 02/2013 Denies [place],CVA,Lung disease,renal disease Anemia-on Iron--Hgb approx 8 in 10/2012, and 12.9 in 01/2013---on B12 shots Bipolar disease Abscess near right kidney in 2008-drained with percutaneous catheters-at [facility] PVC's Asthma Colonoscopy 10/2016 revealed a very [...]
== END 2025-10-11 11:05 | disposition home or self-care (01) ==
PROVIDERS: PCP Physician Assistant Medical; Visit Provider Physician Assistant Medical
DX: L03.031 Cellulitis of right toe (principal); W55.03XA Scratched by cat, initial encounter

== ENCOUNTER → 2025-10-11 10:31 | Outpatient (BNVA) | payer MEDICARE, MEDICAID, SELFPAY | PROVIDERS: PCP Physician Assistant Medical; Visit Provider Physician Assistant Medical | DX: L03.031 Cellulitis of right toe (principal); W55.03XA Scratched by cat, initial encounter | CPT/HCPCS: 99212 ==

== ENCOUNTER 2025-10-14 08:32 | Outpatient (REF) | payer MEDICARE, MEDICAID, SELFPAY ==
--- OUTSIDE RECORDS SUMMARY | 2024-11-10 05:30 | XMS_ITS ---
Author Organization [facility] Address [address] [facility] [place] [address] Care Team Providers Care Dampener Operator Name Role Phone Richard Blackman MD Primary Care Provider Unavailab chris Rocio Camargoe Unavailable [phone] Allergies Allergen (clinical drug ingredient) Drug/Non Drug [...] No Encounters Encounter Location Date Provider Diagnosis [facility] [address] [place] [address] 11/10/2024 Noelle Camargo Plan Of Treatment Next Appt Details Provider Name:Noelle Camargo , 11/06/2025 02:00:00 PM, [address] [place], [address], Progress Notes * Alexsandra HOLLEY ADOB: [birth year] (60 yo F)Acc No.[id number]:11/10/2024 Progress Notes Patient: Alexsandra MEMBRENO Provider: Neptali Camargo DPM :1965 A ge:59 Y S ex:Female Date:11/10/2024 Address:[address] [place] [address], [address]-[address] Pcp:Richard Blackman MD Subjective: * Chief Complaints: * * ROS: [...] enies. C ardiovascular: Pacemaker d enies. M DIGITAL DESIGNER d enies. W PW d enies. C [...] stic Procedure: [place] 4 [place] [facility] [place], [facility] [place] Kidney infection 03/2018. * Family History: [...] Date: 01/11/2024 Generated for Marin mahan/Pio/Adarsh on: 12/14/2024 08:35 AM EST
--- OUTSIDE RECORDS SUMMARY | 2025-01-26 08:00 | XMS_ITS ---
Author Organization [facility] Address [address] [place] [address] Care Team Providers Care Editor Managing Director Name Role Phone Yehuda HALL, Richard Primary Care Provider UnavailNoelle Echevarria [phone] Encounters Encounter Location Date Provider Diagnosis [address] [address] 01/26/2025 Noelle Camargo Plan Of Treatment Next Appt Details Provider Name:Noelleligia Camargo , 11/06/2025 02:00:00 PM, [address] [place] [address], [address], Progress Notes * Alexsandra HOLLEY ADOB: [birth year] (60 yo F)Acc No.[id number]:01/26/2025 Progress Notes Patient: Alexsandra MEMBRENO Provider: Bambi Camargo DPM :1965 A ge:59 Y S ex:Female Date:01/26/2025 Address:[address] [place] [address], [address], [id number] Pcp:Richard Blackman MD Subjective: * Chief Complaints: [...] 01/26/2025 Generated for Marin mahan/Pio/Adarsh on: 1 12/14/2024 08:36 AM EST
--- OUTSIDE RECORDS SUMMARY | 2025-08-07 08:00 | XMS_ITS ---
Author Organization [facility] Address [address] [place] [address] Care Team Providers Care Clinical Dietitian Name Role Phone Yehuda HALL, Richard Primary Care Provider UnavailNoelle Echevarria [phone] Encounters Encounter Location Date Provider Diagnosis [address] [address] 08/07/2025 Noelle Camargo Plan Of Treatment Next Appt Details Provider Name:Noelleligia Camargo , 11/06/2025 02:00:00 PM, [address] [place] [address], [phone], Progress Notes * Alexsandra HOLLEY ADOB: [birth year] (60 yo F)Acc No.[id number]:08/07/2025 Progress Note Patient: Alexsandra MEMBRENO Provider: Bambi Camargo DPM :1965 A ge:60 Y S ex:Female Date:08/07/2025 Address:[address] [place] [address], [address], [id number] Pcp:Richard Blackman MD Subjective: * Chief Complaints: [...] 08/07/2025 Generated for Marin mahan/Pio/Adarsh on: 1 12/14/2024 08:35 AM EST
--- OUTSIDE RECORDS SUMMARY | 2025-10-14 08:35 | XMS_ITS | Patient Health Record ---
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 Name Role Phone Richard Blackman MD Primary Care Provider Unavailab chris Rocio Camargoe Unavailable [phone] Allergies Allergen (clinical drug ingredient) Drug/Non Drug [...] Problem Acquired hammer toe of right foot (9890912675269569 ) Other hammer toe(s) (acquired), right foot (M20.41) Active confirmed Problem Acquired hammer toe of left foot (6840660222003574 ) Other hammer toe(s) (acquired), left foot (M20.42) Active confirmed Problem Polyneuropathy due to type 2 diabetes mellitus (240893697) Type 2 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) Active confirmed Problem Acquired hallux valgus (55966912) Hallux valgus (acquired), right foot (M20.11) Active confirmed Problem Neuropathy (949232651) Neuropathy (G62.9) Active confirmed Vital Signs Blood pressure diastolic 76 mm Hg 04/27/2025 Height 5 ft 2 in in 04/27/2025 Blood pressure systolic 112 mm Hg 04/27/2025 Weight 265 lbs 04/27/2025 BMI 48.46 kg/m2 04/27/2025 Procedures Procedure Date Ordered Date Performed Result Body Sit e V7170-MMYCSFIL DYSTROPHIC NAILS ANY # 04/27/2025 N/A 93653-HCQR SKIN LESIONS, OVER 4 04/27/2025 N/A Encounters Encounter Location Date Provider Diagnosis [address] [address] 04/27/2025 Noelle Raman Hallux valgus (acquired), right foot M20.11 ; Other hammer toe(s) (acquired), right foot M20.41 ; Bunion of right foot M21.611 ; Other hammer toe(s) (acquired), left foot M20.42 ; Type 2 diabetes mellitus with diabetic polyneuropathy E11.42 and Neuropathy G62.[address] [address] 11/08/[address] [address] 01/24/[address] [address] 08/07/2025 Noelle Camargo Assessments Encounter Date Diagnosis [...] Order Date *Liver Function Test (LFT) 04/12/2012 89679-JBURKFI NAIL, 6 OR MORE 12/24/2011 56495-AFPHMIM NAIL, 1-07/11/2013 46231-DEZNPPR NAIL, -07/19/2015 13020-AIIXHPK NAIL, -04/19/2015 27736-FVJWGQO NAIL, -01/17/2015 87890-PDVXZZV NAIL, -10/30/2014 52069-AUTNWXM NAIL, -03/06/2014 58327-JKDFQKD NAIL, -11/07/2013 23580-WFUYFVI NAIL, -10/04/2012 73956-AXMIWFH NAIL, -07/05/2012 28436-HJZKXZG NAIL, -01/06/2013 69796-FXHISZP NAIL, -04/11/2013 17140-HKZTXXI NAIL, -04/12/2012 65615-VLFUQYY NAIL, -08/17/2014 18087-Uvzqtuxs Plate 08/17/2014 13027-Xuwcxfhb Plate 03/06/2014 05963-Isjseyvt Plate 04/19/2015 53125-Ekdfkrgb Plate 10/30/2014 68503-Hksdphvq Plate 01/17/2015 82469-Ezmxhjxs Plate 07/19/2015 37998-Szyjmbds Plate 08/15/2019 97441-TAB 12/29/2011 16482- Debride <25 sq cm 08/11/2011 67925-MHJMWAY SKIN/TISSUE 02/02/2012 95768-KOPXYFU SKIN/TISSUE 01/19/2012 22666 I&D ABSCESS- SIMPLE,SINGLE 012 55460 I&D ABSCESS- SIMPLE,SINGLE 012 71183 I&D ABSCESS- SIMPLE,SINGLE 013 62956 I&D ABSCESS- SIMPLE,SINGLE 014 49678 I&D ABSCESS- SIMPLE,SINGLE 013 91199 I&D ABSCESS- SIMPLE,SINGLE 015 22283 I&D ABSCESS- SIMPLE,SINGLE 015 41276 I&D ABSCESS- SIMPLE,SINGLE 015 82555 I&D ABSCESS- SIMPLE,SINGLE 014 54357 I&D ABSCESS- SIMPLE,SINGLE 014 36793 I&D ABSCESS- SIMPLE,SINGLE 013 94183 I&D ABSCESS- SIMPLE,SINGLE 013 44641 I&D ABSCESS- SIMPLE,SINGLE 011 79532-JRZW SKIN LESIONS, OVER 4 09/30/20 18 82158-OIEI SKIN LESIONS, OVER 4 12/28/19 18 00314-VGTA SKIN LESIONS, OVER 4 12/30/19 19 06254-JRWT SKIN LESIONS, OVER 4 11/24/19 20 03856-SNTJ SKIN LESIONS, OVER 4 08/15/20 19 30458-GMXI SKIN LESIONS, OVER 4 07/01/20 18 91596-FZEK SKIN LESIONS, OVER 4 04/01/20 18 60917-XIVN SKIN LESIONS, OVER 4 04/27/20 25 42448-EJKM SKIN LESIONS, OVER 4 08/13/20 17 15749-EUKW SKIN LESIONS, OVER 4 04/27/20 17 38151-EQOX SKIN LESIONS, OVER 4 01/27/20 17 00103-WTFL SKIN LESIONS, 2 TO 4 04/28/20 16 84737-ZMOB SKIN LESIONS, 2 TO 4 03/06/20 14 42799-BOEJ SKIN LESIONS, 2 TO 4 11/07/20 13 30050-OVLB SKIN LESIONS, 2 TO 4 07/05/20 12 38392-JBIH SKIN LESIONS, 2 TO 4 10/04/20 12 43523-KOYZ SKIN LESIONS, 2 TO 4 08/04/20 16 04393-QQVZ SKIN LESIONS, 2 TO 4 01/24/20 16 01920-RSKE SKIN LESIONS, 2 TO 4 07/11/20 13 91788-XPKH SKIN LESIONS, 2 TO 4 10/30/20 14 47648-NQIQ SKIN LESIONS, 2 TO 4 01/17/20 15 23914-QPTS SKIN LESIONS, 2 TO 4 04/19/20 15 42340-YYQZ SKIN LESIONS, 2 TO 4 07/19/20 15 44456-XDWK SKIN LESIONS, 2 TO 4 08/17/20 14 48947-OBJY SKIN LESIONS, 2 TO 4 01/06/20 13 68820-ECAA SKIN LESIONS, 2 TO 4 10/25/20 15 24196-ZEAJ SKIN LESIONS, 2 TO 4 04/11/20 13 59059-VZPX SKIN LESION 04/12/2012 Y2375-DMSAERGA DYSTROPHIC NAILS ANY # G2199-JQPGZLTU DYSTROPHIC NAILS ANY # E5838-RLWJQWIP DYSTROPHIC NAILS ANY # U4120-MRDQJYKB DYSTROPHIC NAILS ANY # C1081-CFMUNRGV DYSTROPHIC NAILS ANY # O5242-HADHKAPK DYSTROPHIC NAILS ANY # C8655-ZEMPUKUS DYSTROPHIC NAILS ANY # K0294-RUKYFWTB DYSTROPHIC NAILS ANY # M6294-BFOSMZPL DYSTROPHIC NAILS ANY # N3110-EYGNZLGP DYSTROPHIC NAILS ANY # E5112-UOWDTJQM DYSTROPHIC NAILS ANY # A7019-IQZYVTJM DYSTROPHIC NAILS ANY # G3466-HFVGZINQ DYSTROPHIC NAILS ANY # A9756-KAGFXIPH DYSTROPHIC NAILS ANY # L8263-YZKMOAWU DYSTROPHIC NAILS ANY # Q8420-MFOIHGSG DYSTROPHIC NAILS ANY # J9683-EJDQZJTC DYSTROPHIC NAILS ANY # N6796-SZRASYLU DYSTROPHIC NAILS ANY # O2866-RJENXJJB DYSTROPHIC NAILS ANY # N2401-ETRXWRBQ DYSTROPHIC NAILS ANY # G5076-ZLLOYAEN DYSTROPHIC NAILS ANY # S3078-HGLFPPIH DYSTROPHIC NAILS ANY # K8505-XHPIAXYD DYSTROPHIC NAILS ANY # X9219-TLKGGVLO DYSTROPHIC NAILS ANY # Next Appt Details Provider Name:Noelle Camargo , 11/06/2025 02:00:00 PM, [address] [place] [address], [phone], Insurance Providers Payer Name Payer Address Payer Phone Subscriber Number Group Number Insured Name Patient Relationship to Insured Coverage Start Date Coverage End Date Medicare [employer] [address] [place] [address] [id number] Alexsandra Thomas Self - patient is the insured 9 Medical (General) History Medical History History ICD Code transfusions psychiatric disorder chicken pox Gout diabetic depression hypercholesterolemia Anxiety disorder anemia crohns disease Arthritis asthma covid-19 High Blood Pressure Numbness Psoriasis/eczema Reflux ( GERD) Sciatica Vascular phlebitis (clots) Surgical History Surgery Date(Month/Year) [place] History Reason Date[place] [facility] [place] [facility] [place] [facility] [place] 4 [place] 08[place]2016
--- OUTSIDE RECORDS SUMMARY | 2025-10-14 08:36 | XMS_ITS | Patient Health Record ---
Author Organization [facility] Address [address] [place] [address] Care Team Providers Care Topstitcher Zigzag Name Role Phone Yehuda (RETIRED) Richard HALL Primary Care Provider Unavailable Jose Juan Hare Unavailable [phone] Allergies Allergen (clinical drug ingredient) Drug/Non Drug Allergy documented on EMR Reaction Allergy Type Onset Date Status seasonal (uncoded) Unknown Allergy A ctive amoxicillin Amoxicillin Unknown Drug Allergy Act vini amoxicillin / clavulanate Augmentin diarrhea Drug Allergy Active Results Component Value Reference Range Flag Notes Complete Blood Count Auto Di ff Reviewed date:11/04/2024 06:12:41 PM Interpretation: Performing Lab:[facility], [address] [place] [phone] Notes/Report: White Blood Count 4.2 4.8-10.8 X10*3/uL [...] Panel Reviewed date:11/04/2024 06:13:02 PM Interpretation: Performing Lab:[address] [address] Notes/Report: Bilirubin Total 0.7 0.0-1.0 mg/dL N Bilirubin Direct 0.2 0.0-0.5 mg/dL N Aspartate Amino Transferase 19 5-31 U/L N Alanine Aminotransferase 18 0-31 U/L N Total Protein 6.0 6.5-8.0 g/dL L Albumin Level 3.9 3.5-5.0 g/dL N Alkaline Phosphatase 52 39-117 U/L N Complete Blood Count Auto Di ff Reviewed date:12/22/2024 04:23:03 PM Interpretation: Performing Lab:[address] [address] Notes/Report: White Blood Count 4.4 4.8-10.8 X10*3/uL [...] Panel Reviewed date:12/23/2024 06:24:28 PM Interpretation: Performing Lab:[address] [address] Notes/Report: Bilirubin Total 0.7 0.0-1.0 mg/dL N Bilirubin Direct 0.2 0.0-0.5 mg/dL N Aspartate Amino Transferase 21 5-31 U/L N Alanine Aminotransferase 19 0-31 U/L N Total Protein 6.6 6.5-8.0 g/dL N Albumin Level 4.1 3.5-5.0 g/dL N Alkaline Phosphatase 50 39-117 U/L N Complete Blood Count Auto Di ff Reviewed date:01/26/2025 10:12:17 AM Interpretation: Performing Lab:[address] [address] Notes/Report: White Blood Count 5.0 4.8-10.8 X10*3/uL [...] Panel Reviewed date:01/26/2025 10:12:38 AM Interpretation: Performing Lab:[facility], [address] [place] [phone] Notes/Report: Bilirubin Total 0.6 0.0-1.0 mg/dL N Bilirubin Direct 0.2 0.0-0.5 mg/dL N Aspartate Amino Transferase 31 5-31 U/L N Alanine Aminotransferase 25 0-31 U/L N Total Protein 6.4 6.5-8.0 g/dL L Albumin Level 3.9 3.5-5.0 g/dL N Alkaline Phosphatase 52 39-117 U/L N IRON PROFILE Reviewed date:03/09/2025 12:47:04 AM Interpretation: Performing Lab:[facility], [address] [place] [phone] Notes/Report: Iron 110 30-160 mcg/dL N Total Iron Binding Capacity 232 228-428 mcg/dL N Percent Iron Saturation 47 15-50 % N Unsaturated Iron Binding 122 Ferritin Reviewed date:03/09/2025 12:43:59 AM Interpretation: Performing Lab:[facility], [address] [place] [phone] Notes/Report: Ferritin 879 10-250 ng/mL H Therapeutic Phlebotomy Reviewed date:03/09/2025 12:45:21 AM Interpretation: Performing Lab:[facility], [address] [place] [phone] Notes/Report: THER/HGB 10.9 12.0-16.0 g/dL L THER/HCT TNP 37.0-47.0 % Therapeutic Phlebotomy Phlebotomy Performed 500 mls drawn on 03/07/25. Please note that a copy of this report has been sent to the Primary Care Physician, the ordering physician and any physician designated by patient request. Complete Blood Count Auto Di ff (Not yet reviewed by provider) Interpretation: Performing Lab:[address] [address] Notes/Report: White Blood Count 3.9 4.8-10.8 X10*3/uL [...] Panel Reviewed date:03/22/2025 01:09:49 PM Interpretation: Performing Lab:[address] [address] Notes/Report: Bilirubin Total 0.6 0.0-1.0 mg/dL N Bilirubin Direct 0.2 0.0-0.5 mg/dL N Aspartate Amino Transferase 21 5-31 U/L N Alanine Aminotransferase 19 0-31 U/L N Total Protein 6.0 6.5-8.0 g/dL L Albumin Level 4.0 3.5-5.0 g/dL N Alkaline Phosphatase 43 39-117 U/L N Complete Blood Count Auto Di ff Reviewed date:05/22/2025 11:05:25 PM Interpretation: Performing Lab:[address] [address] Notes/Report: White Blood Count 3.9 4.8-10.8 X10*3/uL [...] (Not yet reviewed by provider) Interpretation: Performing Lab:[address] [address] Notes/Report: THER/HGB 11.3 12.0-16.0 g/dL L THER/HCT TNP 37.0-47.0 % Therapeutic Phlebotomy Phlebotomy Performed 500 mls drawn on 06/06/25. Please note that a copy of this report has been sent to the Primary Care Physician, the ordering physician and any physician designated by patient request. Complete Blood Count Auto Di ff Reviewed date:06/22/2025 05:58:27 PM Interpretation: Performing Lab:[address], [place] [address] Notes/Report: White Blood Count 3.9 4.8-10.8 X10*3/uL [...] Panel Reviewed date:06/22/2025 05:58:57 PM Interpretation: Performing Lab:[address] [address] Notes/Report: Bilirubin Total 0.8 0.0-1.0 mg/dL N Bilirubin Direct 0.2 0.0-0.5 mg/dL N Aspartate Amino Transferase 24 5-31 U/L N Alanine Aminotransferase 19 0-31 U/L N Total Protein 6.0 6.5-8.0 g/dL L Albumin Level 4.1 3.5-5.0 g/dL N Alkaline Phosphatase 50 39-117 U/L N SLIDE REVIEW Reviewed date:06/22/2025 05:57:17 PM Interpretation: Performing Lab:[address] [place] [address] Notes/Report: SLIDE REVIEW VERIFIED Complete Blood Count Auto Di ff Reviewed date:09/12/2025 09:23:54 AM Interpretation: Performing Lab:[facility], [address] [place] [phone] Notes/Report: White Blood Count 2.8 4.8-10.8 X10*3/uL [...] Panel Reviewed date:08/29/2025 04:44:21 PM Interpretation: Performing Lab:[facility], [address] [place] [phone] Notes/Report: Bilirubin Total 0.9 0.0-1.0 mg/dL N Bilirubin Direct 0.3 0.0-0.5 mg/dL N Aspartate Amino Transferase 18 5-31 U/L N Alanine Aminotransferase 12 0-31 U/L N Total Protein 6.1 6.5-8.0 g/dL L Albumin Level 4.0 3.5-5.0 g/dL N Alkaline Phosphatase 60 39-117 U/L N SLIDE REVIEW Reviewed date:08/31/2025 01:40:03 AM Interpretation: Performing Lab:[facility], [address] [place] [phone] Notes/Report: SLIDE REVIEW VERIFIED Reason For Referral [...] of large intestine due to Crohn's disease (6963187796634117) 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) Active confirmed Problem Pseudopolyposis of colon (69741948) Inflammatory polyps of colon without complications (K51.40) Active confirmed Problem Diverticular disease of colon (948339815) Diverticulosis of large intestine without perforation or abscess without bleeding (K57.30) Active confirmed Problem Dysphagia (81762034) Dysphagia (R13.10) Active confirmed Problem Epigastric pain (13195521) Abdominal pain, epigastric (R10.13) Active confirmed Problem Crohn's disease of colon (34507394) Crohn's disease of colon (K50.10) Active confirmed Problem Anemia (235544298) Anemia (D64.9) Active confir med Problem Crohn's disease of large bowel (4382798) Crohns colitis, without complications (K50.10) Active confirmed Problem Crohns disease (20862615) Crohns disease (K50.90) Active confirmed Problem Iron deficiency anemia (83904504) Other iron deficiency anemia (D50.8) Active confirmed Problem Pseudopolyposis of colon (77851853) Inflammatory polyps, without complications (K51.40) Active confirmed Problem Anemia (353480116) Anemia, unspe cified type (D64.9) Active confirmed Problem Increased storage iron (89128603) Increased storage iron (E83.19) Active confirmed Problem Esophageal reflux finding (424013447) Gastroesophageal reflux (K21.9) Active confirmed Problem Diarrhea (27556110) Diarrhea, unspecified type (R19.7) Active confirmed Problem Crohn's disease of large bowel (9356946) Crohn's disease of large intestine without complication (K50.10) Active confirmed Problem Crohn's disease of perianal region with fistula (K50.113) Active confirmed Problem Gallbladder disease (57023443) Gallbladder sludge (K82.8) Active confirmed Problem Macrocytosis - no anemia (418781171) Macrocytosis without anemia (D75.89) Active confirmed Problem Diarrhea of presumed infectious origin (11191163) Diarrhea of presumed infectious origin (R19.7) Active confirmed Problem Crohn's disease of large bowel (7912957) Crohn''s disease of large intestine without complication (K50.10) Active confirmed Problem Crohn's disease of large bowel (5873179) Crohn''s disease of colon without complication (K50.10) Active confirmed Problem Crohn's disease of large bowel (9143495) Crohn's disease of colon without complication (K50.10) Active confirmed Problem Esophageal dysphagia (23460055) Esophageal dysphagia (R13.19) Active confirmed Problem Drug monitoring done (367739322) Encounter for therapeutic drug monitoring (Z51.81) Active confirmed Vital Signs Blood pressure diastolic 111 mm Hg 02/28/2025 Height 63 in 02/28/2025 Blood pressure systolic 111 mm Hg 02/28/2025 Weight 267 lbs 02/28/2025 BMI 47.29 kg/m2 02/28/2025 Encounters Encounter Location Date Provider Diagnosis [facility] [address] [place] [phone] 02/28/2025 Jose Juan Hare Crohns colitis, with out complications K50.10 and Increased storage iron E83.19 [facility] [address] [place] [phone] 10/11/2025 Jose Juan Hare [facility] [address] [place] [phone] 12/07/2024 Jose Juan Hare [facility] [address] [place] [phone] 08/28/2025 Jose Juan Hare Crohn''s disease of [...] will arrange for a phlebot[place] at [place] [facility] [place] every three mnonths Overall, [...] 01:00:00 PM, [address], [address], [place], [address], Insurance Providers Payer Name Payer Address Payer Phone Subscriber Number Group Number Insured Name Patient Relationship to Insured Coverage Start Date Coverage End Date MEDICARE OF [place] [address] [place] [address] [phone] [id number] FAUZIA HOLLEY Self - patient is the insured MEDICA[employer] OF [employer] [address] [place] [phone] [id number] FAUZIA HOLLEY Self - patient is the insured Medical (General) History Medical History History ICD Code IDDM DVT 20 yrs ago Colonoscopy 10/[address] Briseno with the finding of colitis in left colon and rectum--bx in rectum showed a granuloma-started Apriso 02/2013 Denies AR,CVA,Lung disease,renal disease Anemia-on Iron--Hgb approx 8 in 10/2012, and 12.9 in 01/2013---on B12 shots Bipolar disease Abscess near right kidney in 2008-drained with percutaneous catheters-at [facility] PVC's Asthma Colonoscopy 10/2016 revealed a [...]
[2025-10-14 11:05] LABS: MANUAL DIFF FLAG NO
[2025-10-14 11:12] LABS: Hematocrit 33.3 % (37.0-47.0); Hemoglobin 11.4 g/dl (12.0-16.0); Imm Gran Abs Auto 0.14 X10*3/uL (0.00-0.03); Imm Gran Pct Auto 2.3 % (0.0-0.4); Lymphocytes Absolute Auto 1.6 X10*3/uL (1.2-4.9); Mean Corpuscular HGB Conc 34.2 g/dl (31.0-35.0); Mean Corpuscular Hemoglobin 35.7 pg (27.0-33.0); Mean Corpuscular Volume 104.4 fL (80.0-98.0); NRBC Abs Auto 0.000 X10*3/uL (0.0-0.012); NRBC Pct Auto 0.0 /100WBC (0.0-0.2); Platelet Count 122 X10*3/uL (160-400); Red Blood Count 3.19 X10*6/uL (4.20-5.50); White Blood Count 6.1 X10*3/uL (4.8-10.8)
[2025-10-14 11:27] LABS: Alanine Aminotransferase 22 U/L (0-31); Albumin Level 4.0 g/dL (3.5-5.0); Alkaline Phosphatase 60 U/L (39-117); Anion Gap 9 (12-20); Aspartate Amino Transferase 24 U/L (5-31); Blood Urea Nitrogen 19 mg/dL (9-16); Calcium 8.7 mg/dL (8.4-10.2); Carbon Dioxide 25 mmol/L (22-29); Chloride 110 mmol/L (96-108); Estimated Glomerular Filt Rate 54; Magnesium 1.8 mg/dL (1.6-2.6); Potassium 4.0 mmol/L (3.3-5.1); Sodium 140 mmol/L (135-145); Total Protein 6.3 g/dL (6.5-8.0)
== END 2025-10-14 08:33 | disposition home or self-care (01) ==
LOC: HO.HMGCLDS 08:32
PROVIDERS: PCP Physician Assistant Medical; Visit Provider Physician Assistant Medical
DX: Z00.00 Encounter for general adult medical examination without abnormal findings (principal)
CPT/HCPCS: 36415; 80053; 83735; 85025

== ENCOUNTER 2025-11-07 13:00 | Outpatient (AMB) | payer MEDICARE, MEDICAID, SELFPAY ==
--- OUTSIDE RECORDS SUMMARY | 2024-11-10 05:30 | XMS_ITS ---
Author Organization [facility] Address [address] [facility] [place] [address] Care Team Providers Care Ice Puller Name Role Phone Lauren Reyes Primary Care Provider Unavailabl e Black, Noelle Unavailable [phone] Allergies Allergen (clinical drug ingredient) Drug/Non Drug Allergy documented on EMR Reaction Allergy Type Onset Date Status amoxicillin Amoxicillin diarrhea Drug Allergy Act vini amoxicillin / clavulanate Augmentin Unknown Drug Allergy Active Medications Medication SIG (Take, Route, Frequency, Duration) Notes Start Date End Date Status azaTHIOprine Active Levaquin 500 MG 1 tablet Orally Once a day Unknown Canasa Unknown NovoLOG Unknown Provera 20 MG 1 tablet Orally Twic e a day; Duration: 5 day(s) Unknown Clotrimazole-Betamethasone Unknown Advair Diskus Active Metoprolol Succinate ER Unknown medroxyPROGESTERone Acetate Unknown LaMICtal Unknown UltiCare Insulin Syringe Unknown Humira Active Haldol 5 mg qd Unknown Tricor Unknown Ferrous Sulfate 325 (65 Fe) MG 1 tablet Orally Once a day; Duration: 30 day(s) Unknown Lantus Subcutaneous Unknown Omeprazole 08/25/2024 Active HumaLOG Active Trifluoperazine HCl Unknown Apriso 0.375 GM 4 capsules in the morning Orally Once a day; Duration: 30 day(s) Active lamoTRIgine Active Losartan Potassium A ctive Metoprolol & Diet Manage Prod Active Simvastatin Active Allopurinol Active LORazepam Active Haloperidol Active traZODone HCl Active Social History Tobacco Use: Social History Observation [...] Are you an other tobacco user? No Encounters Encounter Location Date Provider Diagnosis [facility] [address] [place] [address] 11/10/2024 Noelle Camargo Plan Of Treatment Next Appt Details Provider Name:Noelle Camargo , 02/19/2026 01:30:00 PM, [address] [place], [address], Progress Notes * Regi HOLLEYh ADOB: [birth year] (60 yo F)Acc No.[id number]:11/10/2024 Progress Notes Patient: Alexsandra MEMBRENO Provider: Neptali Camargo DPM :1965 A ge:59 Y S ex:Female Date:11/10/2024 Address:[address] [place] [id number] Pcp:Lauren Reyes Subjective: * Chief Complaints: * * ROS: G eneral/Constitutional: Nausea d enies. V omiting d enies. H cam Thirst d enies. L oss appetite d enies. C hills d enies. F atigue d enies.?Fever d enies. N ight Sweats d enies. U nexplained weight loss d enies. U nexplained weight gain d enies. H EENTM: Dentures d enies. D izziness d enies. G lasses/contacts d enies. R etinopathy d enies. B lurred/double vision d enies. T MJ?denies. D ischarge/drainage d enies. I mplants d enies. S ore throat d enies. D ental implants d enies. H antwan of hearing d enies. D ifficulty chewing/swallowing/speaking d enies. N ose bleeds d enies. S ore mouth d enies. ? R espiratory: On Oxygen d enies. P neumonia/pleurisy d enies.?Bronchitis d enies. E mphysema d enies. C oughing a dmits. C ough blood?denies. S hortness of breath a dmits. W heezing d enies. C ardiovascular: Pacemaker d enies. M CORNER BEAD OPERATOR d enies. W PW d enies. C HF d enies. H eart attack d enies. S eptal defect d enies. R apid beat d enies. C hest pain d enies. A trial Fib. d enies. M urmur/Palpitations d enies. G astrointestinal: Hemorrhoids d enies. S tomach/Abdominal pain d enies. D ark blood stool d enies. I rritable bowel d enies. C onstipation d enies. D iarrhea a dmits. H ematology: Swelling d enies. C lots A dmits. V aricose Veins a dmits. B ruising d enies. B leeding problem d enies. G enitourinary: Blood urine d enies. F requent/Painfu/urination/bladder control d enies. K idney stones d enies. I nfection (UTI) d enies. N ephropathy a dmits. s ex trans dis (STD) d enies. P rostate d enies. M usculoskeletal: Hammertoes d enies. B unions a dmits. B ack Pain d enies. M uscle Cramps/ Resting d enies. M uscle cramps / walking d enies.?Generalized aches and pains d enies. W eakness d enies. I nteg.: Garibay d enies. S cars d enies. C orns/calluses?denies. I ngrown nails d enies. P ainful nails d enies. O pen Sores d enies. R ashes a dmits. N eurologic: Difficulty sleeping d enies. B rain disorder d enies. N umbness d enies. B alance trouble d enies. C onfusion d enies. F ainting/blackouts d enies. T ingling d enies. T remors d enies. * Medical History: T ransfusions, Psychiatric disorder, Chicken pox, Gout, Diabetic, Depression, Hypercholesterolemia, Anxiety disorder, Anemia, Crohns disease, Arthritis, Asthma, Covid-19, High Blood Pressure, Numbness, Psoriasis/eczema, Reflux ( GERD), Sciatica, Vascular phlebitis (clots). * Hospitalization/Major Diagno stic Procedure: H asthma 4 days 08/2016, [facility] [place] [facility] [place]. * Family History: M other: , foot problems, diagnosed with Family history of arthritis, Unspecified essential hypertension. F ather: , poor circulation, kidney/liver disease, diagnosed with Unspecified essential hypertension, Unspecified cerebral artery occlusion with cerebral infarction.?Maternal Grand Father: diagnosed with Other malignant neoplasm of unspecified site. single. * Social History: T obacco Use: T obacco Use/Smoking A re you a: f ormer smoker A dditional Findings: Tobacco Non-User C urrent non-smoker Tobacco use other than smoking A re you an other tobacco user? N o D rugs/Alcohol: D rugs H ave you used drugs other than those for medical reasons in the past 12 months? N o Alcohol Screen D id you have a drink containing alcohol in the past year? N o P oints 0 I nterpretation N egative M iscellaneous: C affeine: yes, frequency:. Children: no. Exercise: yes, occasional. Marital status: single. Occupation: disabled. * Medications: T aking azaTHIOprine , Taking traZODone HCl , Taking Haloperidol , Taking LORazepam , Taking Allopurinol , Taking Simvastatin , Taking Metoprolol & Diet Manage Prod , Taking Losartan Potassium , Taking lamoTRIgine , Taking HumaLOG , Taking Omeprazole , Taking Apriso 0.375 GM Capsule Extended Release 24 Hour 4 capsules in the morning Orally Once a day , Taking Humira , Taking Advair Diskus , Unknown Lantus Solution Subcutaneous , Unknown Trifluoperazine HCl , Unknown Ferrous Sulfate 325 (65 Fe) MG Tablet 1 tablet Orally Once a day , Unknown Tricor , Unknown Haldol 5 mg qd , Unknown UltiCare Insulin Syringe , Unknown medroxyPROGESTERone Acetate , Unknown Metoprolol Succinate ER , Unknown Clotrimazole-Betamethasone , Unknown LaMICtal , Unknown Provera 20 MG Tablet 1 tablet Orally Twice a day , Unknown NovoLOG , Unknown Canasa , Unknown Levaquin 500 MG Tablet 1 tablet Orally Once a day * Allergies: A moxicillin: diarrhea, Augmentin. Objective: * Vitals: Assessment: Plan: * Treatment: * Images: * The named appointment provid er may or may not be the originator of this progress note, and it is not deemed complete until electronically signed by the appointment provider. Sign off status: Pending * Provider: Neptali Camargo DPM Date: 01/11/2024 Generated for Marin mahan/Pio/Adarsh on: 01/08/2025 04:53 PM EST
--- OUTSIDE RECORDS SUMMARY | 2025-01-26 08:00 | XMS_ITS ---
Author Organization [facility] Address [address] [place] [address] Care Team Providers Care Lab Technician Name Role Phone Lauren Reyes Primary Care Provider Noelle Hernandez [phone] Encounters Encounter Location Date Provider Diagnosis [address] [address] 01/26/2025 Noelle Camargo Plan Of Treatment Next Appt Details Provider Name:Noelle Camargo , 02/19/2026 01:30:00 PM, [address] [place] [address], [address], Progress Notes * Alexsandra HOLLEY ADOB: [birth year] (60 yo F)Acc No.[id number]:01/26/2025 Progress Notes Patient: Regi MEMBRENOh Rossy Provider: Bambi Camargo DPM :1965 A ge:59 Y S ex:Female Date:01/26/2025 Address:[address] [place] [address], [address], [id number] Pcp:Lauren Reyes Subjective: * Chief Complaints: * * Medical [...] 01/26/2025 Generated for Marin mahan/Pio/Adarsh on: 1 01/08/2025 04:54 PM EST
--- OUTSIDE RECORDS SUMMARY | 2025-08-07 08:00 | XMS_ITS ---
Author Organization [facility] Address [address] [place] [address] Care Team Providers Care Academic Affairs Assistant Name Role Phone Lauren Reyes Primary Care Provider Noelle Hernandez [phone] Encounters Encounter Location Date Provider Diagnosis [address] [address] 08/07/2025 Noelle Camargo Plan Of Treatment Next Appt Details Provider Name:Noelle Camargo , 02/19/2026 01:30:00 PM, [address] [place] [address], [phone], Progress Notes * Alexsandra HOLLEY ADOB: [birth year] (60 yo F)Acc No.[id number]:08/07/2025 Progress Note Patient: Regi MEMBRENOh Rossy Provider: Bambi Camargo DPM :1965 A ge:60 Y S ex:Female Date:08/07/2025 Address:[address] [place] [address], [address], [id number] Pcp:Lauren Reyes Subjective: * Chief Complaints: * [...] 08/07/2025 Generated for Marin mahan/Pio/Adarsh on: 1 01/08/2025 04:53 PM EST
--- OUTSIDE RECORDS SUMMARY | 2025-11-06 09:00 | XMS_ITS ---
Author Organization [facility] Address [address] [place] [address] Care Team Providers Care Biomedical Repair Technician Name Role Phone Lauren Reyes Primary Care Provider Unavailabl e Raman Noelle Unavailable [phone] Allergies Allergen (clinical drug ingredient) Drug/Non Drug Allergy documented on EMR Reaction Allergy Type Onset Date Status amoxicillin Amoxicillin diarrhea Drug Allergy Act vini amoxicillin / clavulanate Augmentin Unknown Drug Allergy Active REASON FOR VISIT At Risk Footcare Medications Medication SIG (Take, Route, Frequency, Duration) Notes Start Date End Date Status LaMICtal Not-Taking NovoLOG Not-Taking Provera 20 MG 1 tablet Orally Twic e a day; Duration: 5 day(s) Not-Taking Levaquin 500 MG 1 tablet Orally Once a day Not-Taking Canasa Not-Taking Clotrimazole-Betamethasone Not-Taking medroxyPROGESTERone Acetate Not-Taking UltiCare Insulin Syringe Not-Taking Metoprolol Succinate ER Not-Taking Haldol 5 mg qd Not-Taki ng Lantus Subcutaneous Not-Tristian ing Extra Depth Orthopedic Shoes (1 Pair) with Customized Heat Molded Multidensity Innersoles (3 Pair) as directed Dx: NIDDM/Polyneuropathy (E11.42), Hammertoe Foot Deformity (M20.41,M20.42), Preulcerative Skin Lesion(s) (L85.1 04/27/2025 Active Ferrous Sulfate 325 (65 Fe) MG 1 tablet Orally Once a day; Duration: 30 day(s) Not-Taking Trifluoperazine HCl Not-Taking Tricor Not-Taking Advair Diskus 250-50 MCG/ACT 1 puff Inhalation Twice a day Active Omeprazole 20 MG 1 capsule 1/2 to 1 hour before morning meal Orally Once a day Active HumaLOG 100 UNIT/ML as directed Injection Active Humira Active Apriso 0.375 GM 4 capsules in the morning Orally Once a day; Duration: 30 day(s) Active LORazepam 2 MG 1 tablet at bedtime as needed Orally Once a day Active Simvastatin 40 MG 1 tablet in the evening Orally Once a day Active Allopurinol 300 MG 1 tablet Orally Once a day Active lamoTRIgine Active Losartan Potassium 25 MG 1 tablet Orally Once a day Active Haloperidol 10 MG 1 tablet Orally Once a day Active traZODone HCl 100 MG 4 tablet at bedtime Orally Once a day Active Vitamin D 50 MCG (1999) 1 tablet Oral ly Once a day Active Metoprolol Succinate 25 MG 1 capsule Ora lly Once a day Active azaTHIOprine 50 MG as directed Orally Not-Taking Betamethasone Active Social History Tobacco Use: Social History [...] (Standard) Question Answer Notes Tobacco use: Nonsmoker Additional Findings: Tobacco non-user Current no nsmoker AUDIT-C (Standard) Question Answer Notes Did you have a drink containing alcohol in the p ast year? No Points 0 Interpretation Negative Vital Signs Height 5ft 2in in 11/06/2025 Weight 265 lbs 11/06/2025 BMI 48.46 kg/m2 11/06/2025 Blood pressure systolic 120 mm Hg 11/06/20 25 Blood pressure diastolic 64 mm Hg 025 Procedures Procedure Date Ordered Date Performed Result Body Sit e 98022-GYBR SKIN LESIONS, OVER 4 11/06/2025 N/A [id number]-BZHZWNNS DYSTROPHIC NAILS ANY # 11/06/2025 N/A Encounters Encounter Location Date Provider Diagnosis [facility] [address] [place] [address] 11/06/2025 Noelle Black Type 2 diabetes mellitus with diabetic polyneuropathy E11.42 Assessments Encounter Date Diagnosis (ICD Code) Assessment Notes Treatment Notes Treatment Clinical Notes Section Notes 11/06/2025 Type 2 diabetes mellitus with diabetic polyneuropathy (ICD-10 - E11.42) Plan Of Treatment Pending Test Test Name Order Date 20300-ZDOL SKIN LESIONS, OVER 4 11/06/20 25 [id number] DYSTROPHIC NAILS ANY # Next Appt Details Follow Up: 3 Months, Reason: Provider Name:Noelle Camargo , 02/19/2026 01:30:00 PM, [address] [place] [address], [phone], Procedure Notes * Category Sub-Category Detail Notes Keratoma Treatment Parring or Cutting o f Benign Hyperkeratotic Lesion(s) (-57) More than 4 Lesions - Due to the at risk nature of the patients medical condition as documented in the exam findings, performance of this keratoderma treatment is medically necessary as its management by an unskilled/untrained nonprofessional would put this patients foot and overall health at risk. Therefore, the benign hyperkeratotic lesions, (6) in total, locations as stated and described in the exam ( Left ,Heel(s), dorsal T1, T8, T9, Dorsally, medial IPJ TA.,T5 ), were pared, and/or cut utilizing a sterile 15 blade, tissue nippers, and/or power dremel instrumentation by the physician of record - 54566 Nail Reduction Nail Reduction (-27) Trimming o f all dystrophic nails - Due to the at risk nature of the patients medical condition as documented in the exam findings, performance of this nail treatment is medically necessary as its management by an unskilled/untrained nonprofessional would put this patients foot and overall health at risk. Therefore, the dystrophic nails, in locations as stated and described in the exam ( T2, T3, T4, T6, T7, ), were debrided by the phisician of record to reduce/remove overall nail length and girth, by manual and electrical means with use of a nail nipper and/or dremel, to more viable healthy nail plate or bed tissue - G0127 Progress Notes * Alexsandra HOLLEY ADOB: [birth year] (60 yo F)Acc No.[id number]:11/06/2025 Progress Note Patient: Neptali Alexsandra GILES Provider: Neptali Camargo DPM :1965 A ge:60 Y S ex:Female Date:11/06/2025 Address:[address] [place], [place] [address] , [address], [phone] Pcp:Lauren Reyes Subjective: * Chief Complaints: * A t Risk Footcare * HPI: A t Risk footcare: Pt States Last PCP Visit: D ate: 1 12/24/2024 * ROS: G eneral/Constitutional: Nausea d enies. [...] enies. C ardiovascular: Pacemaker d enies. M SENIOR PARTNER d enies. W PW d enies. C [...] d enies. S cars d enies. C orns/calluses?, admits. I ngrown nails d enies. P ainful nails d enies. O pen Sores d enies. R ashes a dmits. N eurologic: Difficulty sleeping d enies. B rain disorder d enies. N umbness d enies. B alance trouble d enies. C onfusion d enies. F ainting/blackouts d enies. T ingling d enies. T remors d enies. * Medical History: * Surgical History: D enies Past Surgical History * Hospitalization/Major Diagno stic Procedure: [facility] days 08/2016[facility] [place] pintch nerve 05/2017[facility] [place] - Kidney infection 03/2018[facility] [place]-severe anemia, needed 6 blood transfusions 09/16 * Family History: M other: , foot problems, diagnosed with Unspecified essential hypertension, Family history of arthritis. F ather: , poor circulation, kidney/liver disease, diagnosed with Unspecified essential hypertension, Unspecified cerebral artery occlusion with cerebral infarction.?Maternal Grand Father: diagnosed with Other malignant neoplasm of unspecified site. single. * Social History: T obacco Use: T obacco use other than smoking A re you an other tobacco user? N o Tobacco Control (Standard) T obacco use: N onsmoker A dditional Findings: Tobacco non-user C urrent nonsmoker D rugs/Alcohol: D rugs H ave you used drugs other than those for medical reasons in the past 12 months? N o Alcohol Screen D id you have a drink containing alcohol in the past year? N o P oints 0 I nterpretation N egative M iscellaneous: C affeine: yes, frequency:, 1-2 cups per day, frequency:. Children: no. Exercise: yes, occasional. Marital status: single. Occupation: disabled. D rug/Alcohol: A SHAYAN-C (Standard) D id you have a drink containing alcohol in the past year? N o P oints 0 I nterpretation N egative * Medications: T akingBetamethasone Vitamin D 50 MCG (2000 UT) Tablet 1 tablet Orally Once a day Metoprolol Succinate 25 MG Capsule ER 24 Hour Sprinkle 1 capsule Orally Once a day traZODone HCl 100 MG Tablet 4 tablet at bedtime Orally Once a day Haloperidol 10 MG Tablet 1 tablet Orally Once a day LORazepam 2 MG Tablet 1 tablet at bedtime as needed Orally Once a day Allopurinol 300 MG Tablet 1 tablet Orally Once a day Simvastatin 40 MG Tablet 1 tablet in the evening Orally Once a day Losartan Potassium 25 MG Tablet 1 tablet Orally Once a day lamoTRIgine HumaLOG 100 UNIT/ML Solution as directed Injection Omeprazole 20 MG Capsule Delayed Release 1 capsule 1/2 to 1 hour before morning meal Orally Once a day Apriso 0.375 GM Capsule Extended Release 24 Hour 4 capsules in the morning Orally Once a day Humira Advair Diskus 250-50 MCG/ACT Aerosol Powder Breath Activated 1 puff Inhalation Twice a day Extra Depth Orthopedic Shoes (1 Pair) with Customized Heat Molded Multidensity Innersoles (3 Pair) as directed Dx: NIDDM/Polyneuropathy (E11.42), Hammertoe Foot Deformity (M20.41,M20.42), Preulcerative Skin Lesion(s) (L85.1 Taking Betamethasone Taking Vitamin D 50 MCG (2000 UT) Tablet 1 tablet Orally Once a day Taking Metoprolol Succinate 25 MG Capsule ER 24 Hour Sprinkle 1 capsule Orally Once a day Taking traZODone HCl 100 MG Tablet 4 tablet at bedtime Orally Once a day Taking Haloperidol 10 MG Tablet 1 tablet Orally Once a day Taking LORazepam 2 MG Tablet 1 tablet at bedtime as needed Orally Once a day Taking Allopurinol 300 MG Tablet 1 tablet Orally Once a day Taking Simvastatin 40 MG Tablet 1 tablet in the evening Orally Once a day Taking Losartan Potassium 25 MG Tablet 1 tablet Orally Once a day Taking lamoTRIgine Taking HumaLOG 100 UNIT/ML Solution as directed Injection Taking Omeprazole 20 MG Capsule Delayed Release 1 capsule 1/2 to 1 hour before morning meal Orally Once a day Taking Apriso 0.375 GM Capsule Extended Release 24 Hour 4 capsules in the morning Orally Once a day Taking Humira Taking Advair Diskus 250-50 MCG/ACT Aerosol Powder Breath Activated 1 puff Inhalation Twice a day Taking Extra Depth Orthopedic Shoes (1 Pair) with Customized Heat Molded Multidensity Innersoles (3 Pair) as directed Dx: NIDDM/Polyneuropathy (E11.42), Hammertoe Foot Deformity (M20.41,M20.42), Preulcerative Skin Lesion(s) (L85.1 Not-Taking/PRNazaTHIOprine 50 MG Tablet as directed Orally Lantus Solution Subcutaneous Trifluoperazine HCl Ferrous Sulfate 325 (65 Fe) MG Tablet 1 tablet Orally Once a day Tricor Haldol 5 mg qd UltiCare Insulin Syringe medroxyPROGESTERone Acetate Metoprolol Succinate ER Clotrimazole-Betamethasone LaMICtal Provera 20 MG Tablet 1 tablet Orally Twice a day NovoLOG Canasa Levaquin 500 MG Tablet 1 tablet Orally Once a day Medication List reviewed and reconciled with the patientNot-Taking/PRN azaTHIOprine 50 MG Tablet as directed Orally Not- Taking/PRN Lantus Solution Subcutaneous Not-Taking/PRN Trifluoperazine HCl Not-Taking/PRN Ferrous Sulfate 325 (65 Fe) MG Tablet 1 tablet Orally Once a day Not-Taking/PRN Tricor Not-Taking/PRN Haldol 5 mg qd Not-Taking/PRN UltiCare Insulin Syringe Not-Taking/PRN medroxyPROGESTERone Acetate Not-Taking/PRN Metoprolol Succinate ER Not-Taking/PRN Clotrimazole-Betamethasone Not-Taking/PRN LaMICtal Not-Taking/PRN Provera 20 MG Tablet 1 tablet Orally Twice a day Not-Taking/PRN NovoLOG Not-Taking/PRN Canasa Not-Taking/PRN Levaquin 500 MG Tablet 1 tablet Orally Once a day Medication List reviewed and reconciled with the patient * Allergies: A moxicillin: diarrheaAugmentinyes[Allergies Verified] Objective: * Vitals: H t: 5ft 2in, Wt:265, BMI:48.46, Shoe size: 9W Mens, BP:120/64mm Hg, BS: 114, Ht- cm: 157.48 cm, Wt-k.2 kg. * P ast Orders: L ab:HEMOGLOBIN A1C (GLYCOHEMOGLOBIN) (Order Date - 10/23/2025) (Collection Date & Time - 11/06/2025 01:57 PM) Value Reference Range HEMOGLOBIN A1C % (HH) 5.2 * Examination: O phthalmology Referral: DIABETES EYE EXAM P rocedure Performed: Yfn Rodriges ate of Exam Performed 0 06/23/2025 D iabetic Retinopathy Screening: Y andrew F indings of Diabetic Eye Exam: n o retinopathy G eneral Examination: GENERAL APPEARANCE: a lert, well hydrated, in no distress , good attention to hygiene. ORIENTED: p erson,place, and time. N eurological: SENSORY: e xam demonstrates. reduced vibration lower extremity, Pt relates, Cont. anesthesia, burning, pins and needles sensation, especially in the evening however decreased, B/L, 5.07 monofilament test performed at plantar aspects of 5 varied sites per foot, shows Cont. sensation, reduced, at Forefoot, B/L , tingling, burning, anesthesia. V ascular: DP PULSES (B): 2 /4, B/L . PT PULSES (B): 2 /4, B/L ,. CAPILLARY FILL TIME: i mmediate, all digits, B/L. TROPHIC CONDITION-TEXTURE/ELASTICITY/TURGOR/HAIR GROWTH (B):?normal, B/L. TEMPERTURE GRADIENT (C): n ormal, warm to cool, proximal to distal, B/L, B/L. PIGMENTATION: n ormal, B/L. EDEMA (C): n o edema. D ermatologic: SKIN FINDINGS: S kin exam reveals Keratotic lesion(s) located at, Left ,Heel(s), dorsal T 1, T 8, T9, Dorsally, medial IPJ TA.,T5 . ? N ails: NAILS are: e longated, overgrown, dystrophic, , TA, T1, T2, T3, T4, T5, T6, T7, T8, T9. Assessment: * Assessment: 1. T ype 2 diabetes mellitus with diabetic polyneuropathy - E11.42 (Primary) Plan: * Treatment: * Procedures: K eratoma Treatment: Parring or Cutting of Benign Hyperkeratotic Lesion(s) ( -57) More than 4 Lesions - Due to the at risk nature of the patients medical condition as documented in the exam findings, performance of this keratoderma treatment is medically necessary as its management by an unskilled/untrained nonprofessional would put this patients foot and overall health at risk. Therefore, the benign hyperkeratotic lesions, (6) in total, locations as stated and described in the exam ( Left ,Heel(s), dorsal T1, T8, T9, Dorsally, medial IPJ TA.,T5 ), were pared, and/or cut utilizing a sterile 15 blade, tissue nippers, and/or power dremel instrumentation by the physician of record - [id number]. N ail Reduction: Nail Reduction ( -27) Trimming of all dystrophic nails - Due to the at risk nature of the patients medical condition as documented in the exam findings, performance of this nail treatment is medically necessary as its management by an unskilled/untrained nonprofessional would put this patients foot and overall health at risk. Therefore, the dystrophic nails, in locations as stated and described in the exam ( T2, T3, T4, T6, T7, ), were debrided by the phisician of record to reduce/remove overall nail length and girth, by manual and electrical means with use of a nail nipper and/or dremel, to more viable healthy nail plate or bed tissue - G0127. ? * Procedure Codes: 1 1057 TRIM SKIN LESIONS, OVER 4, Modifiers: XS G0127 TRIMMING DYSTROPHIC NAILS ANY #, Modifiers: XS * Follow Up: 3 Months * Images: * Sign off status: Completed true * Provider: Neptali Camargo DPM Date: 01/07/2025 Generated for Marin mahan/Pio/eTransmitting on: 1 01/08/2025 04:53 PM EST History and Physical Notes * HPI (History of Present Illness) Category Sub-Category Detail Notes Category Not es At Risk footcare Pt States Last PCP Visit: Date:: 10/23/20 25 Examination Category Sub-Category Detail Notes Category Not es Neurological SENSORY: exam demonstrate s. reduced vibration lower extremity, Pt relates, Cont. anesthesia, burning, pins and needles sensation, especially in the evening however decreased, B/L, 5.07 monofilament test performed at plantar aspects of 5 varied sites per foot, shows Cont. sensation, reduced, at Forefoot, B/L , tingling, burning, anesthesia Dermatologic SKIN FINDINGS: Skin exam reveal s Keratotic lesion(s) located at, Left ,Heel(s), dorsal T1, T8, T9, Dorsally, medial IPJ TA.,T5 General Examination GENERAL APPEARANCE: alert, w ell hydrated, in no distress , good attention to hygiene ORIENTED: person,place, and ti me Ophthalmology Referral DIABETES EYE EXAM Procedure Perform ed:: Yes Date of Exam Performed: 06/23/2025 Diabetic Retinopathy Screening:: Yes Findings of Diabetic Eye Exam:: no retin opathy Vascular DP PULSES (B): 2/4, B/L PT PULSES (B): 2/4, B/L , CAPILLARY FILL TIME: immediate, all digi ts, B/L TEMPERTURE GRADIENT (C): normal, warm to cool, proximal to distal, B/L, B/L TROPHIC CONDITION-TEXTURE/ELASTICITY/TURGOR/HAIR GROWTH (B): normal, B/L EDEMA (C): no edema PIGMENTATION: normal, B/L Nails NAILS are: elongated, overg rown, dystrophic, , TA, T1, T2, T3, T4, T5, T6, T7, T8, T9
--- NOTE | 2025-11-07 13:08 | A.OFFPC_ITS ---
Vital Signs 11/07/25 13:11 Height 5 ft 3.23 in Weight 264 lb BMI 46.4 BP 135/61 Blood Pressure Location Rt brachial Position Sitting Temp 97.2 F Temp Source Temporal Artery Scan Pulse Oximetry (%) 99 Oxygen Delivery Method Room Air Intake Visit Reasons: 6 month follow up Compliance Attorney Required: No Accompanied by: Self / Same As Patient Allergies amoxicillin (AMOXICILLIN) Allergy (Intermediate, Verified 11/07/25 16:51) BLOODY DIARRHEA clavulanic acid (From AUGMENTIN) Adverse Reaction (Intermediate, Verified 11/07/25 16:51) DIARRHEA Medication List - Last Reconciled 11/07/25 by Lauren Reyes PA-C albuterol sulfate 90 mcg/actuation 2 puffs inhalation Q4-6H PRN allopurinol 300 mg PO DAILY betamethasone dipropionate 0.05% 1 appl topical BID blood-glucose sensor ([employer] Bossman 3 Plus Sensor device) Check glucose 3 times a day with meals. blood-glucose,chocolate temperer,cont ([employer] Bossman 3 [place]) Check glucose 3 times a day with meals cholecalciferol (vitamin D3) 50 mcg PO DAILY fluticasone propion-salmeterol 250-50 mcg/dose (Advair Diskus) 1 ea inhalation BID haloperidol 10 mg PO BEDTIME [Humira Pen 40 multiple units intradermal QWEEK] insulin glargine (Lantus U-100 Insulin) 50 units (0.5 mL) subcut BEDTIME insulin lispro (Humalog U-100 Insulin) See Protocol sliding scale doses subcut QIDACHS PRN ketoconazole 2% 1 appl topical BID lamotrigine 100 mg PO BEDTIME loratadine (Claritin) 10 mg PO DAILY lorazepam 1 mg PO BID losartan 25 mg PO BEDTIME mesalamine ER (Apriso) 1.5 grams PO DAILY metoprolol succinate ER 25 mg PO DAILY [nystatin-triamcinolone 0.1 % topical BID] omeprazole 20 mg PO DAILY@0630 simvastatin 40 mg PO BEDTIME trazodone 400 mg PO BEDTIME Tobacco use date assessed: 09/11/25 Dental Screening Dental Screen Date: 09/11/25 HPI HPI Comments History of Present Illness Details History of Present Illness The patient is a 60 year old female presenting for a follow-up visit for management of multiple chronic conditions. The patient has a history of Crohn's disease, which is currently in clinical remission with weekly Humira injections. She was previously on Apriso and azathioprine, which have been discontinued. In 2008, she was treated for abdominal abscesses and required a blood transfusion at [facility]. 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 Her ferritin level was recently 950 ng/mL, and her bounty trapper, Dr. Junior, considered deferasirox, but insurance did not approve it as the level was not over 1000 ng/mL. She has previously undergone therapeutic phlebotomy every three months for this condition but is not currently receiving iron infusions. Her history is significant for anemia, including acute macrocytic anemia, which has been treated with six packs of red blood cells between August 2021 and August 2023. Her hemoglobin improved from 10.9 and 11.4 to 12.8 in October. She also has a history of chronic leukopenia and thrombocytopenia, with platelets at 137,000, which are trending up. Other chronic conditions include fatty liver with hepatosplenomegaly, and cholelithiasis, which is currently asymptomatic. She does not consume alcohol. Social History - Alcohol Use: The patient denies any al cohol consumption. [facility] Medical History (Updated 11/07/25 @ 16:53 by Lauren Reyes PA-C) Iron overload Infected abrasion of toe (~10/17/25) Hemolytic anemia Hospital discharge follow-up Vitamin B12 deficiency Macrocytic anemia Hypertriglyceridemia Vitamin D deficiency History of mammogram (~12/17/21) Morbid obesity with BMI of 45.0-49.9, adult Breast cancer screening Psoriasis Chronic anemia Type 2 diabetes mellitus with hemoglobin A1c goal of less than 7.0% Establishing care with new doctor, encounter for Annual physical exam History of macrocytosis Gout Hx of abdominal abscess Diabetes Anxiety Elevated cholesterol HTN (hypertension) COPD (chronic obstructive pulmonary disease) Asthma Depression Bipolar 1 disorder GERD (gastroesophageal reflux disease) Crohn's disease Surgical History History of esophagogastroduodenoscopy (EGD) Hx of tonsillectomy Hx of colonoscopy (~10/22/23) Family History Father Parkinsons Mother Emphysema lung Social History Household Members: None Housing: Condominium Do you presently have visiting nurse or other home services: No Alcohol intake: never Patient Tobacco Use Status: Never used Tobacco Advance Directives Date on File: 08/28/21 Current occupational status: disabled Cognitive needs: No Hearing needs: No Vision needs: No Questionnaire PHQ-9 Over the last 2 weeks, how often have you been bothered by any of the following problems? 1. Little interest or pleasure in doing things: nearly every day 2. Feeling down, depressed, or hopeless: more than half the days 3. Trouble falling or staying asleep, or sleeping too much: nearly every day 4. Feeling tired or having little energy: more than half the days 5. Poor appetite or overeating: more than half the days 6. Feeling bad about yourself - or that you are a failure or have let yourself or your family down: not at all 7. Trouble concentrating on things, such as reading the newspaper or watching television: not at all 8. Moving or speaking so slowly that other people could have noticed. Or the opposite - being so fidgety or restless that you have been moving around a lot more than usual: not at all 9. Thoughts that you would be better off or of hurting yourself in some way: not at all Total score: 12 Depression Screening Interpretation: Positive Depression Screening Follow-up: Existing condition and In treatment Depression Screening Done: Yes 75013 - PHQ-9 Billing: Yes Source: Developed by Drs. Jose Juan Arroyo, Elsy Fortune, John Feliciano and colleagues, with an educational ankush from [employer]. Thrive Questionnaire Date Thrive assessed: 09/12/25 I am a: Patient What is your living situation today?: I have a steady place to live Within the past 12 months, did the food you bought not last and you didn't have the money to get more?: Never true Within the past 12 months, did you worry whether your food would run out before you got money to buy more?: Never true Do you have trouble paying for medicines?: No Do you have trouble getting transportation to medical appointments?: No Do you have trouble paying your heating and electricity bill?: No Do you have trouble taking care of your child, family member or friend?: No Do you have trouble with day-to-day activities such as bathing, preparing meals, shopping, managing finances, etc.?: No Are you currently unemployed and looking for a job?: No Are you interested in more education?: No Please select the resources that you would like help with: None Currently or been in a relationship where the following occur: No concerns reported THRIVE Score: 0 AUDIT C Alcohol Use Questionnaire (AUDIT-C) 1. How often do you have a drink containing alcohol?: Never 3. How often do you have six or more drinks on one occasion?: Never Total Score: 0 Score Reviewed/Action Taken: No RENETTA-7 AMB Questionnaire RENETTA-7 Date RENETTA - 7 assessed: 09/11/25 Feeling nervous, anxious, or on edge: 0 = Not at all Not being able to stop or control worryin = Not at all Worrying too much about different things: 0 = Not at all Trouble relaxin = Not at all Being so restless that it is hard to sit still: 0 = Not at all Becoming easily annoyed or irritable: 0 = Not at all Feeling afraid as if something awful might happen: 0 = Not at all Total RENETTA-7 score (0-4 normal; 5-9 mild; 10-14 moderate; 15-21 severe): 0 Source: Developed by Drs. Jose Juan Arroyo, Elsy Fortune, John Feliciano and colleagues, with an educational ankush from [employer]. RNEETTA-7 Assessment Billing RENETTA-7 Assessment Tool: RENETTA-7 Assessment 58640 Review of Systems Narrative Review of Systems - General: Reports feeling tired. - Gastrointestinal: Denies black, tarry stools. Const All systems reviewed & are unremarkable except as noted in HPI and below Physical exam (Primary Care) Vital Signs: Last Vital Signs Temp 97.2 F 11/07/25 13:11 BP 135/61 11/07/25 13:11 Pulse Ox 99 11/07/25 13:11 Oxygen Delivery Method Room Air 11/07/25 13:11 Care Plan Goal for BP management: <140/90 at Goal BMI result Body Mass Index 46.4 BMI Assessment/Plan discussion: High BMI High, discussed plan: lifestyle, weight reduction, dietary, physical activity, alcohol moderation and other Tobacco/Smoking Status: Tobacco use Status Tobacco use date assessed 09/11/25 11/07/25 13:22 Patient Tobacco Use Status Never used Tobacco 11/07/25 13:22 PHQ-9: PHQ-9 Score PHQ-9: Total score 12 11/07/25 16:50 Depression Screening Interpretation: Positive Depression Screening Follow-up: Existing condition and In treatment Thrive Assessment: Date of Thrive Assessment Date Thrive assessed 09/12/25 11/07/25 13:22 Currently or been in a relationship where the following occur: No concerns reported Narrative Physical Exam Appearance: Alert. Oriented X3. No acute distress. Head: Normal external exam. Normocephalic. Atraumatic. Eyes: Pupils are equal, round, and reactive to light. Extraocular movements intact. Conjunctiva and sclera normal. Eyelids normal. Throat: Pharynx normal. Uvula midline. Moist mucous membranes. Neck: Normal inspection. Neck supple. Full range of motion. Cardiovascular: Normal heart rate and rhythm. Respiratory: No respiratory distress. Painless inspiration. Back: Full range of motion noted. Skin: Skin warm and dry. Normal skin color. Normal skin turgor. No rashes/lesions/lacerations noted. Extremities: Extremities exhibit normal range of motion. Neuro: Oriented X 3. No motor deficit. No sensory deficit. Reflexes normal. Results AMB Hemoglobin A1c AMB Hemoglobin A1c 5.3 % Last Edit by JORDAN Dye on 11/07/25 15:44 Results Reviewed Results Reviewed: Laboratory Last Values Hgb A1c (Clinic) 5.3 % (4.0-6.0) 11/07/25 15:42 Results - Labs: - Hemoglobin A1c: 5.3%. - Hemoglobin: 12.8, improved from 11.4 and 10.9 last month. - Hematocrit: 35.0, noted as slightly low but improving. - Platelets: 137,000. - Ferritin: 950 ng/mL (per patient report of hematology visit). - Tests and Diagnostics: - Genetic Testing: Heterozygous positive for C282Y gene mutation. Coding Level of Care Code Est Pt Level 4 (75844) Add On Problem Visit Only Diagnoses Crohn's disease K50.90 Iron overload E83.19 Anemia D64.9 Type 2 diabetes mellitus with hemoglobin A1c goal of less than 7.0% E11.9 Morbid obesity with BMI of 45.0-49.9, adult E66.01; Z68.42 Additional Codes RENETTA-7 Assessment Billing - RENETTA-7 Assessment Tool: RENETTA-7 Assessment 39315 ([id number]) PHQ-9 - 40051 - PHQ-9 Billing: Yes ([id number]) Time Spent (min) 60 Assessment & Plan Assessment & Plan (1) Crohn's disease: Code(s): K50.90 - Crohn's disease, unspecified, without complications Category: Medical Plan: The patient's Crohn's disease is in clinical remission on weekly Humira injections. Will continue to monitor for any flares, especially since stopping Apriso and azathioprine. (2) Iron overload: Code(s): E83.19 - Other disorders of iron metabolism Category: Medical Plan: The patient's ferritin level is 950 ng/mL. A plan by her bounty trapper to start deferasirox was not approved by insurance. The patient will continue to follow up with her bounty trapper, Dr. Junior, for management. Resuming phlebotomy every 2-3 months was considered by her GI specialist but the decision was deferred to her bounty trapper. (3) Anemia: Code(s): D64.9 - Anemia, unspecified Category: Medical Plan: The patient's anemia has resolved with a hemoglobin of 12.8. Her hematocrit and platelet count are trending upwards. No active treatment is planned at this time, other than continuing to monitor. (4) Type 2 diabetes mellitus with hemoglobin A1c goal of less than 7.0%: Code(s): E11.9 - Type 2 diabetes mellitus without complications Category: Medical Plan: The patient's recent HbA1c is 5.3%, indicating good glycemic control. Due to the low A1c and reports of low glucose readings at night, the Lantus (insulin glargine) dose will be reduced to 5 units at bedtime to prevent hypoglycemia. She will continue her current Humalog sliding scale. (5) Morbid obesity with BMI of 45.0-49.9, adult: Code(s): E66.01 - Morbid (severe) obesity due to excess calories; Z68.42 - Body mass inde x [BMI] 45.0-49.9, adult Category: Medical Plan: Weight loss was recommended by her specialist to prevent further liver disease. A prescription for a weight loss medication will be sent to see if it gets approved by her insurance. Plan Plan Patient was informed and verbally consented to the use of an ambient scribe for clinic note documentation during this visit. 1. Crohn's Disease The patient's Crohn's disease is in clinical remission on weekly Humira injections. Will continue to monitor for any flares, especially since stopping Apriso and azathioprine. 2. Iron Overload Disorder The patient's ferritin level is 950 ng/mL. A plan by her bounty trapper to start deferasirox was not approved by insurance. The patient will continue to follow up with her bounty trapper, Dr. Junior, for management. Resuming phlebotomy every 2-3 months was considered by her GI specialist but the decision was deferred to her bounty trapper. 3. Anemia The patient's anemia has resolved with a hemoglobin of 12.8. Her hematocrit and platelet count are trending upwards. No active treatment is planned at this time, other than continuing to monitor. 4. Diabetes Mellitus The patient's recent HbA1c is 5.3%, indicating good glycemic control. Due to the low A1c and reports of low glucose readings at night, the Lantus (insulin glargine) dose will be reduced to 5 units at bedtime to prevent hypoglycemia. She will continue her current Humalog sliding scale. 5. Weight Management Weight loss was recommended by her specialist to prevent further liver disease. A prescription for a weight loss medication will be sent to see if it gets approved by her insurance. 6. Medication Management Medication refills were ordered. A follow-up is scheduled in three months. Discussion Notes I reviewed the recent consultation notes from her change number operator, Dr. Esteban, and her bounty trapper, Dr. Junior. We discussed that her Crohn's disease is in remission on Humira and that her anemia has resolved with a hemoglobin of 12.8. Her hematocrit and platelets are also improving. We discussed her blood sugar control and the recent HbA1c of 5.3%. Given this result and her history of low glucose readings at night, we agreed to decrease her bedtime insulin glargine dose from 7 units to 5 units to prevent nocturnal hypoglycemia. We also discussed the importance of weight loss for her fatty liver disease. I informed her that I will attempt to get a weight loss medication approved by her insurance and have sent a message to her specialist for approval. I ordered refills for her current medications. The plan is for her to follow up in three months. Orders: Orders AMB Hemoglobin A1c Today E11.9 - Type 2 diabetes mellitus without complications Medications: Changed From insulin glargine (Lantus U-100 Insulin) 70 units subcut BEDTIME To insulin glargine (Lantus U-100 Insulin) 50 units (0.5 mL) subcut BEDTIME 10 mL 3RF Patient Instructions: Patient Instructions - Continue taking your Humira weekly for your Crohn's disease. - Reduce your bedtime Lantus insulin (insulin glargine) dose to 5 units every night. - You can continue to use your Humalog insulin with meals as you have been. - If your blood sugar drops into the 60s, you should eat something. - I will try to get a weight loss medication approved for you. - Schedule a follow-up appointment in three months. - Please let me know if any new issues come up before your next appointment.
[2025-11-07 13:11] VITALS: BP 135/61; TEMP 36.2; O2SAT 99; BMI 46.4
--- OUTSIDE RECORDS SUMMARY | 2025-11-07 16:54 | XMS_ITS | Patient Health Record ---
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 Name Role Phone BREEZY SCHWARZ PA-C Primary Care Provider Jose Juan Mauro Unavailable [phone] Allergies Allergen (clinical drug ingredient) Drug/Non Drug Allergy documented on EMR Reaction Allergy Type Onset Date Status seasonal (uncoded) Unknown Allergy A ctive amoxicillin Amoxicillin Unknown Drug Allergy Act vini amoxicillin / clavulanate Augmentin diarrhea Drug Allergy Active Results Component Value Reference Range Flag Notes Complete Blood Count Auto Di ff Reviewed date:12/22/2024 04:23:03 PM Interpretation: Performing Lab:[facility], [address] [place] [phone] Notes/Report: White Blood Count 4.4 4.8-10.8 X10*3/uL [...] Panel Reviewed date:12/23/2024 06:24:28 PM Interpretation: Performing Lab:[facility], [address] [place] [phone] Notes/Report: Bilirubin Total 0.7 0.0-1.0 mg/dL N Bilirubin Direct 0.2 0.0-0.5 mg/dL N Aspartate Amino Transferase 21 5-31 U/L N Alanine Aminotransferase 19 0-31 U/L N Total Protein 6.6 6.5-8.0 g/dL N Albumin Level 4.1 3.5-5.0 g/dL N Alkaline Phosphatase 50 39-117 U/L N Complete Blood Count Auto Di ff Reviewed date:01/26/2025 10:12:17 AM Interpretation: Performing Lab:[facility], [address] [place] [phone] Notes/Report: White Blood Count 5.0 4.8-10.8 X10*3/uL [...] Panel Reviewed date:01/26/2025 10:12:38 AM Interpretation: Performing Lab:[address] [phone] Notes/Report: Bilirubin Total 0.6 0.0-1.0 mg/dL N Bilirubin Direct 0.2 0.0-0.5 mg/dL N Aspartate Amino Transferase 31 5-31 U/L N Alanine Aminotransferase 25 0-31 U/L N Total Protein 6.4 6.5-8.0 g/dL L Albumin Level 3.9 3.5-5.0 g/dL N Alkaline Phosphatase 52 39-117 U/L N IRON PROFILE Reviewed date:03/09/2025 12:47:04 AM Interpretation: Performing Lab:[address] [phone] Notes/Report: Iron 110 30-160 mcg/dL N Total Iron Binding Capacity 232 228-428 mcg/dL N Percent Iron Saturation 47 15-50 % N Unsaturated Iron Binding 122 Ferritin Reviewed date:03/09/2025 12:43:59 AM Interpretation: Performing Lab:[facility], [address] [place] [phone] Notes/Report: Ferritin 879 10-250 ng/mL H Therapeutic Phlebotomy Reviewed date:03/09/2025 12:45:21 AM Interpretation: Performing Lab:[facility], [address] [place] [phone] Notes/Report: THER/HGB 10.9 12.0-16.0 g/dL L THER/HCT TNP 37.0-47.0 % Therapeutic Phlebotomy Phlebotomy Performed 500 mls drawn on 03/07/25. Please note that a copy of this report has been sent to the Primary Care Physician, the ordering physician and any physician designated by patient request. Complete Blood Count Auto Di ff Reviewed date:10/30/2025 12:46:46 AM Interpretation: Performing Lab:[facility], [address] [place] [phone] Notes/Report: White Blood Count 3.9 4.8-10.8 X10*3/uL [...] Panel Reviewed date:03/22/2025 01:09:49 PM Interpretation: Performing Lab:[facility], [address] [place] [phone] Notes/Report: Bilirubin Total 0.6 0.0-1.0 mg/dL N Bilirubin Direct 0.2 0.0-0.5 mg/dL N Aspartate Amino Transferase 21 5-31 U/L N Alanine Aminotransferase 19 0-31 U/L N Total Protein 6.0 6.5-8.0 g/dL L Albumin Level 4.0 3.5-5.0 g/dL N Alkaline Phosphatase 43 39-117 U/L N Complete Blood Count Auto Di ff Reviewed date:05/22/2025 11:05:25 PM Interpretation: Performing Lab:[facility], [address] [place] [phone] Notes/Report: White Blood Count 3.9 4.8-10.8 X10*3/uL [...] Auto 0.040 0.0-0.012 X10*3/uL H Therapeutic Phlebotomy Reviewed date:10/30/2025 12:46:46 AM Interpretation: Performing Lab:[facility], [address] [place] [phone] Notes/Report: THER/HGB 11.3 12.0-16.0 g/dL L THER/HCT TNP 37.0-47.0 % Therapeutic Phlebotomy Phlebotomy Performed 500 mls drawn on 06/06/25. Please note that a copy of this report has been sent to the Primary Care Physician, the ordering physician and any physician designated by patient request. Complete Blood Count Auto Di ff Reviewed date:06/22/2025 05:58:27 PM Interpretation: Performing Lab:[address] [phone] Notes/Report: White Blood Count 3.9 4.8-10.8 X10*3/uL [...] Panel Reviewed date:06/22/2025 05:58:57 PM Interpretation: Performing Lab:[facility], [address] [place] [phone] Notes/Report: Bilirubin Total 0.8 0.0-1.0 mg/dL N Bilirubin Direct 0.2 0.0-0.5 mg/dL N Aspartate Amino Transferase 24 5-31 U/L N Alanine Aminotransferase 19 0-31 U/L N Total Protein 6.0 6.5-8.0 g/dL L Albumin Level 4.1 3.5-5.0 g/dL N Alkaline Phosphatase 50 39-117 U/L N SLIDE REVIEW Reviewed date:06/22/2025 05:57:17 PM Interpretation: Performing Lab:[facility], [address] [place] [phone] Notes/Report: SLIDE REVIEW VERIFIED Complete Blood Count Auto Di ff Reviewed date:09/12/2025 09:23:54 AM Interpretation: Performing Lab:[facility], [address] [place] [phone] Notes/Report: White Blood Count 2.8 4.8-10.8 X10*3/uL [...] Panel Reviewed date:08/29/2025 04:44:21 PM Interpretation: Performing Lab:[facility], [address] [place] [phone] Notes/Report: Bilirubin Total 0.9 0.0-1.0 mg/dL N Bilirubin Direct 0.3 0.0-0.5 mg/dL N Aspartate Amino Transferase 18 5-31 U/L N Alanine Aminotransferase 12 0-31 U/L N Total Protein 6.1 6.5-8.0 g/dL L Albumin Level 4.0 3.5-5.0 g/dL N Alkaline Phosphatase 60 39-117 U/L N SLIDE REVIEW Reviewed date:08/31/2025 01:40:03 AM Interpretation: Performing Lab:[facility], [address] [place] [phone] Notes/Report: SLIDE REVIEW VERIFIED Shidler/Lambda Lt Ch,Free w ra t (Not yet reviewed by provider) Interpretation: Performing Lab:[facility], [address] [place] [phone] Notes/Report: Shidler Light Chain, Free Serum 25.2 3.3-19.4 mg/L A Lambda Light Chain, Free Serum 16.3 5.7-26.3 mg/L N Shidler/Lambda Lt Ch Free Ratio 1.55 0.26-1.65 N Free kappa/lambda ratio in serum of normal individuals is 0.26-1.65. Excess production of free kappa or lambda chains can alter this ratio. Monoclonal free light chains are found in serum of patients with multiple myeloma, Waldenstrom's macroglobulinemia, mu-heavy chain disease, primary amyloidosis, light chain deposition disease, monoclonal gammopathy of undetermined significance, and lymphoproliferative disorders. Measurement of free light chain concentration in serum is useful for diagnosis, prognosis, monitoring disease activity and following response to therapy of these disorders. THIS TEST WAS PERFORMED AT: [facility] [address] [place] [phone] SANJAY TORRES MD Complete Blood Count Auto Di ff Reviewed date:10/30/2025 12:46:46 AM Interpretation: Performing Lab:[facility], [address] [place] [phone] Notes/Report: White Blood Count 7.7 4.8-10.8 X10*3/uL N Red Blood Count 3.43 4.20-5.50 X10*6/uL L Hemoglobin 12.4 12.0-16.0 g/dl N Hematocrit 35.0 37.0-47.0 % L Mean Corpuscular Volume 102.0 80.0-98.0 fL H Mean Corpuscular Hemoglobin 36.2 27.0-33.0 pg H Mean Corpuscular HGB Conc 35.4 31.0-35.0 g/dl H Red Cell Distribution Width 17.0 11.0-16.0 % H Platelet Count 137 160-400 X10*3/uL L Mean Platelet Volume 10.6 9.4-12.3 fL N Neutrophils Percent Auto 67.0 45-73 % N Imm Gran Pct Auto 1.0 0.0-0.4 % H Lymphocytes Percent Auto 22.6 20-40 % N Monocytes Percent Auto 6.7 2-11 % N Eosinophils Percent Auto 2.0 0-4 % N Basophils Percent Auto 0.7 0-2 % N NRBC Pct Auto 0.0 0.0-0.2 /100WBC N Neutrophils Absolute Auto 5.1 2.0-8.3 x10*3/uL N Imm Gran Abs Auto 0.08 0.00-0.03 X10*3/uL H Lymphocytes Absolute Auto 1.7 1.2-4.9 X10*3/uL N Monocytes Absolute Auto 0.5 0.1-1.2 X10*3/uL N Eosinophils Absolute Auto 0.2 0.0-0.4 X10*3/uL N Basophils Absolute Auto 0.1 0.0-0.2 X10*3/uL N NRBC Abs Auto 0.000 0.0-0.012 X10*3/uL N Comprehensive Met. Panel Reviewed date:10/30/2025 12:46:46 AM Interpretation: Performing Lab:[facility], [address] [place] [phone] Notes/Report: Sodium 137 135-145 mmol/L N Potassium 4.7 3.3-5.1 mmol/L N Chloride 109 96-108 mmol/L H Carbon Dioxide 20 22-29 mmol/L L Anion Gap 13 12-20 N Blood Urea Nitrogen 20 9-16 mg/dL H Creatinine 0.97 0.5-1.4 mg/dL N Creatinine Clr Calc Pharmacy 77.4 Provided height and weight: 157.48 cm, 118.841 kg. eGFR (calculated from the MDRD study equation) and eCrCl (calculated from the Cockcroft-Gault equation) are based on different parameters and may not yield comparable results. If eCrCl result is absurd, please check patient's height/weight. Estimated Glomerular Filt Rate 59 Chronic Kidney Disease: Estimated GFR < 60 mL/min/1.73m2 Severe Kidney Disease: Estimated GFR < 15 mL/min/1.73m2 Glucose Random 236 60-115 mg/dL H Calcium 9.2 8.4-10.2 mg/dL N Bilirubin Total 0.4 0.0-1.0 mg/dL N Aspartate Amino Transferase 23 5-31 U/L N Alanine Aminotransferase 27 0-31 U/L N Total Protein 6.5 6.5-8.0 g/dL N Albumin Level 4.1 3.5-5.0 g/dL N Alkaline Phosphatase 66 39-117 U/L N IRON PROFILE Reviewed date:10/30/2025 12:46:46 AM Interpretation: Performing Lab:[facility], [address] [place] [phone] Notes/Report: Iron 107 30-160 mcg/dL N Total Iron Binding Capacity 207 228-428 mcg/dL L Percent Iron Saturation 52 15-50 % H Unsaturated Iron Binding 100 Ferritin Reviewed date:10/30/2025 12:46:46 AM Interpretation: Performing Lab:[facility], [address] [place] [phone] Notes/Report: Ferritin 976 10-250 ng/mL H Lactate Dehydrogenase Reviewed date:10/30/2025 12:46:46 AM Interpretation: Performing Lab:[facility], [address] [place] [phone] Notes/Report: Lactate Dehydrogenase 242 122-220 U/L H Immunofixation Pnl, Serum Reviewed date:10/30/2025 12:46:46 AM Interpretation: Performing Lab:[facility], [address] [place] [phone] Notes/Report: IgG 340 115-3024 mg/dL N IgA 252 47-310 mg/dL N IgM 62 50-300 mg/dL N THIS TEST WAS PERFORMED AT: [facility] [address] [place] [phone] SANJAY TORRES MD Immunofixation Interpretation SEE NOTE Normal pattern. No monoclonal proteins detected. Reason For Referral No Information Medications Medication SIG (Take, Route, Frequency, Duration) Notes Start Date End Date Status lamoTRIgine 100 MG Tablet 1 tablet Orally Once a day Active traZODone HCl 50 MG Tablet 3 tablet at b edtime Orally Once a day Active Lantus 100 UNIT/ML Solution 54 units in the am and 46 units in the pm Subcutaneous daily Active ProAir HFA 108 (90 Base) MCG/ACT Aerosol Solution 2 puffs as needed Inhalation every 4 hrs Active Simvastatin 40 MG Tablet 1 tablet in the evening Orally Once a day; Duration: 30 day(s) Active Ativan 1 MG Tablet 1 tablet as needed O rally prn Active Tylenol Extra Strength 500 MG Tablet 1 tablet as needed Orally every 6 hrs/prn Active Apriso 0.375 GM Capsule Extended Release 24 Hour TAKE FOUR CAPSULES BY MOUTH EVERY MORNING; Duration: 30 Active Advair Diskus 250-50 MCG/DOSE Aerosol Powder Breath Activated 1 puff Inhalation Twice a day Active Benadryl 50 Tablet 1 tablet as needed O rally every 4 hrs PRN Active Allopurinol 300 MG Tablet 1 tablet Orally Once a day Active Lisinopril 5 MG Tablet 1 tablet Orally Once a day Active Losartan Potassium 25 MG Tablet 1 tablet Orally Once a day A ctive Humira Pen 40 MG/0.8ML Pen-injector Kit 0.8 ml Subcutaneous weekly Active HumaLOG 100 UNIT/ML Solution Cartridge sliding scale Subcutaneous 4 times a day Active Motrin PRN Active Omeprazole Magnesium 20 MG Tablet Delayed Release 1 tablet 30 minutes before morning meal Orally Once a day; Duration: 30 day(s) Active Metoprolol Succinate ER 25 MG Tablet Extended Release 24 Hour 1 tablet Orally Once a day A ctive LaMICtal 100mg Tablet 1 tablet Orally QD Active Haloperidol 10 MG Tablet 1 tablet Orally Once a day Active Immunizations Vaccine Route Administration Date Status [...] Unknown 08/27/2022 Administered Influenza Unknown 08/25/2023 Administered Influenza Unknown 08/11/2025 Administered Social History Tobacco Use: Social History Observation Description Date Details (start date - stop date) Former Smoker NA - NA Social History Tobacco Use: Social Info Question Answer Notes Tobacco Use/Smoking Patient is a former smoker How long has it been since you last smoked? 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) Active confirmed Problem Pseudopolyposis of colon (01891058) Inflammatory polyps of colon without complications (K51.40) Active confirmed Problem Diverticular disease of colon (622671620) Diverticulosis of large intestine without perforation or abscess without bleeding (K57.30) Active confirmed Problem Dysphagia (24181960) Dysphagia (R13.10) Active confirmed Problem Epigastric pain (94116623) Abdominal pain, epigastric (R10.13) Active confirmed Problem Crohn's disease of colon (88952025) Crohn's disease of colon (K50.10) Active confirmed Problem Fatty liver (521194089) Fatty liver (K76.0) Active confirmed Problem Iron excess (17308427) Iron excess (E83.19) Active confirmed Problem Anemia (321701454) Anemia (D64.9) Active confir med Problem Crohn's disease of large bowel (4057748) Crohns colitis, without complications (K50.10) Active confirmed Problem Gallstones (236930531) Gallstones (K80.20) Active confirmed Problem Crohns disease (86987227) Crohns disease (K50.90) Active confirmed Problem Iron deficiency anemia (97596113) Other iron deficiency anemia (D50.8) Active confirmed Problem Pseudopolyposis of colon (07868151) Inflammatory polyps, without complications (K51.40) Active confirmed Problem Anemia (586651478) Anemia, unspe cified type (D64.9) Active confirmed Problem Increased storage iron (65258289) Increased storage iron (E83.19) Active confirmed Problem Esophageal reflux finding (008582073) Gastroesophageal reflux (K21.9) Active confirmed Problem Diarrhea (14055516) Diarrhea, unspecified type (R19.7) Active confirmed Problem Crohn's disease of large bowel (3601895) Crohn's disease of large intestine without complication (K50.10) Active confirmed Problem Crohn's disease of perianal region with fistula (K50.113) Active confirmed Problem Gallbladder disease (02994871) Gallbladder sludge (K82.8) Active confirmed Problem Macrocytosis - no anemia (581311903) Macrocytosis without anemia (D75.89) Active confirmed Problem Diarrhea of presumed infectious origin (53782103) Diarrhea of presumed infectious origin (R19.7) Active confirmed Problem Crohn's disease of large bowel (8633557) Crohn''s disease of colon with other complication (K50.118) Active confirmed Problem Crohn's disease of large bowel (5477520) Crohn''s disease of large intestine without complication (K50.10) Active confirmed Problem Crohn's disease of large bowel (4877688) Crohn''s disease of colon without complication (K50.10) Active confirmed Problem Crohn's disease of large bowel (8605841) Crohn's disease of colon without complication (K50.10) Active confirmed Problem Esophageal dysphagia (59385241) Esophageal dysphagia (R13.19) Active confirmed Problem Drug monitoring done (825276561) Encounter for therapeutic drug monitoring (Z51.81) Active confirmed Vital Signs Temperature 98.0 degrees Fahrenheit 10/27/2025 Blood pressure diastolic 01 mm Hg 10/27/2025 Height 63 in 10/27/2025 Blood pressure systolic 001 mm Hg 10/27/2025 Weight 264.4 lbs 10/27/2025 BMI 46.83 kg/m2 10/27/2025 Encounters Encounter Location Date Provider Diagnosis [facility] [address] [place] [phone] 02/28/2025 Jose Juan Hare Crohns colitis, with out complications K50.10 and Increased storage iron E83.19 [facility] [address] [place] [phone] 10/27/2025 Jose Juan Hare Crohn's disease of perianal region with fistula K50.113 ; Gallstones K80.20 ; Iron excess E83.19 ; Hemochromatosis, unspecified E83.119 ; Hepatomegaly R16.0 ; Fatty liver K76.0 and Crohns colitis, without complications K50.10 [facility] [address] [place] [phone] 12/07/[address] [facility] [address] [place] [phone] 08/28/2025 Jose Juan Hare Crohn''s disease of colon without complication K50.10 [facility] [address] [place] [phone] 10/11/2025 Jose Juan Hare Crohn''s disease of colon with other complication K50.118 Assessments Encounter Date Diagnosis (ICD Code) Assessment Notes Treatment Notes Treatment Clinical Notes Section Notes 08/28/2025 Crohn''s disease of colon without complication (ICD-10 - K50.10) 10/11/2025 Crohn''s disease of colon with other complication (ICD-10 - K50.118) 10/27/2025 Crohn's disease of perianal region with fistula (ICD-10 - K50.113) Overall, Fauzia appears well in general and her Crohn's disease remains in clinical remission on the weekly Humira injections. She has not had any worsening of the Crohn's symptoms within the intestine or perianal disease since being off the azathioprine. I did advise her to certainly continue the weekly Humira and monitor things. I did advise her to certainly let me know if the Crohn's disease and/or perianal disease flares up now that she is off the azathioprine. In regard to the previous anemia and elevated ferritin levels I did advise her to continue close follow-up with Dr. Junior and see how she does on the new medication of Deferasirox to try to get the ferritin down. Now that she is off the azathioprine I did advise her to speak with Dr. Junior about possibly resuming a phlebotomy every 2nd or 3rd month to help with lowering of her ferritin. I do not think that would cause a precipitous drop in her blood count. However I did advise her that I would leave that up to Dr. Juniro's discretion. In regard to the finding of the fatty liver, hepatosplenomegaly , and question of liver nodularity with cirrhosis, I have recommended a limited ultrasound with elastography and a liver fibrosis score. I do not think she needs a liver biopsy at this time. We did review that given her normal LFTs I would not recommend any pharmacological therapy but obviously weight loss and keeping the ferritin level at an acceptable range will be important to help prevent further liver disease in relation to the fatty liver and iron overload. We also reviewed the presence of the gallstones and potential symptoms to look out for such as right upper quadrant pain and jaundice. I did advise her she would need to see a surgeon if the stones become symptomatic. At this point they are not bothering her and I would recommend continued observation in that regard. If things otherwise remain stable I will plan to see her in 6 months for a follow-up visit. I did advise her to definitely call in the interim if she has any problems or questions [...] to keep you advised of her progress. 10/27/2025 Gallstones (ICD-10 - K80.20) See a surgeon if the gallstones become symptomatic as we discussed Overall, Fauzia appears well in general and her Crohn's disease remains in clinical remission on the weekly Humira injections. She has not had any worsening of the Crohn's symptoms within the intestine or perianal disease since being off the azathioprine. I did advise her to certainly continue the weekly Humira and monitor things. I did advise her to certainly let me know if the Crohn's disease and/or perianal disease flares up now that she is off the azathioprine. In regard to the previous anemia and elevated ferritin levels I did advise her to continue close follow-up with Dr. Junior and see how she does on the new medication of Deferasirox to try to get the ferritin down. Now that she is off the azathioprine I did advise her to speak with Dr. Junior about possibly resuming a phlebotomy every 2nd or 3rd month to help with lowering of her ferritin. I do not think that would cause a precipitous drop in her blood count. However I did advise her that I would leave that up to Dr. Junior's discretion. In regard to the finding of the fatty liver, hepatosplenomegaly , and question of liver nodularity with cirrhosis, I have recommended a limited ultrasound with elastography and a liver fibrosis score. I do not think she needs a liver biopsy at this time. We did review that given her normal LFTs I would not recommend any pharmacological therapy but obviously weight loss and keeping the ferritin level at an acceptable range will be important to help prevent further liver disease in relation to the fatty liver and iron overload. We also reviewed the presence of the gallstones and potential symptoms to look out for such as right upper quadrant pain and jaundice. I did advise her she would need to see a surgeon if the stones become symptomatic. At this point they are not bothering her and I would recommend continued observation in that regard. If things otherwise remain stable I will plan to see her in 6 months for a follow-up visit. I did advise her to definitely call in the interim if she has any problems or questions I can be of assistance with. Fauzia was comfortable with this plan. Thank you again for allowing me to participate in Fauzia's care. I shall continue to keep you advised of her progress. 10/27/2025 Iron excess (ICD-10 - E83.19) Follow up with Dr. Junior regarding the elevated iron, but ask her if you can have a phlebotomy every 2 or 3 months Overall, Fauzia appears well in general and her Crohn's disease remains in clinical remission on the weekly Humira injections. She has not had any worsening of the Crohn's symptoms within the intestine or perianal disease since being off the azathioprine. I did advise her to certainly continue the weekly Humira and monitor things. I did advise her to certainly let me know if the Crohn's disease and/or perianal disease flares up now that she is off the azathioprine. In regard to the previous anemia and elevated ferritin levels I did advise her to continue close follow-up with Dr. Junior and see how she does on the new medication of Deferasirox to try to get the ferritin down. Now that she is off the azathioprine I did advise her to speak with Dr. Junior about possibly resuming a phlebotomy every 2nd or 3rd month to help with lowering of her ferritin. I do not think that would cause a precipitous drop in her blood count. However I did advise her that I would leave that up to Dr. Junior's discretion. In regard to the finding of the fatty liver, hepatosplenomegaly , and question of liver nodularity with cirrhosis, I have recommended a limited ultrasound with elastography and a liver fibrosis score. I do not think she needs a liver biopsy at this time. We did review that given her normal LFTs I would not recommend any pharmacological therapy but obviously weight loss and keeping the ferritin level at an acceptable range will be important to help prevent further liver disease in relation to the fatty liver and iron overload. We also reviewed the presence of the gallstones and potential symptoms to look out for such as right upper quadrant pain and jaundice. I did advise her she would need to see a surgeon if the stones become symptomatic. At this point they are not bothering her and I would recommend continued observation in that regard. If things otherwise remain stable I will plan to see her in 6 months for a follow-up visit. I did advise her to definitely call in the interim if she has any problems or questions [...] to keep you advised of her progress. 10/27/2025 Hemochromatosis, unspecified (ICD-10 - E83.119) Overall, Fauzia appears well in general and her Crohn's disease remains in clinical remission on the weekly Humira injections. She has not had any worsening of the Crohn's symptoms within the intestine or perianal disease since being off the azathioprine. I did advise her to certainly continue the weekly Humira and monitor things. I did advise her to certainly let me know if the Crohn's disease and/or perianal disease flares up now that she is off the azathioprine. In regard to the previous anemia and elevated ferritin levels I did advise her to continue close follow-up with Dr. Junior and see how she does on the new medication of Deferasirox to try to get the ferritin down. Now that she is off the azathioprine I did advise her to speak with Dr. Junior about possibly resuming a phlebotomy every 2nd or 3rd month to help with lowering of her ferritin. I do not think that would cause a precipitous drop in her blood count. However I did advise her that I would leave that up to Dr. Junior's discretion. In regard to the finding of the fatty liver, hepatosplenomegaly , and question of liver nodularity with cirrhosis, I have recommended a limited ultrasound with elastography and a liver fibrosis score. I do not think she needs a liver biopsy at this time. We did review that given her normal LFTs I would not recommend any pharmacological therapy but obviously weight loss and keeping the ferritin level at an acceptable range will be important to help prevent further liver disease in relation to the fatty liver and iron overload. We also reviewed the presence of the gallstones and potential symptoms to look out for such as right upper quadrant pain and jaundice. I did advise her she would need to see a surgeon if the stones become symptomatic. At this point they are not bothering her and I would recommend continued observation in that regard. If things otherwise remain stable I will plan to see her in 6 months for a follow-up visit. I did advise her to definitely call in the interim if she has any problems or questions I can be of assistance with. Fauzia was comfortable with this plan. Thank you again for allowing me to participate in Fauzia's care. I shall continue to keep you advised of her progress. 10/27/2025 Hepatomegaly (ICD-10 - R16.0) Overall, Fauzia appears well in general and her Crohn's disease remains in clinical remission on the weekly Humira injections. She has not had any worsening of the Crohn's symptoms within the intestine or perianal disease since being off the azathioprine. I did advise her to certainly continue the weekly Humira and monitor things. I did advise her to certainly let me know if the Crohn's disease and/or perianal disease flares up now that she is off the azathioprine. In regard to the previous anemia and elevated ferritin levels I did advise her to continue close follow-up with Dr. Junior and see how she does on the new medication of Deferasirox to try to get the ferritin down. Now that she is off the azathioprine I did advise her to speak with Dr. Junior about possibly resuming a phlebotomy every 2nd or 3rd month to help with lowering of her ferritin. I do not think that would cause a precipitous drop in her blood count. However I did advise her that I would leave that up to Dr. Junior's discretion. In regard to the finding of the fatty liver, hepatosplenomegaly , and question of liver nodularity with cirrhosis, I have recommended a limited ultrasound with elastography and a liver fibrosis score. I do not think she needs a liver biopsy at this time. We did review that given her normal LFTs I would not recommend any pharmacological therapy but obviously weight loss and keeping the ferritin level at an acceptable range will be important to help prevent further liver disease in relation to the fatty liver and iron overload. We also reviewed the presence of the gallstones and potential symptoms to look out for such as right upper quadrant pain and jaundice. I did advise her she would need to see a surgeon if the stones become symptomatic. At this point they are not bothering her and I would recommend continued observation in that regard. If things otherwise remain stable I will plan to see her in 6 months for a follow-up visit. I did advise her to definitely call in the interim if she has any problems or questions I can be of assistance with. Fauzia was comfortable with this plan. Thank you again for allowing me to participate in Fauzia's care. I shall continue to keep you advised of her progress. 10/27/2025 Fatty liver (ICD-10 - K76.0) Overall, Fauzia appears well in general and her Crohn's disease remains in clinical remission on the weekly Humira injections. She has not had any worsening of the Crohn's symptoms within the intestine or perianal disease since being off the azathioprine. I did advise her to certainly continue the weekly Humira and monitor things. I did advise her to certainly let me know if the Crohn's disease and/or perianal disease flares up now that she is off the azathioprine. In regard to the previous anemia and elevated ferritin levels I did advise her to continue close follow-up with Dr. Junior and see how she does on the new medication of Deferasirox to try to get the ferritin down. Now that she is off the azathioprine I did advise her to speak with Dr. Junior about possibly resuming a phlebotomy every 2nd or 3rd month to help with lowering of her ferritin. I do not think that would cause a precipitous drop in her blood count. However I did advise her that I would leave that up to Dr. Junior's discretion. In regard to the finding of the fatty liver, hepatosplenomegaly , and question of liver nodularity with cirrhosis, I have recommended a limited ultrasound with elastography and a liver fibrosis score. I do not think she needs a liver biopsy at this time. We did review that given her normal LFTs I would not recommend any pharmacological therapy but obviously weight loss and keeping the ferritin level at an acceptable range will be important to help prevent further liver disease in relation to the fatty liver and iron overload. We also reviewed the presence of the gallstones and potential symptoms to look out for such as right upper quadrant pain and jaundice. I did advise her she would need to see a surgeon if the stones become symptomatic. At this point they are not bothering her and I would recommend continued observation in that regard. If things otherwise remain stable I will plan to see her in 6 months for a follow-up visit. I did advise her to definitely call in the interim if she has any problems or questions I can be of assistance with. Fauzia was comfortable with this plan. Thank you again for allowing me to participate in Fauzia's care. I shall continue to keep you advised of her progress. 10/27/2025 Crohns colitis, without complications (ICD-10 - K50.10) Overall, Fauzia appears well in general and her Crohn's disease remains in clinical remission on the weekly Humira injections. She has not had any worsening of the Crohn's symptoms within the intestine or perianal disease since being off the azathioprine. I did advise her to certainly continue the weekly Humira and monitor things. I did advise her to certainly let me know if the Crohn's disease and/or perianal disease flares up now that she is off the azathioprine. In regard to the previous anemia and elevated ferritin levels I did advise her to continue close follow-up with Dr. Junior and see how she does on the new medication of Deferasirox to try to get the ferritin down. Now that she is off the azathioprine I did advise her to speak with Dr. Junoir about possibly resuming a phlebotomy every 2nd or 3rd month to help with lowering of her ferritin. I do not think that would cause a precipitous drop in her blood count. However I did advise her that I would leave that up to Dr. Junior's discretion. In regard to the finding of the fatty liver, hepatosplenomegaly , and question of liver nodularity with cirrhosis, I have recommended a limited ultrasound with elastography and a liver fibrosis score. I do not think she needs a liver biopsy at this time. We did review that given her normal LFTs I would not recommend any pharmacological therapy but obviously weight loss and keeping the ferritin level at an acceptable range will be important to help prevent further liver disease in relation to the fatty liver and iron overload. We also reviewed the presence of the gallstones and potential symptoms to look out for such as right upper quadrant pain and jaundice. I did advise her she would need to see a surgeon if the stones become symptomatic. At this point they are not bothering her and I would recommend continued observation in that regard. If things otherwise remain stable I will plan to see her in 6 months for a follow-up visit. I did advise her to definitely call in the interim if she has any problems or questions I can be of assistance with. Fauzia was comfortable with this plan. Thank you again for allowing me to participate in Fauzia's care. I shall continue to keep you advised of her progress. 10/27/2025 Other Continue the weekly Humira Overall, Fauzia appears well in general and her Crohn's disease remains in clinical remission on the weekly Humira injections. She has not had any worsening of the Crohn's symptoms within the intestine or perianal disease since being off the azathioprine. I did advise her to certainly continue the weekly Humira and monitor things. I did advise her to certainly let me know if the Crohn's disease and/or perianal disease flares up now that she is off the azathioprine. In regard to the previous anemia and elevated ferritin levels I did advise her to continue close follow-up with Dr. Junior and see how she does on the new medication of Deferasirox to try to get the ferritin down. Now that she is off the azathioprine I did advise her to speak with Dr. Junior about possibly resuming a phlebotomy every 2nd or 3rd month to help with lowering of her ferritin. I do not think that would cause a precipitous drop in her blood count. However I did advise her that I would leave that up to Dr. Junior's discretion. In regard to the finding of the fatty liver, hepatosplenomegaly , and question of liver nodularity with cirrhosis, I have recommended a limited ultrasound with elastography and a liver fibrosis score. I do not think she needs a liver biopsy at this time. We did review that given her normal LFTs I would not recommend any pharmacological therapy but obviously weight loss and keeping the ferritin level at an acceptable range will be important to help prevent further liver disease in relation to the fatty liver and iron overload. We also reviewed the presence of the gallstones and potential symptoms to look out for such as right upper quadrant pain and jaundice. I did advise her she would need to see a surgeon if the stones become symptomatic. At this point they are not bothering her and I would recommend continued observation in that regard. If things otherwise remain stable I will plan to see her in 6 months for a follow-up visit. I did advise her to definitely call in the interim if she has any problems or questions I can be of assistance with. Fauzia was comfortable with this plan. Thank you again for allowing me to participate in Fauzia's care. I shall continue to keep you advised of her progress. Plan Of Treatment Pending Test Test Name Order Date CHEM 7 PROFILE 05/13/2023 LIVER PROFILE 05/13/2023 LIVER PROFILE 06/28/2024 LIVER PROFILE 08/28/2025 LIVER PROFILE 10/11/2025 LIVER PROFILE 03/27/2017 LIVER PROFILE 04/17/2017 LIVER PROFILE 07/01/2018 LIVER PROFILE 06/13/2020 LIVER PROFILE 09/05/2020 LIVER PROFILE 04/23/2022 LIVER PROFILE 05/04/2023 IRON + IBC (FE) 11/30/2017 IRON + IBC (FE) 08/30/2024 IRON + IBC (FE) 07/04/2024 IRON + IBC (FE) 07/31/2024 FERRITIN 11/30/2017 CRP 11/30/2017 CRP 04/17/2017 CRP 05/13/2023 VITAMIN B12 AND FOLATE 11/30/2017 VITAMIN B12 AND FOLATE 07/05/2020 CBC w DIFF 09/05/2020 CBC w DIFF 05/04/2023 CBC w DIFF 07/01/2018 CBC w DIFF 06/13/2020 CBC w DIFF 03/27/2017 CBC w DIFF 05/13/2023 CBC w DIFF 04/23/2022 CBC w DIFF 06/28/2024 CBC w DIFF 08/28/2025 CBC w DIFF 10/11/2025 CBC with MANUAL DIFFERENTIAL 04/17/2017 SED RATE [...] LEVEL/AB) C DIFFICILE RFLX PCR 05/13/2023 Ferritin 08/30/2024 Sh[place]ler/Lambda Lt Ch,Free w rat 10/25/2025 Liver Fibrosis Pnl 10/27/2025 US abdomen jack w elastography 10/27/2025 Future Test Test Name Order Date UPPER GI ENDOSCOPY B[place]ON DILATION OF ESOPH 07/26/2021 COLONOSCOPY 07/26/2021 COLONOSCOPY 09/08/2023 Next Appt Details Provider Name:Jose Juan Hare , 04/27/2026 01:00:00 PM, [address], [address], [place], [address], Insurance Providers Payer Name Payer Address Payer Phone Subscriber Number Group Number Insured Name Patient Relationship to Insured Coverage Start Date Coverage End Date MEDICARE OF [place] [address] [place] [address] [id number] FAUZIA HOLLEY Self - patient is the insured [id number] [address] [place] [address] [id number] FAUZIA HOLLEY Self - patient is the insured Medical (General) History Medical History History ICD Code IDDM DVT 20 yrs ago Colonoscopy 10/[address] Briseno with the finding of colitis in left colon and rectum- bx in rectum showed a granuloma-started Apriso 02/[address],CVA,Lung disease,renal disease Anemia-on Iron- Hgb approx 8 in 10/2012, and 12.9 in 01/2013- -on B12 shots Bipolar disease Abscess near right kidney in 2008-drained with percutaneous catheters-at [facility] PVC's Asthma Colonoscopy 10/2016 revealed a very active distal proctitis, and a small area of colitis in the cecum- the remainder of the colon appeared normal- - she started Humira on 12/18/16, and started azathioprine in December 2016- -Humira increased to weekly injections in 03/2017. She had therapeutic levels of her Humira and the azathioprine metabolites in the Fall of 2017. Gout 02/21/17- took Motrin for 10 days- ag gravated the Crohn's Macrocytosis with normal Hgb-normal TSH, B12 level, and Folate in 07/2020 Colonoscopy in August 2021 was negative for any active colitis, tubular adenomas, nor dysplasia on biopsies Upper endoscopy in August 24 revealed only a small hiatal hernia, without any sign of esophagitis, esophageal stricture, nor eosinophilic esophagitis on biopsies- the EGJ was dilated but without any effect-a followup barium swallow did not show any significant pathology regarding her swallowing issues. Diarrhea requiring prednison e which gave her relief in the summer- at that time she had therapeutic Humira levels [...] improve by stopping her supplemental iron pill. Hospitalization in August 24 with significant anemia requiring 6 units of blood. This was felt to be in relation to possibly the use of azathioprine and occasional phlebotomies she was having in relation to the elevated ferritin. Things improved and stabilized after stopping the azathioprine with a hemoglobin of 12.4 in October 2025. She is being followed now by Dr. Junior and is planning to start Deferasirox for the elevated iron stores. Hepatosplenomegaly, fatty li otf, and question of some liver nodularity seen on ultrasound in August 2025. Gallstones noted on ultrasou nd in August 2025. This was reviewed with her at the October 2025 office visit Surgical History Surgery Date(Month/Year) Tonsillectomy Hospitalization History Reason Date(Month/Year)
--- OUTSIDE RECORDS SUMMARY | 2025-11-07 16:54 | XMS_ITS | Patient Health Record ---
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 Name Role Phone Lauren Reyes Primary Care Provider Unavailabl e Black, Noelle Unavailable [phone] Allergies Allergen (clinical drug ingredient) Drug/Non Drug Allergy documented on EMR Reaction Allergy Type Onset Date Status amoxicillin Amoxicillin diarrhea Drug Allergy Act vini amoxicillin / clavulanate Augmentin Unknown Drug Allergy Active Results Component Value Reference Range Notes HEMOGLOBIN A1C (GLYCOHEMOGLO BIN) Reviewed date:04/27/2025 12:59:46 PM Interpretation: Performing Lab: Notes/Report: HEMOGLOBIN A1C % (HH) 5.5 HEMOGLOBIN A1C (GLYCOHEMOGLO BIN) Reviewed date:11/06/2025 01:57:54 PM Interpretation: Performing Lab: Notes/Report: HEMOGLOBIN A1C % (HH) 5.2 Reason For Referral No Information Medications Medication SIG (Take, Route, Frequency, Duration) Notes Start Date End Date Status LaMICtal Not-Taking Clotrimazole-Betamethasone Not-Taking LORazepam 2 MG 1 tablet at bedtime as needed Orally Once a day Active NovoLOG Not-Taking Haloperidol 10 MG 1 tablet Orally Once a day Active Provera 20 MG 1 tablet Orally Twic e a day; Duration: 5 day(s) Not-Taking traZODone HCl 100 MG 4 tablet at bedtime Orally Once a day Active Betamethasone Active Omeprazole 20 MG 1 capsule 1/2 to 1 hour before morning meal Orally Once a day Active Vitamin D 50 MCG (2000 UT) 1 tablet Oral ly Once a day Active HumaLOG 100 UNIT/ML as directed Injection Active Metoprolol Succinate 25 MG 1 capsule Ora lly Once a day Active Humira Active azaTHIOprine 50 MG as directed Orally Not-Taking Apriso 0.375 GM 4 capsules in the morning Orally Once a day; Duration: 30 day(s) Active Simvastatin 40 MG 1 tablet in the evening Orally Once a day Active Levaquin 500 MG 1 tablet Orally Once a day Not-Taking Allopurinol 300 MG 1 tablet Orally Once a day Active Canasa Not-Taking lamoTRIgine Active Losartan Potassium 25 MG 1 tablet Orally Once a day Active Advair Diskus 250-50 MCG/ACT 1 puff Inhalation Twice a day Active Lantus Subcutaneous Not-Tristian ing Extra Depth Orthopedic Shoes (1 Pair) with Customized Heat Molded Multidensity Innersoles (3 Pair) as directed Dx: NIDDM/Polyneuropathy (E11.42), Hammertoe Foot Deformity (M20.41,M20.42), Preulcerative Skin Lesion(s) (L85.1 04/27/2025 Active medroxyPROGESTERone Acetate Not-Taking UltiCare Insulin Syringe Not-Taking Metoprolol Succinate ER Not-Taking Ferrous Sulfate 325 (65 Fe) MG 1 tablet Orally Once a day; Duration: 30 day(s) Not-Taking Trifluoperazine HCl Not-Taking Haldol 5 mg qd Not-Taki ng Tricor Not-Taking Immunizations Vaccine Route Administration Date Status Comme nts Influenza Unknown 08/26/2016 Administered Influenza Unknown 09/02/2017 Administered Influenza Unknown 08/07/2018 Administered Influenza Unknown 08/09/2019 Administered Influenza Unknown 09/25/2025 Administered Social History Tobacco Use: Social History Observation Description Date Details (start date - stop date) Never Smoker NA - NA Tobacco use other than smoking: Question Answer Notes Are you an other tobacco user? No Tobacco Control (Standard) Question Answer Notes Tobacco use: Nonsmoker Additional Findings: Tobacco non-user Current no nsmoker AUDIT-C (Standard) Question Answer Notes Did you have a drink containing alcohol in the p ast year? No Points 0 Interpretation Negative Problems Problem Type SNOMED Code ICD Code Onset Dates Problem Status W/U Status Risk Notes Problem Polyneuropathy due to type 2 diabetes mellitus (606449635) Type 2 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) Active confirmed Vital Signs Blood pressure diastolic 64 mm Hg 11/06/2025 Height 5ft 2in in 11/06/2025 Blood pressure systolic 120 mm Hg 11/06/2025 Weight 265 lbs 11/06/2025 BMI 48.46 kg/m2 11/06/2025 Procedures Procedure Date Ordered Date Performed Result Body Sit e 30440-UJGN SKIN LESIONS, OVER 4 04/27/2025 N/A A0328-PFTGXXMA DYSTROPHIC NAILS ANY # 04/27/2025 N/A 25323-ONSO SKIN LESIONS, OVER 4 11/06/2025 N/A Z6900-CCDKLEOL DYSTROPHIC NAILS ANY # 11/06/2025 N/A Encounters Encounter Location Date Provider Diagnosis [address] [address] 04/27/2025 Noelle Raman Hallux valgus (acquired), right foot M20.11 ; Other hammer toe(s) (acquired), right foot M20.41 ; Bunion of right foot M21.611 ; Other hammer toe(s) (acquired), left foot M20.42 ; Type 2 diabetes mellitus with diabetic polyneuropathy E11.42 and Neuropathy G62.[address] [address] 11/06/2025 Noelle Camargo Type 2 diabetes mellitus with diabetic polyneuropathy E11.[address] [address] 11/08/2024 Noelleace Camargo [address] [address] 01/24/2025 Noelleace Camargo [address] [address] 08/07/2025 Noelle Camargo Assessments Encounter Date Diagnosis (ICD Code) Assessment Notes Treatment Notes Treatment Clinical Notes Section Notes 04/27/2025 Other hammer toe(s) (acquired), right foot (ICD-10 - M20.41) Patient Educated with: DIABETIC FOOT CARE INSTRUCTIONS. pdf (DIABETIC FOOT CARE INSTRUCTIONS. pdf) 04/27/2025 Hallux valgus (acquired), right foot (ICD-10 - M20.11) 11/06/2025 Type 2 diabetes mellitus with diabetic polyneuropathy (ICD-10 - E11.42) 04/27/2025 Bunion of right foot (ICD-10 - M21.611) 04/27/2025 Other hammer toe(s) (acquired), left foot (ICD-10 - M20.42) 04/27/2025 Type 2 diabetes mellitus with diabetic polyneuropathy (ICD-10 - E11.42) 04/27/2025 Neuropathy (ICD-10 - G62.9) Plan Of Treatment Pending Test Test Name Order Date *Liver Function Test (LFT) 04/12/2012 37295-MDTBHLR NAIL, 6 OR MORE 12/24/2011 79167-TOZMLDS NAIL, 1-5 07/05/2012 19495-WQIBHIC NAIL, -5 10/04/2012 47095-KWFNGAA NAIL, -04/12/2012 05848-QVKYEUR NAIL, -04/11/2013 29658-TEHYZWI NAIL, -07/11/2013 85488-GWDYKXI NAIL, -5 11/07/2013 86668-XBVTRHR NAIL, -03/06/2014 77133-ICWDLJL NAIL, -08/17/2014 41864-YYKYIRG NAIL, -5 10/30/2014 23480-AFTNYOX NAIL, -01/17/2015 74529-CSSBKLU NAIL, -01/06/2013 14123-KLQNXOR NAIL, -04/19/2015 94788-HNOMQSZ NAIL, -07/19/2015 98205-Hckydnuf Plate 07/19/2015 55030-Hbpscctj Plate 03/06/2014 33223-Rytwnedr Plate 04/19/2015 13761-Wpzdaoah Plate 01/17/2015 38749-Eienbklz Plate 10/30/2014 06711-Klaorflj Plate 08/17/2014 95843-Mszhugnb Plate 08/15/2019 73090-SXI 12/29/2011 73354- Debride <25 sq cm 08/11/2011 28918-TUQHXMP SKIN/TISSUE 01/19/2012 39969-WBQUNGC SKIN/TISSUE 02/02/2012 58326 I&D ABSCESS- SIMPLE,SINGLE 011 55513 I&D ABSCESS- SIMPLE,SINGLE 012 46657 I&D ABSCESS- SIMPLE,SINGLE 013 50164 I&D ABSCESS- SIMPLE,SINGLE 012 27332 I&D ABSCESS- SIMPLE,SINGLE 014 22773 I&D ABSCESS- SIMPLE,SINGLE 014 55263 I&D ABSCESS- SIMPLE,SINGLE 013 95887 I&D ABSCESS- SIMPLE,SINGLE 013 89221 I&D ABSCESS- SIMPLE,SINGLE 014 73380 I&D ABSCESS- SIMPLE,SINGLE 015 18255 I&D ABSCESS- SIMPLE,SINGLE 013 13159 I&D ABSCESS- SIMPLE,SINGLE 015 56356 I&D ABSCESS- SIMPLE,SINGLE 015 82300-EDBK SKIN LESIONS, OVER 4 01/27/20 17 29255-SHTE SKIN LESIONS, OVER 4 04/27/20 17 51580-JZTG SKIN LESIONS, OVER 4 08/15/20 19 30507-FJTW SKIN LESIONS, OVER 4 11/24/19 20 02926-XRKW SKIN LESIONS, OVER 4 09/30/20 18 95679-HIPA SKIN LESIONS, OVER 4 12/30/19 19 04102-VIME SKIN LESIONS, OVER 4 08/13/20 17 68288-YBPP SKIN LESIONS, OVER 4 12/28/19 18 12833-ZUJT SKIN LESIONS, OVER 4 04/01/20 18 07663-PLVE SKIN LESIONS, OVER 4 07/01/20 18 54944-EYLZ SKIN LESIONS, OVER 4 04/27/20 25 15737-HTMS SKIN LESIONS, OVER 4 11/06/20 25 21529-CYGL SKIN LESIONS, 2 TO 4 04/28/20 16 66234-MRKY SKIN LESIONS, 2 TO 4 08/04/20 16 14590-MZBZ SKIN LESIONS, 2 TO 4 07/19/20 15 23934-KFDO SKIN LESIONS, 2 TO 4 10/25/20 15 63730-TZSL SKIN LESIONS, 2 TO 4 01/24/20 16 39935-GUEX SKIN LESIONS, 2 TO 4 04/19/20 15 96413-VSTC SKIN LESIONS, 2 TO 4 01/06/20 13 07128-CLNQ SKIN LESIONS, 2 TO 4 01/17/20 15 74485-QRFK SKIN LESIONS, 2 TO 4 10/30/20 14 74587-DMRK SKIN LESIONS, 2 TO 4 07/11/20 13 09003-MNYT SKIN LESIONS, 2 TO 4 11/07/20 13 82150-IXBR SKIN LESIONS, 2 TO 4 03/06/20 14 41434-LLHE SKIN LESIONS, 2 TO 4 08/17/20 14 33167-HQFZ SKIN LESIONS, 2 TO 4 10/04/20 12 66759-DCVI SKIN LESIONS, 2 TO 4 04/11/20 13 45718-OOFF SKIN LESIONS, 2 TO 4 07/05/20 12 88973-RKLL SKIN LESION 04/12/2012 X2880-QLWLBYUK DYSTROPHIC NAILS ANY # J2936-KANKQNFM DYSTROPHIC NAILS ANY # W9936-HAVCDLCP DYSTROPHIC NAILS ANY # R6314-MGVDNLUL DYSTROPHIC NAILS ANY # C0760-IQGAWHWP DYSTROPHIC NAILS ANY # R3151-RBBGLDMO DYSTROPHIC NAILS ANY # X8351-ZZKDTHHN DYSTROPHIC NAILS ANY # R5875-SMJWAVAJ DYSTROPHIC NAILS ANY # S4388-TVVLFETG DYSTROPHIC NAILS ANY # J0970-SWXBMGRR DYSTROPHIC NAILS ANY # N4530-GJYKILQD DYSTROPHIC NAILS ANY # L9820-GCYACKVU DYSTROPHIC NAILS ANY # V8345-BWRCSVGJ DYSTROPHIC NAILS ANY # R8232-TCWNZPXF DYSTROPHIC NAILS ANY # F8231-VKTEXIUB DYSTROPHIC NAILS ANY # C7190-VLFINMBE DYSTROPHIC NAILS ANY # Q1157-PPMFERZO DYSTROPHIC NAILS ANY # X9528-RNLPTEIL DYSTROPHIC NAILS ANY # X9811-SFDRQNFQ DYSTROPHIC NAILS ANY # H9277-BLGNURCN DYSTROPHIC NAILS ANY # Z5123-BQVAPIRG DYSTROPHIC NAILS ANY # J0378-XWJNXTJC DYSTROPHIC NAILS ANY # O6782-LHEEPCXW DYSTROPHIC NAILS ANY # T0759-YDFFCKAY DYSTROPHIC NAILS ANY # B9719-KXLUKLIF DYSTROPHIC NAILS ANY # Next Appt Details Provider Name:Noelle Camargo , 02/19/2026 01:30:00 PM, [address] [place], [address], Insurance Providers Payer Name Payer Address Payer Phone Subscriber Number Group Number Insured Name Patient Relationship to Insured Coverage Start Date Coverage End Date Medicare [facility] [address] [place] [address] [id number] Alexsandra Thomas Self - patient is the insured 9 Medical (General) History Medical History History ICD Code transfusions psychiatric disorder chicken pox Gout diabetic depression hypercholesterolemia Anxiety disorder anemia crohns disease Arthritis asthma covid-19 High Blood Pressure Numbness Psoriasis/eczema Reflux ( GERD) Sciatica Vascular phlebitis (clots) Hallux valgus (acquired), right foot M20 .11 Other hammer toe(s) (acquired), right fo ot M20.41 Other hammer toe(s) (acquired), left dane t M20.42 Neuropathy G62.9 Surgical History Surgery Date(Month/Year) Hospitalization History Reason Date(Month/Year) [facility] [place]- pintch nerve 05/2017 [facility] asthma 4 days 08/2016 [facility]-severe anemia, needed 6 blood transf usions 09/16 [facility] - Kidney infection 03/2018
== END 2025-11-07 13:44 | disposition home or self-care (01) ==
LOC: HO.HMCSH 13:00
PROVIDERS: PCP Physician Assistant Medical; Visit Provider Physician Assistant Medical
DX: K50.90 Crohn's disease, unspecified, without complications (principal); E83.19 Other disorders of iron metabolism; D64.9 Anemia, unspecified; E11.9 Type 2 diabetes mellitus without complications; E66.01 Morbid (severe) obesity due to excess calories; Z68.42 Body mass index [BMI] 45.0-49.9, adult

== ENCOUNTER → 2025-11-07 13:00 | Outpatient (BNVA) | payer MEDICARE, MEDICAID, SELFPAY | PROVIDERS: PCP Physician Assistant Medical; Visit Provider Physician Assistant Medical | DX: E11.9 Type 2 diabetes mellitus without complications (principal); K50.90 Crohn's disease, unspecified, without complications; E83.19 Other disorders of iron metabolism; D64.9 Anemia, unspecified; E66.01 Morbid (severe) obesity due to excess calories; Z68.42 Body mass index [BMI] 45.0-49.9, adult; Z13.31 Encounter for screening for depression | CPT/HCPCS: 83036; 96127; 99212 ==